=== PATIENT | female | born 1945 | race African-American/Black ===

== ENCOUNTER 2020-06-26 11:13 | Outpatient (REF) | payer MEDICARE, SELFPAY | END 2020-06-26 11:14 | disposition home or self-care (01) | LOC: HO.LAB 11:13 | PROVIDERS: PCP Internal Medicine; Visit Provider Internal Medicine | DX: Z20.828 Contact with and (suspected) exposure to other viral communicable diseases (principal) | CPT/HCPCS: C9803; U0003 ==

== ENCOUNTER 2020-09-26 14:36 | Outpatient (REF) | payer MEDICARE, SELFPAY ==
--- NOTE | ~2020-09-26 | MM_ITS ---
EXAMINATION: MM DIAGNOSTIC DIGITAL BREAST TOMOSYNTHESIS, RIGHT CLINICAL INFORMATION: Short interval follow-up probable benign calcifications upper outer right breast. The lifetime risk of breast cancer based on the Tyrer-Cuzick Model is 4%. COMPARISON: Mammography: 01/27/2020, 01/25/2020 (BI-RADS 0), 12/13/2014 TECHNIQUE: Digital breast tomosynthesis is performed in both the craniocaudal and mediolateral oblique views along with computer-aided detection (CAD). Synthesized 2D images are generated from the tomosynthesis. Additional magnification right CC and magnification right ML views are obtained. FINDINGS: There are scattered areas of fibroglandular density (ACR BI-RADS breast composition Category b). There are no significant masses, abnormal calcifications, or other abnormalities. Parenchymal pattern is similar to prior exams. No developing density. The benign-appearing calcifications upper outer right breast are stable and will be reassessed again at time of annual bilateral mammography, due in 6 months. Results are provided to the patient at time of visit by the technologist. MM/MM tomosynthesis diagnostic RT IMPRESSION: There are no significant changes from prior study. ASSESSMENT: BI-RADS 3: Probably Benign RECOMMENDATION: Diagnostic mammography at time of annual exam, due in 6 months. This patient's information was entered into a reminder system with a target due date for their next mammogram.
== END 2020-09-26 14:37 | disposition home or self-care (01) ==
LOC: HO.MAMMO 14:36
PROVIDERS: PCP Internal Medicine; Visit Provider Internal Medicine
DX: R92.1 Mammographic calcification found on diagnostic imaging of breast (principal)
CPT/HCPCS: 77061; 77065

== ENCOUNTER 2021-03-19 11:56 | Outpatient (REF) | payer MEDICARE, SELFPAY ==
[2021-03-19 12:58] LABS: Basophils Percent Auto 0.3 % (0-2); Eosinophils Absolute Auto 0.1 X10*3/uL (0.0-0.4); Eosinophils Percent Auto 0.8 % (0-4); Hematocrit 43.6 % (37-47); Hemoglobin 13.6 g/dl (12.0-16.0); Imm Gran Abs Auto 0.02 X10*3/uL (0.00-0.03); Imm Gran Pct Auto 0.2 % (0.0-0.4); MANUAL DIFF FLAG SCAN; Mean Corpuscular HGB Conc 31.2 g/dl (31.0-35.0); Mean Platelet Volume 11.2 fL (9.4-12.3); Monocytes Absolute Auto 0.7 X10*3/uL (0.1-1.2); Monocytes Percent Auto 6.7 % (2-11); Neutrophils Absolute Auto 3.3 X10*3/uL (2.0-8.3); Platelet Count 213 X10*3/uL (160-400); Red Blood Count 4.54 X10*6/uL (4.20-5.50); Red Cell Distribution Width 13.2 % (11.0-16.0); SCAN SMEAR FLAG 1; White Blood Count 10.6 X10*3/uL (4.8-10.8)
[2021-03-19 13:07] LABS: Lymphocytes Absolute Auto 6.5 X10*3/uL (1.2-4.9)
[2021-03-19 13:12] LABS: Alanine Aminotransferase 17 U/L (0-31); Albumin Level 3.9 g/dL (3.5-5.0); Alkaline Phosphatase 74 U/L (39-117); Anion Gap 9 (12-20); Aspartate Amino Transferase 20 U/L (5-31); Bilirubin Total 0.5 mg/dL (0.0-1.0); Blood Urea Nitrogen 9 mg/dL (9-16); Calcium 9.2 mg/dL (8.4-10.2); Carbon Dioxide 29 mmol/L (22-29); Chloride 107 mmol/L (96-108); Cholesterol 200 mg/dL; Estimated Glomerular Filt Rate 50; Glucose Random 113 mg/dL (60-115); HDL Cholesterol 40 mg/dL; LDL Cholesterol Calculated 140 mg/dl; Magnesium 2.1 mg/dL (1.6-2.6); Potassium 4.3 mmol/L (3.3-5.1); Sodium 141 mmol/L (135-145); Total Protein 6.7 g/dL (6.5-8.0); Triglycerides 103 mg/dL
[2021-03-19 13:32] LABS: Free T4 (Free Thyroxine) 0.95 ng/dL (0.71-1.85); Thyroid Stimulating Hormone 0.83 uIU/mL (0.32-4.0); Vitamin D 25-OH Total 21.9 ng/mL (>30)
[2021-03-19 13:38] LABS: SLIDE REVIEW VERIFIED
[2021-03-19 14:06] LABS: Folate 17.6 ng/mL (> or = 4.0); Vitamin B12 465 pg/mL (200-900)
== END 2021-03-19 11:57 | disposition home or self-care (01) ==
LOC: HO.LAB 11:56
PROVIDERS: PCP Internal Medicine; Visit Provider Internal Medicine
DX: E78.00 Pure hypercholesterolemia, unspecified (principal); K21.9 Gastro-esophageal reflux disease without esophagitis
CPT/HCPCS: 36415; 80053; 80061; 82306; 82607; 82746; 83735; 84439; 84443; 85025

== ENCOUNTER 2021-03-22 09:24 | Outpatient (REF) | payer MEDICARE, SELFPAY ==
--- NOTE | ~2021-03-22 | FL_ITS ---
EXAMINATION: FL BARIUM SWALLOW CLINICAL INFORMATION: Chest discomfort while swallowing liquids and solids. COMPARISON: None TECHNIQUE: Barium swallow examination is performed using fluoroscopic evaluation in addition to multiple fluoroscopic spot views. The patient is imaged both upright and prone and using both thick and thin sulfate along with effervescent granules. Fluoroscopy time: 2.7 minutes DAP: 53.828 Gycm2 Images: 72 FINDINGS: Following oral administration of thick barium and barium coated turkey there is normal propagation of bolus from the oral cavity through the pharynx, esophagus into stomach without any evidence of obstruction, narrowing or stricture. On placing patient prone and supine lying there is moderate gastroesophageal reflux without hiatal hernia or gastroesophageal junction is widely patent. There are surgical carmen in the right upper quadrant from previous cholecystectomy. FL/FL barium swallow IMPRESSION: Widely patent esophagus. There is moderate gastroesophageal reflux without hiatal hernia.
== END 2021-03-22 09:25 | disposition home or self-care (01) ==
LOC: HO.XRAY 09:24
PROVIDERS: PCP Internal Medicine; Visit Provider Internal Medicine
DX: R13.10 Dysphagia, unspecified (principal); J45.909 Unspecified asthma, uncomplicated
CPT/HCPCS: 74220

== ENCOUNTER 2021-04-01 08:52 | Outpatient (REF) | payer MEDICARE, SELFPAY ==
--- NOTE | ~2021-04-01 | MM_ITS ---
EXAMINATION: MM DIAGNOSTIC DIGITAL BREAST TOMOSYNTHESIS, BILATERAL CLINICAL INFORMATION: Due for yearly. Also follow-up probable benign calcifications tightly grouped right breast upper outer quadrant. Family history breast cancer sister, aunt. The lifetime risk of breast cancer based on the Tyrer-Cuzick Model is 5%. COMPARISON: Mammography: 09/26/2020, 01/27/2020, 01/25/2020 (BI-RADS 0), 12/13/2014. TECHNIQUE: Digital breast tomosynthesis is performed in both the craniocaudal and mediolateral oblique views along with computer-aided detection (CAD). Synthesized 2D images are generated from the tomosynthesis. Additional magnification right CC and magnification right ML views are obtained. FINDINGS: There are scattered areas of fibroglandular density (ACR BI-RADS breast composition Category b). Parenchymal pattern is similar to prior studies. There is no developing density or interval mass or architectural abnormality. The axilla and skin contours are unremarkable. There is no interval suspicious calcifications. The small group of relatively coarse calcifications right breast mid upper outer quadrant are stable from prior diagnostic exams. These will be reassessed again at time of next bilateral annual mammography to conclude long-term surveillance. Results are provided to the patient at time of visit by the technologist. MM/MM tomosynthesis diagnostic BI IMPRESSION: 1. Right: Probable benign grouped calcifications for follow-up stable. No significant changes. 2. Left: No mammographic evidence of malignancy. ASSESSMENT: BI-RADS 3: Probably Benign RECOMMENDATION: Diagnostic mammography at time of next annual exam, due in 12 months. This patient's information was entered into a reminder system with a target due date for their next mammogram.
== END 2021-04-01 08:53 | disposition home or self-care (01) ==
LOC: HO.MAMMO 08:52
PROVIDERS: PCP Internal Medicine; Visit Provider Internal Medicine
DX: R92.2 Inconclusive mammogram (principal)
CPT/HCPCS: 77062; 77066

== ENCOUNTER 2021-04-22 14:04 | Outpatient (REF) | payer MEDICARE, SELFPAY | END 2021-04-22 14:05 | disposition home or self-care (01) | LOC: HO.LAB 14:04 | PROVIDERS: PCP Internal Medicine | DX: N39.41 Urge incontinence (principal) | CPT/HCPCS: 51798; 87086; 99202 ==

== ENCOUNTER → 2021-04-23 09:01 | Outpatient (BNVA) | payer MEDICARE, SELFPAY | PROVIDERS: PCP Internal Medicine; Visit Provider Advanced Practice Midwife ==

== ENCOUNTER → 2021-04-30 14:52 | Outpatient (BNV) | payer MEDICARE, OTHER, SELFPAY | PROVIDERS: PCP Internal Medicine; Visit Provider Internal Medicine Medical Oncology | DX: C88.4 Extranodal marginal zone B-cell lymphoma of mucosa-associated lymphoid tissue [MALT-lymphoma] (principal); K86.9 Disease of pancreas, unspecified | CPT/HCPCS: 99212; 99213; 99214 ==

== ENCOUNTER → 2021-05-08 15:03 | Outpatient (BNVA) | payer MEDICARE, SELFPAY | PROVIDERS: PCP Internal Medicine; Visit Provider Internal Medicine | DX: G47.33 Obstructive sleep apnea (adult) (pediatric) (principal); G47.10 Hypersomnia, unspecified; R06.00 Dyspnea, unspecified; E66.9 Obesity, unspecified; C88.4 Extranodal marginal zone B-cell lymphoma of mucosa-associated lymphoid tissue [MALT-lymphoma] | CPT/HCPCS: 99202 ==

== ENCOUNTER 2021-05-21 09:11 | Outpatient (REF) | payer MEDICARE, SELFPAY ==
--- NOTE | 2021-05-21 17:44 | PFT_ITS ---
INDICATION: Dyspnea. SPIROMETRY: The FEV1 to FVC of 92% with an FEV1 of 1.84 L, which is 98% predicted and an FVC 1.99 L, which is 79% predicted. No significant response to bronchodilators noted. Maximum voluntary ventilation 94% predicted. LUNG VOLUMES: Total lung capacity 66% predicted with an expiratory reserve volume of 35% predicted. DIFFUSION CAPACITY: DLCO of 77% predicted. COMPARISONS: None available. INTERPRETATION: There is a restrictive ventilatory defect, moderate in severity of unclear etiology. Interstitial lung conditions and/or neuromuscular conditions need to be considered. The patient also has a decrease in the expiratory reserve volume secondary to an elevated BMI, that may be also affecting the lung volumes. Her spirometry demonstrates no evidence of any obstruction and no significant response to bronchodilators noted. She has normal maximum voluntary ventilation. In addition to that, there is a mild diffusion impairment. Clinical correlation warranted. Viet Jorgensen MD MR/MODL / [id number]
== END 2021-05-21 09:12 | disposition home or self-care (01) ==
LOC: HO.SL 09:11
PROVIDERS: Visit Provider Internal Medicine
DX: G47.33 Obstructive sleep apnea (adult) (pediatric) (principal); E66.9 Obesity, unspecified; R06.00 Dyspnea, unspecified; G47.10 Hypersomnia, unspecified
CPT/HCPCS: 94060; 94727; 94729; 95806

== ENCOUNTER → 2021-05-24 08:51 | Outpatient (BNVA) | payer MEDICARE, SELFPAY | PROVIDERS: PCP Internal Medicine | DX: N39.41 Urge incontinence (principal) | CPT/HCPCS: Q3014 ==

== ENCOUNTER 2021-06-17 09:48 | Outpatient (REF) | payer MEDICARE, SELFPAY ==
[2021-06-17 11:22] LABS: Blood Urea Nitrogen 10 mg/dL (9-16); Estimated Glomerular Filt Rate > 60
[2021-06-17 11:28] LABS: Cholesterol 189 mg/dL; HDL Cholesterol 39 mg/dL; LDL Cholesterol Calculated 133 mg/dl; Triglycerides 88 mg/dL
== END 2021-06-17 09:49 | disposition home or self-care (01) ==
LOC: HO.LAB 09:48
PROVIDERS: Nurse Practitioner Family; Absent Provider Internal Medicine; PCP Internal Medicine; Visit Provider Internal Medicine
DX: R06.00 Dyspnea, unspecified (principal); R91.1 Solitary pulmonary nodule; J98.4 Other disorders of lung; G47.33 Obstructive sleep apnea (adult) (pediatric); E78.00 Pure hypercholesterolemia, unspecified; E66.9 Obesity, unspecified
CPT/HCPCS: 36415; 80061; 82565; 84520; 99212

== ENCOUNTER 2021-06-17 11:58 | Outpatient (REF) | payer MEDICARE, SELFPAY ==
[2021-06-17 12:33] LABS: COVID-19 Test Negative (Negative)
== END 2021-06-17 11:59 | disposition home or self-care (01) ==
LOC: HO.LAB 11:58
PROVIDERS: Visit Provider Internal Medicine
DX: Z20.822 Contact with and (suspected) exposure to COVID-19 (principal)
CPT/HCPCS: 36415; 87635; C9803

== ENCOUNTER 2021-06-24 11:01 | Outpatient (REF) | payer MEDICARE, SELFPAY ==
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
== END 2021-06-24 11:02 | disposition home or self-care (01) ==
LOC: HO.MRI 11:01
PROVIDERS: Visit Provider Internal Medicine
DX: K86.89 Other specified diseases of pancreas (principal)
CPT/HCPCS: 74183; A9585

== ENCOUNTER 2021-07-03 07:51 | Outpatient (REF) | payer MEDICARE, SELFPAY ==
--- NOTE | ~2021-07-03 | CT_ITS ---
EXAMINATION: CT CHEST WITH CONTRAST CLINICAL INFORMATION: Follow-up pulmonary nodule COMPARISON: Previous chest CT scans most recent March 2020 TECHNIQUE: Multidetector volumetric CT imaging of the chest was obtained after the administration of 50 mL of Omnipaque 350 intravenous contrast without immediate adverse reactions. Axial MIP volume rendering provided. Sagittal and coronal reformatted images were obtained. This CT examination was performed using dose optimization techniques as appropriate, variously including the following: *Automated exposure control *Adjustment of mA and/or kV according to patient size (this includes techniques or standardized protocols for targeted exams where dose is matched to indication/reason for exam; i.e. extremities or head) *Use of iterative reconstruction technique DLP: 172 mGy-cm FINDINGS: LUNGS: There are bilateral groundglass attenuation nodules and areas of increased groundglass attenuation seen. This does not appear appreciably changed. Largest nodule measures 8 mm in the right lower lobe axial image 79 series 7. There are postsurgical changes to the right middle lobe. There is a 1 cm denser or more solid-appearing nodule axial image 67 series 7 seen adjacent to the surgical staple line and surrounding groundglass attenuation that is stable. There is a 4 mm solid left lower lobe nodule axial image 136 series 7 that is stable. No new pulmonary nodule is seen. MEDIASTINUM: The mediastinum is normal. PLEURA: There is no pleural effusion. No pleural mass or thickening. AXILLA: No lymphadenopathy. UPPER ABDOMEN: There is a 2 cm cyst in the head of the pancreas that is stable. The gallbladder has been removed. There is a small cyst in the peripheral liver adjacent to the gallbladder fossa measuring 1.2 x 3 cm that is stable. There is a 5 mm low-attenuation lesion high in the dome of the liver axial image 31 series 3 that is stable. OSSEOUS STRUCTURES: There are degenerative changes of the spine. CT/CT chest w con IMPRESSION: Stable bilateral groundglass attenuation nodules. Stable more solid-appearing 1 cm right middle lobe nodule adjacent to the surgical staple line and 4 mm left lower lobe nodule. Fleischner guidelines were followed.
== END 2021-07-03 07:52 | disposition home or self-care (01) ==
LOC: HO.CT 07:51
PROVIDERS: Visit Provider Nurse Practitioner Family
DX: R91.1 Solitary pulmonary nodule (principal)
CPT/HCPCS: 71260

== ENCOUNTER → 2021-08-22 09:33 | Outpatient (BNVA) | payer OTHER, SELFPAY | PROVIDERS: PCP Internal Medicine; Visit Provider Internal Medicine | DX: J98.4 Other disorders of lung (principal); R91.1 Solitary pulmonary nodule; G47.33 Obstructive sleep apnea (adult) (pediatric); E66.9 Obesity, unspecified; Z68.41 Body mass index [BMI] 40.0-44.9, adult | CPT/HCPCS: 99212 ==

== ENCOUNTER 2021-09-05 12:29 | Outpatient (REF) | payer OTHER, SELFPAY ==
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
== END 2021-09-05 12:30 | disposition home or self-care (01) ==
LOC: HO.XRAY 12:29
PROVIDERS: PCP Internal Medicine; Visit Provider Nurse Practitioner Acute Care
DX: M54.50 Low back pain, unspecified (principal); M25.551 Pain in right hip
CPT/HCPCS: 72110; 73502

== ENCOUNTER → 2021-11-14 09:20 | Outpatient (BNVA) | payer OTHER, SELFPAY | PROVIDERS: PCP Internal Medicine; Visit Provider Internal Medicine | DX: G47.33 Obstructive sleep apnea (adult) (pediatric) (principal); J98.4 Other disorders of lung; R91.1 Solitary pulmonary nodule; J30.9 Allergic rhinitis, unspecified; E66.9 Obesity, unspecified; Z68.41 Body mass index [BMI] 40.0-44.9, adult | CPT/HCPCS: 99212 ==

== ENCOUNTER 2021-11-21 11:00 | Outpatient (RCR) | payer OTHER, SELFPAY ==
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
== END 2021-12-03 11:54 | disposition home or self-care (01) ==
LOC: HO.PT 11:00
PROVIDERS: Visit Provider Internal Medicine
DX: M25.551 Pain in right hip (principal); M54.50 Low back pain, unspecified; V89.2XXD Person injured in unspecified motor-vehicle accident, traffic, subsequent encounter
CPT/HCPCS: 97110; 97162

== ENCOUNTER 2021-11-22 08:41 | Outpatient (REF) | payer OTHER, SELFPAY ==
--- NOTE | ~2021-11-22 | MR_ITS ---
EXAMINATION: MR LUMBAR SPINE WITHOUT CONTRAST CLINICAL INFORMATION: Lower back pain. COMPARISON: Lumbar spine radiographs from 09/05/2021. PET/CT from 01/22/2017. TECHNIQUE: MRI of the lumbar spine was obtained using routine sequences without contrast. FINDINGS: Degenerative grade 1 anterolisthesis of L4 on L5. Otherwise, normal anatomic alignment. Moderate degenerative disc disease from T10-L1 and L3-S1. Mild degenerative disc disease at L1-L2. Associated mixed Modic type discogenic endplate changes including mild Modic type I discogenic edema from T11-L4 and L2-L5. Mild marrow edema within the L4-S1 facets consistent with degenerative stress reaction. No additional suspicious marrow edema. Small Schmorl's node in the inferior endplate of T10. Otherwise, the vertebral body heights are largely maintained. The conus medullaris terminates at the level of L2. The distal spinal cord is normal in appearance. Moderate subcutaneous edema within the soft tissues of the back from T12-L5. No additional significant abnormalities of the paraspinal musculature. Bilateral peripelvic T2 hyperintense renal cysts. Otherwise, limited evaluation of the intra-abdominal structures without significant abnormalities. The abdominal aorta is of normal contour and caliber. AXIAL SPINAL LEVELS: T11-T12: This level was not included on axial imaging. Mild to moderate diffuse disc bulge. There is mild bilateral neural foraminal stenosis. There is no spinal canal stenosis. T12-L1: Mild to moderate diffuse disc bulge. There is mild bilateral facet joint arthropathy. There is mild right and no left neural foraminal stenosis. There is no spinal canal stenosis. L1-L2: Shallow diffuse disc bulge. There is mild bilateral facet joint arthropathy. There is mild bilateral neural foraminal stenosis. There is no spinal canal stenosis. L2-L3: Normal annular contour. There is moderate right and mild left facet joint arthropathy. There is mild bilateral neural foraminal stenosis. There is no spinal canal stenosis. L3-L4: Mild diffuse disc bulge. There is moderate bilateral facet joint arthropathy with ligamentum flavum hypertrophy. There is mild bilateral neural foraminal stenosis. There is stenosis of the subarticular zones with mild to moderate effacement of the thecal sac centrally exacerbated by prominent epidural lipomatous tissue. L4-L5: Moderate diffuse disc bulge exacerbated by uncovering from anterolisthesis. There is severe bilateral facet joint arthropathy. There is mild to moderate bilateral neural foraminal stenosis. There is stenosis of the subarticular zones with moderate effacement of the thecal sac centrally exacerbated by prominent epidural lipomatous tissue. L5-S1: Normal annular contour. There is severe bilateral facet joint arthropathy. There is no neural foraminal stenosis. There is no spinal canal stenosis. MR/MR lumbar spine wo con IMPRESSION: Moderate multilevel degenerative spondyloarthropathy of the lumbar spine as described in detail above. Most notably, multifactorial degenerative spondyloarthropathy exacerbated by prominent epidural lipomatous tissue leads to stenoses of the subarticular zones and mild to moderate effacement of the thecal sac at L3-L4 and L4-L5. Advanced facet joint arthropathy at L4-L5 and L5-S1.
== END 2021-11-22 08:42 | disposition home or self-care (01) ==
LOC: HO.MRI 08:41
PROVIDERS: Visit Provider Internal Medicine
DX: M54.50 Low back pain, unspecified (principal)
CPT/HCPCS: 72148

== ENCOUNTER → 2021-12-31 08:42 | Outpatient (BNVA) | payer OTHER, SELFPAY | PROVIDERS: PCP Internal Medicine | DX: Z13.89 Encounter for screening for other disorder (principal) | CPT/HCPCS: Q3014 ==

== ENCOUNTER → 2022-01-16 09:49 | Outpatient (BNVA) | payer OTHER, SELFPAY | PROVIDERS: PCP Internal Medicine; Visit Provider Internal Medicine | DX: R06.00 Dyspnea, unspecified (principal); G47.33 Obstructive sleep apnea (adult) (pediatric); E66.9 Obesity, unspecified; R91.1 Solitary pulmonary nodule; J98.4 Other disorders of lung; Z68.41 Body mass index [BMI] 40.0-44.9, adult | CPT/HCPCS: 99212 ==

== ENCOUNTER 2022-02-04 09:07 | Outpatient (REF) | payer OTHER, SELFPAY ==
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
== END 2022-02-04 09:08 | disposition home or self-care (01) ==
LOC: HO.XRAY 09:07
PROVIDERS: PCP Internal Medicine; Visit Provider Internal Medicine
DX: J40 Bronchitis, not specified as acute or chronic (principal); Z79.899 Other long term (current) drug therapy
CPT/HCPCS: 71046; 99212

== ENCOUNTER → 2022-03-18 10:57 | Outpatient (BNVA) | payer OTHER, SELFPAY | PROVIDERS: PCP Internal Medicine; Visit Provider Internal Medicine | DX: G47.33 Obstructive sleep apnea (adult) (pediatric) (principal); G47.10 Hypersomnia, unspecified; E66.9 Obesity, unspecified; Z68.41 Body mass index [BMI] 40.0-44.9, adult | CPT/HCPCS: 99212 ==

== ENCOUNTER 2022-03-26 09:00 | Outpatient (RCR) | payer OTHER, SELFPAY ==
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
== END 2022-03-28 10:21 | disposition home or self-care (01) ==
LOC: HO.PT 09:00
PROVIDERS: PCP Internal Medicine; Visit Provider Internal Medicine
DX: M25.551 Pain in right hip (principal); M54.50 Low back pain, unspecified; V89.2XXD Person injured in unspecified motor-vehicle accident, traffic, subsequent encounter
CPT/HCPCS: 97110; 97161; 97530

== ENCOUNTER 2022-04-02 08:50 | Outpatient (REF) | payer OTHER, SELFPAY ==
--- NOTE | ~2022-04-02 | MM_ITS ---
EXAMINATION: MM DIAGNOSTIC DIGITAL BREAST TOMOSYNTHESIS, BILATERAL CLINICAL INFORMATION: Follow-up right breast calcifications. Yearly screening left breast study. The lifetime risk of breast cancer based on the Tyrer-Cuzick Model is 6%. COMPARISON: Mammography: April 01, 2021 and studies dating back to December 07, 2012 TECHNIQUE: Digital breast tomosynthesis is performed in both the craniocaudal and mediolateral oblique views along with computer-aided detection (CAD). Synthesized 2D images are generated from the tomosynthesis. Additional spot magnification views of the right breast in craniocaudal and 90 degree mediolateral views performed. FINDINGS: There are scattered areas of fibroglandular density (ACR BI-RADS breast composition Category b). There are no new significant masses, abnormal calcifications, or other abnormalities. Right breast calcifications have been stable for 2 years. Results are provided to the patient at time of visit by the technologist. MM/MM tomosynthesis diagnostic BI IMPRESSION: There are no significant changes from prior study. ASSESSMENT: BI-RADS 2: Benign RECOMMENDATION: Routine annual mammography screening. This patient's information was entered into a reminder system with a target due date for their next mammogram.
== END 2022-04-02 08:51 | disposition home or self-care (01) ==
LOC: HO.MAMMO 08:50
PROVIDERS: PCP Internal Medicine; Visit Provider Internal Medicine
DX: R92.1 Mammographic calcification found on diagnostic imaging of breast (principal)
CPT/HCPCS: 77062; 77066

== ENCOUNTER → 2022-04-23 09:54 | Outpatient (BNVA) | payer OTHER, SELFPAY | PROVIDERS: PCP Internal Medicine; Visit Provider Internal Medicine | DX: G47.33 Obstructive sleep apnea (adult) (pediatric) (principal); E66.9 Obesity, unspecified; Z68.41 Body mass index [BMI] 40.0-44.9, adult; G47.10 Hypersomnia, unspecified; J98.4 Other disorders of lung; R91.1 Solitary pulmonary nodule; Z99.89 Dependence on other enabling machines and devices | CPT/HCPCS: 99212 ==

== ENCOUNTER 2022-04-28 10:16 | Outpatient (REF) | payer OTHER, SELFPAY ==
[2022-05-02 03:52] LABS: HPV mRNA E6/E7 rflx Not Detected (Not Detected)
== END 2022-04-28 10:17 | disposition home or self-care (01) ==
LOC: HO.LNP 10:16
PROVIDERS: Visit Provider Advanced Practice Midwife
DX: Z01.419 Encounter for gynecological examination (general) (routine) without abnormal findings (principal); Z11.51 Encounter for screening for human papillomavirus (HPV)
CPT/HCPCS: 87624; 88142

== ENCOUNTER 2022-05-23 10:29 | Outpatient (REF) | payer OTHER, SELFPAY ==
--- NOTE | ~2022-05-23 | US_ITS ---
EXAMINATION: US PELVIS CLINICAL INFORMATION: Right lower quadrant pain COMPARISON: Previous CT of the abdomen and pelvis May 2017 TECHNIQUE: Ultrasound of the pelvis is performed using both transabdominal and transvaginal transducers along with Doppler. Transvaginal imaging is performed due to inadequate visualization transabdominally. FINDINGS: The uterus is anteverted and measures 6.9 x 2.9 x 4.4 cm in dimension. No focal uterine lesion. Endometrial thickness is normal measuring 0.3 cm. The ovaries are not seen. There is no fluid in the pelvis. US/US pelvic and transvaginal IMPRESSION: Normal-appearing uterus. Ovaries not seen.
== END 2022-05-23 10:30 | disposition home or self-care (01) ==
LOC: HO.US 10:29
PROVIDERS: Visit Provider Advanced Practice Midwife
DX: R10.31 Right lower quadrant pain (principal)
CPT/HCPCS: 76830; 76856

== ENCOUNTER 2022-06-02 07:48 | Outpatient (REF) | payer OTHER, SELFPAY ==
--- NOTE | ~2022-06-02 | CT_ITS ---
EXAMINATION: CT CHEST WITH CONTRAST CLINICAL INFORMATION: Solitary pulmonary nodule. COMPARISON: Chest radiograph 02/04/2022, CT chest 07/03/2021. TECHNIQUE: Multidetector volumetric CT imaging of the chest was obtained after the administration of 65 mL of Omnipaque 350 intravenous contrast without immediate adverse reactions. Axial MIP volume rendering provided. Sagittal and coronal reformatted images were obtained. This CT examination was performed using dose optimization techniques as appropriate, variously including the following: *Automated exposure control *Adjustment of mA and/or kV according to patient size (this includes techniques or standardized protocols for targeted exams where dose is matched to indication/reason for exam; i.e. extremities or head) *Use of iterative reconstruction technique DLP: 161 mGy-cm FINDINGS: LUNGS: In the right middle lobe, again seen is a suture line extending from the infrahilar region into the right middle lobe. Adjacent to the fissure is an approximately 1 cm of rounded opacity unchanged from prior (7:60), possibly round atelectasis. Small ground-glass opacity at the right apex is unchanged (7:24 compare prior 7:32). An additional ground-glass opacity in the anterior recess medially appears slightly smaller now measuring 9 mm previously 1.5 cm (7:36 compare prior 7:41). Two ground-glass opacities adjacent to one another in the left upper lobe are unchanged (7:47). Some scattered punctate nodular densities are unchanged. Left-sided peridiaphragmatic 3 mm nodule unchanged (7:126). No new worrisome finding is seen. MEDIASTINUM: Small lymph nodes are present but there is no mediastinal or hilar lymphadenopathy. A subcentimeter right thyroid nodule is present. CORONARY ARTERY CALCIFICATION: None visualized on this study. PLEURA: There is no pleural effusion. No pleural mass or thickening. AXILLA: No lymphadenopathy. UPPER ABDOMEN: Tiny subcentimeter hypodensity just below the dome of the right hemidiaphragm unchanged (7:97). Status post cholecystectomy. No adrenal masses are seen. OSSEOUS STRUCTURES: Unremarkable. CT/CT chest w IV con IMPRESSION: 1. Stable postsurgical changes in the right middle lobe with stable rounded opacity adjacent to the fissure, possibly round atelectasis. 2. Ground-glass opacities in the lungs are unchanged. 3. No new worrisome finding is seen. CT at 6-12 months to confirm persistence, then CT every 2 years until 5 years if it persists. Fleischner guidelines were followed.
[2022-06-02] MEDS: iohexoL 350 MG/ML 100 ML INFUS..BTL IV (08:46)
[2022-06-03 09:39] LABS: Creatinine POC 0.6 mg/dL (0.5-1.4); GFR POC > 60
== END 2022-06-02 07:49 | disposition home or self-care (01) ==
LOC: HO.CT 07:48
PROVIDERS: PCP Internal Medicine; Visit Provider Internal Medicine Medical Oncology
DX: R91.1 Solitary pulmonary nodule (principal)
CPT/HCPCS: 71260; 82565; Q9967

== ENCOUNTER 2022-06-03 07:52 | Outpatient (REF) | payer OTHER, SELFPAY ==
--- NOTE | ~2022-06-03 | US_ITS ---
EXAMINATION: US RETROPERITONEAL LIMITED (RENAL ONLY) CLINICAL INFORMATION: Cyst of kidney, acquired. COMPARISON: MR abdomen without and with contrast 06/24/2021. CT chest, abdomen and pelvis with IV contrast 05/28/2017. TECHNIQUE: Real-time imaging of the kidneys. FINDINGS: RIGHT KIDNEY: 9.9 x 5.3 x 5.0 cm (SAG x AP x TRV). The kidney is normal in size, contour, and echogenicity. Renal cortical thickness is normal. There is a 4 mm echogenic density in the lower pole. Appearance is questionable for stone, calcified vessel or angiomyolipoma. No corresponding abnormality is appreciated on prior CT or MRI. No hydronephrosis. LEFT KIDNEY: 9.2 x 5.7 x 4.5 cm (SAG x AP x TRV). The kidney is normal in size, contour, and echogenicity. Renal cortical thickness is normal. There are peripelvic cysts. The largest measures 1.7 x 1.1 x 1 cm in the mid to lower pole. No renal calculi or hydronephrosis. US/US renal BI IMPRESSION: Left renal peripelvic cysts not appreciably changed from previous exam. 4 mm nonspecific echogenic density in the lower pole of the right kidney..
== END 2022-06-03 07:53 | disposition home or self-care (01) ==
LOC: HO.US 07:52
DX: N28.1 Cyst of kidney, acquired (principal)
CPT/HCPCS: 76775

== ENCOUNTER → 2022-06-05 11:57 | Outpatient (BNVA) | payer OTHER, SELFPAY | PROVIDERS: PCP Internal Medicine; Visit Provider Advanced Practice Midwife | DX: Z71.2 Person consulting for explanation of examination or test findings (principal) | CPT/HCPCS: 99212 ==

== ENCOUNTER 2022-06-23 19:01 | Outpatient (REF) | payer OTHER, SELFPAY ==
--- NOTE | ~2022-06-23 | MR_ITS ---
EXAMINATION: MR ABDOMEN WITHOUT AND WITH CONTRAST CLINICAL INFORMATION: Follow-up pancreatic mass COMPARISON: Previous MR of the abdomen, most recent June [address] of the abdomen and pelvis May 2017 TECHNIQUE: MR abdomen was performed without and with use of 10 mL intravenous Gadavist gadolinium contrast. Postcontrast images are performed in multiphase dynamic sequences. Imaging was performed in 3 planes. MRCP sequences were also performed. FINDINGS: LUNG BASES: The visualized lung bases are unremarkable. LIVER, GALLBLADDER, AND BILIARY TREE: The liver is normal in size, smooth in contour, and normal in signal. There are several liver cysts that are stable largest measuring 0.9 x 1.2 cm medial segment of the left lobe. No other focal liver lesion. The gallbladder has been removed. No intra or extrahepatic biliary duct dilatation. PANCREAS: Complex multiloculated cyst in the uncinate process of the head of the pancreas measures 1.6 x 2.4 cm for example T2 axial image 19 series 5. This does not appear appreciably changed in size from recent exams. No solid component or enhancement is appreciated. There may be several tiny cysts in the body and tail the pancreas versus dilated pancreatic duct radicles. These measure maximum 2 to 3 mm. Pancreas is otherwise normal. The main pancreatic duct does not appear dilated.. SPLEEN: Normal. ADRENAL GLANDS: Normal. KIDNEYS AND URETERS: The kidneys are normal in size, shape, and enhance symmetrically. Bilateral renal peripelvic cysts. No hydronephrosis. No perinephric stranding. GASTROINTESTINAL TRACT: No bowel obstruction. No ascites or fluid collection. ABDOMINAL WALL: No significant hernia is appreciated. LYMPH NODES: No lymphadenopathy. VASCULAR: Unremarkable. OSSEOUS STRUCTURES: Marrow signal normal. Degenerative changes of the spine. MR/MR abdomen wo/w con IMPRESSION: Stable multiloculated cystic lesion in the head of the pancreas from recent exams.
== END 2022-06-23 19:02 | disposition home or self-care (01) ==
LOC: HO.MRI 19:01
PROVIDERS: Visit Provider Internal Medicine Medical Oncology
DX: K86.89 Other specified diseases of pancreas (principal)
CPT/HCPCS: 74183; A9585

== ENCOUNTER → 2022-07-03 12:41 | Outpatient (BNVA) | payer OTHER, SELFPAY | PROVIDERS: PCP Internal Medicine; Visit Provider Urology | DX: N39.41 Urge incontinence (principal); N28.1 Cyst of kidney, acquired | CPT/HCPCS: 51798; 99212 ==

== ENCOUNTER 2022-07-07 08:05 | Outpatient (REF) | payer OTHER, SELFPAY ==
--- NOTE | ~2022-07-07 | MR_ITS ---
EXAMINATION: MRI PELVIS WITH AND WITHOUT CONTRAST CLINICAL INFORMATION: Reason for Exam R10.2 - Pelvic and perineal pain COMPARISON: No pertinent priors currently available. TECHNIQUE: Multiple routine MRI sequences through the pelvis were obtained on a high-field 1.5 [place] MRI before and after the uneventful administration of 10 mL of Gadavist gadolinium-based IV contrast. FINDINGS: UTERUS: Anteverted uterus has a normal configuration and measures 7 cm [id number] x 2.3 cm anterior-posterior x 4.2 cm transverse. Normal endometrial thickness, 0.2 cm. Junctional zone is normal in signal and thickness. 1.1 cm T2 dark lesion at the uterine fundus. This is isointense to the surrounding uterine parenchyma on T1-weighted imaging. This is relatively hypoenhancing. This is most suggestive of a fibroid. No additional uterine lesion. CERVIX: Normal. VAGINA: Normal; no mass seen. RIGHT OVARY: The right ovary measures 1.4 x 0.9 x 1.3 cm. No adnexal mass. LEFT OVARY: The left ovary is not well seen. No adnexal mass. KIDNEYS: Two normally positioned kidneys are seen. No hydronephrosis. BLADDER: Urinary bladder normal. PELVIC FREE FLUID: No free fluid or ascites. LYMPH NODES: No pathologically enlarged lymph nodes. OSSEOUS STRUCTURES: No acute or suspicious osseous abnormalities. Mild degenerative change along the pubic symphysis. MR/MR pelvis wo/w con IMPRESSION: 1. No adnexal mass. 2. Small uterine fibroid.
== END 2022-07-07 08:06 | disposition home or self-care (01) ==
LOC: HO.MRI 08:05
PROVIDERS: Visit Provider Advanced Practice Midwife
DX: R10.2 Pelvic and perineal pain (principal)
CPT/HCPCS: 72197; A9585

== ENCOUNTER → 2022-07-29 09:55 | Outpatient (BNVA) | payer OTHER, SELFPAY | PROVIDERS: PCP Internal Medicine; Visit Provider Internal Medicine | DX: G47.33 Obstructive sleep apnea (adult) (pediatric) (principal); E66.9 Obesity, unspecified; Z68.41 Body mass index [BMI] 40.0-44.9, adult; R06.00 Dyspnea, unspecified; J98.4 Other disorders of lung; Z99.89 Dependence on other enabling machines and devices | CPT/HCPCS: 99212 ==

== ENCOUNTER → 2022-10-08 09:46 | Outpatient (BNVA) | payer OTHER, SELFPAY | PROVIDERS: PCP Internal Medicine; Visit Provider Internal Medicine | DX: Z13.89 Encounter for screening for other disorder (principal) ==

== ENCOUNTER → 2022-11-20 14:18 | Outpatient (BNVA) | payer OTHER, SELFPAY | PROVIDERS: PCP Internal Medicine; Visit Provider Urology | DX: N32.81 Overactive bladder (principal); N39.41 Urge incontinence; N28.1 Cyst of kidney, acquired; N95.2 Postmenopausal atrophic vaginitis; Z79.899 Other long term (current) drug therapy | CPT/HCPCS: 52000 ==

== ENCOUNTER 2023-01-06 15:28 | Outpatient (REF) | payer MEDICARE, SELFPAY ==
[2023-01-06 17:04] LABS: Basophils Absolute Auto 0.1 X10*3/uL (0.0-0.2); Basophils Percent Auto 0.3 % (0-2); Eosinophils Absolute Auto 0.1 X10*3/uL (0.0-0.4); Eosinophils Percent Auto 0.7 % (0-4); Hematocrit 42.5 % (37.0-47.0); Hemoglobin 13.3 g/dl (12.0-16.0); Imm Gran Abs Auto 0.04 X10*3/uL (0.00-0.03); Imm Gran Pct Auto 0.2 % (0.0-0.4); Lymphocytes Percent Auto 74.4 % (20-40); MANUAL DIFF FLAG SCAN; Mean Corpuscular HGB Conc 31.3 g/dl (31.0-35.0); Mean Corpuscular Hemoglobin 30.6 pg (27.0-33.0); Mean Corpuscular Volume 97.7 fL (80.0-98.0); Mean Platelet Volume 11.1 fL (9.4-12.3); Monocytes Absolute Auto 0.8 X10*3/uL (0.1-1.2); NRBC Pct Auto 0.1 /100WBC (0.0-0.2); Neutrophils Absolute Auto 3.9 x10*3/uL (2.0-8.3); Neutrophils Percent Auto 20.4 % (45-73); Platelet Count 194 X10*3/uL (160-400); Red Blood Count 4.35 X10*6/uL (4.20-5.50); Red Cell Distribution Width 13.2 % (11.0-16.0); SCAN SMEAR FLAG 1
[2023-01-06 18:09] LABS: Lymphocytes Absolute Auto 14.2 X10*3/uL (1.2-4.9)
[2023-01-06 18:19] LABS: SLIDE REVIEW VERIFIED
== END 2023-01-06 15:29 | disposition home or self-care (01) ==
LOC: HO.LAB 15:28
PROVIDERS: PCP Internal Medicine; Visit Provider Internal Medicine
DX: E66.9 Obesity, unspecified (principal); G47.33 Obstructive sleep apnea (adult) (pediatric); J98.4 Other disorders of lung; J30.9 Allergic rhinitis, unspecified; D72.829 Elevated white blood cell count, unspecified; Z79.899 Other long term (current) drug therapy
CPT/HCPCS: 36415; 85025; 99212

== ENCOUNTER 2023-01-15 06:03 | Outpatient (REF) | payer MEDICARE, SELFPAY ==
[2023-01-15 08:10] LABS: Appearance Urine Clear; Color Urine Yellow; Glucose Urine UA Negative (Negative); Leukocyte Esterase Urine Moderate (2+) (Negative); Nitrite Urine Negative (Negative); PH 5.5 (5.0-9.0); Specific Gravity - Urine 1.025 (1.005-1.025); UMIC TRIGGER UA YES; Urine Blood Small (1+) (Negative); Urine Ketones Negative (Negative); Urine Protein Trace mg/dL (Neg-Trace)
[2023-01-15 08:17] LABS: Bacteria Urine None Seen (None Seen); Hyaline Casts Urine 0-2 /LPF (0-2); Squamous Epithelial Cell Urine 0-2 /HPF (0-2); WBC Urine 21-50 /HPF (0-5)
[2023-01-15 09:01] LABS: Estimated Average Glucose 128 mg/dL; Hemoglobin A1c % 6.1 %
[2023-01-15 11:07] LABS: Alanine Aminotransferase 16 U/L (0-31); Albumin Level 3.9 g/dL (3.5-5.0); Alkaline Phosphatase 80 U/L (39-117); Anion Gap 13 (12-20); Aspartate Amino Transferase 22 U/L (5-31); Bilirubin Total 0.6 mg/dL (0.0-1.0); Blood Urea Nitrogen 14 mg/dL (9-16); Calcium 9.4 mg/dL (8.4-10.2); Carbon Dioxide 25 mmol/L (22-29); Chloride 108 mmol/L (96-108); Cholesterol 177 mg/dL; Estimated Glomerular Filt Rate 52; Glucose Random 123 mg/dL (60-115); HDL Cholesterol 44 mg/dL; LDL Cholesterol Calculated 116 mg/dl; Sodium 142 mmol/L (135-145); Total Protein 6.9 g/dL (6.5-8.0); Triglycerides 88 mg/dL
[2023-01-15 11:24] LABS: Free T4 (Free Thyroxine) 0.93 ng/dL (0.71-1.85); Vitamin D 25-OH Total 21.3 ng/mL (>30)
[2023-01-15 11:37] LABS: Vitamin B12 438 pg/mL (200-900)
== END 2023-01-15 06:04 | disposition home or self-care (01) ==
LOC: HO.LAB 06:03
PROVIDERS: PCP Internal Medicine; Visit Provider Internal Medicine
DX: R73.01 Impaired fasting glucose (principal); E78.00 Pure hypercholesterolemia, unspecified; E55.9 Vitamin D deficiency, unspecified; M85.80 Other specified disorders of bone density and structure, unspecified site
CPT/HCPCS: 36415; 80053; 80061; 81001; 82306; 82607; 82746; 83036; 84439; 84443

== ENCOUNTER 2023-01-21 12:10 | Outpatient (REF) | payer MEDICARE, SELFPAY ==
--- NOTE | ~2023-01-21 | US_ITS ---
EXAMINATION: US THYROID CLINICAL INFORMATION: Dysphagia COMPARISON: None available. TECHNIQUE: Linear transducer grayscale and color Doppler examination with attention to the region of the thyroid. FINDINGS: SIZE: Measurements of the thyroid lobes and nodules are given in sagittal, anteroposterior and transverse dimensions respectively. Right Thyroid Lobe: 4.8 x 1.3 x 1.4 cm, volume 4.8 mL. Parenchyma: The gland echotexture is homogeneous. Thyroid vascularity is normal. Left Thyroid Lobe: 5.6 x 1.7 x 1.4 cm, volume 6.9 mL. Parenchyma: The gland echotexture is homogeneous. Thyroid vascularity is normal. Isthmus: 0.4 cm in maximum AP dimension. Estimated total number of nodules greater than or equal to 1 cm: 0. [employer] nodules are described as follows: 1. Location: Isthmus. Size: 0.5 x 0.3 x 0.6 cm, volume 0.05 mL. Nodule characteristics: Composition: Cystic(0). ACR TI-RADS total points: 0 ACR TI-RADS category: 1 2. Location: Right thyroid midpole. Size: 0.5 x 0.4 x 0.5 cm, volume 0.05 mL. Nodule characteristics: Composition: Solid (2). Echogenicity: Hypoechoic (2). Shape: Not taller than wide (0). Margins: Ill-defined (0). Echogenic Foci: None (0). ACR TI-RADS total points: 4 ACR TI-RADS category: 4 3. Location: Left thyroid upper. Size: 0.4 x 0.3 x 0.4 cm, volume 0.05 mL. Nodule characteristics: Composition: Solid (2). Echogenicity: Hypoechoic (2). Shape: Not taller than wide (0). Margins: Ill-defined (0). Echogenic Foci: None (0). ACR TI-RADS total points: 4 ACR TI-RADS category: 4 There are additional small cysts. NODES: There are prominent bilateral lymph nodes. Largest right cervical lymph node measures 2.2 x 0.8 x 1.6 cm. Largest left cervical lymph node measures 2.1 x 1 x 1.4 cm. These demonstrate normal ultrasound morphology and flow. US/US thyroid IMPRESSION: Normal size thyroid gland. Small bilateral thyroid nodules. According to TI RADS criteria no ultrasound follow-up or fine-needle aspiration recommended. Prominent bilateral cervical lymph nodes. ACR TI-RADS RECOMMENDATION REFERENCE: Ultrasound-guided fine-needle aspiration, followup ultrasound, no further follow up. * TR1 (0 point) and TR2 (2 points): No FNA or follow up. * TR3 (3 points): FNA if more than or equal to 2.5 cm in maximum dimension, followup ultrasound in 1, 3 and 5 years if 1.5 to 2.4 cm in maximum dimension. * TR4 (4-6 points): FNA if more than or equal to 1.5 cm in maximum dimension, followup ultrasound in 1, 2, 3 and 5 years if 1 to 1.4 cm in maximum dimension. * TR5 (more than or equal to 7 points): FNA if more than or equal to 1 cm in maximum dimension, followup ultrasound every year for 5 years if 0.5 to 0.9 cm in maximum dimension. * TR3, TR4 or TR5 nodules that are below the size threshold for followup receive no follow up.
== END 2023-01-21 12:11 | disposition home or self-care (01) ==
LOC: HO.US 12:10
PROVIDERS: PCP Internal Medicine; Visit Provider Internal Medicine
DX: R13.10 Dysphagia, unspecified (principal)
CPT/HCPCS: 76536

== ENCOUNTER 2023-02-10 09:00 | Outpatient (AMB) | payer OTHER, SELFPAY ==
--- NOTE | 2023-02-10 09:13 | MHC.OFFVIS ---
Intake Vital Signs 02/10/23 09:14 Height 5 ft Weight 218 lb BMI 42.6 BP 110/68 Blood Pressure Location Lt brachial Position Sitting Pulse 68 Pulse Source Pulse Oximeter Pulse Oximetry (%) 98 Oxygen Delivery Method Room Air Intake Visit Reasons: dyspnea Intake Note: pt is here for follow up and states she is having episodes of shortness of breath. 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 Allergies penicillin G [Penicillin G] Allergy (Mild, Verified 02/10/23 09:18) RASH Sulfa (Sulfonamide Antibiotics) [Sulfa (Sulfonamides)] Allergy (Mild, Verified 02/10/23 09:18) UNKNOWN meperidine [Demerol] Allergy (Unknown, Verified 02/10/23 09:18) Unknown penicillin V Allergy (Unknown, Verified 02/10/23 09:18) Unknown strawberry [STRAWBERRY] Allergy (Unknown, Verified 02/10/23 09:18) HIVES codeine [Codeine] Adverse Reaction (Intermediate, Verified 02/10/23 09:18) HALLUCINATION oxycodone [From Percocet] Adverse Reaction (Mild, Verified 02/10/23 09:18) VOMITING Codeine Phosphate Allergy (Unknown, Uncoded 02/10/23 09:18) Unknown From Demerol Allergy (Unknown, Uncoded 02/10/23 09:18) BRADYCARDIA narcotics Allergy (Unknown, Uncoded 02/10/23 09:18) Unknown percocet Allergy (Unknown, Uncoded 02/10/23 09:18) nausea and vomiting Medication List - Last Reconciled 02/10/23 by Deepak Morales MD acetaminophen (Acetaminophen Pain Relief) 1,000 mg (2 x 500 mg) PO Q6H PRN 30 days albuterol sulfate 90 mcg/actuation 2 puffs PO Q4-6H PRN amitriptyline 10 mg PO BEDTIME cholecalciferol (vitamin D3) (Vitamin D3) 50 mcg PO DAILY fluticasone propionate 50 mcg/actuation (Children's Flonase Allergy Relief) 2 sprays intranasal DAILY 30 days furosemide 20 mg PO Q OTHER DAY PRN ibuprofen 800 mg PO Q6H PRN 30 days ipratropium bromide 2 sprays intranasal TID 30 days multivitamin (One-A-Day Essential tablet) 1 tab PO DAILY omeprazole 20 mg PO DAILY oxybutynin chloride ER 10 mg PO DAILY 90 days simvastatin 10 mg PO DAILY 90 days trazodone 50 mg PO BEDTIME PRN 30 days MDD SLEEP DISORDER Do you need a note to return to daycare/school/sports/work: No HPI dyspnea HPI Details Annita comes in today for an urgent visit with complaints of episodic shortness of breath, usually in the evenings. Ends up using albuterol a few times during the day. Denies cough or expectoration or wheezing Then she is concerned about heart rate being up O2 120-125 per minute, and blood pressure also goes off and on. She has been retaining fluid and currently he was using Lasix 40 mg a day, which has helped. Sleep remains disrupted, she is using CPAP but only for 4-5 hours at night, and not using on many nights. She has. No fever or chills or chest pain She had complete lap test ordered by Dr. Jacob, her PCP. I shared the results with her and all the chemistries are within normal range, blood sugar 123 which is only slightly elevated. [facility] Medical History Adnexal mass Allergic rhinitis Anxiety Asthma Breast density Cervical cancer GERD (gastroesophageal reflux disease) High cholesterol History of supraventricular tachycardia Hyperlipemia Hypersomnolence Leukocytosis (leucocytosis) MALT lymphoma MALToma Migraine headache Obesity (BMI 30-39.9) Obesity (BMI 30-39.9) ALEISHA (obstructive sleep apnea) Osteopenia Pancreatic mass Renal cyst Restrictive lung disease Tubular adenoma of colon Urge incontinence of urine Vitamin D deficiency Surgical History H/O arthroscopy of right knee History of vocal cord polypectomy Hx of cholecystectomy Hx of dilation and curettage Hx of pneumonectomy Family History Father Colon cancer Sister Colon cancer Sister History of breast cancer Colon cancer Sister Thyroid cancer Social History Household Members: None Housing: Apartment Are you a primary health care sanitary technician to a significant other at home: No Do you presently have visiting nurse or other home services: No Alcohol intake: current Alcohol intake frequency: holidays/special occasions only Patient Tobacco Use Status: Never used Tobacco e-Cigarette/Vaping Use: Never Used Second Hand Smoke Exposure: No service: Yes Current occupational status: retired Current occupational exposures/hazards: No Cognitive needs: No Hearing needs: No Vision needs: No Female Reproductive History Menstrual Age of Menarche: 15 Review of Systems Const All systems reviewed & are unremarkable except as noted in HPI and below Eyes Reports no additional complaints ENT Reports no additional complaints and Reports nasal congestion (Especially at night) Card Denies chest pain, Denies irregular heart rhythm and Denies leg edema Resp Reports as per HPI GI Reports bloating and Reports heartburn Reports no additional complaints Musc Reports back pain and Reports arthralgias (knees ) Skin/Breast Reports system reviewed and no additional complaints, except as documented Neuro Reports no additional complaints Psych Reports no additional complaints Physical Exam Vital Signs: Last Vital Signs Pulse 68 02/10/23 09:14 BP 110/68 02/10/23 09:14 Pulse Ox 98 02/10/23 09:14 Oxygen Delivery Method Room Air 02/10/23 09:14 BMI result Body Mass Index 42.6 Const General: comfortable, no acute distress, alert and awake Orientation/consciousness: patient oriented x3 HEENT Head: Yes normal to inspection General nose exam: No nasal polyps present, No nasal discharge present and Abnormal mucous membranes and turbinates present (She has marked hypertrophy of the nasal turbinates) Face and sinus: Yes sinuses nontender Mouth: oropharynx abnormals (Oropharynx remains crowded, Mallampati class 4) Throat: Yes posterior oropharynx normal Eyes General: appearance normal, both eyes and all related structures Neck Neck: Yes normal visual inspection, Yes no lymphadenopathy, Yes trachea midline, Yes no JVD and Yes other (Neck is obese and short) Thyroid: Thyroid normal Chest Chest palpation & inspection: normal inspection of the chest, normal palpation of entire chest wall and no tenderness Resp Other: Percussion note resonant, breath sounds are decreased over the basilar areas, No wheezes rhonchi or crepitations are heard today. Cardio Palpation: normal PMI Rate: regular rate Rhythm: regular rhythm Heart sounds: no gallops and no murmurs Peripheral pulses: Peripheral pulses 2+ throughout GI Palpation (GI): Soft to palpation, nontender, No hepatosplenomegaly present, no masses and Other GI palpation findings present (Abdomen is grossly obese) Auscultation: normal bowel sounds Back/Spine/Pelvis Thoracic/Lumbar Spine: thoracic and lumbar spine normal to inspection and thoraco-lumbar ROM limited Skin General skin exam: no rashes or lesions noted Neuro General: patient oriented x3, No gait normal (Slightly impaired because of arthritis, she uses a cane) and no focal motor deficits Cranial nerves: Yes CN's II-XII intact bilaterally Extrem General: Yes normal to inspection, Yes no clubbing, cyanosis or edema, Yes no calf tenderness and No normal gait (Slightly impaired because of joint pains/knees, uses cane.) Psych Appearance: grossly normal and well kempt Speech and movement: Normal speech and movement present Assessment & Plan Assessment & Plan (1) Obesity (BMI 30-39.9): Comment: HAS ACTUALLY GAINED SOME WEIGHT AND CURRENT BMI IS 42.6 Discussed about diet plan and exercise. She is starting to walk daily . Discussed with her about diet and need to do some exercise. She is going to try to do her best. Code(s): E66.9 - Obesity, unspecified (2) ALEISHA (obstructive sleep apnea): Comment: Patient has mild ALEISHA and excessive snoring, with excessive daytime sleepiness. She is definitely benefiting from the use of CPAP. COMPLIANCE REMAINS SOMEWHAT SUBOPTIMAL,. BUT WITHIN ACCEPTABLE RANGE ADVISED TO USE CPAP EVERY NIGHT AND CONTINUE INCREASING THE TIME OF USAGE EVERY NIGHT. 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 ADVISED TO USE ALBUTEROL P.R.N. BUT ONLY SPARINGLY, IF SHE HAS WHEEZING IS, NOT FOR JUST SHORTNESS OF BREATH. Code(s): J45.909 - Unspecified asthma, uncomplicated (5) Restrictive lung disease: Comment: Mild to moderate degree of restrictive pulmonary disorder was noted as per PULMONARY FUNCTION TEST BACK IN 2017. Patient is aware of this. This is definitely secondary to her gross obesity. Advised to continue deep breathing exercises and continue to lose weight. Discussed with her and we will do a complete pulmonary function test once again. In the meantime continue to do breathing exercises 2 to 3 times a day. Code(s): J98.4 - Other disorders of lung Coding Level of Care Code Est Pt Level 3 (90380) Diagnoses Obesity (BMI 30-39.9) E66.9 ALEISHA (obstructive sleep apnea) G47.33 MALT lymphoma C88.4 Asthma J45.909 Restrictive lung disease J98.4
[2023-02-10 09:14] VITALS: BP 110/68; PULSE 68; O2SAT 98; BMI 42.6
== END 2023-02-10 09:41 | disposition home or self-care (01) ==
PROVIDERS: PCP Internal Medicine; Visit Provider Internal Medicine
DX: E66.9 Obesity, unspecified (principal); G47.33 Obstructive sleep apnea (adult) (pediatric); C88.4 Extranodal marginal zone B-cell lymphoma of mucosa-associated lymphoid tissue [MALT-lymphoma]; J45.909 Unspecified asthma, uncomplicated; J98.4 Other disorders of lung
CPT/HCPCS: 99213

== ENCOUNTER → 2023-02-10 09:00 | Outpatient (BNVA) | payer OTHER, SELFPAY | PROVIDERS: Visit Provider Internal Medicine ==

== ENCOUNTER 2023-03-03 09:14 | Outpatient (REF) | payer OTHER, SELFPAY ==
--- NOTE | 2023-03-03 10:05 | PFT_ITS ---
INDICATION: COPD. SPIROMETRY: FEV1 to FVC of 91% with an FEV1 of 1.69 L, which is 93% predicted and FVC of 1.87 L, which is 76% predicted. No significant response to bronchodilators noted. Maximum voluntary ventilation 71% predicted. LUNG VOLUMES: Total lung capacity 68% predicted with an expiratory reserve volume of 15% predicted. DIFFUSION CAPACITY: DLCO 78% predicted. COMPARISONS: None. INTERPRETATION: No obstructive ventilatory defects appreciated. No significant response to bronchodilators noted. There is a mild decrease in the maximum voluntary ventilation, which could be secondary to deconditioning and/or neuromuscular disease. The patient also has a moderate restrictive ventilatory defect in part due to an elevated BMI although parenchymal lung conditions cannot be ruled out. Neuromuscular conditions cannot be ruled out. Patient also has a significantly decreased expiratory reserve volume secondary to the elevated BMI. The patient also has a mild diffusion impairment. Clinical correlation warranted. Viet Jorgensen MD MR/MODL / [id number]
== END 2023-03-03 09:15 | disposition home or self-care (01) ==
LOC: HO.RESP 09:14
PROVIDERS: PCP Internal Medicine; Visit Provider Internal Medicine
DX: J45.901 Unspecified asthma with (acute) exacerbation (principal); J98.4 Other disorders of lung; G47.33 Obstructive sleep apnea (adult) (pediatric)
CPT/HCPCS: 94010; 94727; 94729

== ENCOUNTER → 2023-03-03 10:05 | Outpatient (BNV) | payer OTHER, SELFPAY | PROVIDERS: PCP Internal Medicine; Visit Provider Hospitalist | DX: J45.909 Unspecified asthma, uncomplicated (principal); G47.33 Obstructive sleep apnea (adult) (pediatric) | CPT/HCPCS: 94060; 94727; 94729 ==

== ENCOUNTER 2023-03-10 13:45 | Outpatient (AMB) | payer MEDICARE, SELFPAY ==
--- NOTE | 2023-03-10 14:31 | A.SPINEOV_ITS ---
Intake Intake Visit Reasons: Low back pain Intake Note: Ms. Gu is here today c/o low back pain. MRI done @ [facility] [place] Policy Intern Required: No Allergies penicillin G [Penicillin G] Allergy (Mild, Verified 02/10/23 09:18) RASH Sulfa (Sulfonamide Antibiotics) [Sulfa (Sulfonamides)] Allergy (Mild, Verified 02/10/23 09:18) UNKNOWN meperidine [Demerol] Allergy (Unknown, Verified 02/10/23 09:18) Unknown penicillin V Allergy (Unknown, Verified 02/10/23 09:18) Unknown strawberry [STRAWBERRY] Allergy (Unknown, Verified 02/10/23 09:18) HIVES codeine [Codeine] Adverse Reaction (Intermediate, Verified 02/10/23 09:18) HALLUCINATION oxycodone [From Percocet] Adverse Reaction (Mild, Verified 02/10/23 09:18) VOMITING Codeine Phosphate Allergy (Unknown, Uncoded 02/10/23 09:18) Unknown From Demerol Allergy (Unknown, Uncoded 02/10/23 09:18) BRADYCARDIA narcotics Allergy (Unknown, Uncoded 02/10/23 09:18) Unknown percocet Allergy (Unknown, Uncoded 02/10/23 09:18) nausea and vomiting Assessment & Plan Assessment & Plan (1) Balance disorder: Comment: Dear colleague, On 03/10/2023, I saw your patient Annita Gu for balance problems and back pain. History of present illness: This 77-year-old female states that she has balance problems without dizziness. She constantly falls towards the right side. On further questioning, she also has numbness in her fingertips and on the bottom of her feet. Second complaint is low low back pain with possible radiation to her hip. The pain is worse at night in bed. The pain is well controlled during the day with 2 times ibuprofen. There is no relation to walking or standing. Physical exam: Pleasant female. Cranial nerves 2-12 were intact in individual testing. There is a bilateral Charis reflex. No Babinski. Romberg is positive with the patient falling forward. Toe heel cannot be performed. An MRI of the lumbar spine of 2021 shows [id number] spinal stenosis at L4- 5 with a grade 1 spondylolisthesis confirmed with an x-ray. In summary, this patient may complaint is balance problems with positive findings on physical exam. I would like to refer to Dr. Tirso Palma, neurologist for further evaluation. I have no surgical recommendations for the back pain. You could consider sending her to Pain Management for further evaluation. I spent 30 minutes in this consult for preparation, personal review of imaging and discussing plan of care Thank you for the referral. Pan Harrell MD, PhD Spine Fellowship Trained Neurosurgeon Director, [facility] Code(s): R26.89 - Other abnormalities of gait and mobility Orders: Referrals Neurology Referral R26.89 - Other abnormalities of gait and mobility Coding Level of Care Code New Pt Level 3 (20608) Diagnoses Balance disorder R26.89
== END 2023-03-10 15:31 | disposition home or self-care (01) ==
PROVIDERS: PCP Internal Medicine; Referring Provider Nurse Practitioner Family; Visit Provider Neurological Surgery
DX: R26.89 Other abnormalities of gait and mobility (principal)
CPT/HCPCS: 99203

== ENCOUNTER → 2023-03-10 13:45 | Outpatient (BNVA) | payer MEDICARE, SELFPAY | PROVIDERS: PCP Internal Medicine; Visit Provider Neurological Surgery | DX: R26.89 Other abnormalities of gait and mobility (principal) | CPT/HCPCS: 99202 ==

== ENCOUNTER 2023-03-18 08:29 | Outpatient (AMB) | payer OTHER, SELFPAY ==
[2023-03-18 08:37] VITALS: BP 136/78; PULSE 67; O2SAT 98; BMI 40.8
--- NOTE | 2023-03-18 08:37 | MHC.PC.OV ---
Vital Signs 03/18/23 08:37 Height 5 ft Weight 94.801 kg BMI 40.8 BP 136/78 Blood Pressure Location Lt brachial Position Sitting Pulse 67 Pulse Source Pulse Oximeter Pulse Oximetry (%) 98 Oxygen Delivery Method Room Air Intake Visit Reasons: pancreatic cyst, maltoma Allergies penicillin G [Penicillin G] Allergy (Mild, Verified 03/18/23 08:38) RASH Sulfa (Sulfonamide Antibiotics) [Sulfa (Sulfonamides)] Allergy (Mild, Verified 03/18/23 08:38) UNKNOWN meperidine [Demerol] Allergy (Unknown, Verified 03/18/23 08:38) Unknown penicillin V Allergy (Unknown, Verified 03/18/23 08:38) Unknown strawberry [STRAWBERRY] Allergy (Unknown, Verified 03/18/23 08:38) HIVES codeine [Codeine] Adverse Reaction (Intermediate, Verified 03/18/23 08:38) HALLUCINATION oxycodone [From Percocet] Adverse Reaction (Mild, Verified 03/18/23 08:38) VOMITING Codeine Phosphate Allergy (Unknown, Uncoded 03/18/23 08:38) Unknown From Demerol Allergy (Unknown, Uncoded 03/18/23 08:38) BRADYCARDIA narcotics Allergy (Unknown, Uncoded 03/18/23 08:38) Unknown percocet Allergy (Unknown, Uncoded 03/18/23 08:38) nausea and vomiting Tobacco use date assessed: 12/16/22 Fall risk assessment: No Falls in past year Last assessed Fall Risk: 03/18/23 Dental Screening Dental Screen Date: 03/18/23 Did you have a dental visit in the last 12 months?: No Did you have a dental problem in the last 6 months where you did not have access to dental care?: No Was dental information given to patient?: No HPI pancreatic cyst, maltoma HPI Details 77-year-old obese female with multiple medical problems overactive bladder impaired glucose tolerance generalized anxiety disorder obstructive sleep apnea pancreatic mass followed by gastroenterology 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 Mammogram is due this month bone density is due. With the low back pain patient was sent to neurosurgeon patient having balance problems referred to Neurology though for the back no surgical recommendations and recommended pain management. Patient also had pulmonary function test no obstructive defects decrease maximum voluntary ventilation secondary to deconditioning mostly due to wait. neuro referral 04/28. [facility] Medical History (Updated 03/18/23 @ 09:15 by Constantine Lara MD) Adnexal mass Allergic rhinitis Anxiety Asthma Asthma exacerbation Blood pressure elevated without history of HTN Breast density Cervical cancer Encounter to discuss test results GERD (gastroesophageal reflux disease) High cholesterol History of supraventricular tachycardia Hyperlipemia Hypersomnolence Leukocytosis (leucocytosis) MALT lymphoma MALToma Migraine headache Obesity (BMI 30-39.9) Obesity (BMI 30-39.9) ALEISHA (obstructive sleep apnea) Osteopenia Pancreatic mass Renal cyst Restrictive lung disease Tubular adenoma of colon Urge incontinence of urine Vaginal atrophy Vitamin D deficiency Surgical History H/O arthroscopy of right knee History of vocal cord polypectomy Hx of cholecystectomy Hx of dilation and curettage Hx of pneumonectomy Family History Father Colon cancer Sister Colon cancer Sister History of breast cancer Colon cancer Sister Thyroid cancer Social History Household Members: None Housing: Apartment Are you a primary managed care provider to a significant other at home: No Do you presently have visiting nurse or other home services: No Alcohol intake: current Alcohol intake frequency: holidays/special occasions only Patient Tobacco Use Status: Never used Tobacco e-Cigarette/Vaping Use: Never Used Second Hand Smoke Exposure: No service: Yes Current occupational status: retired Current occupational exposures/hazards: No Cognitive needs: No Hearing needs: No Vision needs: No Female Reproductive History Menstrual Age of Menarche: 15 Questionnaire PHQ-9 Over the last 2 weeks, how often have you been bothered by any of the following problems? 1. Little interest or pleasure in doing things: not at all 2. Feeling down, depressed, or hopeless: not at all 3. Trouble falling or staying asleep, or sleeping too much: not at all 4. Feeling tired or having little energy: not at all 5. Poor appetite or overeating: not at all 6. Feeling bad about yourself - or that you are a failure or have let yourself or your family down: not at all 7. Trouble concentrating on things, such as reading the newspaper or watching television: not at all 8. Moving or speaking so slowly that other people could have noticed. Or the opposite - being so fidgety or restless that you have been moving around a lot more than usual: not at all 9. Thoughts that you would be better off or of hurting yourself in some way: not at all Total score: 0 Depression Screening Interpretation: Negative Source: Developed by Drs. Gómez Grant, Huber Manrique and colleagues, with an educational adrienne from [employer]. Thrive Questionnaire Date Thrive assessed: 11/12/22 AUDIT C Alcohol Use Questionnaire (AUDIT-C) 1. How often do you have a drink containing alcohol?: Monthly or less 2. How many drinks containing alcohol do you have on a typical day when you are drinking?: 1 or 2 3. How often do you have six or more drinks on one occasion?: Never Total Score: 1 Score Reviewed/Action Taken: No FERNANDA-7 AMB Questionnaire FERNANDA-7 Date FERNANDA - 7 assessed: 11/12/22 Source: Developed by Drs. Gómez Grant, Amelie Reza, Huber Hall and colleagues, with an educational adrienne from [employer]. Physical exam (Primary Care) Vital Signs: Last Vital Signs Pulse 67 03/18/23 08:37 BP 136/78 03/18/23 08:37 Pulse Ox 98 03/18/23 08:37 Oxygen Delivery Method Room Air 03/18/23 08:37 BMI result Body Mass Index 40.8 Tobacco/Smoking Status: Tobacco use Status Tobacco use date assessed 12/16/22 03/18/23 08:44 Patient Tobacco Use Status Never used Tobacco 03/18/23 08:44 Tobacco use type 03/13/21 11:19 e-Cigarette/Vaping Use Never Used 03/18/23 08:44 PHQ-9: PHQ-9 Score PHQ-9: Total score 0 03/18/23 09:16 Depression Screening Interpretation: Negative Thrive Assessment: Date of Thrive Assessment Date Thrive assessed 11/12/22 03/18/23 08:44 Const General: alert; No acute distress Eyes Conjunctivae: conjunctivae normal Resp Auscultation: clear to auscultation bilaterally Cardio Rate: regular rate Rhythm: regular rhythm GI Inspection: Yes normal to inspection Extrem General: Yes normal to inspection and No edema Immunizations pneumoc 20-tala conj-dip cr(PF) Performing Provider: Constantine Lara MD Administered by: Love Bragg CMA on 03/18/23 09:28 Dose Route Admin Location Lot Number Expiration Date NDC Duplication Specialist 0.5 mL IM Left Deltoid [id number] 04/03/24 [employer] VIS Given Date VIS Provided VIS Publication Date 03/18/23 Single Vaccine 21 Eligibility Eligibility Date Funding Source Not [facility] Eligible 03/18/23 Private Assessment and Plan Assessment & Plan (1) Mild asthma: Code(s): J45.909 - Unspecified asthma, uncomplicated Plan: Patient has followed up with Pulmonary albuterol prescribed (2) Low back pain: Comment: 11/2021Moderate multilevel degenerative spondyloarthropathy of the lumbar spine as described in detail above. Most notably, multifactorial degenerative spondyloarthropathy exacerbated by prominent epidural lipomatous tissue leads to stenoses of the subarticular zones and mild to moderate effacement of the thecal sac at L3-L4 and L4-L5. Advanced facet joint arthropathy at L4-L5 and L5-S1. Code(s): M54.50 - Low back pain, unspecified Plan: Nonsurgical seen by the neurosurgeon question of pain management (3) Impaired fasting blood sugar: Code(s): R73.01 - Impaired fasting glucose Plan: Decrease the amount of carbohydrate intake, pasta, bread, rice and potatoes are all sugar and that is aside from all the sweet stuff, remember that fruits are good but they are Sweet also. (4) Generalized anxiety disorder: Comment: Panic attacks Code(s): F41.1 - Generalized anxiety disorder Plan: Stable (5) ALEISHA (obstructive sleep apnea): Comment: Patient has mild ALEISHA and excessive snoring, with excessive daytime sleepiness. She is definitely benefiting from the use of CPAP. COMPLIANCE REMAINS SOMEWHAT SUBOPTIMAL,. BUT WITHIN ACCEPTABLE RANGE ADVISED TO USE CPAP EVERY NIGHT AND CONTINUE INCREASING THE TIME OF USAGE EVERY NIGHT. 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 After eating do not lie down, allow 3-4 hours before in lie down. And keep the head of bed above 30 degrees to avoid the acid from going up. (8) High cholesterol: Code(s): E78.00 - Pure hypercholesterolemia, unspecified Plan: Avoid fried foods, chicken skin, eggs, butter margarine, pastries and meat. Be it pork or beef they have a lot of cholesterol LDL goal of less than 130 Orders: Orders Comprehensive Met. Panel Today D72.829 - Elevated white blood cell count, unspecified Hemoglobin A1c Today D72.829 - Elevated white blood cell count, unspecified Free T4 (Free Thyroxine) Today D72.829 - Elevated white blood cell count, unspecified Thyroid Stimulating Hormone Today D72.829 - Elevated white blood cell count, unspecified Complete Blood Count Auto Diff Today D72.829 - Elevated white blood cell count, unspecified Pneumococcal 20 Immunization Today Z23 - Encounter for immunization Coding Level of Care Code Est Pt Level 4 (82459) Diagnoses Mild asthma J45.909 Low back pain M54.50 Impaired fasting blood sugar R73.01 Generalized anxiety disorder F41.1 ALEISHA (obstructive sleep apnea) G47.33 MALT lymphoma C88.4 GERD (gastroesophageal reflux disease) K21.9 High cholesterol E78.00 Additional Codes PHQ-9 - 18623 - PHQ-9 Billing: Y ([id number])
== END 2023-03-18 09:33 | disposition home or self-care (01) ==
PROVIDERS: PCP Internal Medicine; Visit Provider Internal Medicine
DX: J45.909 Unspecified asthma, uncomplicated (principal); C88.4 Extranodal marginal zone B-cell lymphoma of mucosa-associated lymphoid tissue [MALT-lymphoma]; K21.9 Gastro-esophageal reflux disease without esophagitis; Z23 Encounter for immunization; M54.50 Low back pain, unspecified; R73.01 Impaired fasting glucose; F41.1 Generalized anxiety disorder; G47.33 Obstructive sleep apnea (adult) (pediatric); E78.00 Pure hypercholesterolemia, unspecified
CPT/HCPCS: 90471; 90677; 99214

== ENCOUNTER 2023-03-26 10:30 | Outpatient (AMB) | payer MEDICARE, SELFPAY ==
[2023-03-26 11:00] VITALS: BP 132/68; PULSE 72; O2SAT 98; BMI 41.0
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
== END 2023-03-26 11:25 | disposition home or self-care (01) ==
PROVIDERS: PCP Internal Medicine; Visit Provider Nurse Practitioner Family
DX: M25.551 Pain in right hip (principal); M54.50 Low back pain, unspecified; V89.2XXA Person injured in unspecified motor-vehicle accident, traffic, initial encounter; Z04.3 Encounter for examination and observation following other accident; R26.89 Other abnormalities of gait and mobility
CPT/HCPCS: 99213

== ENCOUNTER 2023-04-11 08:04 | Outpatient (REF) | payer MEDICARE, SELFPAY ==
--- NOTE | ~2023-04-11 | MM_ITS ---
EXAMINATION: MM SCREENING DIGITAL BREAST TOMOSYNTHESIS, BILATERAL CLINICAL INFORMATION: Screening. Asymptomatic. COMPARISON: Mammography: This study is compared with prior exams dating back to 2015. TECHNIQUE: Digital breast tomosynthesis is performed in both the craniocaudal and mediolateral oblique views along with computer-aided detection (CAD). Synthesized 2D images are generated from the tomosynthesis. FINDINGS: There are scattered areas of fibroglandular density (ACR BI-RADS breast composition Category b). There are no significant masses, abnormal calcifications, or other abnormalities. MM/MM tomosynthesis screening BI IMPRESSION: No mammographic evidence of malignancy. ASSESSMENT: BI-RADS BI-RADS 1 - Negative RECOMMENDATION: Routine annual mammography screening. 1 year F/U This examination should not preclude the clinical evaluation of a suspicious palpable abnormality. This patient's information was entered into a reminder system with a target due date for their next mammogram.
[2023-04-11 09:44] LABS: Basophils Percent Auto 0.2 % (0-2); Eosinophils Absolute Auto 0.1 X10*3/uL (0.0-0.4); Eosinophils Percent Auto 0.4 % (0-4); Hematocrit 42.2 % (37.0-47.0); Hemoglobin 13.5 g/dl (12.0-16.0); Imm Gran Abs Auto 0.02 X10*3/uL (0.00-0.03); Imm Gran Pct Auto 0.1 % (0.0-0.4); MANUAL DIFF FLAG SCAN; Mean Corpuscular Hemoglobin 30.3 pg (27.0-33.0); Mean Corpuscular Volume 94.8 fL (80.0-98.0); Mean Platelet Volume 11.6 fL (9.4-12.3); Monocytes Absolute Auto 0.8 X10*3/uL (0.1-1.2); Monocytes Percent Auto 3.8 % (2-11); Neutrophils Absolute Auto 2.9 x10*3/uL (2.0-8.3); Neutrophils Percent Auto 14.5 % (45-73); Platelet Count 198 X10*3/uL (160-400); Red Blood Count 4.45 X10*6/uL (4.20-5.50); Red Cell Distribution Width 13.2 % (11.0-16.0); SCAN SMEAR FLAG 1; White Blood Count 19.8 X10*3/uL (4.8-10.8)
[2023-04-11 10:13] LABS: Alanine Aminotransferase 15 U/L (0-31); Alkaline Phosphatase 73 U/L (39-117); Anion Gap 12 (12-20); Aspartate Amino Transferase 21 U/L (5-31); Bilirubin Total 0.5 mg/dL (0.0-1.0); Blood Urea Nitrogen 13 mg/dL (9-16); Calcium 9.7 mg/dL (8.4-10.2); Carbon Dioxide 25 mmol/L (22-29); Chloride 108 mmol/L (96-108); Estimated Glomerular Filt Rate 49; Glucose Random 113 mg/dL (60-115); Potassium 3.8 mmol/L (3.3-5.1); Sodium 141 mmol/L (135-145); Total Protein 6.9 g/dL (6.5-8.0)
[2023-04-11 10:24] LABS: SLIDE REVIEW VERIFIED
[2023-04-11 10:54] LABS: Alanine Aminotransferase 15 U/L (0-31); Alkaline Phosphatase 74 U/L (39-117); Anion Gap 10 (12-20); Aspartate Amino Transferase 22 U/L (5-31); Bilirubin Total 0.5 mg/dL (0.0-1.0); Blood Urea Nitrogen 13 mg/dL (9-16); Calcium 9.6 mg/dL (8.4-10.2); Carbon Dioxide 25 mmol/L (22-29); Chloride 109 mmol/L (96-108); Estimated Glomerular Filt Rate 51; Free T4 (Free Thyroxine) 0.97 ng/dL (0.71-1.85); Glucose Random 113 mg/dL (60-115); Potassium 3.8 mmol/L (3.3-5.1); Sodium 140 mmol/L (135-145); Thyroid Stimulating Hormone 0.89 uIU/mL (0.32-4.0); Total Protein 6.9 g/dL (6.5-8.0)
[2023-04-11 11:24] LABS: Appearance Urine Clear; Color Urine Yellow; Glucose Urine UA Negative (Negative); Leukocyte Esterase Urine Moderate (2+) (Negative); Nitrite Urine Negative (Negative); PH 5.5 (5.0-9.0); Specific Gravity - Urine 1.015 (1.005-1.025); UMIC TRIGGER UA YES; Urine Blood Negative (Negative); Urine Ketones Negative (Negative); Urine Protein Negative (Neg-Trace)
[2023-04-11 11:27] LABS: Bacteria Urine None Seen (None Seen); Hyaline Casts Urine 0-2 /LPF (0-2); RBC Urine 0-2 /HPF (0-2); Squamous Epithelial Cell Urine 0-2 /HPF (0-2)
[2023-04-11 12:09] LABS: Estimated Average Glucose 117 mg/dL; Hemoglobin A1c % 5.7 % (<6.0)
[2023-04-11 12:25] LABS: Lactate Dehydrogenase 172 U/L (122-220)
[2023-04-13 17:44] LABS: Carbohydrate Antigen 19-9 33 U/mL (<34)
== END 2023-04-11 08:05 | disposition home or self-care (01) ==
LOC: HO.MAMMO 08:04
PROVIDERS: Absent Provider Internal Medicine Medical Oncology; PCP Internal Medicine; Visit Provider Internal Medicine
DX: Z12.31 Encounter for screening mammogram for malignant neoplasm of breast (principal); D72.829 Elevated white blood cell count, unspecified; C88.4 Extranodal marginal zone B-cell lymphoma of mucosa-associated lymphoid tissue [MALT-lymphoma]; R73.02 Impaired glucose tolerance (oral); E78.00 Pure hypercholesterolemia, unspecified
CPT/HCPCS: 36415; 77063; 77067; 80053; 81001; 83036; 83615; 84439; 84443; 85025; 86301

== ENCOUNTER → 2023-04-11 08:15 | Outpatient (BNV) | payer MEDICARE, SELFPAY | PROVIDERS: Absent Provider Internal Medicine Medical Oncology; PCP Internal Medicine; Visit Provider Radiology Diagnostic Radiology | DX: Z12.31 Encounter for screening mammogram for malignant neoplasm of breast (principal) | CPT/HCPCS: 77063; 77067 ==

== ENCOUNTER 2023-04-21 09:47 | Outpatient (AMB) | payer OTHER, SELFPAY ==
[2023-04-21 09:58] VITALS: BP 140/70; PULSE 69; O2SAT 98; BMI 40.4
--- NOTE | 2023-04-21 09:58 | A.OFFVIS_ITS ---
Intake Vital Signs 04/21/23 09:58 Height 5 ft Weight 207 lb BMI 40.4 BP 140/70 H Blood Pressure Location Lt brachial Position Sitting Pulse 69 Pulse Source Pulse Oximeter Pulse Oximetry (%) 98 Oxygen Delivery Method Room Air Intake Visit Reasons: dyspnea Intake Note: pt is here for follow up of ALEISHA and says sometimes she feels like she has no apneas. She has lost weight and feeling good, she is on antibiotic due to elevated WBC Dimensional Inspector Required: No Allergies penicillin G [Penicillin G] Allergy (Mild, Verified 04/21/23 10:03) RASH Sulfa (Sulfonamide Antibiotics) [Sulfa (Sulfonamides)] Allergy (Mild, Verified 04/21/23 10:03) UNKNOWN meperidine [Demerol] Allergy (Unknown, Verified 04/21/23 10:03) Unknown penicillin V Allergy (Unknown, Verified 04/21/23 10:03) Unknown strawberry [STRAWBERRY] Allergy (Unknown, Verified 04/21/23 10:03) HIVES codeine [Codeine] Adverse Reaction (Intermediate, Verified 04/21/23 10:03) HALLUCINATION oxycodone [From Percocet] Adverse Reaction (Mild, Verified 04/21/23 10:03) VOMITING Codeine Phosphate Allergy (Unknown, Uncoded 04/21/23 10:03) Unknown From Demerol Allergy (Unknown, Uncoded 04/21/23 10:03) BRADYCARDIA narcotics Allergy (Unknown, Uncoded 04/21/23 10:03) Unknown percocet Allergy (Unknown, Uncoded 04/21/23 10:03) nausea and vomiting Medication List - Last Reconciled 04/21/23 by Deepak Morales MD acetaminophen (Acetaminophen Pain Relief) 1,000 mg (2 x 500 mg) PO Q6H PRN 30 days albuterol sulfate 90 mcg/actuation 2 puffs PO Q4-6H PRN amitriptyline 10 mg PO BEDTIME cholecalciferol (vitamin D3) (Vitamin D3) 50 mcg PO DAILY fluticasone propionate 50 mcg/actuation (Children's Flonase Allergy Relief) 2 sprays intranasal DAILY 30 days furosemide 20 mg PO Q OTHER DAY PRN ibuprofen 800 mg PO Q6H PRN 30 days ipratropium bromide 2 sprays intranasal TID 30 days multivitamin (One-A-Day Essential tablet) 1 tab PO DAILY nitrofurantoin monohyd/m-cryst 100 mg (Macrobid) 100 mg PO Q12H 7 days omeprazole 20 mg PO DAILY oxybutynin chloride ER 10 mg PO DAILY simvastatin 10 mg PO DAILY 90 days trazodone 50 mg PO BEDTIME PRN 30 days MDD SLEEP DISORDER Do you need a note to return to daycare/school/sports/work: No HPI dyspnea HPI Details This 77 years old, very pleasant, female morbidly obese, is here for her routine follow-up. She is making progress in losing weight, and is thrilled about that. She is using her CPAP most of the nights is, sleeps well and thinks that her sleep apnea is all under control. She is definitely more energetic during the daytime. Still has some nasal congestion, intermittent cough but no wheezing Nasal congestion only mild and off and on. Currently being treated for UTI PFSH Medical History Leukocytosis (leucocytosis) Vaginal atrophy Encounter to discuss test results Asthma exacerbation Renal cyst Allergic rhinitis Restrictive lung disease Blood pressure elevated without history of HTN Hypersomnolence ALEISHA (obstructive sleep apnea) Obesity (BMI 30-39.9) MALToma Urge incontinence of urine Cervical cancer Pancreatic mass Osteopenia GERD (gastroesophageal reflux disease) Adnexal mass MALT lymphoma Obesity (BMI 30-39.9) Vitamin D deficiency Tubular adenoma of colon History of supraventricular tachycardia Breast density Anxiety High cholesterol Migraine headache Asthma Hyperlipemia Surgical History History of vocal cord polypectomy Hx of dilation and curettage Hx of pneumonectomy H/O arthroscopy of right knee Hx of cholecystectomy Family History Father Colon cancer Sister Colon cancer Sister History of breast cancer Colon cancer Sister Thyroid cancer Social History Household Members: None Housing: Apartment Are you a primary intensive care medicine specialist to a significant other at home: No Do you presently have visiting nurse or other home services: No Alcohol intake: current Alcohol intake frequency: holidays/special occasions only Patient Tobacco Use Status: Never used Tobacco e-Cigarette/Vaping Use: Never Used Second Hand Smoke Exposure: No service: Yes Current occupational status: retired Current occupational exposures/hazards: No Cognitive needs: No Hearing needs: No Vision needs: No Female Reproductive History Menstrual Age of Menarche: 15 Review of Systems Const All systems reviewed & are unremarkable except as noted in HPI and below Eyes Reports no additional complaints ENT Reports no additional complaints and Reports nasal congestion (Especially at night) Card Denies chest pain, Denies irregular heart rhythm and Denies leg edema Resp Reports as per HPI GI Reports bloating and Reports heartburn Reports no additional complaints Musc Reports back pain and Reports arthralgias (knees ) Skin/Breast Reports system reviewed and no additional complaints, except as documented Neuro Reports no additional complaints Psych Reports no additional complaints Physical Exam Vital Signs: Last Vital Signs Pulse 69 04/21/23 09:58 BP 140/70 H 04/21/23 09:58 Pulse Ox 98 04/21/23 09:58 Oxygen Delivery Method Room Air 04/21/23 09:58 BMI result Body Mass Index 40.4 Const General: comfortable, no acute distress, alert and awake Orientation/consciousness: patient oriented x3 HEENT Head: Yes normal to inspection General nose exam: No nasal polyps present, No nasal discharge present and Abnormal mucous membranes and turbinates present (She has marked hypertrophy of the nasal turbinates) Face and sinus: Yes sinuses nontender Mouth: oropharynx abnormals (Oropharynx remains crowded, Mallampati class 4) Throat: Yes posterior oropharynx normal Eyes General: appearance normal, both eyes and all related structures Neck Neck: Yes normal visual inspection, Yes no lymphadenopathy, Yes trachea midline, Yes no JVD and Yes other (Neck is obese and short) Thyroid: Thyroid normal Chest Chest palpation & inspection: normal inspection of the chest, normal palpation of entire chest wall and no tenderness Resp Other: Percussion note resonant, breath sounds are decreased over the basilar areas, No wheezes rhonchi or crepitations are heard today. Cardio Palpation: normal PMI Rate: regular rate Rhythm: regular rhythm Heart sounds: no gallops and no murmurs Peripheral pulses: Peripheral pulses 2+ throughout GI Palpation (GI): Soft to palpation, nontender, No hepatosplenomegaly present, no masses and Other GI palpation findings present (Abdomen is grossly obese) Auscultation: normal bowel sounds Back/Spine/Pelvis Thoracic/Lumbar Spine: thoracic and lumbar spine normal to inspection and thoraco-lumbar ROM limited Skin General skin exam: no rashes or lesions noted Neuro General: patient oriented x3, No gait normal (Slightly impaired because of arthritis, she uses a cane) and no focal motor deficits Cranial nerves: Yes CN's II-XII intact bilaterally Extrem General: Yes normal to inspection, Yes no clubbing, cyanosis or edema, Yes no calf tenderness and No normal gait (Slightly impaired because of joint pains/knees, uses cane.) Psych Appearance: grossly normal and well kempt Speech and movement: Normal speech and movement present Results Reviewed Results Reviewed: Compliance report for the last 30 nights is reviewed. Used CPAP for 23/30 nights, 77%. Average use it per night 5 hours 21 minutes. Pressure mostly 11.8 cm. No significant air leak. Residual AHI 0.5 Assessment & Plan Assessment & Plan (1) Obesity (BMI 30-39.9): Comment: HAS LOST 11 LBs .HAPPY ABOUT THAT . Discussed about diet plan and exercise. She is commended for losing weight and is encouraged to continue watching her diet and do more walking. Code(s): E66.9 - Obesity, unspecified (2) ALEISHA (obstructive sleep apnea): Comment: Patient has mild ALEISHA and excessive snoring, with excessive daytime sleepiness. She is definitely benefiting from the use of CPAP. COMPLIANCE IS DEFINITELY IMPROVED AND SHE IS HAPPY WITH THE USE OF CPAP. COMMENDED FOR IMPROVED COMPLIANCE AND SHE IS ENCOURAGED TO KEEP ON USING EVERY NIGHT. Code(s): G47.33 - Obstructive sleep apnea (adult) (pediatric) (3) Restrictive lung disease: Comment: Mild to moderate degree of restrictive pulmonary disorder was noted as per PULMONARY FUNCTION TEST BACK IN 2017. Patient is aware of this. This is definitely secondary to her gross obesity. Advised to continue deep breathing exercises and continue to lose weight. Discussed with her and we will do a complete pulmonary function test once again. In the meantime continue to do breathing exercises 2 to 3 times a day. Code(s): J98.4 - Other disorders of lung (4) Allergic rhinitis: Comment: She has chronic rhinitis with marked hypertrophy of the nasal turbinates. Advised to use Flonase 2 spray in each nostril about 1 hour before putting on the CPAP mask. And also Atrovent nasal spray 2 sprays in each nostril before putting on the CPAP. Code(s): J30.9 - Allergic rhinitis, unspecified (5) Mild asthma: Comment: VERY MILD AND INTERMITTENT COUGH AND WHEEZING. MAY USE ALBUTEROL 2 PUFFS Q 4-6 HOURS ONLY P.R.N.. Code(s): J45.909 - Unspecified asthma, uncomplicated Coding Level of Care Code Est Pt Level 3 (16387) Diagnoses Obesity (BMI 30-39.9) E66.9 ALEISHA (obstructive sleep apnea) G47.33 Restrictive lung disease J98.4 Allergic rhinitis J30.9 Mild asthma J45.909
== END 2023-04-21 10:13 | disposition home or self-care (01) ==
PROVIDERS: PCP Internal Medicine; Visit Provider Internal Medicine
DX: E66.9 Obesity, unspecified (principal); G47.33 Obstructive sleep apnea (adult) (pediatric); J98.4 Other disorders of lung; J30.9 Allergic rhinitis, unspecified; J45.909 Unspecified asthma, uncomplicated
CPT/HCPCS: 99213

== ENCOUNTER → 2023-04-21 09:47 | Outpatient (BNVA) | payer OTHER, SELFPAY | PROVIDERS: PCP Internal Medicine; Visit Provider Internal Medicine ==

== ENCOUNTER 2023-05-01 11:19 | Outpatient (AMB) | payer OTHER, SELFPAY ==
[2023-05-01 11:24] VITALS: BP 142/80; BMI 40.6
--- NOTE | 2023-05-01 11:24 | MHC.OFFVIS ---
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 Scribed for CHELSEA Mims by Mckayla Beasley medical care administrator, on 05/01/2023 at 11:45 am EST Party Plan Sales Director Required: No Information Interpreted: non-clinical & clinical International Account Representative: International Account Representative Present (Gracie) Allergies penicillin G [Penicillin G] Allergy (Mild, Verified 05/01/23 11:27) RASH Sulfa (Sulfonamide Antibiotics) [Sulfa (Sulfonamides)] Allergy (Mild, Verified 05/01/23 11:27) UNKNOWN meperidine [Demerol] Allergy (Unknown, Verified 05/01/23 11:27) Unknown penicillin V Allergy (Unknown, Verified 05/01/23 11:27) Unknown strawberry [STRAWBERRY] Allergy (Unknown, Verified 05/01/23 11:27) HIVES codeine [Codeine] Adverse Reaction (Intermediate, Verified 05/01/23 11:27) HALLUCINATION oxycodone [From Percocet] Adverse Reaction (Mild, Verified 05/01/23 11:27) VOMITING Codeine Phosphate Allergy (Unknown, Uncoded 05/01/23 11:27) Unknown From Demerol Allergy (Unknown, Uncoded 05/01/23 11:27) BRADYCARDIA narcotics Allergy (Unknown, Uncoded 05/01/23 11:27) Unknown percocet Allergy (Unknown, Uncoded 05/01/23 11:27) nausea and vomiting Is last menstrual period known: No Post menopausal: Yes HPI HPI Comments History of Present Illness Details She is a postmenopausal woman presenting for annual exam. She attempts to eat a healthy diet including Calcium and Vitamin D. She stays active with house work and family. She has lost 11lbs in 4 weeks with dieting. Not currently sexually active in 20 years. She reports a hx of fibroid on pelvic MRI 07/07/22, last US 05/23/22, negative of fibroid. Denies pelvic pain. Reports feeling some irritation recently, burning. Denies vaginal itching. Last pap smear 2021. Last mammogram 04/11/23. UTD on colonoscopy. [facility] Medical History Leukocytosis (leucocytosis) Asthma exacerbation Renal cyst Allergic rhinitis Restrictive lung disease Blood pressure elevated without history of HTN Hypersomnolence ALEISHA (obstructive sleep apnea) Obesity (BMI 30-39.9) MALToma Urge incontinence of urine Cervical cancer Pancreatic mass Osteopenia GERD (gastroesophageal reflux disease) Adnexal mass MALT lymphoma Obesity (BMI 30-39.9) Vitamin D deficiency Tubular adenoma of colon History of supraventricular tachycardia Breast density Anxiety High cholesterol Migraine headache Asthma Hyperlipemia Surgical History Hx of tubal ligation History of vocal cord polypectomy Hx of dilation and curettage Hx of pneumonectomy H/O arthroscopy of right knee Hx of cholecystectomy Family History Father Colon cancer Sister Colon cancer Sister History of breast cancer Colon cancer Sister Thyroid cancer Social History Household Members: None Housing: Apartment Are you a primary transition of care specialist to a significant other at home: No Do you presently have visiting nurse or other home services: No Alcohol intake: current Alcohol intake frequency: holidays/special occasions only Patient Tobacco Use Status: Never used Tobacco e-Cigarette/Vaping Use: Never Used Second Hand Smoke Exposure: No service: Yes Current occupational status: retired Current occupational exposures/hazards: No Cognitive needs: No Hearing needs: No Vision needs: No Female Reproductive History Menstrual Age of Menarche: 17 control method: permanent sterilization Total pregnancies: 3 Full term: 2 Number of Living Children: 2 Date of last pap smear: 04/30/22 (negative) History of abnormal pap smear: Yes Date of Mammogram: 04/11/23 Review of Systems Const All systems reviewed & are unremarkable except as noted in HPI and below Physical Exam Vital Signs: Last Vital Signs BP 142/80 H 05/01/23 11:24 BMI result Body Mass Index 40.6 Const General: cooperative, healthy appearing, no acute distress, well developed and alert Orientation/consciousness: patient oriented x3 HEENT Head: Yes normal to inspection Eyes General: appearance normal, both eyes and all related structures Neck Neck: Yes normal visual inspection Thyroid: Thyroid normal Chest Chest palpation & inspection: normal inspection of the chest Breast/axilla inspection: normal inspection of the breasts (no puckering, dimpling, peau de orange, retraction, discharge, masses) Breast/axilla palpation: normal palpation of the breasts Resp Effort & Inspection: normal respiratory effort GI Inspection: Yes normal to inspection and Yes obesity Palpation (GI): Soft to palpation Rectal Exam - Female: deferred General: Yes bladder normal to palpation External Female Exam: normal external appearance, normal appearance of the urethra and other (urethral caruncle) Speculum Exam - Vagina: normal appearance of the vagina, normal palpation, normal vaginal discharge and vagina atrophic (moderate to severe) Speculum Exam - Cervix: normal appearance of the cervix and normal palpation Bimanual exam- vagina & uterus: normal bimanual exam, normal palpation, uterine size normal, bladder normal to palpation and normal palpation Bimanual Exam- Adnexa, other: normal adnexae and no masses Skin General skin exam: no rashes or lesions noted Neuro General: patient oriented x3 Cognition (Neuro): normal cognition Extrem General: Yes normal to inspection Psych Attitude: cooperative Thought process: Normal thought process present Assessment & Plan Assessment & Plan (1) Encounter for well woman exam: Code(s): Z01.419 - Encounter for gynecological examination (general) (routine) without abnormal findings Plan: Discussed: Current recommendations for pap smears per ASCCP guidelines. Breast awareness and periodic self breast exams. Encouraged yearly mammograms. Maintaining a healthy lifestyle including a well balanced diet including Calcium and Vitamin D and routine exercise. Contact office with any PMB. All of her questions and concerns were addressed to the best of my ability. RTO in one year for AG. (2) Atrophic vaginitis: Code(s): N95.2 - Postmenopausal atrophic vaginitis Plan: Burning most likely due to atrophic changes, await BV results. (3) Uterine fibroid: Code(s): D25.9 - Leiomyoma of uterus, unspecified Qualifiers: Uterine leiomyoma location: unspecified location Qualified Code(s): D25.9 - Leiomyoma of uterus, unspecified Plan: Recommended follow up US for stability. US ordered today. RTO for TV test results. (4) Vaginal burning: Code(s): N94.9 - Unspecified condition associated with female genital organs and menstrual cycle Plan: Most likely due to atrophic vaginitis. Orders: Orders Bacterial Vaginosis Panel Today D21.9 - Benign neoplasm of connective and other soft tissue, unspecified, N89.8 - Other specified noninflammatory disorders of vagina US pelvic and transvaginal Today D21.9 - Benign neoplasm of connective and other soft tissue, unspecified Coding Level of Care Code Est Pt Prev Care >65y(58145) Diagnoses Encounter for well woman exam Z01.419 Atrophic vaginitis N95.2 Uterine leiomyoma, unspecified location D25.9 Uterine leiomyoma location: unspecified location Vaginal burning N94.9
== END 2023-05-01 12:18 | disposition home or self-care (01) ==
PROVIDERS: Visit Provider Advanced Practice Midwife
DX: Z01.419 Encounter for gynecological examination (general) (routine) without abnormal findings (principal); N95.2 Postmenopausal atrophic vaginitis; D25.9 Leiomyoma of uterus, unspecified; N94.9 Unspecified condition associated with female genital organs and menstrual cycle
CPT/HCPCS: 99397

== ENCOUNTER 2023-05-01 11:19 | Outpatient (REF) | payer OTHER, SELFPAY ==
[2023-05-02 11:09] LABS: BV Int Neg Control Negative (Negative); BV Int Pos Control Positive (Positive)
== END 2023-05-01 11:20 | disposition home or self-care (01) ==
LOC: HO.LNP 11:19
PROVIDERS: Visit Provider Advanced Practice Midwife
DX: D21.9 Benign neoplasm of connective and other soft tissue, unspecified (principal); N94.9 Unspecified condition associated with female genital organs and menstrual cycle; N95.2 Postmenopausal atrophic vaginitis
CPT/HCPCS: 87480; 87510; 87660

== ENCOUNTER 2023-05-15 12:31 | Outpatient (REF) | payer OTHER, SELFPAY ==
--- NOTE | ~2023-05-15 | US_ITS ---
EXAMINATION: US PELVIS CLINICAL INFORMATION: Benign neoplasm, post menopausal. COMPARISON: MRI 07/07/2022 and pelvic ultrasound 05/23/2022. TECHNIQUE: Ultrasound of the pelvis is performed using both transabdominal and transvaginal transducers along with Doppler. Transvaginal imaging is performed due to inadequate visualization transabdominally. FINDINGS: The uterus is heterogeneous, anteverted and measures 6.7 x 2.6 x 3.6 cm. No discrete fibroids are identified. Limited visualization of the endometrium. Imaged segment of endometrium with thickness of 0.4 cm. No significant free fluid. Bilateral ovaries were not visualized. Visualization severely limited due to bowel gas. US/US pelvic and transvaginal IMPRESSION: 1. Heterogeneous uterus. No discrete fibroids identified. 2. Limited visualization of the endometrium. Imaged segment of endometrium with thickness of 0.4 cm. 3. Bilateral ovaries were not visualized. Visualization severely limited due to bowel gas.
== END 2023-05-15 12:32 | disposition home or self-care (01) ==
LOC: HO.US 12:31
PROVIDERS: PCP Internal Medicine; Visit Provider Advanced Practice Midwife
DX: D21.9 Benign neoplasm of connective and other soft tissue, unspecified (principal)
CPT/HCPCS: 76830; 76856

== ENCOUNTER 2023-05-22 09:26 | Outpatient (AMB) | payer OTHER, SELFPAY ==
--- NOTE | 2023-05-22 09:31 | A.OFFVIS_ITS ---
Intake Intake Visit Reasons: 6m follow up Intake Note: Patient presents today for a follow-up on Renal cyst. OAB. 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 Accompanied by: Self / Same As Patient Allergies penicillin G [Penicillin G] Allergy (Mild, Verified 05/22/23 09:47) RASH Sulfa (Sulfonamide Antibiotics) [Sulfa (Sulfonamides)] Allergy (Mild, Verified 05/22/23 09:47) UNKNOWN meperidine [Demerol] Allergy (Unknown, Verified 05/22/23 09:47) Unknown penicillin V Allergy (Unknown, Verified 05/22/23 09:47) Unknown strawberry [STRAWBERRY] Allergy (Unknown, Verified 05/22/23 09:47) HIVES codeine [Codeine] Adverse Reaction (Intermediate, Verified 05/22/23 09:47) HALLUCINATION oxycodone [From Percocet] Adverse Reaction (Mild, Verified 05/22/23 09:47) VOMITING Codeine Phosphate Allergy (Unknown, Uncoded 05/22/23 09:47) Unknown From Demerol Allergy (Unknown, Uncoded 05/22/23 09:47) BRADYCARDIA narcotics Allergy (Unknown, Uncoded 05/22/23 09:47) Unknown percocet Allergy (Unknown, Uncoded 05/22/23 09:47) nausea and vomiting HPI HPI Comments History of Present Illness Details Annita is a 77-year-old female who presents today to the office for a follow-up. 05/22/2023? Annita is a 75 year old female who was prescribed oxybutynin for OAB symptoms.? 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 She is followed today for OAB, renal cyst, and vaginal atrophy. She states that since her last visit with me she has been diagnosed with CLL; leukemia. She was diagnosed by Dr. Becker at [facility]. Treatment currently includes monitoring her lab work. Patient states that her oncologist told her that leukocytes present in her urine is a result of her leukemia. She was last seen by me on 11/20/2022 for Cystoscopy procedure. Cystoscopy findings: Mild bladder wall thickening with no suspicious bladder lesion.? She has been on oxybutynin 10 mg daily. Today I have discussed that it is recommended to avoid anti cholinergic medications in the elderly. I will prescribe an anti-muscaranic, Gemtesa 75 mg. Patient is concerned about the cost of new medication. She states she has not noted any mental status changes, states she has no symptom of drowsiness and has good mental clarity. She does have some dry mouth related to the oxybutynin and is using Biotene products to counteract this. UA: Leuks 1+, blood trace. Review of charts: OV?07/03/22-- She had an MRI of lumbar spine done in April of last year and this identified a small renal cyst on the right side. I reviewed renal sono 06/03/22 - discussed with patient - Left renal peripelvic cysts not appreciably changed from previous exam. 4 mm nonspecific echogenic density in the lower pole of the right kidney, questionable stone. OV--11/20/2022-- Cystoscopy findings: Mild bladder wall thickening with no suspicious bladder lesion.? Pelvic exam: No prolapse. Vaginal atrophy.? 05/22/2023: Plan: Ordered Gemtesa 75 mg to replace oxybutynin. Patient's bladder symptoms are stable. Follow-up in one year or earlier if she has changes to her urinary symptoms on new medications. [facility] Medical History Leukocytosis (leucocytosis) Asthma exacerbation Renal cyst Allergic rhinitis Restrictive lung disease Blood pressure elevated without history of HTN Hypersomnolence ALEISHA (obstructive sleep apnea) Obesity (BMI 30-39.9) MALToma Urge incontinence of urine Cervical cancer Pancreatic mass Osteopenia GERD (gastroesophageal reflux disease) Adnexal mass MALT lymphoma Obesity (BMI 30-39.9) Vitamin D deficiency Tubular adenoma of colon History of supraventricular tachycardia Breast density Anxiety High cholesterol Migraine headache Asthma Hyperlipemia Surgical History Hx of tubal ligation History of vocal cord polypectomy Hx of dilation and curettage Hx of pneumonectomy H/O arthroscopy of right knee Hx of cholecystectomy Family History Father Colon cancer Sister Colon cancer Sister History of breast cancer Colon cancer Sister Thyroid cancer Social History Household Members: None Housing: Apartment Are you a primary manager medicare marketing to a significant other at home: No Do you presently have visiting nurse or other home services: No Alcohol intake: current Alcohol intake frequency: holidays/special occasions only Patient Tobacco Use Status: Never used Tobacco e-Cigarette/Vaping Use: Never Used Second Hand Smoke Exposure: No service: Yes Current occupational status: retired Current occupational exposures/hazards: No Cognitive needs: No Hearing needs: No Vision needs: No Female Reproductive History Menstrual Age of Menarche: 17 Review of Systems Const All systems reviewed & are unremarkable except as noted in HPI and below Reports no additional complaints Eyes Reports no additional complaints ENT Reports no additional complaints Card Denies dyspnea Resp Denies cough and Denies dyspnea GI Reports no additional complaints Reports no additional complaints Musc Reports no additional complaints Skin/Breast Denies rash and Denies unusual bruising Neuro Reports no additional complaints Psych Reports no additional complaints Endo Reports no additional complaints Kervin/Lymph Reports no additional complaints Aller/Immun Reports no additional complaints Office Procedures Post Void Residual Post Residual Void Post Void Residual (PVR): 25 66766-Vccl Void Residual by ultrasound Results AMB Urinalysis, Automated UA Leukoctes 70 Speedy/uL Last Edit by KIM Welch on 05/22/23 10:14 UA Nitrite Negative Last Edit by KIM Welch on 05/22/23 10:14 UA Urobilinogen 0.2 mg/dL Last Edit by KIM Welch on 05/22/23 10:1 4 UA Protein 0 mg/dL Last Edit by KIM Welch on 05/22/23 10:14 UA pH 6.0 Last Edit by KIM Welch on 05/22/23 10:14 UA Blood 10 Devante/uL Last Edit by KIM Welch on 05/22/23 10:14 UA Specific Erie 1.015 Last Edit by Lisette Baker RMA on 05/22/23 10: 14 UA Ketone Negative Last Edit by KIM Welch on 05/22/23 10:14 UA Bilirubin 0 mg/dL Last Edit by Lisette Baker, RMA on 05/22/23 10:14 UA Glucose 0 mg/dL Last Edit by OSMAR WelchA on 05/22/23 10:14 Results Reviewed Results Reviewed: Laboratory Last Values Urine pH (Auto) 6.0 05/22/23 09:49 Specific Erie (Auto) 1.015 05/22/23 09:49 Urine Protein (Auto) 0 mg/dL 05/22/23 09:49 Glucose (UA)(Auto) 0 mg/dL 05/22/23 09:49 Urine Ketones (Auto) Negative 05/22/23 09:49 Urine Blood (Auto) 10 Devante/uL 05/22/23 09:49 Urine Nitrite (Auto) Negative 05/22/23 09:49 Urine Bilirubin (Auto) 0 mg/dL 05/22/23 09:49 Urine Urobilinogen (Auto) 0.2 mg/dL 05/22/23 09:49 Leukocyte Esterase (Auto) 70 Speedy/uL 05/22/23 09:49 Assessment & Plan Assessment & Plan (1) Urge incontinence of urine: Code(s): N39.41 - Urge incontinence (2) Renal cysts, acquired, bilateral: Code(s): N28.1 - Cyst of kidney, acquired (3) OAB (overactive bladder): Code(s): N32.81 - Overactive bladder (4) Vaginal atrophy: Code(s): N95.2 - Postmenopausal atrophic vaginitis Plan Ordered Gemtesa 75 mg to replace oxybutynin. Patient's bladder symptoms are stable. Follow-up in one year or earlier if she has changes to her urinary symptoms on new medications. Orders: Orders AMB Urinalysis Automated 05/22/23 Z13.9 - Encounter for screening, unspecified AMB Post Void Residual by ultrasound 05/22/23 N39.8 - Other specified disorders of urinary system Medications: New vibegron (Gemtesa) 75 mg PO DAILY 90 tabs 0RF Refilled oxybutynin chloride ER 10 mg PO DAILY 90 tabs 0RF Patient Instructions: The patient had an opportunity to ask questions regarding treatment plan. All questions were answered. Imaging, Laboratory studies and physical exam results were discussed and reviewed in detail. No major barriers to understanding were identified. The patient expressed understanding and agreement with the above treatment plan. The patient is aware they should contact our office by phone for worsening of their current condition or the appearance of new symptoms. Compliance is encouraged with any medications and followup testing that is ordered. It is a privilege to be allowed the opportunity to participate in the urologic care of your patient. If you have any questions or concerns regarding treatment for the above conditions please do not hesitate to contact me. The office telephone contact is [phone]. This note is constructed in part using voice recognition software. While every effort has been made to ensure accuracy paraeducator errors may have been included. Yours sincerely, Braydon Limon MD Coding Level of Care Code Est Pt Level 4 (85711) Diagnoses Urge incontinence of urine N39.41 Renal cysts, acquired, bilateral N28.1 OAB (overactive bladder) N32.81 Vaginal atrophy N95.2 CPT Codes Post Residual Void - PVR CPT Code: 81592-Qqqw Void Residual by ultrasound ([id number])
== END 2023-05-22 10:48 | disposition home or self-care (01) ==
PROVIDERS: Visit Provider Urology
DX: N39.41 Urge incontinence (principal); N28.1 Cyst of kidney, acquired; N32.81 Overactive bladder; N95.2 Postmenopausal atrophic vaginitis
CPT/HCPCS: 99214

== ENCOUNTER → 2023-05-22 09:26 | Outpatient (BNVA) | payer OTHER, SELFPAY | PROVIDERS: Visit Provider Urology | DX: N39.41 Urge incontinence (principal); N28.1 Cyst of kidney, acquired; N32.81 Overactive bladder; N95.2 Postmenopausal atrophic vaginitis; Z79.899 Other long term (current) drug therapy | CPT/HCPCS: 51798; 81003 ==

== ENCOUNTER 2023-05-26 08:22 | Outpatient (AMB) | payer MEDICARE, SELFPAY ==
[2023-05-26 08:26] VITALS: BP 142/88; PULSE 104; O2SAT 98; BMI 39.4
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
== END 2023-05-26 08:49 | disposition home or self-care (01) ==
PROVIDERS: PCP Internal Medicine; Visit Provider Nurse Practitioner Family
DX: M25.551 Pain in right hip (principal); M54.50 Low back pain, unspecified; V89.2XXA Person injured in unspecified motor-vehicle accident, traffic, initial encounter; R26.89 Other abnormalities of gait and mobility
CPT/HCPCS: 99213

== ENCOUNTER 2023-05-29 15:26 | Outpatient (AMB) | payer OTHER, SELFPAY ==
--- NOTE | 2023-05-29 15:26 | A.OFFVIS_ITS ---
Intake Intake Visit Reasons: TV US follow up ok per Kyara Intake Note: The patient agreed to use of a medical chief technician during this encounter. Scribed for CHELSEA Mims by Belem Farris medical chief technician, on 05/29/2023 at 3:40 pm, EST. Nurse Special Required: No Information Interpreted: non-clinical & clinical Allergies penicillin G [Penicillin G] Allergy (Mild, Verified 06/09/23 10:05) RASH Sulfa (Sulfonamide Antibiotics) [Sulfa (Sulfonamides)] Allergy (Mild, Verified 06/09/23 10:05) UNKNOWN meperidine [Demerol] Allergy (Unknown, Verified 06/09/23 10:05) Unknown penicillin V Allergy (Unknown, Verified 06/09/23 10:05) Unknown strawberry [STRAWBERRY] Allergy (Unknown, Verified 06/09/23 10:05) HIVES codeine [Codeine] Adverse Reaction (Intermediate, Verified 06/09/23 10:05) HALLUCINATION oxycodone [From Percocet] Adverse Reaction (Mild, Verified 06/09/23 10:05) VOMITING Codeine Phosphate Allergy (Unknown, Uncoded 06/09/23 10:05) Unknown From Demerol Allergy (Unknown, Uncoded 06/09/23 10:05) BRADYCARDIA narcotics Allergy (Unknown, Uncoded 06/09/23 10:05) Unknown percocet Allergy (Unknown, Uncoded 06/09/23 10:05) nausea and vomiting Post menopausal: Yes HPI HPI Comments History of Present Illness Details The patient presents for a follow up and results of her ultrasound of her pelvis. She states she is doing good. Confirms burning from the dye after the CT PET scan. She reports she has to stop working due to the pain and treatments. Extreme pain on the right side of abdomen around the ovary. States pain radiates to the left side. Confirms severe constipation with weight lose form 218 to 202. Diagnosed with chronic leukemia. Confirms elevated blood pressure. I spoke with the patient for 13 minutes via telehealth. [facility] Medical History (Updated 06/09/23 @ 12:37 by Maribel Schwartz MD) Calcification of ovary Leukocytosis (leucocytosis) Asthma exacerbation Renal cyst Allergic rhinitis Restrictive lung disease Blood pressure elevated without history of HTN Hypersomnolence ALEISHA (obstructive sleep apnea) Obesity (BMI 30-39.9) MALToma Urge incontinence of urine Cervical cancer Pancreatic mass Osteopenia GERD (gastroesophageal reflux disease) Adnexal mass MALT lymphoma Obesity (BMI 30-39.9) Vitamin D deficiency Tubular adenoma of colon History of supraventricular tachycardia Breast density Anxiety High cholesterol Migraine headache Asthma Hyperlipemia Surgical History Hx of tubal ligation History of vocal cord polypectomy Hx of dilation and curettage Hx of pneumonectomy H/O arthroscopy of right knee Hx of cholecystectomy Family History Father Colon cancer Sister Colon cancer Sister History of breast cancer Colon cancer Sister Thyroid cancer Social History Household Members: None Housing: Apartment Are you a primary hospice care transitions coordinator to a significant other at home: No Do you presently have visiting nurse or other home services: No Alcohol intake: current Alcohol intake frequency: holidays/special occasions only Patient Tobacco Use Status: Never used Tobacco e-Cigarette/Vaping Use: Never Used Second Hand Smoke Exposure: No service: Yes Current occupational status: retired Current occupational exposures/hazards: No Cognitive needs: No Hearing needs: No Vision needs: No Female Reproductive History Menstrual Age of Menarche: 17 Review of Systems Const All systems reviewed & are unremarkable except as noted in HPI and below GI Reports constipation Reports pelvic pain (Radiating right to left) Physical Exam Const Other: Remainder of exam was deferred due to being a telehealth. Results Reviewed Results Reviewed: EXAMINATION: US PELVIS obtained on 05/15/2023 CLINICAL INFORMATION: Benign neoplasm, post menopausal. COMPARISON: MRI 07/07/2022 and pelvic ultrasound 05/23/2022. TECHNIQUE: Ultrasound of the pelvis is performed using both transabdominal and transvaginal transducers along with Doppler. Transvaginal imaging is performed due to inadequate visualization transabdominally. FINDINGS: The uterus is heterogeneous, anteverted and measures 6.7 x 2.6 x 3.6 cm. No discrete fibroids are identified. Limited visualization of the endometrium. Imaged segment of endometrium with thickness of 0.4 cm. No significant free fluid. Bilateral ovaries were not visualized. Visualization severely limited due to bowel gas. US/US pelvic and transvaginal IMPRESSION: 1. Heterogeneous uterus. No discrete fibroids identified. 2. Limited visualization of the endometrium. Imaged segment of endometrium with thickness of 0.4 cm. 3. Bilateral ovaries were not visualized. Visualization severely limited due to bowel gas. Dictated By: Yas Sainz MD Signed By: <Electronically signed by Yas Sainz MD in OV> 05/19/23 1934 Assessment & Plan Assessment & Plan (1) Encounter to discuss test results: Code(s): Z71.2 - Person consulting for explanation of examination or test findings (2) Pelvic pain: Code(s): R10.2 - Pelvic and perineal pain Plan She has follow up with Dr. Aleman. She has appointments scheduled to see oncology at [facility]. Will call the patient on Thursday to follow up. Orders: Orders CA-125 06/02/23 N83.299 - Other ovarian cyst, unspecified side, N83.8 - Other noninflammatory disorders of ovary, fallopian tube and broad ligament Carbohydrate Antigen 19-9 06/02/23 N83.8 - Other noninflammatory disorders of ovary, fallopian tube and broad ligament Carcinoembryonic Antigen 06/02/23 N83.8 - Other noninflammatory disorders of ovary, fallopian tube and broad ligament Telehealth Telehealth Location of provider rendering services: practice address Location of patient: address on file Patient Identification confirmed using: Name, : Yes Telehealth method: voice only Patient verbally consented to treatment: Yes Patient verbally consented to billing insurance company: Yes Patient informed of any privacy concerns related to visit: Yes Minutes spent on Phone/Video with Pt.: 13 Coding Level of Care Code Tele Est Pt Level 3 (24407) Diagnoses Encounter to discuss test results Z71.2 Pelvic pain R10.2
== END 2023-05-29 16:51 | disposition home or self-care (01) ==
LOC: HO.HWS 15:26
PROVIDERS: PCP Internal Medicine; Visit Provider Advanced Practice Midwife
DX: Z71.2 Person consulting for explanation of examination or test findings (principal); R10.2 Pelvic and perineal pain
CPT/HCPCS: 99213

== ENCOUNTER → 2023-05-29 15:26 | Outpatient (BNVA) | payer OTHER, SELFPAY | PROVIDERS: PCP Internal Medicine; Visit Provider Advanced Practice Midwife ==

== ENCOUNTER 2023-06-02 07:48 | Outpatient (REF) | payer OTHER, SELFPAY ==
--- NOTE | ~2023-06-02 | CT_ITS ---
EXAMINATION: CT CHEST WITH CONTRAST CLINICAL INFORMATION: Bronchiectasis associated lymphoid tissue lymphoma COMPARISON: CT scan of chest on 06/02/2022 TECHNIQUE: Multidetector volumetric CT imaging of the chest was obtained after the administration of 80 mL of Omnipaque 350 intravenous contrast without immediate adverse reactions. Axial MIP volume rendering provided. Sagittal and coronal reformatted images were obtained. This CT examination was performed using dose optimization techniques as appropriate, variously including the following: *Automated exposure control *Adjustment of mA and/or kV according to patient size (this includes techniques or standardized protocols for targeted exams where dose is matched to indication/reason for exam; i.e. extremities or head) *Use of iterative reconstruction technique DLP: 376.1 mGy-cm FINDINGS: LUNGS: A persistent oblique sagittal high density surgical suture line surrounded by fibrotic scars and chronic atelectasis with air bronchograms is again visualized in the right middle lobe. A persistent groundglass nodule is seen at anterior right upper lobe apical segment measuring 0.6 cm in diameter (previously 0.5 cm), series 5 image #123. A part solid nodule is seen at anterior medial corner of right upper lobe apical segment, measuring 1.1 cm in diameter (previously 1.1 cm), with interval development of solid component measuring 0.71 cm in length, series 5 image #157. A persistent patchy alveolar density is seen at anterior lateral border of the fibrotic scar, measuring 1.3 cm in size (previously 1.4 cm), series 5 image #234. Interval progression from groundglass lesion to solid nodule is seen at posterior medial pleural border of right lower lobe superior segment measuring 0.6 cm in diameter (previously 0.6 cm) series 5 image #246. A persistent pure groundglass lesion is seen at anterior lateral left upper lobe apicoposterior segment measuring 0.6 cm in size (previously 0.6 cm), series 5 image #172. A persistent pure groundglass lesion is seen at posterior lateral border of left upper lobe apicoposterior segment measuring 1.2 cm in size (previously 1.3 cm), series 5 image #179. A persistent solid nodule is seen at posterior left lung base, left lower lobe posterior basal segment measuring 0.61 cm in size (previously 0.45 cm), series 5 image #406. Persistent groundglass opacity is seen at the posterior medial pleural border of left lower lobe posterior basal segment with interval increase in size and development of multiple solid components, measuring up to 0.8 cm in length, series 5 image #347. PLEURA: No pleural effusion or pneumothorax is seen. PERICARDIUM: No pericardial effusion is seen. MEDIASTINUM AND ISIDRA: No abnormally enlarged mediastinal or hilar lymph nodes are seen. TRACHEOBRONCHIAL TREE: Trachea and bilateral mainstem bronchi are patent. THORACIC AORTA: The thoracic aorta is normal in size and smoothly patent. CORONARY ARTERY CALCIFICATIONS: None PULMONARY ARTERIES: The main pulmonary arteries show normal enhancement. CHEST WALL AND LOWER NECK: The subcutaneous and muscular chest wall are intact with no focal lesion. No abnormal mass lesion could be seen in the visualized lower neck. BONES: No fracture or dislocation. No focal bone lesion diagnostic of metastatic disease could be seen in the thorax. VISUALIZED UPPER ABDOMEN: A persistent low density lesion is seen in left hepatic dome segment 4A measuring 0.5 cm in size, impossible to characterize due to partial volume averaging, series 3 image #35. Surgical clips are seen in the gallbladder fossa. CT/CT chest w IV con IMPRESSION: 1. Unchanged surgical suture line, fibrosis and chronic atelectasis in right middle lobe and alveolar patchy lesion at anterior lateral border of the fibrotic scar. 2. Interval development of solid component larger than 0.6 cm in the previously pure groundglass lesion in right upper lobe apical segment, progression from groundglass lesion to solid nodule in right lower lobe superior segment. 3. Interval increase in size of the groundglass opacity in posterior medial pleural border of left lower lobe posterior basal segment and development of multiple solid components within these areas, interval increase in size of posterior left lung base solid nodule. Findings may represent progression of lymphoma or developing adenocarcinoma. Close follow-up according to oncology protocol is recommended. 4. The remaining solid and groundglass lesions in bilateral lungs remain unchanged. 5. Unchanged, No hilar or mediastinal lymphadenopathy is seen. 6. No thoracic aortic aneurysm or dissection is seen. 7. Unchanged tiny low-density lesion in left hepatic dome segment 4A and status post cholecystectomy.
--- NOTE | ~2023-06-02 | CT_ITS ---
EXAMINATION: CT SOFT TISSUE NECK WITH CONTRAST CLINICAL INFORMATION: Bilateral cervical adenopathy. COMPARISON: Thyroid ultrasound 01/21/2023. TECHNIQUE: Following the intravenous administration of 80 mL of Omnipaque 350 intravenous contrast, helical imaging was performed in the axial plane with generation of coronal and sagittal reformatted images. This CT examination was performed using dose optimization techniques as appropriate, variously including the following: *Automated exposure control *Adjustment of mA and/or kV according to patient size (this includes techniques or standardized protocols for targeted exams where dose is matched to indication/reason for exam; i.e. extremities or head) *Use of iterative reconstruction technique DLP: 296.2 mGy-cm FINDINGS: There are a few symmetrically enlarged albeit nonspecific cervical lymph nodes, none of which demonstrate worrisome enhancement characteristics to suggest capsular invasion or central necrosis. For instance the dominant left level II cervical lymph node measures 1.7 cm in maximal transaxial dimension best visualized on axial image 47 of 115 series 3. The dominant right level II cervical lymph node measures 1.9 cm in maximal transaxial dimension. There is no mediastinal or axillary adenopathy visualized within the [id number] of this examination. Pharyngeal mucosal spaces are symmetric. Parapharyngeal and retromaxillary fat is preserved. Head Screen Worker spaces are symmetric. Parotid glands are normal and submandibular glands are normal. The tongue base and epiglottis are normal. Preepiglottic fat is preserved. Glottic and subglottic airways are patent. The thyroid gland is normal and the remainder of the visualized visceral soft tissues are normal. Lung apices are clear. Aortic arch apex is normal. The cervical carotid and vertebral arteries are patent. Internal jugular veins fill symmetrically. There is no acute osseous finding. Specific no worrisome lytic or blastic osseous lesion. There is advanced multilevel degenerative spondylosis of the cervical spine with disc osteophyte spurring in conjunction with facet degenerative change causing moderate to severe canal stenosis at levels of C3-C4 and C4-C5. The skull base is intact. No mastoid middle ear effusion. Visualized paranasal sinuses are well aerated. Limited visualization of intracranial anatomy reveals no abnormal finding. CT/CT soft tissue neck w IV con IMPRESSION: There are a few symmetrically enlarged albeit otherwise nonspecific cervical lymph nodes, none of which demonstrate worrisome enhancement characteristics to suggest capsular invasion or central necrosis. These findings may simply represent a manifestation of reactive adenopathy. Continued clinical follow-up is therefore recommended to ensure stability. Otherwise no abnormal soft tissue mass or worrisome enhancement is visualized elsewhere within the [id number] of this examination. There is advanced multilevel degenerative spondylosis of the cervical spine with moderate to severe canal stenosis at levels of C3-C4 and C4-C5. If there are clinical symptoms of compressive myelopathy then a dedicated cervical spine MRI can be obtained for better anatomic characterization of the cord and canal.
[2023-06-02] MEDS: iohexoL 350 MG/ML 100 ML INFUS..BTL IV (09:18)
[2023-06-02 16:21] LABS: Basophils Percent Auto 0.2 % (0-2); Eosinophils Absolute Auto 0.1 X10*3/uL (0.0-0.4); Eosinophils Percent Auto 0.6 % (0-4); Hematocrit 39.7 % (37.0-47.0); Hemoglobin 12.6 g/dl (12.0-16.0); Imm Gran Abs Auto 0.04 X10*3/uL (0.00-0.03); Imm Gran Pct Auto 0.2 % (0.0-0.4); Lymphocytes Percent Auto 73.4 % (20-40); MANUAL DIFF FLAG SCAN; Mean Corpuscular HGB Conc 31.7 g/dl (31.0-35.0); Mean Corpuscular Hemoglobin 30.4 pg (27.0-33.0); Mean Corpuscular Volume 95.7 fL (80.0-98.0); Mean Platelet Volume 11.3 fL (9.4-12.3); Monocytes Absolute Auto 0.7 X10*3/uL (0.1-1.2); Monocytes Percent Auto 3.9 % (2-11); Neutrophils Absolute Auto 3.9 x10*3/uL (2.0-8.3); Neutrophils Percent Auto 21.7 % (45-73); Platelet Count 197 X10*3/uL (160-400); Red Blood Count 4.15 X10*6/uL (4.20-5.50); Red Cell Distribution Width 13.4 % (11.0-16.0); SCAN SMEAR FLAG 1; White Blood Count 18.2 X10*3/uL (4.8-10.8)
[2023-06-02 16:29] LABS: Lymphocytes Absolute Auto 13.3 X10*3/uL (1.2-4.9)
[2023-06-02 16:42] LABS: SLIDE REVIEW VERIFIED
[2023-06-02 17:11] LABS: Appearance Urine Clear; Color Urine Yellow; Glucose Urine UA Negative (Negative); Leukocyte Esterase Urine Moderate (2+) (Negative); Nitrite Urine Negative (Negative); PH 6.5 (5.0-9.0); Specific Gravity - Urine >= 1.030 (1.005-1.025); UMIC TRIGGER UA YES; Urine Blood Small (1+) (Negative); Urine Ketones Negative (Negative); Urine Protein Negative (Neg-Trace)
[2023-06-02 17:24] LABS: Bacteria Urine None Seen (None Seen); Hyaline Casts Urine 0-2 /LPF (0-2); Squamous Epithelial Cell Urine 0-2 /HPF (0-2); WBC Urine >50 /HPF (0-5)
[2023-06-04 10:13] LABS: CA-125 4 U/mL (<35)
[2023-06-08 11:48] LABS: Carbohydrate Antigen 19-9 24 U/mL (<34)
== END 2023-06-02 07:49 | disposition home or self-care (01) ==
LOC: HO.CT 07:48
PROVIDERS: Absent Provider Advanced Practice Midwife; PCP Internal Medicine; Visit Provider Internal Medicine Medical Oncology
DX: C88.4 Extranodal marginal zone B-cell lymphoma of mucosa-associated lymphoid tissue [MALT-lymphoma] (principal); R59.0 Localized enlarged lymph nodes; N83.299 Other ovarian cyst, unspecified side; N83.8 Other noninflammatory disorders of ovary, fallopian tube and broad ligament; D72.829 Elevated white blood cell count, unspecified
CPT/HCPCS: 36415; 70491; 71260; 81001; 81003; 82378; 82565; 85025; 86301; 86304; Q9967

== ENCOUNTER 2023-06-04 09:56 | Outpatient (AMB) | payer OTHER, SELFPAY ==
[2023-06-04 10:07] VITALS: BP 142/63; PULSE 81; RESP 18; O2SAT 98; BMI 40.2
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
== END 2023-06-04 10:45 | disposition home or self-care (01) ==
PROVIDERS: PCP Internal Medicine; Visit Provider Registered Nurse Emergency
DX: M53.3 Sacrococcygeal disorders, not elsewhere classified (principal); R26.89 Other abnormalities of gait and mobility; M54.50 Low back pain, unspecified; M47.816 Spondylosis without myelopathy or radiculopathy, lumbar region
CPT/HCPCS: 99203

== ENCOUNTER → 2023-06-04 09:56 | Outpatient (BNVA) | payer OTHER, SELFPAY | PROVIDERS: PCP Internal Medicine; Visit Provider Registered Nurse Emergency ==

== ENCOUNTER 2023-06-23 07:56 | Outpatient (REF) | payer MEDICARE, SELFPAY ==
--- NOTE | ~2023-06-23 | MR_ITS ---
EXAMINATION: MR ABDOMEN WITHOUT AND WITH CONTRAST MR CHOLANGIOPANCREATOGRAPHY CLINICAL INFORMATION: Chronic lymphocytic leukemia, carcinoma of lung, cervical carcinoma, right upper abdominal pain for one month. Follow-up pancreatic uncinate process multiloculated cyst. COMPARISON: MRI of abdomen on 06/23/2022 TECHNIQUE: Examination was performed in a high field strength MRI scanner. Multiplanar multisequence MR imaging of the abdomen was performed without IV contrast enhancement. Multiphasic Axial T1-weighted fat-suppressed images of the upper abdomen were obtained after IV injection of 10 mL Gadavist. Coronal T1-weighted fat-suppressed images of the abdomen were obtained following the dynamic axial series. MR cholangiopancreatography was performed with heavily T2 weighted sequences. 3-dimensional reconstruction of image data was performed. This was performed under concurrent direct supervision and monitoring by radiologist. Maximum intensity projection images were constructed. FINDINGS: MR CHOLANGIOPANCREATOGRAPHY: Gallbladder is surgically absent. Bilateral intra hepatic bile ducts, common hepatic duct and common bile duct are normal in size without filling defects. Pancreatic duct is normal in size. The uncinate process pancreatic cystic lesion overlaps the proximal pancreatic duct with possible communication, series 11 image #22. LIVER: The liver shows a septated cyst in inferior border of left hepatic lobe segment IVb, measuring 1.5 x 1.1 cm in size (previously 1.2 x 0.9 cm). The calculated hepatic fat percentage is 6.3%, compatible with mild hepatic steatosis. PANCREAS: Persistent multiseptated complex nonenhancing cystic lesion is seen in pancreatic uncinate process, measuring 2.0 cm in AP diameter, 1.6 cm in width, 3.0 cm in vertical height (previously 2.4 x 1.6 cm on 06/23/2022; 1.8 x 1.6 cm on 06/08/2017), series 6 image #28, series 5 image #13, 14. Persistent multiple tiny anterior pancreatic body peripheral cystic lesions are seen measuring up to 0.3 cm in diameter, unchanged. SPLEEN: Spleen is normal in size without focal lesion. ADRENAL: Bilateral adrenal glands are normal in shape and size. KIDNEYS: Bilateral kidneys are normal in size with persistent bilateral parapelvic simple renal cysts, for which no follow up imaging is recommended. No focal bone lesion diagnostic of metastatic disease could be seen in the visualized lumbosacral spine. MR/MR abdomen wo/w con IMPRESSION: 1. 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 Unchanged stable multiple additional tiny pancreatic cysts with no communication with pancreatic duct. Follow-up imaging every one year x2, every 2 years x3 are recommended by [employer] if endoscopic ultrasound examination and fine-needle aspiration are not contemplated. 2. Unchanged status post cholecystectomy. No evidence of hepatobiliary duct dilatation or ductal stones. 3. Unchanged septated inferior left hepatic lobe segment IVb cystic lesion. 4. Unchanged bilateral parapelvic renal cysts, for which no follow up imaging is recommended.
[2023-06-23] MEDS: gadobutroL 10 ML VIAL IVPUSH (08:58)
== END 2023-06-23 07:57 | disposition home or self-care (01) ==
LOC: HO.MRI 07:56
PROVIDERS: PCP Internal Medicine; Visit Provider Internal Medicine Medical Oncology
DX: K86.89 Other specified diseases of pancreas (principal)
CPT/HCPCS: 74183; A9585

== ENCOUNTER 2023-06-30 07:49 | Outpatient (AMB) | payer MEDICARE, SELFPAY ==
--- NOTE | 2023-06-30 07:55 | MHC.PC.OV ---
Vital Signs 06/30/23 07:56 06/30/23 09:17 Height 5 ft Weight 205 lb BMI 40.0 BP 146/78 H 140/70 H Blood Pressure Location Lt brachial Lt brachial Position Sitting Sitting Pulse 80 Pulse Source Pulse Oximeter Pulse Oximetry (%) 98 Oxygen Delivery Method Room Air Intake Visit Reasons: IGT, obesity Allergies penicillin G [Penicillin G] Allergy (Mild, Verified 06/30/23 07:56) RASH Sulfa (Sulfonamide Antibiotics) [Sulfa (Sulfonamides)] Allergy (Mild, Verified 06/30/23 07:56) UNKNOWN meperidine [Demerol] Allergy (Unknown, Verified 06/30/23 07:56) Unknown penicillin V Allergy (Unknown, Verified 06/30/23 07:56) Unknown strawberry [STRAWBERRY] Allergy (Unknown, Verified 06/30/23 07:56) HIVES codeine [Codeine] Adverse Reaction (Intermediate, Verified 06/30/23 07:56) HALLUCINATION oxycodone [From Percocet] Adverse Reaction (Mild, Verified 06/30/23 07:56) VOMITING Codeine Phosphate Allergy (Unknown, Uncoded 06/30/23 07:56) Unknown From Demerol Allergy (Unknown, Uncoded 06/30/23 07:56) BRADYCARDIA narcotics Allergy (Unknown, Uncoded 06/30/23 07:56) Unknown percocet Allergy (Unknown, Uncoded 06/30/23 07:56) nausea and vomiting Tobacco use date assessed: 12/16/22 Fall risk assessment: No Falls in past year Last assessed Fall Risk: 06/30/23 Dental Screening Dental Screen Date: 06/30/23 Did you have a dental visit in the last 12 months?: Yes Did you have a dental problem in the last 6 months where you did not have access to dental care?: No Was dental information given to patient?: Patient has dentist HPI IGT, obesity HPI Details 78-year-old morbidly obese female with hypercholesterolemia GERD M ALT lymphoma asthma cervical cancer pancreatic mass obstructive sleep apnea generalized anxiety disorder impaired glucose tolerance overactive bladder coming in for follow-up. Last seen in 05/26/2023 patient also has some lumbar facet arthropathy mammograms up-to-date bone density is due colonoscopy is up-to-date March 2020. Review of the notes patient was just seen by the Hematology Oncology for the pancreas as well asMaltoma.. Patient had a middle lobe lung wedge resection diagnosis of extranodal marginal zone lymphoma 2016 patient also has a cystic lesion in the pancreas no abnormal uptake suggesting nonaggressive etiology patient is being followed up by patient also has some pulmonary nodules and advised CT every 2 years until 5 years. Patient has developed lymphocytosis showing smudge cells consistent with CLL seen by Dr. Becker. As for the pancreatic mass last MRI June 2022 stable since less than 2 cm continue to follow. Patient has a right hip and low back pain referred to pain management showing sacroiliac joint dysfunction and multi level degenerative spondyloarthropathy options of the diagnostic interventional testing epidural injections peripheral nerve stimulation RFA/neuromodulation planned diagnostic bilateral sacroiliac joint injections fluoroscopy guided. Last CT scan of the chest was June 2023 question of increase in ground-glass opacity in the posterior medial border pleural left lobe. Patient also follows up with urology for the renal cyst and overactive bladder on oxybutynin planned change [id number] mg but due to very expensive did not get gemtessa.. Patient also has seen pulmonary for the obstructive sleep apnea compliance improved and has been benefitting [facility] Medical History (Updated 06/30/23 @ 09:18 by Constantine Lara MD) Blood pressure elevated without history of HTN Urge incontinence of urine Calcification of ovary Leukocytosis (leucocytosis) Asthma exacerbation Renal cyst Allergic rhinitis Restrictive lung disease Hypersomnolence ALEISHA (obstructive sleep apnea) Obesity (BMI 30-39.9) MALToma Cervical cancer Pancreatic mass Osteopenia GERD (gastroesophageal reflux disease) Adnexal mass MALT lymphoma Obesity (BMI 30-39.9) Vitamin D deficiency Tubular adenoma of colon History of supraventricular tachycardia Breast density Anxiety High cholesterol Migraine headache Asthma Hyperlipemia Surgical History Hx of tubal ligation History of vocal cord polypectomy Hx of dilation and curettage Hx of pneumonectomy H/O arthroscopy of right knee Hx of cholecystectomy Family History Father Colon cancer Sister Colon cancer Sister History of breast cancer Colon cancer Sister Thyroid cancer Household Members: None Housing: Apartment Are you a primary resident care provider to a significant other at home: No Do you presently have visiting nurse or other home services: No Alcohol intake: current Alcohol intake frequency: holidays/special occasions only Patient Tobacco Use Status: Never used Tobacco e-Cigarette/Vaping Use: Never Used Second Hand Smoke Exposure: No service: Yes Current occupational status: retired Current occupational exposures/hazards: No Cognitive needs: No Hearing needs: No Vision needs: No Female Reproductive History Menstrual Age of Menarche: 17 Questionnaire PHQ-9 Over the last 2 weeks, how often have you been bothered by any of the following problems? 1. Little interest or pleasure in doing things: not at all 2. Feeling down, depressed, or hopeless: not at all 3. Trouble falling or staying asleep, or sleeping too much: not at all 4. Feeling tired or having little energy: not at all 5. Poor appetite or overeating: not at all 6. Feeling bad about yourself - or that you are a failure or have let yourself or your family down: not at all 7. Trouble concentrating on things, such as reading the newspaper or watching television: not at all 8. Moving or speaking so slowly that other people could have noticed. Or the opposite - being so fidgety or restless that you have been moving around a lot more than usual: not at all 9. Thoughts that you would be better off or of hurting yourself in some way: not at all Total score: 0 Depression Screening Interpretation: Negative Depression Screening Done: Yes Source: Developed by Drs. Gómez Grant, Huber Manrique and colleagues, with an educational adrienne from [employer]. Thrive Questionnaire Date Thrive assessed: 11/12/22 AUDIT C Alcohol Use Questionnaire (AUDIT-C) 1. How often do you have a drink containing alcohol?: Monthly or less 2. How many drinks containing alcohol do you have on a typical day when you are drinking?: 1 or 2 3. How often do you have six or more drinks on one occasion?: Never Total Score: 1 Score Reviewed/Action Taken: No FERNANDA-7 AMB Questionnaire FERNANDA-7 Date FERNANDA - 7 assessed: 11/12/22 Source: Developed by Drs. Gómez Grant, Huber Manrique and colleagues, with an educational adrienne from [employer]. Physical exam (Primary Care) Vital Signs: Last Vital Signs Pulse 80 06/30/23 07:56 BP 146/78 H 06/30/23 07:56 Pulse Ox 98 06/30/23 07:56 Oxygen Delivery Method Room Air 06/30/23 07:56 BMI result Body Mass Index 40.0 Tobacco/Smoking Status: Tobacco use Status Tobacco use date assessed 12/16/22 06/30/23 07:57 Patient Tobacco Use Status Never used Tobacco 06/30/23 07:57 Tobacco use type 05/26/23 15:09 e-Cigarette/Vaping Use Never Used 06/30/23 07:57 PHQ-9: PHQ-9 Score PHQ-9: Total score 0 06/30/23 07:57 Depression Screening Interpretation: Negative Thrive Assessment: Date of Thrive Assessment Date Thrive assessed 11/12/22 06/30/23 07:57 Const General: alert; No acute distress Eyes Conjunctivae: conjunctivae normal Resp Auscultation: clear to auscultation bilaterally Cardio Rate: regular rate Rhythm: regular rhythm GI Inspection: Yes normal to inspection Extrem General: Yes normal to inspection and No edema Assessment and Plan Assessment & Plan (1) High cholesterol: Code(s): E78.00 - Pure hypercholesterolemia, unspecified Plan: Avoid fried foods, chicken skin, eggs, butter margarine, pastries and meat. Be it pork or beef they have a lot of cholesterol LDL goal of less than 130 and triglyceride of less than 150 patient on simvastatin 10 mg once a day (2) GERD (gastroesophageal reflux disease): Code(s): K21.9 - Gastro-esophageal reflux disease without esophagitis Plan: Avoid the foods that causes that usually spicy foods, tomato products, juices, coffee, soda and foods that your sensitive to. After eating do not lie down, allow 3-4 hours before in lie down. And keep the head of bed above 30 degrees to avoid the acid from going up. 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 ADVISED TO USE ALBUTEROL P.R.N. BUT ONLY SPARINGLY, IF SHE HAS WHEEZING IS, NOT FOR JUST SHORTNESS OF BREATH. Code(s): J45.909 - Unspecified asthma, uncomplicated Plan: Continue with inhaler as needed (5) Osteopenia: Code(s): M85.80 - Other specified disorders of bone density and structure, unspecified site Plan: Bone density is due (6) Pancreatic mass: Comment: June 2021 sameMRI of the abdomen from 06/24/21: 1. Avascular multicystic lesion pancreatic head under 2 cm similar to prior studies. No lymphadenopathy. 2. Prior cholecystectomy. No ductal dilatation. 3. Small hepatic cysts, stable. June 2022 stable pancreatic cyst Code(s): K86.89 - Other specified diseases of pancreas Plan: MRI being followed every couple of years (7) Obesity: Code(s): E66.9 - Obesity, unspecified Plan: Diet and exercise (8) Low back pain: Comment: 11/2021Moderate multilevel degenerative spondyloarthropathy of the lumbar spine as described in detail above. Most notably, multifactorial degenerative spondyloarthropathy exacerbated by prominent epidural lipomatous tissue leads to stenoses of the subarticular zones and mild to moderate effacement of the thecal sac at L3-L4 and L4-L5. Advanced facet joint arthropathy at L4-L5 and L5-S1. Code(s): M54.50 - Low back pain, unspecified Plan: Patient is seeing pain management and planned fluoroscopic guidance injection (9) OAB (overactive bladder): Code(s): N32.81 - Overactive bladder Plan: Patient has seen urology and planned Gemtessa (10) Bilateral finger numbness: Code(s): R20.0 - Anesthesia of skin (11) CLL (chronic lymphocytic leukemia): Code(s): C91.10 - Chronic lymphocytic leukemia of B-cell type not having achieved remission Plan: Dr. Becker ff up (12) Blood pressure elevated without history of HTN: Code(s): R03.0 - Elevated blood-pressure reading, without diagnosis of hypertension Orders: Orders NE nerve conduction velocity Today R20.0 - Anesthesia of skin NE electromyogram (EMG) Today R20.0 - Anesthesia of skin Medications: Changed From furosemide 20 mg PO Q OTHER DAY PRN 45 tabs 0RF for swelling R60.0 - Localized edema To furosemide 20 mg PO DAILY 90 days PRN 90 tabs 1RF for swelling R60.0 - Localized edema Coding Level of Care Code Est Pt Level 4 (41941) Diagnoses High cholesterol E78.00 GERD (gastroesophageal reflux disease) K21.9 MALT lymphoma C88.4 Asthma J45.909 Osteopenia M85.80 Pancreatic mass K86.89 Obesity E66.9 Low back pain M54.50 OAB (overactive bladder) N32.81 Bilateral finger numbness R20.0 CLL (chronic lymphocytic leukemia) C91.10 Blood pressure elevated without history of HTN R03.0 Additional Codes PHQ-9 - 68127 - PHQ-9 Billing: ([id number])
[2023-06-30 07:56] VITALS: BP 146/78; PULSE 80; O2SAT 98; BMI 40.0
[2023-06-30 09:17] VITALS: BP 140/70
== END 2023-06-30 09:25 | disposition home or self-care (01) ==
PROVIDERS: PCP Internal Medicine; Visit Provider Internal Medicine
DX: E78.00 Pure hypercholesterolemia, unspecified (principal); C88.4 Extranodal marginal zone B-cell lymphoma of mucosa-associated lymphoid tissue [MALT-lymphoma]; C91.10 Chronic lymphocytic leukemia of B-cell type not having achieved remission; K21.9 Gastro-esophageal reflux disease without esophagitis; J45.909 Unspecified asthma, uncomplicated; M85.80 Other specified disorders of bone density and structure, unspecified site; K86.89 Other specified diseases of pancreas; E66.9 Obesity, unspecified; M54.50 Low back pain, unspecified; N32.81 Overactive bladder; R20.0 Anesthesia of skin; R03.0 Elevated blood-pressure reading, without diagnosis of hypertension
CPT/HCPCS: 99214

== ENCOUNTER 2023-07-07 06:06 | Outpatient (REF) | payer MEDICARE, SELFPAY ==
--- NOTE | ~2023-07-07 | FL_ITS ---
EXAMINATION: XR FLUOROSCOPY WITH IMAGES CLINICAL INFORMATION: Sacrococcygeal disorders, not elsewhere classified. COMPARISON: None available. TECHNIQUE: Fluoroscopy Supervised By: Dr. Dg Saleem. Fluoroscopy Time: 0.5 minutes. Cumulative Dose: 10.8 mGy. DAP: 0.0104 Gycm2. Images: 2. FINDINGS: Images demonstrate needle placement and contrast injection over the bilateral sacroiliac joints FL/FL guidance in treatment room IMPRESSION: Fluoroscopy guidance for bilateral sacroiliac joint injection.
== END 2023-07-07 06:07 | disposition home or self-care (01) ==
LOC: CF 06:06
PROVIDERS: Visit Provider Anesthesiology
DX: M53.3 Sacrococcygeal disorders, not elsewhere classified (principal); M54.50 Low back pain, unspecified; M47.816 Spondylosis without myelopathy or radiculopathy, lumbar region; R26.89 Other abnormalities of gait and mobility
CPT/HCPCS: 27096; J2795; Q9967

== ENCOUNTER 2023-07-07 08:20 | Outpatient (AMB) | payer MEDICARE, SELFPAY ==
[2023-07-07 08:26] VITALS: BP 130/78; PULSE 76; RESP 18; O2SAT 96; BMI 40.0
--- NOTE | 2023-07-07 08:26 | MHC.OFFVIS ---
Intake Vital Signs 07/07/23 08:26 07/07/23 09:24 Height 5 ft 5 ft Weight 205 lb 205 lb BMI 40.0 40.0 BP 130/78 130/74 Blood Pressure Location Lt brachial Lt brachial Position Sitting Sitting Respiration 18 16 Pulse 76 70 Pulse Source Pulse Oximeter Pulse Oximeter Pulse Oximetry (%) 96 97 Oxygen Delivery Method Room Air Room Air Comment pre-op post-op Intake Visit Reasons: BILAT DX SIJ INJ/LOCAL Allergies penicillin G [Penicillin G] Allergy (Mild, Verified 07/07/23 08:27) RASH Sulfa (Sulfonamide Antibiotics) [Sulfa (Sulfonamides)] Allergy (Mild, Verified 07/07/23 08:27) UNKNOWN meperidine [Demerol] Allergy (Unknown, Verified 07/07/23 08:27) Unknown penicillin V Allergy (Unknown, Verified 07/07/23 08:27) Unknown strawberry [STRAWBERRY] Allergy (Unknown, Verified 07/07/23 08:27) HIVES codeine [Codeine] Adverse Reaction (Intermediate, Verified 07/07/23 08:27) HALLUCINATION oxycodone [From Percocet] Adverse Reaction (Mild, Verified 07/07/23 08:27) VOMITING Codeine Phosphate Allergy (Unknown, Uncoded 06/30/23 07:56) Unknown From Demerol Allergy (Unknown, Uncoded 06/30/23 07:56) BRADYCARDIA narcotics Allergy (Unknown, Uncoded 06/30/23 07:56) Unknown percocet Allergy (Unknown, Uncoded 06/30/23 07:56) nausea and vomiting [facility] Medical History (Updated 06/30/23 @ 09:18 by Constantine Lara MD) Blood pressure elevated without history of HTN Urge incontinence of urine Calcification of ovary Leukocytosis (leucocytosis) Asthma exacerbation Renal cyst Allergic rhinitis Restrictive lung disease Hypersomnolence ALEISHA (obstructive sleep apnea) Obesity (BMI 30-39.9) MALToma Cervical cancer Pancreatic mass Osteopenia GERD (gastroesophageal reflux disease) Adnexal mass MALT lymphoma Obesity (BMI 30-39.9) Vitamin D deficiency Tubular adenoma of colon History of supraventricular tachycardia Breast density Anxiety High cholesterol Migraine headache Asthma Hyperlipemia Surgical History Hx of tubal ligation History of vocal cord polypectomy Hx of dilation and curettage Hx of pneumonectomy H/O arthroscopy of right knee Hx of cholecystectomy Family History Father Colon cancer Sister Colon cancer Sister History of breast cancer Colon cancer Sister Thyroid cancer Social History Household Members: None Housing: Apartment Are you a primary career development counselor to a significant other at home: No Do you presently have visiting nurse or other home services: No Alcohol intake: current Alcohol intake frequency: holidays/special occasions only Patient Tobacco Use Status: Never used Tobacco e-Cigarette/Vaping Use: Never Used Second Hand Smoke Exposure: No service: Yes Current occupational status: retired Current occupational exposures/hazards: No Cognitive needs: No Hearing needs: No Vision needs: No Female Reproductive History Menstrual Age of Menarche: 17 Physical Exam Vital Signs: Last Vital Signs Pulse 70 07/07/23 09:24 Resp 16 07/07/23 09:24 BP 130/74 07/07/23 09:24 Pulse Ox 97 07/07/23 09:24 Oxygen Delivery Method Room Air 07/07/23 09:24 BMI result Body Mass Index 40.0 Assessment & Plan Assessment & Plan (1) Sacroiliac joint dysfunction of both sides: Code(s): M53.3 - Sacrococcygeal disorders, not elsewhere classified (2) Balance disorder: Code(s): R26.89 - Other abnormalities of gait and mobility Plan: Bilateral diagnostic sacroiliac joint injection Informed consent was explained thoroughly to the patient. All questions about benefits and risks for the procedure were answered. Patient came to the operating room and was positioned prone on the operating table with the pillow under the pelvis Time out was performed delineating name and of the patient, allergies and the nature of the procedure. The lower back and buttocks of the patient were prepped with ChloraPrep prepped and draped with sterile utility towels. C-arm was brought over the operating field and sq picture of patient's pelvis was demonstrated on the screen. For the right joint tilting C-arm contralateral to the site of the joint the most posterior portion of the joints was superimposed with anterior silhouette of the joint. Skin was injected in the projection of the joint slightly medial to the location of the joint with 25 gauge 1/2 inch needle using local lidocaine 2% .After that 22 gauge 3 and 1/2 inch needle was driven to the right joint in tunnel vision fashion. When needle entered the joint capsule injection of the contrast was performed demonstrating intra-articular and minimally periarticular spread of the contrast. After that 4 cc. of ropivacaine 0.5% was injected into the joint. Upon completion of the injections the needle was removed the procedure was repeated on the left side in a mirroring fashion. After full completion of the procedure patient was taken outside of the operating room to the recovery room where recovered uneventfully. (3) Low back pain: Comment: 11/2021Moderate multilevel degenerative spondyloarthropathy of the lumbar spine as described in detail above. Most notably, multifactorial degenerative spondyloarthropathy exacerbated by prominent epidural lipomatous tissue leads to stenoses of the subarticular zones and mild to moderate effacement of the thecal sac at L3-L4 and L4-L5. Advanced facet joint arthropathy at L4-L5 and L5-S1. Code(s): M54.50 - Low back pain, unspecified (4) Lumbar facet arthropathy: Code(s): M47.816 - Spondylosis without myelopathy or radiculopathy, lumbar region Caty Ariza is a very pleasant 77 year old female patient who presents to the office today for evaluation and management of her chronic lower back pain. History, physical exam and provocative testing consistent with lumbar facet arthropathy and bilateral sacroiliac joint dysfunction. Patient also suffering from balance issues, she was referred to neurology but after review is requesting referral to neurology at [facility]. Patient has failed conservative therapy including PT, HEP and NSAIDs. Discussed options for treatment including diagnostic interventional testing, epidural steroid injections, peripheral nerve stimulation with Sprint, RFA and more permanent neuromodulation. Will schedule for diagnostic bilateral SIJ injections, fluoroscopy guided with local anesthetic. All questions and concerns have been answered and patient agrees with the plan. Follow up after injections, sooner if needed. Orders: Orders FL guidance in treatment room 07/07/23 M53.3 - Sacrococcygeal disorders, not elsewhere classified Coding Level of Care Code Procedure Only Diagnoses Sacroiliac joint dysfunction of both sides M53.3 Balance disorder R26.89 Low back pain M54.50 Lumbar facet arthropathy M47.816
[2023-07-07 09:24] VITALS: BP 130/74; PULSE 70; RESP 16; O2SAT 97; BMI 40.0
== END 2023-07-07 09:10 | disposition home or self-care (01) ==
LOC: HO.PMCPRC 08:20
PROVIDERS: PCP Internal Medicine; Visit Provider Anesthesiology
DX: M53.3 Sacrococcygeal disorders, not elsewhere classified (principal); R26.89 Other abnormalities of gait and mobility; M54.50 Low back pain, unspecified; M47.816 Spondylosis without myelopathy or radiculopathy, lumbar region
CPT/HCPCS: 27096

== ENCOUNTER 2023-07-09 08:32 | Outpatient (AMB) | payer MEDICARE, SELFPAY ==
[2023-07-09 08:42] VITALS: BP 127/85; PULSE 71; RESP 18; O2SAT 97; BMI 40.0
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
== END 2023-07-09 09:36 | disposition home or self-care (01) ==
PROVIDERS: PCP Internal Medicine; Visit Provider Registered Nurse Emergency
DX: M53.3 Sacrococcygeal disorders, not elsewhere classified (principal); R26.89 Other abnormalities of gait and mobility; M54.50 Low back pain, unspecified; M47.816 Spondylosis without myelopathy or radiculopathy, lumbar region
CPT/HCPCS: 99213

== ENCOUNTER → 2023-07-09 08:32 | Outpatient (BNVA) | payer MEDICARE, SELFPAY | PROVIDERS: PCP Internal Medicine; Visit Provider Registered Nurse Emergency | DX: M53.3 Sacrococcygeal disorders, not elsewhere classified (principal); M54.50 Low back pain, unspecified; M47.816 Spondylosis without myelopathy or radiculopathy, lumbar region; R26.89 Other abnormalities of gait and mobility | CPT/HCPCS: 99212 ==

== ENCOUNTER 2023-07-21 23:13 | Emergency (ER) | payer MEDICARE, SELFPAY ==
--- NOTE | ~2023-07-21 | CT_ITS ---
EXAMINATION: NONCONTRAST HEAD CT NONCONTRAST CERVICAL SPINE CT INDICATION INFORMATION: Fall. Pain. COMPARISON: CT neck dated 06/02/2023 TECHNIQUE: Separate noncontrast CT examinations of the head and cervical spine were performed. Coronal and sagittal images were created for each examination at the technologist workstation. This CT examination was performed using dose optimization techniques as appropriate, variously including the following: *Automated exposure control *Adjustment of mA and/or kV according to patient size (this includes techniques or standardized protocols for targeted exams where dose is matched to indication/reason for exam; i.e. extremities or head) *Use of iterative reconstruction technique DLP: 925 mGy-cm FINDINGS: Head: There is no evidence of acute intracranial hemorrhage or territorial infarction. No abnormal mass effect or midline shift is seen. Quintana to white matter differentiation is well preserved. No extra-axial fluid collections are identified. No hydrocephalus. No significant volume loss. Patchy periventricular and deep white matter hypoattenuation is consistent with mild small vessel ischemic changes. Small right posterior parietal subgaleal hematoma. Calvarium and skull base intact.. The mastoid air cells and visualized portions of the paranasal sinuses are well aerated. Cervical spine: No acute fracture or traumatic malalignment. There is anatomic alignment of the vertebral bodies and posterior elements. The atlantoaxial and atlantooccipital articulations are intact. Vertebral body heights are maintained. Loss of disc space height and endplate osteophytes present throughout the cervical spine. Stable sclerotic focus in the right pedicle of C7 favoring a bone island. No prevertebral soft tissue swelling. Visualized portions of the lung apices are unremarkable. The thyroid gland is unremarkable. Again seen are shotty bilateral cervical chain lymph nodes, including a mildly enlarged bilateral jugulodigastric lymph node measuring 1.8 cm but retaining a fatty hilum on the left and a 1.9 cm jugulodigastric lymph node on the right.. CT/CT cervical spine wo IV con IMPRESSION: * No acute intracranial findings. * No acute fracture or traumatic malalignment of the cervical spine. * Unchanged nonspecific mild bilateral cervical chain lymphadenopathy described. Continued surveillance recommended.
[2023-07-21 23:21] VITALS: BP 164/75; PULSE 74; O2SAT 99
[2023-07-21 23:34] VITALS: BP 184/79; PULSE 61; RESP 20; TEMP 36.1; O2SAT 100; BMI 39.9
--- NOTE | 2023-07-21 23:46 | ED.FALL ---
HPI - Fall General Chief Complaint: Fall Stated Complaint: falling Time Seen by Provider: 07/21/23 23:25 Source: patient and EMS Mode of arrival: EMS Limitations: no limitations History of Present Illness HPI Narrative: Patient is a 78-year-old female who presents emergency department via EMS for evaluation after mechanical fall. She was standing on top of the chair in her living room attempting to read Spear her blinds which had fallen earlier in the day, while attempting to maneuver the blinds around the curtain jamilah she lost her balance falling backwards and striking her head on to the ground. She denies any loss of consciousness. She has not had any anticoagulants. She reports localized pain to the right occipital/parietal region with a hematoma. No laceration. She appears to be developing periorbital ecchymosis on the right very mild at this time. Endorsed distal humerus pain. Denies numbness or tingling of the extremities. Denies dizziness or lightheadedness. Denies chest pain or shortness of breath. Denies any precipitating symptoms. She does have chronic lumbar spine pain which she reports is unchanged from her baseline. Related Data Home Medications Medication Instructions Recorded Confirmed multivitamin (One-A-Day Essential 1 tab PO DAILY 03/13/21 06/29/23 tablet) cholecalciferol (vitamin D3) 50 50 mcg PO DAILY 11/12/21 06/29/23 mcg (2,000 unit) tablet (Vitamin D3) Previous Rx's Medication Instructions Recorded acetaminophen 500 mg tablet 1,000 mg (2 x 500 mg) PO Q6H PRN 09/12/22 (Acetaminophen Pain Relief) fever or pain 30 days #60 tabs simvastatin 10 mg tablet 10 mg PO DAILY 90 days #90 tabs 09/12/22 albuterol sulfate 90 mcg/actuation 2 puff PO Q4-6H PRN for wheezing 01/09/23 aerosol inhaler #1 ea fluticasone propionate 50 2 spray intranasal DAILY Rhinitis 02/10/23 mcg/actuation nasal 30 days #16 grams spray,suspension (Children's Flonase Allergy Relief) trazodone 50 mg tablet 50 mg PO BEDTIME PRN sleep 02/10/23 DISORDER 30 days #30 tabs omeprazole 20 mg tablet,delayed 20 mg PO DAILY #30 tabs 05/21/23 release oxybutynin chloride 10 mg 10 mg PO DAILY #90 tabs 05/22/23 tablet,extended release 24 hr ibuprofen 800 mg tablet 800 mg PO Q6H PRN pain 30 days #90 05/26/23 tabs amitriptyline 10 mg tablet 10 mg PO BEDTIME #90 tabs 06/18/23 furosemide 20 mg tablet 20 mg PO DAILY PRN for swelling 90 06/30/23 days #90 tabs Allergies Allergy/AdvReac Type Severity Reaction Status Date / Time penicillin G [Penicillin G] Allergy Mild RASH Verified 07/21/23 23:41 Sulfa (Sulfonamide Allergy Mild UNKNOWN Verified 07/21/23 23:41 Antibiotics) [Sulfa (Sulfonamides)] meperidine [Demerol] Allergy Unknown Unknown Verified 07/21/23 23:41 penicillin V Allergy Unknown Unknown Verified 07/21/23 23:41 strawberry [STRAWBERRY] Allergy Unknown HIVES Verified 07/21/23 23:41 codeine [Codeine] AdvReac Intermediate HALLUCINATI Verified 07/21/23 23:41 ON oxycodone [From Percocet] AdvReac Mild VOMITING Verified 07/21/23 23:41 Codeine Phosphate Allergy Unknown Unknown Uncoded 06/30/23 07:56 From Demerol Allergy Unknown BRADYCARDIA Uncoded 06/30/23 07:56 narcotics Allergy Unknown Unknown Uncoded 06/30/23 07:56 percocet Allergy Unknown nausea and Uncoded 06/30/23 07:56 vomiting Review of Systems Review of Systems: Yes all other systems are reviewed and are negative PMFSH Past Medical History Attestation statement: The following information was validated with the patient. Source: old records reviewed Medical History Blood pressure elevated without history of HTN Urge incontinence of urine Calcification of ovary Leukocytosis (leucocytosis) Asthma exacerbation Renal cyst Allergic rhinitis Restrictive lung disease Hypersomnolence ALEISHA (obstructive sleep apnea) Obesity (BMI 30-39.9) MALToma Cervical cancer Pancreatic mass Osteopenia GERD (gastroesophageal reflux disease) Adnexal mass MALT lymphoma Obesity (BMI 30-39.9) Vitamin D deficiency Tubular adenoma of colon History of supraventricular tachycardia Breast density Anxiety High cholesterol Migraine headache Asthma Hyperlipemia Surgical History Hx of tubal ligation History of vocal cord polypectomy Hx of dilation and curettage Hx of pneumonectomy H/O arthroscopy of right knee Hx of cholecystectomy Family History Family History Father Colon cancer Sister Colon cancer Sister History of breast cancer Colon cancer Sister Thyroid cancer Social History Social History Household Members: None Housing: Apartment Are you a primary dog daycare provider to a significant other at home: No Do you presently have visiting nurse or other home services: No Alcohol intake: current Alcohol intake frequency: holidays/special occasions only Patient Tobacco Use Status: Never used Tobacco e-Cigarette/Vaping Use: Never Used Second Hand Smoke Exposure: No Advance Directives: No Advance Directives Information Provided: No service: Yes Current occupational status: retired Current occupational exposures/hazards: No Cognitive needs: No Hearing needs: No Vision needs: No Physical Exam Vital Signs: Vital Signs: Last Vital Signs Temp 96.9 F 07/21/23 23:34 Pulse 61 07/21/23 23:34 Resp 20 07/21/23 23:34 BP 184/79 H 07/21/23 23:34 Pulse Ox 100 07/21/23 23:34 O2 Del Method Room Air 07/21/23 23:34 BMI result Body Mass Index 39.9 Appearance: Alert.?Oriented to person, place and time. No acute distress.?Normal affect. Head: Normocephalic. Right parietal hematoma Eyes: Pupils equal, round and reactive to light. EOMI. Conjunctiva and sclera normal? No Garces sign noted. Mild right periorbital ecchymosis developing. ENT: No septal hematoma, nares patent bilaterally. External auditory canal normal tympanic membrane pearly bennett and intact bilaterally. Dentition normal, no fractured teeth. No lesions or lacerations of oropharynx. Uvula midline. Moist mucous membranes. Neck: Normal inspection.? Neck supple.??No palpable tenderness, step-off, deformities. CVS: Heart sounds normal. Normal heart rate and rhythm.? Pulses normal.?? Respiratory: No respiratory distress.? Lung sounds clear to auscultation bilaterally?? Abdomen: Soft and non-tender. Normoactive bowel sounds. ?? Skin: Skin warm and dry.? Normal skin color.? Extremities: No lower extremity edema.? Neuro: Moves all extremities spontaneously. Sensation intact bilaterally. CN II-XII intact. No focal neuro deficits. Medical Decision Making Medical Decision Making MDM Narrative: Patient is a 78-year-old female past medical history of anxiety, asthma, GERD, hypercholesterolemia, SVT, MALT lymphoma, migraine, obesity, pancreatic mass, cervical cancer, lumbar facet arthropathy and spondylosis presented to the emergency department for evaluation after mechanical fall as per HPI. Overall she appears well, nontoxic. Has no focal neurological deficits upon examination. Plan to obtain CT of the head and cervical spine to exclude ICH, SDH, fracture, subluxation. At this time she declines any pain medication. Fall was mechanical in nature, would defer serum labs at this time. Differential Diagnosis Differential Diagnoses: The differential diagnosis associated with the presentation includes (As noted above) Admission/Observation Consideration of admission/observation: Escalation of care including admission/observation considered (See narrative above) Independent Interpretation I performed an independent interpretation of an: CT Scan Radiology Impression Discussion of test interpretation with radiology: I have reviewed the radiologist's reading. Radiologist Impression: CT/CT head/brain wo IV con IMPRESSION: * No acute intracranial findings. * No acute fracture or traumatic malalignment of the cervical spine. * Unchanged nonspecific mild bilateral cervical chain lymphadenopathy described. Continued surveillance recommended. Independent Historian Clinical information obtained from an independent historian. History obtained from or confirmed by: EMS External Record Review External record reviewed: Outpatient record Discharge Plan Discharge Clinical Impression: Acute head injury without loss of consciousness, Fall Patient Disposition: Home, Self-Care Instructions: Fall Prevention for Older Adults (ED) Prescriptions: No Action albuterol sulfate 90 mcg/actuation HFA aerosol inhaler 2 puff PO Q4-6H PRN (Reason: for wheezing) Qty: 1 0RF fluticasone propionate [Children's Flonase Allergy Rlf] 50 mcg/actuation spray,suspension 2 spray intranasal DAILY 30 Days Qty: 16 4RF Rx Instructions: administer into each nostril amitriptyline 10 mg tablet 10 mg PO BEDTIME Qty: 90 0RF cholecalciferol (vitamin D3) [Vitamin D3] 50 mcg (2,000 unit) Tablet 50 mcg PO DAILY omeprazole 20 mg Tablet,Delayed Release (Dr/Ec) 20 mg PO DAILY Qty: 30 3RF multivitamin [One-A-Day Essential] Tablet 1 tab PO DAILY acetaminophen [Acetaminophen Pain Relief] 500 mg tablet 1,000 mg PO Q6H PRN (Reason: fever or pain) 30 Days Qty: 60 0RF simvastatin 10 mg tablet 10 mg PO DAILY 90 Days Qty: 90 2RF furosemide 20 mg tablet 20 mg PO DAILY PRN (Reason: for swelling) 90 Days Qty: 90 1RF ibuprofen 800 mg tablet 800 mg PO Q6H PRN (Reason: pain) 30 Days Qty: 90 0RF trazodone 50 mg tablet 50 mg PO BEDTIME MDD SLEEP DISORDER PRN (Reason: sleep DISORDER) 30 Days Qty: 30 3RF oxybutynin chloride 10 mg tablet extended release 24hr 10 mg PO DAILY Qty: 90 0RF Referrals: Po,Constantine Beyer MD [Primary Care Provider] -
[2023-07-22 02:10] VITALS: PULSE 84; RESP 16; O2SAT 95
== END 2023-07-22 02:11 | disposition home or self-care (01) ==
PROVIDERS: Emergency Provider Internal Medicine; PCP Internal Medicine
DX: S09.90XA Unspecified injury of head, initial encounter (principal); R51.9 Headache, unspecified; M54.2 Cervicalgia; W07.XXXA Fall from chair, initial encounter; Y93.9 Activity, unspecified; Y92.009 Unspecified place in unspecified non-institutional (private) residence as the place of occurrence of the external cause; Y99.9 Unspecified external cause status
CPT/HCPCS: 70450; 72125; 99283; 99284

== ENCOUNTER 2023-07-31 10:42 | Outpatient (AMB) | payer MEDICARE, SELFPAY ==
[2023-07-31 10:43] VITALS: BP 150/76; PULSE 59; O2SAT 98; BMI 40.6
--- NOTE | 2023-07-31 10:43 | A.OFFPC_ITS ---
Vital Signs 07/31/23 10:43 07/31/23 11:20 Height 5 ft Weight 208 lb BMI 40.6 BP 150/76 H 148/86 H Blood Pressure Location Lt brachial Lt brachial Position Sitting Sitting Pulse 59 Pulse Source Pulse Oximeter Pulse Oximetry (%) 98 Oxygen Delivery Method Room Air Intake Visit Reasons: s/p fall; high BP Chair And Couch Maker Required: No Accompanied by: Self / Same As Patient Allergies penicillin G [Penicillin G] Allergy (Mild, Verified 07/31/23 11:15) RASH Sulfa (Sulfonamide Antibiotics) [Sulfa (Sulfonamides)] Allergy (Mild, Verified 07/31/23 11:15) UNKNOWN meperidine [Demerol] Allergy (Unknown, Verified 07/31/23 11:15) Unknown penicillin V Allergy (Unknown, Verified 07/31/23 11:15) Unknown strawberry [STRAWBERRY] Allergy (Unknown, Verified 07/31/23 11:15) HIVES codeine [Codeine] Adverse Reaction (Intermediate, Verified 07/31/23 11:15) HALLUCINATION oxycodone [From Percocet] Adverse Reaction (Mild, Verified 07/31/23 11:15) VOMITING Codeine Phosphate Allergy (Unknown, Uncoded 07/31/23 11:15) Unknown From Demerol Allergy (Unknown, Uncoded 07/31/23 11:15) BRADYCARDIA narcotics Allergy (Unknown, Uncoded 07/31/23 11:15) Unknown percocet Allergy (Unknown, Uncoded 07/31/23 11:15) nausea and vomiting Medication List - Last Reconciled 07/31/23 by Jose Soto MD acetaminophen (Acetaminophen Pain Relief) 1,000 mg (2 x 500 mg) PO Q6H PRN 30 days albuterol sulfate 90 mcg/actuation 2 puffs PO Q4-6H PRN amitriptyline 10 mg PO BEDTIME cholecalciferol (vitamin D3) (Vitamin D3) 50 mcg PO DAILY fluticasone propionate 50 mcg/actuation (Children's Flonase Allergy Relief) 2 sprays intranasal DAILY 30 days furosemide 20 mg PO DAILY PRN 90 days ibuprofen 800 mg PO Q6H PRN 30 days multivitamin (One-A-Day Essential tablet) 1 tab PO DAILY omeprazole 20 mg PO DAILY oxybutynin chloride ER 10 mg PO DAILY simvastatin 10 mg PO DAILY 90 days trazodone 50 mg PO BEDTIME PRN 30 days MDD SLEEP DISORDER Tobacco use date assessed: 12/16/22 Fall risk assessment: 1 Fall in past year Last assessed Fall Risk: 07/31/23 Dental Screening Dental Screen Date: 07/31/23 Did you have a dental visit in the last 12 months?: Yes Did you have a dental problem in the last 6 months where you did not have access to dental care?: No Was dental information given to patient?: Patient has dentist HPI s/p fall; high BP HPI Details Patient comes in today for follow up/further evaluation of elevated blood pressure readings lately States that her blood pressure used to be well-controlled and she has never had to take any Rx for high blood pressure in the past Relates that she fell from a chair at home about 10 days ago when she was trying to hang up a curtain/blind that fell, climbed onto her chair because there was nothing else on hand to she could use to get up and lost her balance Recalls that she ended up falling onto her Bonnie tree first before falling onto the floor but she did not hit her head and did not pass out following her fall Has been experiencing increased pain over her right shoulder and recurrent pain over her neck lately, especially at night States that she did not get much sleep last night due to her sore neck She had CT of the head and cervical spine done at the ER when she presented there following her fall - imaging studies did not show any acute injuries She currently denies any headaches or dizziness Denies any chest pains, no SOB No nausea/vomiting, no abdominal pain No change in bowel habits noted Would like to know how she get get a personal alert monitoring system/alarm for her own use [facility] Medical History Blood pressure elevated without history of HTN Urge incontinence of urine Calcification of ovary Leukocytosis (leucocytosis) Asthma exacerbation Renal cyst Allergic rhinitis Restrictive lung disease Hypersomnolence ALEISHA (obstructive sleep apnea) Obesity (BMI 30-39.9) MALToma Cervical cancer Pancreatic mass Osteopenia GERD (gastroesophageal reflux disease) Adnexal mass MALT lymphoma Obesity (BMI 30-39.9) Vitamin D deficiency Tubular adenoma of colon History of supraventricular tachycardia Breast density Anxiety High cholesterol Migraine headache Asthma Hyperlipemia Surgical History Hx of tubal ligation History of vocal cord polypectomy Hx of dilation and curettage Hx of pneumonectomy H/O arthroscopy of right knee Hx of cholecystectomy Family History Father Colon cancer Sister Colon cancer Sister History of breast cancer Colon cancer Sister Thyroid cancer Social History Household Members: None Housing: Apartment Are you a primary urgent care physician assistant to a significant other at home: No Do you presently have visiting nurse or other home services: No Alcohol intake: current Alcohol intake frequency: holidays/special occasions only Patient Tobacco Use Status: Never used Tobacco e-Cigarette/Vaping Use: Never Used Second Hand Smoke Exposure: No service: Yes Current occupational status: retired Current occupational exposures/hazards: No Cognitive needs: No Hearing needs: No Vision needs: No Female Reproductive History Menstrual Age of Menarche: 17 Questionnaire Thrive Questionnaire Date Thrive assessed: 11/12/22 FERNANDA-7 AMB Questionnaire FERNANDA-7 Date FERNANDA - 7 assessed: 11/12/22 Source: Developed by Drs. Gómez Grant, Amelie Reza, Huber Hall and colleagues, with an educational adrinene from [employer]. Review of Systems Const Denies chills, Denies fatigue, Denies fever(s) and Denies headache(s) Eyes Denies blurry vision ENT Denies dysphagia, Denies dizziness, Denies otalgia, Denies headache(s), Reports neck pain (recurrent, increased last night), Denies odynophagia and Denies sore throat Card Denies chest pain, Denies palpitations and Denies dyspnea Resp Denies cough and Denies dyspnea GI Denies abdominal pain, Denies constipation, Denies dysphagia, Denies heartburn, Denies diarrhea, Denies nausea, Denies odynophagia and Denies vomiting Denies difficulty voiding, Denies nocturia, Denies dysuria and Denies urinary urgency Musc Reports back pain (over the lower back - chronic), Reports arthralgias (over the right shoulder) and Reports neck pain (recurrent, increased last night) Skin/Breast Denies rash Neuro Denies dizziness and Denies headache(s) Endo Denies fatigue and Denies palpitations Physical exam (Primary Care) Vital Signs: Last Vital Signs Pulse 59 07/31/23 10:43 BP 150/76 H 07/31/23 10:43 Pulse Ox 98 07/31/23 10:43 Oxygen Delivery Method Room Air 07/31/23 10:43 BMI result Body Mass Index 40.6 Tobacco/Smoking Status: Tobacco use Status Tobacco use date assessed 12/16/22 07/31/23 10:48 Patient Tobacco Use Status Never used Tobacco 07/31/23 10:48 Tobacco use type 07/10/23 15:18 e-Cigarette/Vaping Use Never Used 07/31/23 10:48 Thrive Assessment: Date of Thrive Assessment Date Thrive assessed 11/12/22 07/31/23 10:48 Const General: no acute distress and alert Neck Neck: Yes no lymphadenopathy and Yes supple Resp Auscultation: clear to auscultation bilaterally, no rales and no wheezes Cardio Rate: regular rate Rhythm: regular rhythm Heart sounds: no murmurs GI Palpation (GI): Soft to palpation, nontender and No hepatosplenomegaly present Back/Spine/Pelvis Cervical Spine: cervical muscular tenderness Thoracic/Lumbar Spine: lumbar spinal tenderness Extrem General: Yes no clubbing, cyanosis or edema Assessment and Plan Assessment & Plan (1) Elevated blood pressure reading without diagnosis of hypertension: Code(s): R03.0 - Elevated blood-pressure reading, without diagnosis of hypertension Plan: Repeat BP is still elevated at 148/86 Advised that her recent neck pain and chronic low back pain as well as her not sleeping well last night are all likely contributing to her high BP readings presently Reinforced low sodium diet and she is advised to continue monitoring her BP regularly - goal is systolic BP of at least 130 mm or less, considering her age (2) Cervical myofascial strain: Code(s): S16.1XXA - Strain of muscle, fascia and tendon at neck level, initial encounter Qualifiers: Encounter type: sequela Qualified Code(s): S16.1XXS - Strain of muscle, fascia and tendon at neck level, sequela Plan: S/P fall about 10 days ago - see HPI Cervical spine CT and head CT done at the ER were all negative Will start her fow now on some low dose Tizanidine 2 mg - advised that she can take this up to TID PRN but try to start it at bedtime for now as it can cause some sedation Advised that she can also apply some OTC pain patches like Salonpas or Aspercreme or BenGay over the painful areas on her neck PRN (3) Lumbar facet arthropathy: Code(s): M47.816 - Spondylosis without myelopathy or radiculopathy, lumbar region Plan: Follow up with pain management as scheduled - is scheduled for some injection early next month Plan To return as scheduled in October 2023 for her next follow up visit with her PCP Medications: New tizanidine 2 mg PO TID PRN 20 tabs 0RF muscle spasms Coding Level of Care Code Est Pt Level 3 (20426) Diagnoses Elevated blood pressure reading without diagnosis of hypertension R03.0 Cervical myofascial strain, sequela S16.1XXS Encounter type: sequela Lumbar facet arthropathy M47.816
[2023-07-31 11:20] VITALS: BP 148/86
== END 2023-07-31 11:24 | disposition home or self-care (01) ==
PROVIDERS: PCP Internal Medicine; Visit Provider Internal Medicine
DX: R03.0 Elevated blood-pressure reading, without diagnosis of hypertension (principal); S16.1XXS Strain of muscle, fascia and tendon at neck level, sequela; M47.816 Spondylosis without myelopathy or radiculopathy, lumbar region
CPT/HCPCS: 99213

== ENCOUNTER 2023-08-04 06:00 | Outpatient (REF) | payer MEDICARE, SELFPAY ==
--- NOTE | ~2023-08-04 | FL_ITS ---
EXAMINATION: XR FLUOROSCOPY WITH IMAGES CLINICAL INFORMATION: Sacrococcygeal disorders, not elsewhere classified. COMPARISON: None available. TECHNIQUE: Fluoroscopy Supervised By: Dr. Dg Saleem. Fluoroscopy Time: 0.3 minutes. Cumulative Dose: 7.57 mGy. DAP: 0.0776 Gycm2. Images: 2. FINDINGS: Images demonstrate needle placement and contrast injection over the bilateral sacroiliac joints FL/FL guidance in treatment room IMPRESSION: Fluoroscopy guidance for bilateral sacroiliac joint injection.
== END 2023-08-04 06:01 | disposition home or self-care (01) ==
LOC: CF 06:00
PROVIDERS: Visit Provider Anesthesiology
DX: M53.3 Sacrococcygeal disorders, not elsewhere classified (principal); R26.89 Other abnormalities of gait and mobility; M54.50 Low back pain, unspecified; M47.816 Spondylosis without myelopathy or radiculopathy, lumbar region
CPT/HCPCS: 27096; J2795; J3301; Q9967

== ENCOUNTER 2023-08-04 08:12 | Outpatient (AMB) | payer MEDICARE, SELFPAY ==
[2023-08-04 09:06] VITALS: BP 132/80; PULSE 82; RESP 18; O2SAT 96; BMI 40.6
--- NOTE | 2023-08-04 09:06 | MHC.OFFVIS ---
Intake Vital Signs 08/04/23 09:06 08/04/23 09:21 Height 5 ft 5 ft Weight 208 lb 208 lb BMI 40.6 40.6 BP 132/80 128/76 Blood Pressure Location Lt brachial Lt brachial Position Sitting Sitting Respiration 18 18 Pulse 82 86 Pulse Source Pulse Oximeter Pulse Oximeter Pulse Oximetry (%) 96 97 Oxygen Delivery Method Room Air Room Air Comment Pre-Op Post-Op Intake Visit Reasons: BILATERAL THERAPEUTIC SIJ INJECTIONS Allergies penicillin G [Penicillin G] Allergy (Mild, Verified 07/31/23 11:15) RASH Sulfa (Sulfonamide Antibiotics) [Sulfa (Sulfonamides)] Allergy (Mild, Verified 07/31/23 11:15) UNKNOWN meperidine [Demerol] Allergy (Unknown, Verified 07/31/23 11:15) Unknown penicillin V Allergy (Unknown, Verified 07/31/23 11:15) Unknown strawberry [STRAWBERRY] Allergy (Unknown, Verified 07/31/23 11:15) HIVES codeine [Codeine] Adverse Reaction (Intermediate, Verified 07/31/23 11:15) HALLUCINATION oxycodone [From Percocet] Adverse Reaction (Mild, Verified 07/31/23 11:15) VOMITING Codeine Phosphate Allergy (Unknown, Uncoded 07/31/23 11:15) Unknown From Demerol Allergy (Unknown, Uncoded 07/31/23 11:15) BRADYCARDIA narcotics Allergy (Unknown, Uncoded 07/31/23 11:15) Unknown percocet Allergy (Unknown, Uncoded 07/31/23 11:15) nausea and vomiting PFSH Medical History Blood pressure elevated without history of HTN Urge incontinence of urine Calcification of ovary Leukocytosis (leucocytosis) Asthma exacerbation Renal cyst Allergic rhinitis Restrictive lung disease Hypersomnolence ALEISHA (obstructive sleep apnea) Obesity (BMI 30-39.9) MALToma Cervical cancer Pancreatic mass Osteopenia GERD (gastroesophageal reflux disease) Adnexal mass MALT lymphoma Obesity (BMI 30-39.9) Vitamin D deficiency Tubular adenoma of colon History of supraventricular tachycardia Breast density Anxiety High cholesterol Migraine headache Asthma Hyperlipemia Surgical History Hx of tubal ligation History of vocal cord polypectomy Hx of dilation and curettage Hx of pneumonectomy H/O arthroscopy of right knee Hx of cholecystectomy Family History Father Colon cancer Sister Colon cancer Sister History of breast cancer Colon cancer Sister Thyroid cancer Social History Household Members: None Housing: Apartment Are you a primary health care marketing manager to a significant other at home: No Do you presently have visiting nurse or other home services: No Alcohol intake: current Alcohol intake frequency: holidays/special occasions only Patient Tobacco Use Status: Never used Tobacco e-Cigarette/Vaping Use: Never Used Second Hand Smoke Exposure: No service: Yes Current occupational status: retired Current occupational exposures/hazards: No Cognitive needs: No Hearing needs: No Vision needs: No Female Reproductive History Menstrual Age of Menarche: 17 Physical Exam Vital Signs: Last Vital Signs Pulse 86 08/04/23 09:21 Resp 18 08/04/23 09:21 BP 128/76 08/04/23 09:21 Pulse Ox 97 08/04/23 09:21 Oxygen Delivery Method Room Air 08/04/23 09:21 BMI result Body Mass Index 40.6 Assessment & Plan Assessment & Plan (1) Sacroiliac joint dysfunction of both sides: Code(s): M53.3 - Sacrococcygeal disorders, not elsewhere classified Plan: Bilateral Therapeutic sacroiliac joint injection Informed consent was explained thoroughly to the patient. All questions about benefits and risks for the procedure were answered. Patient came to the operating room and was positioned prone on the operating table with the pillow under the pelvis. Time out was performed delineating name and of the patient, allergies and the nature of the procedure. The lower back and buttocks of the patient were prepped with ChloraPrep prepped and draped with sterile utility towels. C-arm was brought over the operating field and sq picture of patient's pelvis was demonstrated on the screen. For the right joint tilting C-arm contralateral to the site of the joint the most posterior portion of the joints was superimposed with anterior silhouette of the joint. Skin was injected in the projection of the joint slightly medial to the location of the joint with 25 gauge 1/2 inch needle using local lidocaine 2% .After that 22 gauge 3 and 1/2 inch needle was driven to the right joint in tunnel vision fashion. When needle entered the joint capsule injection of the contrast was performed demonstrating intra-articular and minimally periarticular spread of the contrast. After that 4 cc. of ropivacaine 0.5% mixed with kenalog 40 mg was injected into the joint. Upon completion of the injections the needle was removed sterile dressing was applied. Upon completion of the injection the needle was redirected toward the left SI joint and the procedure was performed in the mirroring fashion. total dose of kenalog was 40 mg. After that the patient was taken outside of the operating room to the recovery room where recovered uneventfully. (2) Balance disorder: Code(s): R26.89 - Other abnormalities of gait and mobility (3) Low back pain: Comment: 11/2021Moderate multilevel degenerative spondyloarthropathy of the lumbar spine as described in detail above. Most notably, multifactorial degenerative spondyloarthropathy exacerbated by prominent epidural lipomatous tissue leads to stenoses of the subarticular zones and mild to moderate effacement of the thecal sac at L3-L4 and L4-L5. Advanced facet joint arthropathy at L4-L5 and L5-S1. Code(s): M54.50 - Low back pain, unspecified (4) Lumbar facet arthropathy: Code(s): M47.816 - Spondylosis without myelopathy or radiculopathy, lumbar region Caty Ariza is a very pleasant 77 year old female patient who presents to the office today for follow up 2 days s/p diagnostic SIJ injections. Patient reports 80% relief of pain with improvement in function and mobility. Patient has failed conservative therapy including PT, HEP and NSAIDs. Will schedule for therapeutic bilateral SIJ injections, fluoroscopy guided with local anesthetic. All questions and concerns have been answered and patient agrees with the plan. Follow up after injections, sooner if needed. Orders: Orders FL guidance in treatment room Today M53.3 - Sacrococcygeal disorders, not elsewhere classified Coding Level of Care Code Procedure Only Diagnoses Sacroiliac joint dysfunction of both sides M53.3 Balance disorder R26.89 Low back pain M54.50 Lumbar facet arthropathy M47.816
[2023-08-04 09:21] VITALS: BP 128/76; PULSE 86; RESP 18; O2SAT 97; BMI 40.6
== END 2023-08-04 09:12 | disposition home or self-care (01) ==
PROVIDERS: PCP Internal Medicine; Visit Provider Anesthesiology
DX: M53.3 Sacrococcygeal disorders, not elsewhere classified (principal)
CPT/HCPCS: 27096

== ENCOUNTER 2023-08-14 08:54 | Outpatient (REF) | payer MEDICARE, SELFPAY ==
--- NOTE | 2023-08-14 08:57 | EMG_ITS ---
Chief complaint: Bilateral finger numbness, including 5th digits. Neck pain. Reason for referral: Evaluate for Carpal Tunnel Syndrome versus ulnar neuropathy versus radiculopathy Referred by: Dr. Lara Procedure done: Bilateral upper extremities NCS/EMG Precautions and/or limitations: None The limb temperature was monitored continuously and remained between 32-36 degrees C during the performance of the NCS. Ulnar motor NCS was performed with moderate elbow flexion between 70-90 degrees, with across-elbow distance of 10 cm. Nerve Conduction Studies Anti Sensory Summary Table ?Stim Site NR Onset (ms) Norm Onset (ms) Peak (ms) Norm Peak (ms) O-P Amp (?V) Norm O-P Amp Site1 Site2 Delta-0 (ms) Dist (cm) Hao (m/s) Norm Hao (m/s) Left Median Anti Sensory (2nd Digit) Wrist ? 2.5 3.1 <3.6 20.9 >10 Wrist 2nd Digit 2.5 14.0 56 Right Median Anti Sensory (2nd Digit) Wrist ? 2.4 3.0 <3.6 30.2 >10 Wrist 2nd Digit 2.4 14.0 58 Right Radial Anti Sensory (Thumb) Forearm ? 1.3 1.8 <3.1 14.7 Forearm Thumb 1.3 0.0 Left Ulnar Anti Sensory (5th Digit) Wrist ? 2.4 2.9 <3.7 6.6 >15.0 Wrist 5th Digit 2.4 14.0 58 Right Ulnar Anti Sensory (5th Digit) Wrist ? 1.9 2.6 <3.7 5.9 >15.0 Wrist 5th Digit 1.9 14.0 74 Motor Summary Table ?Stim Site NR Onset (ms) Norm Onset (ms) O-P Amp (mV) Norm O-P Amp iAmp (mV) Amp (1st) (%) Site1 Site2 Delta-0 (ms) Dist (cm) Hao (m/s) Norm Hao (m/s) Left Median Motor (Abd Poll Brev) Wrist ? 2.8 <3.9 6.5 >4.5 7.4 100.0 Elbow Wrist 4.5 0.0 >45 Elbow ? 7.3 5.6 6.3 86.2 Right Median Motor (Abd Poll Brev) Wrist ? 2.9 <3.9 8.1 >4.5 9.0 100.0 Elbow Wrist 4.1 20.0 49 >45 Elbow ? 7.0 7.1 8.0 87.7 Left Ulnar Motor (Abd Dig Minimi) Wrist ? 2.7 <3.0 6.7 >5 8.1 100.0 B Elbow Wrist 3.8 19.0 50 >45 B Elbow ? 6.5 7.0 8.3 104.5 A Elbow B Elbow 1.7 10.0 59 >45 A Elbow ? 8.2 6.9 8.3 103.0 Right Ulnar Motor (Abd Dig Minimi) Wrist ? 2.8 <3.0 6.5 >5 7.6 100.0 B Elbow Wrist 3.4 18.0 53 >45 B Elbow ? 6.2 5.7 6.9 87.7 A Elbow B Elbow 2.0 10.0 50 >45 A Elbow ? 8.2 6.1 7.2 93.8 Right Ulnar Motor (FDI) Wrist ? 3.4 <3.0 8.7 >5 10.8 100.0 B Elbow FDI 3.4 18.0 53 B Elbow ? 6.9 7.7 9.5 88.5 A Elbow B Elbow 3.5 10.0 29 >45 A Elbow ? 8.9 7.6 9.6 87.4 EMG ?Side Muscle Nerve Root Ins Act Fibs Psw Amp Dur Poly Recrt Int Pat Comment Right 1stDorInt Ulnar C8-T1 Nml Nml Nml Nml Nml 0 Nml Complete Right FlexCarRad Median C6-7 Nml Nml Nml Nml Nml 0 Nml Complete Right Biceps Musculocut C5-6 Nml Nml Nml Nml Nml 0 Nml Complete Right Triceps Radial C6-7-8 Nml Nml Nml Nml Nml 0 Nml Complete Right Deltoid Axillary C5-6 Nml Nml Nml Incr Incr 0 Nml Complete Left 1stDorInt Ulnar C8-T1 Nml Nml Nml Nml Nml 0 Nml Complete Left FlexCarRad Median C6-7 Nml Nml Nml Nml Nml 0 Nml Complete Left Biceps Musculocut C5-6 Nml Nml Nml Incr Incr 0 Nml Complete Left Triceps Radial C6-7-8 Nml Nml Nml Incr Incr 0 Nml Complete Left Deltoid Axillary C5-6 Nml Nml Nml Nml Nml 0 Nml Complete Left FlexCarpiUln Ulnar C8,T1 Nml Nml Nml Nml Nml 0 Nml Complete Paraspinal EMG ?Side Muscle Nerve Root Ins Act Fibs Psw Comment Right Cervical Upper Rami Nml Nml Nml Right Cervical Mid Rami Nml Nml Nml Right Cervical Lower Rami Nml Nml Nml Left Cervical Upper Rami Nml Nml Nml Left Cervical Mid Rami Nml Nml Nml Left Cervical Lower Rami Nml Nml Nml FINDINGS: Right ulnar motor nerve, recording ADM, within normal. However right ulnar motor nerve, recording FDI muscle showed prolonged distal latency, normal amplitude and slow conduction velocity across the elbow. Bilateral ulnar sensory nerves showed normal peak latency but small amplitudes. All other nerves tested were within normal. Concentric needle EMG was performed in selected muscles of the bilateral upper extremities and cervical paraspinals. Study revealed Signs of electric abnormalities as shown in the table below. Right deltoid showed increased amplitude and duration. Left biceps and triceps showed increased amplitude and duration. No active denervation seen on cervical paraspinals. IMPRESSION: 1. This is an abnormal study. 2. There is electrodiagnostic evidence for right ulnar neuropathy at the elbow. 3. There are electrodiagnostic findings for left ulnar neuropathy as well, suspected also at the elbow. 4. Chronic reinnervation changes seen on muscles innervated by right C5, C6; and left C5, C6, C7 nerve roots. Chronic reinnervation changes could suggest chronic radiculopathy. 5. There is no electrodiagnostic evidence for median neuropathy, or brachial plexopathy. CLINICAL COMMENT: Further clinical correlation recommended. Thank you for your kind referral. Jeri Liu MD, HERRERA Board Certified, [place] [employer] and [employer] (ABPMR) Board Certified, [place] [employer] Electro[employer]ostic [employer] (ABEM) CODIN [id number] x 2 MTDD
== END 2023-08-14 08:55 | disposition home or self-care (01) ==
LOC: HO.NEURO 08:54
PROVIDERS: PCP Internal Medicine; Visit Provider Internal Medicine
DX: R20.0 Anesthesia of skin (principal)
CPT/HCPCS: 95886; 95911

== ENCOUNTER → 2023-08-14 08:57 | Outpatient (BNV) | payer MEDICARE, SELFPAY | PROVIDERS: PCP Internal Medicine; Visit Provider Physical Medicine & Rehabilitation | DX: G56.23 Lesion of ulnar nerve, bilateral upper limbs (principal); M54.12 Radiculopathy, cervical region | CPT/HCPCS: 95886; 95911 ==

== ENCOUNTER 2023-08-25 09:48 | Outpatient (AMB) | payer MEDICARE, SELFPAY ==
--- NOTE | 2023-08-25 09:51 | A.OFFVIS_ITS ---
Intake Vital Signs 08/25/23 09:52 Height 5 ft Weight 202 lb BMI 39.4 BP 130/70 Blood Pressure Location Lt brachial Position Sitting Pulse 87 Pulse Source Pulse Oximeter Pulse Oximetry (%) 97 Oxygen Delivery Method Room Air Intake Visit Reasons: dyspnea Intake Note: pt is here for follow up and states she is okay breathing, somewhat better at night, still trying usage of cpap,had some sinus issues a few weeks ago, prohibits usage when congested. 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 Allergies penicillin G [Penicillin G] Allergy (Mild, Verified 08/25/23 10:02) RASH Sulfa (Sulfonamide Antibiotics) [Sulfa (Sulfonamides)] Allergy (Mild, Verified 08/25/23 10:02) UNKNOWN meperidine [Demerol] Allergy (Unknown, Verified 08/25/23 10:02) Unknown penicillin V Allergy (Unknown, Verified 08/25/23 10:02) Unknown strawberry [STRAWBERRY] Allergy (Unknown, Verified 08/25/23 10:02) HIVES codeine [Codeine] Adverse Reaction (Intermediate, Verified 08/25/23 10:02) HALLUCINATION oxycodone [From Percocet] Adverse Reaction (Mild, Verified 08/25/23 10:02) VOMITING Codeine Phosphate Allergy (Unknown, Uncoded 08/25/23 10:02) Unknown From Demerol Allergy (Unknown, Uncoded 08/25/23 10:02) BRADYCARDIA narcotics Allergy (Unknown, Uncoded 08/25/23 10:02) Unknown percocet Allergy (Unknown, Uncoded 08/25/23 10:02) nausea and vomiting Medication List - Last Reconciled 08/25/23 by Deepak Morales MD acetaminophen (Acetaminophen Pain Relief) 1,000 mg (2 x 500 mg) PO Q6H PRN 30 days albuterol sulfate 90 mcg/actuation 2 puffs PO Q4-6H PRN amitriptyline 10 mg PO BEDTIME cholecalciferol (vitamin D3) (Vitamin D3) 50 mcg PO DAILY fluticasone propionate 50 mcg/actuation (Children's Flonase Allergy Relief) 2 sprays intranasal DAILY 30 days furosemide 20 mg PO DAILY PRN 90 days ibuprofen 800 mg PO Q6H PRN 30 days [LIFE ALERT SYSTEM As directed] multivitamin (One-A-Day Essential tablet) 1 tab PO DAILY omeprazole 20 mg PO DAILY oxybutynin chloride ER 10 mg PO DAILY simvastatin 10 mg PO DAILY 90 days tizanidine 2 mg PO TID PRN trazodone 50 mg PO BEDTIME PRN 30 days MDD SLEEP DISORDER Do you need a note to return to daycare/school/sports/work: No HPI dyspnea HPI Details 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 .SHE COMES FOR FOLLOW-UP AFTER 4 MONTHS SHE IS USING CPAP REGULARLY BUT MISSED FOR ABOUT 4 NIGHTS AROUND THE HOLIDAYS, SOME OF THE NIGHTS THE MASK SLIPS OFF AND SHE USES ONLY FOR A FEW HOURS, BUT MOST OF THE NIGHTS SHE IS USING MORE THAN 4 HOURS. OVERALL HER COMPLIANCE IS DEFINITELY BETTER THAN BEFORE. HER NASAL CONGESTION AND ASTHMA SYMPTOMS ARE MINIMAL. SHE IS ALSO LOSING WEIGHT SLOWLY. [facility] Medical History Blood pressure elevated without history of HTN Urge incontinence of urine Calcification of ovary Leukocytosis (leucocytosis) Asthma exacerbation Renal cyst Allergic rhinitis Restrictive lung disease Hypersomnolence ALEISHA (obstructive sleep apnea) Obesity (BMI 30-39.9) MALToma Cervical cancer Pancreatic mass Osteopenia GERD (gastroesophageal reflux disease) Adnexal mass MALT lymphoma Obesity (BMI 30-39.9) Vitamin D deficiency Tubular adenoma of colon History of supraventricular tachycardia Breast density Anxiety High cholesterol Migraine headache Asthma Hyperlipemia Surgical History Hx of tubal ligation History of vocal cord polypectomy Hx of dilation and curettage Hx of pneumonectomy H/O arthroscopy of right knee Hx of cholecystectomy Family History Father Colon cancer Sister Colon cancer Sister History of breast cancer Colon cancer Sister Thyroid cancer Social History Household Members: None Housing: Apartment Are you a primary laboratory animal care veterinarian to a significant other at home: No Do you presently have visiting nurse or other home services: No Alcohol intake: current Alcohol intake frequency: holidays/special occasions only Patient Tobacco Use Status: Never used Tobacco e-Cigarette/Vaping Use: Never Used Second Hand Smoke Exposure: No service: Yes Current occupational status: retired Current occupational exposures/hazards: No Cognitive needs: No Hearing needs: No Vision needs: No Female Reproductive History Menstrual Age of Menarche: 17 Review of Systems Const All systems reviewed & are unremarkable except as noted in HPI and below Eyes Reports no additional complaints ENT Reports no additional complaints and Reports nasal congestion (Especially at night) Card Denies chest pain, Denies irregular heart rhythm and Denies leg edema Resp Reports as per HPI GI Reports bloating and Reports heartburn Reports no additional complaints Musc Reports back pain and Reports arthralgias (knees ) Skin/Breast Reports system reviewed and no additional complaints, except as documented Neuro Reports no additional complaints Psych Reports no additional complaints Physical Exam Vital Signs: Last Vital Signs Pulse 87 08/25/23 09:52 BP 130/70 08/25/23 09:52 Pulse Ox 97 08/25/23 09:52 Oxygen Delivery Method Room Air 08/25/23 09:52 BMI result Body Mass Index 39.4 Const General: comfortable, no acute distress, alert and awake Orientation/consciousness: patient oriented x3 HEENT Head: Yes normal to inspection General nose exam: No nasal polyps present, No nasal discharge present and Abnormal mucous membranes and turbinates present (She has marked hypertrophy of the nasal turbinates) Face and sinus: Yes sinuses nontender Mouth: oropharynx abnormals (Oropharynx remains crowded, Mallampati class 4) Throat: Yes posterior oropharynx normal Eyes General: appearance normal, both eyes and all related structures Neck Neck: Yes normal visual inspection, Yes no lymphadenopathy, Yes trachea midline, Yes no JVD and Yes other (Neck is obese and short) Thyroid: Thyroid normal Chest Chest palpation & inspection: normal inspection of the chest, normal palpation of entire chest wall and no tenderness Resp Other: Percussion note resonant, breath sounds are decreased over the basilar areas, No wheezes rhonchi or crepitations are heard today. Cardio Palpation: normal PMI Rate: regular rate Rhythm: regular rhythm Heart sounds: no gallops and no murmurs Peripheral pulses: Peripheral pulses 2+ throughout GI Palpation (GI): Soft to palpation, nontender, No hepatosplenomegaly present, no masses and Other GI palpation findings present (Abdomen is grossly obese) Auscultation: normal bowel sounds Back/Spine/Pelvis Thoracic/Lumbar Spine: thoracic and lumbar spine normal to inspection and thoraco-lumbar ROM limited Skin General skin exam: no rashes or lesions noted Neuro General: patient oriented x3, No gait normal (Slightly impaired because of arthritis, she uses a cane) and no focal motor deficits Cranial nerves: Yes CN's II-XII intact bilaterally Extrem General: Yes normal to inspection, Yes no clubbing, cyanosis or edema, Yes no calf tenderness and No normal gait (Slightly impaired because of joint pains/knees, uses cane.) Psych Appearance: grossly normal and well kempt Speech and movement: Normal speech and movement present Results Reviewed Results Reviewed: Compliance report for the last 30 nights is reviewed. She has used 24/30 nights, 80%, Average use it per night 4 hours 55 minute. .No significant air leak Residual AHI 0.4 Assessment & Plan Assessment & Plan (1) Obesity (BMI 30-39.9): Comment: HAS LOST 10 LBs .HAPPY ABOUT THAT . Code(s): E66.9 - Obesity, unspecified Plan: Discussed about diet plan and exercise. She is commended for losing weight and is encouraged to continue watching her diet and do more walking. (2) ALEISHA (obstructive sleep apnea): Comment: Patient has mild ALEISHA and excessive snoring, with excessive daytime sleepiness. She is definitely benefiting from the use of CPAP. COMPLIANCE IS IMPROVED AND SHE IS HAPPY WITH THE USE OF CPAP. Code(s): G47.33 - Obstructive sleep apnea (adult) (pediatric) Plan: COMMENDED FOR IMPROVED COMPLIANCE AND SHE IS ENCOURAGED TO KEEP ON USING EVERY NIGHT. (3) Allergic rhinitis: Comment: She has chronic rhinitis with marked hypertrophy of the nasal turbinates. Code(s): J30.9 - Allergic rhinitis, unspecified Plan: Advised to use Flonase 2 spray in each nostril about 1 hour before putting on the CPAP mask. And also Atrovent nasal spray 2 sprays in each nostril before putting on the CPAP. (4) Mild asthma: Comment: VERY MILD AND INTERMITTENT COUGH AND WHEEZING. Code(s): J45.909 - Unspecified asthma, uncomplicated Plan MAY USE ALBUTEROL 2 PUFFS Q 4-6 HOURS ONLY P.R.N.. Coding Level of Care Code Est Pt Level 3 (74084) Diagnoses Obesity (BMI 30-39.9) E66.9 ALEISHA (obstructive sleep apnea) G47.33 Allergic rhinitis J30.9 Mild asthma J45.903
[2023-08-25 09:52] VITALS: BP 130/70; PULSE 87; O2SAT 97; BMI 39.4
== END 2023-08-25 10:15 | disposition home or self-care (01) ==
PROVIDERS: PCP Internal Medicine; Visit Provider Internal Medicine
DX: E66.9 Obesity, unspecified (principal); G47.33 Obstructive sleep apnea (adult) (pediatric); J30.9 Allergic rhinitis, unspecified; J45.909 Unspecified asthma, uncomplicated
CPT/HCPCS: 99213

== ENCOUNTER → 2023-08-25 09:48 | Outpatient (BNVA) | payer MEDICARE, SELFPAY | PROVIDERS: PCP Internal Medicine; Visit Provider Internal Medicine | DX: J45.909 Unspecified asthma, uncomplicated (principal); E66.9 Obesity, unspecified; Z68.39 Body mass index [BMI] 39.0-39.9, adult; G47.33 Obstructive sleep apnea (adult) (pediatric); Z99.89 Dependence on other enabling machines and devices | CPT/HCPCS: 99212 ==

== ENCOUNTER 2023-08-25 11:25 | Outpatient (AMB) | payer MEDICARE, SELFPAY ==
[2023-08-25 11:28] VITALS: BP 130/68; PULSE 70; O2SAT 99; BMI 39.3
--- NOTE | 2023-08-25 11:28 | A.OFFPC_ITS ---
Vital Signs 08/25/23 11:28 Height 5 ft Weight 201 lb 0.4 oz BMI 39.3 BP 130/68 Blood Pressure Location Lt brachial Position Sitting Pulse 70 Pulse Source Pulse Oximeter Pulse Oximetry (%) 99 Oxygen Delivery Method Room Air Intake Visit Reasons: Nerve Conduction Results Tie Puller Required: No Allergies penicillin G [Penicillin G] Allergy (Mild, Verified 08/25/23 11:32) RASH Sulfa (Sulfonamide Antibiotics) [Sulfa (Sulfonamides)] Allergy (Mild, Verified 08/25/23 11:32) UNKNOWN meperidine [Demerol] Allergy (Unknown, Verified 08/25/23 11:32) Unknown penicillin V Allergy (Unknown, Verified 08/25/23 11:32) Unknown strawberry [STRAWBERRY] Allergy (Unknown, Verified 08/25/23 11:32) HIVES codeine [Codeine] Adverse Reaction (Intermediate, Verified 08/25/23 11:32) HALLUCINATION oxycodone [From Percocet] Adverse Reaction (Mild, Verified 08/25/23 11:32) VOMITING Codeine Phosphate Allergy (Unknown, Uncoded 08/25/23 11:32) Unknown From Demerol Allergy (Unknown, Uncoded 08/25/23 11:32) BRADYCARDIA narcotics Allergy (Unknown, Uncoded 08/25/23 11:32) Unknown percocet Allergy (Unknown, Uncoded 08/25/23 11:32) nausea and vomiting Tobacco use date assessed: 08/25/23 Fall risk assessment: No Falls in past year Last assessed Fall Risk: 08/25/23 HPI Nerve Conduction Results HPI Details 78-year-old obese female with a history of lymphoma hyperc holesterolemia GERD asthma pancreatic mass chronic low back pain chronic lymphocytic leukemia coming in for follow-up. Patient had some hand numbness and nerve conduction test done. Patient is here for follow-up. T she was last seen in June 2023. Mammogram is up-to-date colonoscopy is up-to-date. Review of the notes follows up with Pulmonary followed up by obstructive sleep apnea and asthma patient uses the CPAP regularly but missed about 4 nights due to nasal congestion.. For the asthma use albuterol as needed. Nerve conduction test results seen 08/14/2023 showing right ulnar neuropathy at the elbow left ulnar neuropathy elbow chronic reinnervation changes seen on muscles innervated by the right C5-C6 left C5-C6 C7 nerve roots suggestive of chronic radiculopathy no carpal tunnel problem or brachial plexopathy. Patient also sees pain management for sacroiliac injections. Patient was recently seen by my colleague in July 31 concern about the blood pressure patient fell from the chair while trying to hang a curtain pain on the right shoulder and neck CT scan of the head and spine no acute injuries PFSH Medical History (Updated 08/25/23 @ 11:48 by Constantine Lara MD) Bilateral finger numbness Blood pressure elevated without history of HTN Urge incontinence of urine Calcification of ovary Leukocytosis (leucocytosis) Asthma exacerbation Renal cyst Allergic rhinitis Restrictive lung disease Hypersomnolence ALEISHA (obstructive sleep apnea) Obesity (BMI 30-39.9) MALToma Cervical cancer Pancreatic mass Osteopenia GERD (gastroesophageal reflux disease) Adnexal mass MALT lymphoma Obesity (BMI 30-39.9) Vitamin D deficiency Tubular adenoma of colon History of supraventricular tachycardia Breast density Anxiety High cholesterol Migraine headache Asthma Hyperlipemia Surgical History Hx of tubal ligation History of vocal cord polypectomy Hx of dilation and curettage Hx of pneumonectomy H/O arthroscopy of right knee Hx of cholecystectomy Family History Father Colon cancer Sister Colon cancer Sister History of breast cancer Colon cancer Sister Thyroid cancer Social History Household Members: None Housing: Apartment Are you a primary palliative care nurse practitioner to a significant other at home: No Do you presently have visiting nurse or other home services: No Alcohol intake: current Alcohol intake frequency: holidays/special occasions only Patient Tobacco Use Status: Never used Tobacco e-Cigarette/Vaping Use: Never Used Second Hand Smoke Exposure: No service: Yes Current occupational status: retired Current occupational exposures/hazards: No Cognitive needs: No Hearing needs: No Vision needs: No Female Reproductive History Menstrual Age of Menarche: 17 Questionnaire Thrive Questionnaire Date Thrive assessed: 11/12/22 AUDIT C Alcohol Use Questionnaire (AUDIT-C) 1. How often do you have a drink containing alcohol?: Monthly or less 2. How many drinks containing alcohol do you have on a typical day when you are drinking?: 1 or 2 3. How often do you have six or more drinks on one occasion?: Never Total Score: 1 Score Reviewed/Action Taken: No FERNANDA-7 AMB Questionnaire FERNANDA-7 Date FERNANDA - 7 assessed: 11/12/22 Source: Developed by Drs. Gómez Grant, Amelie Reza, Huber Hall and colleagues, with an educational adrienne from [facility]. Physical exam (Primary Care) Vital Signs: Last Vital Signs Pulse 70 08/25/23 11:28 BP 130/68 08/25/23 11:28 Pulse Ox 99 08/25/23 11:28 Oxygen Delivery Method Room Air 08/25/23 11:28 BMI result Body Mass Index 39.3 Tobacco/Smoking Status: Tobacco use Status Tobacco use date assessed 08/25/23 08/25/23 11:29 Patient Tobacco Use Status Never used Tobacco 08/25/23 11:29 Tobacco use type 07/10/23 15:18 e-Cigarette/Vaping Use Never Used 08/25/23 11:29 Thrive Assessment: Date of Thrive Assessment Date Thrive assessed 11/12/22 08/25/23 11:29 Const General: alert; No acute distress Eyes Conjunctivae: conjunctivae normal Resp Auscultation: clear to auscultation bilaterally Cardio Rate: regular rate Rhythm: regular rhythm GI Inspection: Yes normal to inspection Extrem General: Yes normal to inspection and No edema Assessment and Plan Assessment & Plan (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 She is definitely benefiting from the use of CPAP. COMPLIANCE IS IMPROVED AND SHE IS HAPPY WITH THE USE OF CPAP. Code(s): G47.33 - Obstructive sleep apnea (adult) (pediatric) Plan: Patient follows up with Pulmonary and uses the CPAP more than 4 hours a night and benefits from this (5) Impaired fasting blood sugar: Code(s): R73.01 - Impaired fasting glucose Plan: Decrease the amount of carbohydrate intake, pasta, bread, rice and potatoes are all sugar and that is aside from all the sweet stuff, remember that fruits are good but they are Sweet also. (6) Generalized anxiety disorder: Comment: Panic attacks Code(s): F41.1 - Generalized anxiety disorder Plan: Continue with present counseling and therapy (7) GERD (gastroesophageal reflux disease): Code(s): K21.9 - Gastro-esophageal reflux disease without esophagitis Plan: Avoid the foods that causes that usually spicy foods, tomato products, juices, coffee, soda and foods that your sensitive to. After eating do not lie down, allow 3-4 hours before in lie down. And keep the head of bed above 30 degrees to avoid the acid from going up. Orders: Orders Complete Blood Count Auto Diff 5 Months R73.01 - Impaired fasting glucose Comprehensive Met. Panel 5 Months R73.01 - Impaired fasting glucose Thyroid Stimulating Hormone 5 Months R73.01 - Impaired fasting glucose Vitamin D 25-OH Total 5 Months R73.01 - Impaired fasting glucose Magnesium 5 Months R73.01 - Impaired fasting glucose Free T4 (Free Thyroxine) 5 Months R73.01 - Impaired fasting glucose Lipid Panel 5 Months E78.00 - Pure hypercholesterolemia, unspecified, R73.01 - Impaired fasting glucose Vitamin B12 and Folate 5 Months R73.01 - Impaired fasting glucose Coding Level of Care Code Est Pt Level 4 (96085) Diagnoses Ulnar neuropathy at elbow G56.20 Chronic cervical radiculopathy M54.12 Obesity E66.9 ALEISHA (obstructive sleep apnea) G47.33 Impaired fasting blood sugar R73.01 Generalized anxiety disorder F41.1 GERD (gastroesophageal reflux disease) K21.9
== END 2023-08-25 12:05 | disposition home or self-care (01) ==
PROVIDERS: PCP Internal Medicine; Visit Provider Internal Medicine
DX: G56.20 Lesion of ulnar nerve, unspecified upper limb (principal); G47.33 Obstructive sleep apnea (adult) (pediatric); R73.01 Impaired fasting glucose; F41.1 Generalized anxiety disorder; K21.9 Gastro-esophageal reflux disease without esophagitis
CPT/HCPCS: 99214

== ENCOUNTER 2023-09-04 10:05 | Outpatient (AMB) | payer MEDICARE, SELFPAY ==
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
[2023-09-04 10:15] VITALS: BP 112/60; PULSE 79; RESP 16; O2SAT 100; BMI 39.7
== END 2023-09-04 10:36 | disposition home or self-care (01) ==
PROVIDERS: PCP Internal Medicine; Visit Provider Registered Nurse Emergency
DX: M53.3 Sacrococcygeal disorders, not elsewhere classified (principal); R26.89 Other abnormalities of gait and mobility; M54.50 Low back pain, unspecified; M47.816 Spondylosis without myelopathy or radiculopathy, lumbar region
CPT/HCPCS: 99213

== ENCOUNTER → 2023-09-04 10:05 | Outpatient (BNVA) | payer MEDICARE, SELFPAY | PROVIDERS: PCP Internal Medicine; Visit Provider Registered Nurse Emergency | DX: M53.3 Sacrococcygeal disorders, not elsewhere classified (principal); M54.50 Low back pain, unspecified; M47.816 Spondylosis without myelopathy or radiculopathy, lumbar region; R26.89 Other abnormalities of gait and mobility | CPT/HCPCS: 99212 ==

== ENCOUNTER 2023-09-07 08:35 | Outpatient (AMB) | payer MEDICARE, SELFPAY ==
--- NOTE | 2023-09-07 08:36 | A.OFFVIS_ITS ---
Intake Vital Signs 09/07/23 08:37 Height 5 ft Weight 203 lb BMI 39.6 BP 152/84 H Blood Pressure Location Rt brachial Position Sitting Intake Visit Reasons: INP-Gait / Mobility-Confirmed Intake Note: Patient presents for gait/mobility. I was referred from my pcp for gait and mobility. Allergies penicillin G [Penicillin G] Allergy (Mild, Verified 09/07/23 08:41) RASH Sulfa (Sulfonamide Antibiotics) [Sulfa (Sulfonamides)] Allergy (Mild, Verified 09/07/23 08:41) UNKNOWN meperidine [Demerol] Allergy (Unknown, Verified 09/07/23 08:41) Unknown penicillin V Allergy (Unknown, Verified 09/07/23 08:41) Unknown strawberry [STRAWBERRY] Allergy (Unknown, Verified 09/07/23 08:41) HIVES codeine [Codeine] Adverse Reaction (Intermediate, Verified 09/07/23 08:41) HALLUCINATION oxycodone [From Percocet] Adverse Reaction (Mild, Verified 09/07/23 08:41) VOMITING Codeine Phosphate Allergy (Unknown, Uncoded 09/07/23 08:41) Unknown From Demerol Allergy (Unknown, Uncoded 09/07/23 08:41) BRADYCARDIA narcotics Allergy (Unknown, Uncoded 09/07/23 08:41) Unknown percocet Allergy (Unknown, Uncoded 09/07/23 08:41) nausea and vomiting Medication List - Last Reconciled 09/07/23 by VIRGINIE Hall acetaminophen (Acetaminophen Pain Relief) 1,000 mg (2 x 500 mg) PO Q6H PRN 30 days albuterol sulfate 90 mcg/actuation 2 puffs PO Q4-6H PRN amitriptyline 10 mg PO BEDTIME cholecalciferol (vitamin D3) (Vitamin D3) 50 mcg PO DAILY fluticasone propionate 50 mcg/actuation (Children's Flonase Allergy Relief) 2 sprays intranasal DAILY 30 days furosemide 20 mg PO DAILY PRN 90 days ibuprofen 800 mg PO Q6H PRN 30 days [LIFE ALERT SYSTEM As directed] multivitamin (One-A-Day Essential tablet) 1 tab PO DAILY omeprazole 20 mg PO DAILY oxybutynin chloride ER 10 mg PO DAILY simvastatin 10 mg PO DAILY 90 days tizanidine 2 mg PO TID PRN trazodone 50 mg PO BEDTIME PRN 30 days MDD SLEEP DISORDER HPI HPI Comments History of Present Illness Details 78-yr-old female presents for new pt chun quintero of balance difficulties. Pt reports she has had balance difficulties since at least [id number]. At this time, she started loosing her balance, knocking into the lee, and falling. 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 She describes the balance issues- she becomes off balance when turning. She loses her balance if standing up on something, say a ladder. She has had 3 head injuries- 2013- turned and fell forward- did have post- concussive cognitive difficulties (stuttering, word finding diff, dizziness) x's 1.5 yrs, 2016- slip and fall on ice and fall backwards (had cognitive diff x's 6 months), Jul 2023- was trying to step up on a chair and fell backwards (denies any residual s/s). Endorses- numbness and tingling in right fingers and Left arm, BUE L > R cramping, LUE weakness, may drop things- at times, BLE toe and ball of foot numbness numbess- worse at night, better when walking (no tingling), BLE R > L cramping and toe locking. BLE swelling. PMH significant for: CLL dx'd 05/25, anemia, arthritis, asthma, lung CA, lymphoma, GERD, hyperlipidemia, insomnia. 08/14/23, BUE EMG/NCS: IMPRESSION: 1. This is an abnormal study. 2. There is electrodiagnostic evidence f or right ulnar neuropathy at the elbow. 3. There are electrodiagnostic findings for left ulnar neuropathy as well, suspected also at the elbow. 4. Chronic reinnervation changes seen on muscles innervated by right C5, C6; and left C5, C6, C7 nerve roots. Chronic reinnervation changes could suggest chronic radiculopathy. 5. There is no electrodiagnostic evidenc e for median neuropathy, or brachial plexopathy. 07/22/23, CT/CT head/brain wo IV con IMPRESSION: * No acute intracranial findings. * No acute fracture or traumatic malalignment of the cervical spine. * Unchanged nonspecific mild bilateral cervical chain lymphadenopathy described. Continued surveillance recommended. 07/22/23, CT/CT cervical spine wo IV con IMPRESSION: * No acute intracranial findings. * No acute fracture or traumatic malalignment of the cervical spine. * Unchanged nonspecific mild bilateral cervical chain lymphadenopathy described. Continued surveillance recommended. Pt is right handed. ADL status: Ind- takes longer- more difficulty donning pants. IADL status: Ind Fine-motor skills: Tries not do zippers- tries to buy things that are easy to put on. Pt reports: Micrographia: Writing is not as neat Hypophonia: Voice is not as clear Hyposmia: Denies Dysphagia: Has had swallowing diff- was told GERD Drooling: Denies Orthostatic lightheadedness: Occas. Constipation: Occass. Now using miralax Slowness: Overall slower Freezing episodes: At times Tremor: She states she has felt an internal tremor for years- even before 2019. Now may notice in her fingers or her mouth. Stiffness: In the morning- better once moving. Gait changes: as above Sleep difficulty: Insomnia- on trazodone which helps. Uses amitriptyline for mood. Uses a CPAP. She has fought and sat up in her sleep. Vivid dreams, can wake up feeling the dream is real. Memory impairment: She feels ok overall. Doing bible study- but has to reread a verse. Hallucinations: Denies any in the daytime. Usual exercise: Does am stretches. History of concussion/head injury? as above History of neuroleptic (metoclopramide/antipsychotics) use? Denies History of psychiatric hospitalizations? Denies History of occupational chemical exposures? 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 She did spend time on a farm as a child. Has used Round-up spray in her own yard. Family history of movement disorders? None. Family history of mood disorder or suicide? Her grandchildren are having mental health issues. [facility] Medical History (Updated 09/21/23 @ 17:02 by VIRGINIE Hall) Bilateral finger numbness Blood pressure elevated without history of HTN Urge incontinence of urine Calcification of ovary Leukocytosis (leucocytosis) Asthma exacerbation Renal cyst Allergic rhinitis Restrictive lung disease Hypersomnolence ALEISHA (obstructive sleep apnea) Obesity (BMI 30-39.9) MALToma Cervical cancer Pancreatic mass Osteopenia GERD (gastroesophageal reflux disease) Adnexal mass MALT lymphoma Obesity (BMI 30-39.9) Vitamin D deficiency Tubular adenoma of colon History of supraventricular tachycardia Breast density Anxiety High cholesterol Migraine headache Asthma Hyperlipemia Surgical History Hx of tubal ligation History of vocal cord polypectomy Hx of dilation and curettage Hx of pneumonectomy H/O arthroscopy of right knee Hx of cholecystectomy Family History Father Colon cancer Sister Colon cancer Sister History of breast cancer Colon cancer Sister Thyroid cancer Social History Household Members: None Housing: Apartment Are you a primary home health care case manager to a significant other at home: No Do you presently have visiting nurse or other home services: No Alcohol intake: current Alcohol intake frequency: holidays/special occasions only Patient Tobacco Use Status: Never used Tobacco e-Cigarette/Vaping Use: Never Used Second Hand Smoke Exposure: No service: Yes Current occupational status: retired Current occupational exposures/hazards: No Cognitive needs: No Hearing needs: No Vision needs: No Female Reproductive History Menstrual Age of Menarche: 17 Review of Systems Const Details: Weight loss Glasses Trouble swallowing Cough, shortness of breath, wheezing Difficulty walking numbness and tingling, memory problems, head injury, headaches, dizziness, weakness, sleep problems Anxiety and depression Abdominal pain and constipation Urinary incontinence Joint pain back pain neck pain and leg cramping Enlarged lymph nodes and occasional bruising Physical Exam Vital Signs: Last Vital Signs BP 152/84 H 09/07/23 08:37 BMI result Body Mass Index 39.6 Const General: cooperative and no acute distress Orientation/consciousness: oriented to person, oriented to place and oriented to time Resp Effort & Inspection: normal respiratory effort and able to speak in complete sentences Neuro Other: General: Alert and oriented x3 EOM: Intact however right lateral gaze elicits binocular horizontal diplopia. Expression: Intact Voice: Intact Tremor: Mild right cheek tremor. No postural tremor. HELIO: RUE with decreased fluidity Tone: Left elbow mild tightness. Right ankle tightness. Dyskinesia: None FFM: Slightly decreased on right Foot taps: Decreased Gait: Decreased arm swing slow short steps, turns quickly in 1 motion (states she learned this in the in his walk this way since). DTRs: 2+ throughout Muscle strength: 5/5 throughout Psych: Pleasant affect General: oriented to person, oriented to place and oriented to time Deep tendon reflexes (DTR's): Right triceps reflex intensity grade: 2+, Left triceps reflex intensity grade: 2+, Rt Biceps (C5, C6): 2+, Left biceps reflex intensity grade: 2+, Right brachioradialis reflex intensity grade: 2+, Left brachioradialis reflex intensity grade: 2+, Right patellar reflex intensity grade: 2+, Left patellar reflex intensity grade: 2+, Right ankle reflex intensity grade: 2+ and Left ankle reflex intensity grade: 2+ Coordination: [id number] test normal Psych Mental Status: mental status grossly normal Speech and movement: Normal speech and movement present Affect: normal affect Attitude: cooperative Thought process: Normal thought process present Assessment & Plan Assessment & Plan (1) Tremor: Code(s): R25.1 - Tremor, unspecified (2) Difficulty balancing: Code(s): R29.818 - Other symptoms and signs involving the nervous system (3) Fall: Code(s): W19.XXXA - Unspecified fall, initial encounter Plan Patient is advised to undergo brain MRI with and without contrast to assess for secondary etiologies of tremor, balance difficulties, gait changes in setting of cardiovascular risk factors and history of cancer. Start physical therapy for tremor and gait eval & tx. Podiatry consult, patient may benefit from shoe insert. Patient seen in collaboration with Dr. Lerma Follow-up in 3 months or sooner as needed. Orders: Orders PT Evaluation and Treatment 09/07/23 R25.1 - Tremor, unspecified MR head/brain wo/w con 09/07/23 R25.1 - Tremor, unspecified Referrals Podiatry Referral R25.1 - Tremor, unspecified Coding Level of Care Code New Pt Level 4 (99157) Diagnoses Tremor R25.1 Difficulty balancing R29.818 Fall W19.XXXA
[2023-09-07 08:37] VITALS: BP 152/84; BMI 39.6
== END 2023-09-07 09:56 | disposition home or self-care (01) ==
PROVIDERS: PCP Internal Medicine; Visit Provider Nurse Practitioner Family
DX: R25.1 Tremor, unspecified (principal); R29.6 Repeated falls; R29.818 Other symptoms and signs involving the nervous system; R26.81 Unsteadiness on feet
CPT/HCPCS: 99204

== ENCOUNTER → 2023-09-07 08:35 | Outpatient (BNVA) | payer MEDICARE, SELFPAY | PROVIDERS: PCP Internal Medicine; Visit Provider Nurse Practitioner Family | DX: R25.1 Tremor, unspecified (principal); R29.818 Other symptoms and signs involving the nervous system; Z91.81 History of falling | CPT/HCPCS: 99202 ==

== ENCOUNTER 2023-10-07 12:20 | Outpatient (AMB) | payer MEDICARE, SELFPAY ==
[2023-10-07 12:35] VITALS: BP 130/80; PULSE 65; O2SAT 98; BMI 39.3
--- NOTE | 2023-10-07 12:35 | A.OFFPC_ITS ---
Vital Signs 10/07/23 12:35 Height 5 ft Weight 201 lb BMI 39.3 BP 130/80 Blood Pressure Location Lt brachial Position Sitting Pulse 65 Pulse Source Pulse Oximeter Pulse Oximetry (%) 98 Oxygen Delivery Method Room Air Intake Visit Reasons: gerd, MALTOMA, Allergies penicillin G [Penicillin G] Allergy (Mild, Verified 10/07/23 12:35) RASH Sulfa (Sulfonamide Antibiotics) [Sulfa (Sulfonamides)] Allergy (Mild, Verified 10/07/23 12:35) UNKNOWN meperidine [Demerol] Allergy (Unknown, Verified 10/07/23 12:35) Unknown penicillin V Allergy (Unknown, Verified 10/07/23 12:35) Unknown strawberry [STRAWBERRY] Allergy (Unknown, Verified 10/07/23 12:35) HIVES codeine [Codeine] Adverse Reaction (Intermediate, Verified 10/07/23 12:35) HALLUCINATION oxycodone [From Percocet] Adverse Reaction (Mild, Verified 10/07/23 12:35) VOMITING Codeine Phosphate Allergy (Unknown, Uncoded 10/07/23 12:35) Unknown From Demerol Allergy (Unknown, Uncoded 10/07/23 12:35) BRADYCARDIA narcotics Allergy (Unknown, Uncoded 10/07/23 12:35) Unknown percocet Allergy (Unknown, Uncoded 10/07/23 12:35) nausea and vomiting Medication List - Last Reconciled 10/07/23 by Constantine Lara MD acetaminophen (Acetaminophen Pain Relief) 1,000 mg (2 x 500 mg) PO Q6H PRN 30 days albuterol sulfate 90 mcg/actuation 2 puffs PO Q4-6H PRN amitriptyline 10 mg PO BEDTIME cholecalciferol (vitamin D3) (Vitamin D3) 50 mcg PO DAILY fluticasone propionate 50 mcg/actuation (Children's Flonase Allergy Relief) 2 sprays intranasal DAILY 30 days furosemide 20 mg PO DAILY PRN 90 days ibuprofen 800 mg PO Q6H PRN 30 days [LIFE ALERT SYSTEM As directed] multivitamin (One-A-Day Essential tablet) 1 tab PO DAILY omeprazole 20 mg PO DAILY oxybutynin chloride ER 10 mg PO DAILY simvastatin 10 mg PO DAILY 90 days tizanidine 2 mg PO TID PRN trazodone 50 mg PO BEDTIME PRN 30 days MDD SLEEP DISORDER Tobacco use date assessed: 08/25/23 Fall risk assessment: No Falls in past year Last assessed Fall Risk: 10/07/23 Dental Screening Dental Screen Date: 10/07/23 Did you have a dental visit in the last 12 months?: Yes Did you have a dental problem in the last 6 months where you did not have access to dental care?: No Was dental information given to patient?: Patient has dentist HPI gerd, MALTOMA, HPI Details 78-year-old obese female with multiple m edical problems chronic cervical radiculopathy obstructive sleep apnea impaired glucose tolerance generalized anxiety disorder GERD and ulnar neuropathy last seen in August 2023. Patient's mammogram is up-to-date bone density is due colonoscopy is up-to-date in March 2020. Patient was referred to Neurology due to balance problems and was advised MRI as well as physical therapy and podiatry consult. As for the chronic low back pain pain management seen had SI joint injections August 2023 had an MRI of the lumbar spine showing moderate multilevel degenerative spondyloarthropathy. PAtient complains of pain PFSH Medical History (Updated 10/07/23 @ 13:07 by Constantine Lara MD) Bilateral finger numbness Blood pressure elevated without history of HTN Urge incontinence of urine Calcification of ovary Leukocytosis (leucocytosis) Asthma exacerbation Renal cyst Allergic rhinitis Restrictive lung disease Hypersomnolence ALEISHA (obstructive sleep apnea) Obesity (BMI 30-39.9) MALToma Cervical cancer Pancreatic mass Osteopenia GERD (gastroesophageal reflux disease) Adnexal mass MALT lymphoma Obesity (BMI 30-39.9) Vitamin D deficiency Tubular adenoma of colon History of supraventricular tachycardia Breast density Anxiety High cholesterol Migraine headache Asthma Hyperlipemia Surgical History Hx of tubal ligation History of vocal cord polypectomy Hx of dilation and curettage Hx of pneumonectomy H/O arthroscopy of right knee Hx of cholecystectomy Family History Father Colon cancer Sister Colon cancer Sister History of breast cancer Colon cancer Sister Thyroid cancer Social History Household Members: None Housing: Apartment Are you a primary childcare teacher to a significant other at home: No Do you presently have visiting nurse or other home services: No Alcohol intake: current Alcohol intake frequency: holidays/special occasions only Patient Tobacco Use Status: Never used Tobacco e-Cigarette/Vaping Use: Never Used Second Hand Smoke Exposure: No service: Yes Current occupational status: retired Current occupational exposures/hazards: No Cognitive needs: No Hearing needs: No Vision needs: No Female Reproductive History Menstrual Age of Menarche: 17 Questionnaire PHQ-9 Over the last 2 weeks, how often have you been bothered by any of the following problems? 1. Little interest or pleasure in doing things: not at all 2. Feeling down, depressed, or hopeless: not at all 3. Trouble falling or staying asleep, or sleeping too much: not at all 4. Feeling tired or having little energy: not at all 5. Poor appetite or overeating: not at all 6. Feeling bad about yourself - or that you are a failure or have let yourself or your family down: not at all 7. Trouble concentrating on things, such as reading the newspaper or watching television: not at all 8. Moving or speaking so slowly that other people could have noticed. Or the opposite - being so fidgety or restless that you have been moving around a lot more than usual: not at all 9. Thoughts that you would be better off or of hurting yourself in some way: not at all Total score: 0 Depression Screening Interpretation: Negative Depression Screening Done: Yes Source: Developed by Drs. Gómez Grant, Amelie Reza, Huber Hall and colleagues, with an educational ardienne from [email or web address]. Thrive Questionnaire Date Thrive assessed: 10/07/23 I am a: Patient What is your living situation today?: I have a steady place to live Within the past 12 months, did the food you bought not last and you didn't have the money to get more?: Never true Within the past 12 months, did you worry whether your food would run out before you got money to buy more?: Never true Do you have trouble paying for medicines?: No Do you have trouble getting transportation to medical appointments?: No Do you have trouble paying your heating and electricity bill?: No Do you have trouble taking care of your child, family member or friend?: No Do you have trouble with day-to-day activities such as bathing, preparing meals, shopping, managing finances, etc.?: No Are you currently unemployed and looking for a job?: No Are you interested in more education?: No Currently or been in a relationship where the following occur: no concerns reported THRIVE Score: 0 AUDIT C Alcohol Use Questionnaire (AUDIT-C) 1. How often do you have a drink containing alcohol?: Monthly or less 2. How many drinks containing alcohol do you have on a typical day when you are drinking?: 1 or 2 3. How often do you have six or more drinks on one occasion?: Never Total Score: 1 Score Reviewed/Action Taken: No FERNANDA-7 AMB Questionnaire FERNANDA-7 Date FERNANDA - 7 assessed: 10/07/23 Feeling nervous, anxious, or on edge: 0 = Not at all Not being able to stop or control worryin = Not at all Worrying too much about different things: 0 = Not at all Trouble relaxin = Not at all Being so restless that it is hard to sit still: 0 = Not at all Becoming easily annoyed or irritable: 0 = Not at all Feeling afraid as if something awful might happen: 0 = Not at all Total FERNANDA-7 score (0-4 normal; 5-9 mild; 10-14 moderate; 15-21 severe): 0 Source: Developed by Drs. Gómez Grant, Amelie Reza, Huber Hall and colleagues, with an educational adrienne from [email or web address]. Physical exam (Primary Care) Vital Signs: Last Vital Signs Pulse 65 10/07/23 12:35 BP 130/80 10/07/23 12:35 Pulse Ox 98 10/07/23 12:35 Oxygen Delivery Method Room Air 10/07/23 12:35 BMI result Body Mass Index 39.3 Tobacco/Smoking Status: Tobacco use Status Tobacco use date assessed 08/25/23 10/07/23 12:41 Patient Tobacco Use Status Never used Tobacco 10/07/23 12:41 Tobacco use type 07/10/23 15:18 e-Cigarette/Vaping Use Never Used 10/07/23 12:41 PHQ-9: PHQ-9 Score PHQ-9: Total score 0 10/07/23 12:41 Depression Screening Interpretation: Negative Thrive Assessment: Date of Thrive Assessment Date Thrive assessed 10/07/23 10/07/23 12:41 Currently or been in a relationship where the following occur: no concerns reported Const General: alert; No acute distress Eyes Conjunctivae: conjunctivae normal Resp Auscultation: clear to auscultation bilaterally Cardio Rate: regular rate Rhythm: regular rhythm GI Inspection: Yes normal to inspection Extrem General: Yes normal to inspection and No edema Assessment and Plan Assessment & Plan (1) Tremor: Code(s): R25.1 - Tremor, unspecified Plan: Patient has met with Neurology and workup pending MRI requested physical therapy as well as podiatry referral (2) CLL (chronic lymphocytic leukemia): Code(s): C91.10 - Chronic lymphocytic leukemia of B-cell type not having achieved remission Plan: Patient follows up with Hematology-Oncology (3) Obesity: Code(s): E66.9 - Obesity, unspecified Plan: Diet and exercise (4) Lumbar facet arthropathy: Code(s): M47.816 - Spondylosis without myelopathy or radiculopathy, lumbar region Plan: Patient has had spinal injections under pain management last August 2023 (5) Mild asthma: Comment: VERY MILD AND INTERMITTENT COUGH AND WHEEZING. Code(s): J45.909 - Unspecified asthma, uncomplicated Plan: Continue with the inhaler as needed (6) Impaired fasting blood sugar: Code(s): R73.01 - Impaired fasting glucose Plan: Decrease the amount of carbohydrate intake, pasta, bread, rice and potatoes are all sugar and that is aside from all the sweet stuff, remember that fruits are good but they are Sweet also. (7) ALEISHA (obstructive sleep apnea): Comment: Patient has mild ALEISHA and excessive snoring, with excessive daytime sleepiness. She is definitely benefiting from the use of CPAP. COMPLIANCE IS IMPROVED AND SHE IS HAPPY WITH THE USE OF CPAP. Code(s): G47.33 - Obstructive sleep apnea (adult) (pediatric) Plan: Patient on CPAP and uses more than 4 hours a night and benefits from this (8) GERD (gastroesophageal reflux disease): Code(s): K21.9 - Gastro-esophageal reflux disease without esophagitis Plan: Avoid the foods that causes that usually spicy foods, tomato products, juices, coffee, soda and foods that your sensitive to. After eating do not lie down, allow 3-4 hours before in lie down. And keep the head of bed above 30 degrees to avoid the acid from going up. (9) Trochanteric bursitis of right hip: Code(s): M70.61 - Trochanteric bursitis, right hip Plan: will refer to orthopedics and xray requested (10) Elevated blood sugar: Code(s): R73.9 - Hyperglycemia, unspecified Plan: low carbohydrate diet. (11) Type 2 diabetes mellitus with hyperglycemia: Comment: Dr. Valdivia Code(s): E11.65 - Type 2 diabetes mellitus with hyperglycemia Plan: Decrease the amount of carbohydrate intake, pasta, bread, rice and potatoes are all sugar and that is aside from all the sweet stuff, remember that fruits are good but they are Sweet also. Patient declined medication to start with right now and would like to do diet. Will have patient they get blood work 3 months from now reminder about eye exam. Orders: Orders Complete Blood Count Auto Diff 3 Months E11.65 - Type 2 diabetes mellitus with hyperglycemia Microalbumin, Random (w Creat) 3 Months E11.65 - Type 2 diabetes mellitus with hyperglycemia XR hip RT w PEL1V Today M70.61 - Trochanteric bursitis, right hip AMB Hemoglobin A1c Today R73.9 - Hyperglycemia, unspecified Comprehensive Met. Panel 3 Months E11.65 - Type 2 diabetes mellitus with hyperglycemia Free T4 (Free Thyroxine) 3 Months E11.65 - Type 2 diabetes mellitus with hyperglycemia Liver Panel 3 Months E11.65 - Type 2 diabetes mellitus with hyperglycemia, R79.89 - Other specified abnormal findings of blood chemistry Thyroid Stimulating Hormone 3 Months E11.65 - Type 2 diabetes mellitus with hyperglycemia Creatinine Urine 3 Months E11.65 - Type 2 diabetes mellitus with hyperglycemia Vitamin B12 and Folate 3 Months E11.65 - Type 2 diabetes mellitus with hyperglycemia Vitamin D 25-OH Total 3 Months E11.65 - Type 2 diabetes mellitus with hyperglycemia Hemoglobin A1c 3 Months E11.65 - Type 2 diabetes mellitus with hyperglycemia Referrals Orthopedics Referral M70.61 - Trochanteric bursitis, right hip Coding Level of Care Code Est Pt Level 4 (09591) Diagnoses Tremor R25.1 CLL (chronic lymphocytic leukemia) C91.10 Obesity E66.9 Lumbar facet arthropathy M47.816 Mild asthma J45.909 Impaired fasting blood sugar R73.01 ALEISHA (obstructive sleep apnea) G47.33 GERD (gastroesophageal reflux disease) K21.9 Trochanteric bursitis of right hip M70.61 Elevated blood sugar R73.9 Type 2 diabetes mellitus with hyperglycemia E11.65 Additional Codes PHQ-9 - 25798 - PHQ-9 Billing: ([id number])
== END 2023-10-07 13:17 | disposition home or self-care (01) ==
PROVIDERS: PCP Internal Medicine; Visit Provider Internal Medicine
DX: K21.9 Gastro-esophageal reflux disease without esophagitis (principal); R25.1 Tremor, unspecified; C91.10 Chronic lymphocytic leukemia of B-cell type not having achieved remission; M47.816 Spondylosis without myelopathy or radiculopathy, lumbar region; J45.909 Unspecified asthma, uncomplicated; E11.65 Type 2 diabetes mellitus with hyperglycemia; G47.33 Obstructive sleep apnea (adult) (pediatric); M70.61 Trochanteric bursitis, right hip
CPT/HCPCS: 83036; 99214

== ENCOUNTER 2023-10-08 14:00 | Outpatient (REF) | payer MEDICARE, SELFPAY ==
--- NOTE | ~2023-10-08 | XR_ITS ---
EXAMINATION: XR HIP, RIGHT CLINICAL INFORMATION: Trochanteric bursitis right hip. COMPARISON: X-ray lumbar spine 09/05/2021. CT abdomen and pelvis 05/28/2017. TECHNIQUE: AP view of the pelvis and 2 views of the right hip. FINDINGS: Degenerative changes in the imaged lower lumbar spine. Degenerative changes with hypertrophic change and joint space narrowing in the bilateral sacroiliac joints. Sclerosis along the pubic symphysis suggests possible osteitis pubis. 2 views of the right hip demonstrate mild degenerative changes with joint space narrowing and hypertrophic change. Alignment is preserved. Visualization is limited due to body habitus. AP view of the left hip demonstrates mild degenerative changes. XR/XR hip RT w PEL1V IMPRESSION: 1. Mild degenerative changes of the bilateral hips. 2. Degenerative changes, bilateral sacroiliac joints. 3. Degenerative changes in the imaged lower lumbar spine. Additional imaging with CT scan recommended if there is clinical concern for fracture or other pathology. This study was presented today October 13, 2023 for interpretation. Prompt inpatient results provided at this time as requested by referring provider.
== END 2023-10-08 14:01 | disposition home or self-care (01) ==
LOC: HO.XRAY 14:00
PROVIDERS: PCP Internal Medicine; Visit Provider Internal Medicine
DX: M70.61 Trochanteric bursitis, right hip (principal)
CPT/HCPCS: 73502

== ENCOUNTER 2023-10-12 09:51 | Outpatient (REF) | payer MEDICARE, SELFPAY ==
--- NOTE | ~2023-10-12 | MR_ITS ---
MRI OF THE BRAIN WITH AND WITHOUT IV CONTRAST INDICATION: Tremor. COMPARISON: Brain MRI 02/13/2017. TECHNIQUE: Multiplanar multisequence MR imaging of the brain was obtained without and following the administration of 10 mL of Gadavist without complication. FINDINGS: There is no pathologic intracranial enhancement. There is mild chronic microangiopathy. There is no hydrocephalus, extra-axial surface collection, or herniation. The major flow voids at the skull base are preserved. There is no acute infarct on diffusion-weighted imaging. There is no intracranial hemorrhage on the gradient recalled echo acquisition. The midline structures are normal. The cerebellar tonsils are normally positioned. The cerebellum and brainstem are normal. The craniocervical junction is normal. Osseous marrow signal intensity is homogenous. The visualized soft tissues are unremarkable. Partially imaged disc osteophyte complexes at C3-C4 and C4-C5 result in suspected significant central canal stenosis and significant mass effect on the cervical spinal cord at both of these levels that can be followed with a cervical spine MRI, particularly if there is cervical myelopathy clinically. MR/MR head/brain wo/w con IMPRESSION: - There are no acute intracranial findings. No pathologic enhancement intracranially. - There is mild chronic microangiopathy which is progressed in comparison to the prior study from 02/13/2017. - Partially imaged disc osteophyte complexes at C3-C4 and C4-C5 result in suspected significant central canal stenosis and significant mass effect on the cervical spinal cord at both of these levels that can be followed with a cervical spine MRI, particularly if there is cervical myelopathy clinically.
[2023-10-12] MEDS: gadobutroL 10 ML VIAL IVPUSH (10:32)
== END 2023-10-12 09:52 | disposition home or self-care (01) ==
LOC: HO.MRI 09:51
PROVIDERS: PCP Internal Medicine; Visit Provider Nurse Practitioner Family
DX: R25.1 Tremor, unspecified (principal); R29.818 Other symptoms and signs involving the nervous system; R26.89 Other abnormalities of gait and mobility; C88.4 Extranodal marginal zone B-cell lymphoma of mucosa-associated lymphoid tissue [MALT-lymphoma]; C53.9 Malignant neoplasm of cervix uteri, unspecified; C91.10 Chronic lymphocytic leukemia of B-cell type not having achieved remission
CPT/HCPCS: 70553; A9585

== ENCOUNTER 2023-10-16 08:16 | Outpatient (AMB) | payer MEDICARE, SELFPAY ==
[2023-10-16 08:26] VITALS: BP 125/64; PULSE 70; RESP 18; O2SAT 97; BMI 39.1
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
== END 2023-10-16 08:40 | disposition home or self-care (01) ==
PROVIDERS: PCP Internal Medicine; Visit Provider Registered Nurse Emergency
DX: M53.3 Sacrococcygeal disorders, not elsewhere classified (principal); R26.89 Other abnormalities of gait and mobility; M54.50 Low back pain, unspecified; M47.816 Spondylosis without myelopathy or radiculopathy, lumbar region; M25.551 Pain in right hip
CPT/HCPCS: 99213

== ENCOUNTER → 2023-10-16 08:16 | Outpatient (BNVA) | payer MEDICARE, SELFPAY | PROVIDERS: PCP Internal Medicine; Visit Provider Registered Nurse Emergency | DX: M25.551 Pain in right hip (principal); M53.3 Sacrococcygeal disorders, not elsewhere classified; R26.89 Other abnormalities of gait and mobility; M47.816 Spondylosis without myelopathy or radiculopathy, lumbar region | CPT/HCPCS: 99212 ==

== ENCOUNTER 2023-10-19 09:00 | Outpatient (RCR) | payer MEDICARE, SELFPAY ==
--- NOTE | 2024-03-14 08:29 | MHC.PT.DC ---
[facility] [place] [facility] [place] [facility] [place] [facility] [address] [place] [address] [facility] [phone] F: [phone] F: [phone] F: [phone] F: [phone] Physical Therapy Discharge Report Diagnosis: Gait instability. Date of Surgery: Date of Evaluation: 10/15/23 Date of Discharge: 03/14/24 Treatments to Date: 2 Cancellations to Date: 1 No Shows to Date: 2 Discharge Status: Patient Elected to Stop Visit Non-compliance Discharge Summary: . Electronically signed by: Luis Carlos Mitchell PT. Please sign and return to therapist. Thank you for your referral.
== END 2024-03-14 08:29 | disposition home or self-care (01) ==
LOC: HO.PT 09:00
PROVIDERS: PCP Internal Medicine; Visit Provider Nurse Practitioner Family
DX: R25.1 Tremor, unspecified (principal)
CPT/HCPCS: 97110; 97162; 97535

== ENCOUNTER 2023-10-27 10:52 | Outpatient (AMB) | payer MEDICARE, SELFPAY ==
[2023-10-27 10:53] VITALS: BP 134/82; PULSE 94; TEMP 36.8; O2SAT 97; BMI 40.2
--- NOTE | 2023-10-27 10:53 | AM.OFFWIN_ITS ---
Intake Vital Signs 10/27/23 10:53 Height 5 ft Weight 206 lb BMI 40.2 BP 134/82 Blood Pressure Location Lt brachial Position Sitting Pulse 94 Pulse Source Pulse Oximeter Temp 98.2 F Temp Source Oral Pulse Oximetry (%) 97 Oxygen Delivery Method Room Air Intake Visit Reasons: EP RT side back blister Intake Note: Pt presents to the office today for c/o right sided back blister. Pt states she has a few red spots on her back and states that one of the blisters popped. She states she isnt sure how long she had it for since her daughter found it. She states she has pain if she touches the area. Pt states she did have chicken pox as a child. Patient Tobacco Use Status: Never used Tobacco Allergies penicillin G [Penicillin G] Allergy (Mild, Verified 11/04/23 13:26) RASH Sulfa (Sulfonamide Antibiotics) [Sulfa (Sulfonamides)] Allergy (Mild, Verified 11/04/23 13:26) UNKNOWN meperidine [Demerol] Allergy (Unknown, Verified 11/04/23 13:26) Unknown penicillin V Allergy (Unknown, Verified 11/04/23 13:26) Unknown strawberry [STRAWBERRY] Allergy (Unknown, Verified 11/04/23 13:26) HIVES codeine [Codeine] Adverse Reaction (Intermediate, Verified 11/04/23 13:26) HALLUCINATION oxycodone [From Percocet] Adverse Reaction (Mild, Verified 11/04/23 13:26) VOMITING Codeine Phosphate Allergy (Unknown, Uncoded 11/04/23 13:26) Unknown From Demerol Allergy (Unknown, Uncoded 11/04/23 13:26) BRADYCARDIA narcotics Allergy (Unknown, Uncoded 11/04/23 13:26) Unknown percocet Allergy (Unknown, Uncoded 11/04/23 13:26) nausea and vomiting Medication List - Last Reconciled 11/04/23 by Fernandez Calix MD acetaminophen (Acetaminophen Pain Relief) 1,000 mg (2 x 500 mg) PO Q6H PRN 30 days albuterol sulfate 90 mcg/actuation 2 puffs PO Q4-6H PRN amitriptyline 10 mg PO BEDTIME cholecalciferol (vitamin D3) (Vitamin D3) 50 mcg PO DAILY fluticasone propionate 50 mcg/actuation (Children's Flonase Allergy Relief) 2 sprays intranasal DAILY 30 days furosemide 20 mg PO DAILY PRN 90 days ibuprofen 800 mg PO Q6H PRN 30 days [[employer] SYSTEM As directed] multivitamin (One-A-Day Essential tablet) 1 tab PO DAILY omeprazole 20 mg PO DAILY oxybutynin chloride ER 10 mg PO DAILY simvastatin 10 mg PO DAILY 90 days tizanidine 2 mg PO TID PRN trazodone 50 mg PO BEDTIME PRN 30 days MDD SLEEP DISORDER HPI EP RT side back blister HPI Details Note dictated on November 03 78 yr old female presents to the office for a sick visit. Would like a lesion on her back evaluated. She noticed it a few days ago. No pain or discomfirt. PFSH Medical History Bilateral finger numbness Blood pressure elevated without history of HTN Urge incontinence of urine Calcification of ovary Leukocytosis (leucocytosis) Asthma exacerbation Renal cyst Allergic rhinitis Restrictive lung disease Hypersomnolence ALEISHA (obstructive sleep apnea) Obesity (BMI 30-39.9) MALToma Cervical cancer Pancreatic mass Osteopenia GERD (gastroesophageal reflux disease) Adnexal mass MALT lymphoma Obesity (BMI 30-39.9) Vitamin D deficiency Tubular adenoma of colon History of supraventricular tachycardia Breast density Anxiety High cholesterol Migraine headache Asthma Hyperlipemia Surgical History Hx of tubal ligation History of vocal cord polypectomy Hx of dilation and curettage Hx of pneumonectomy H/O arthroscopy of right knee Hx of cholecystectomy Family History Father Colon cancer Sister Colon cancer Sister History of breast cancer Colon cancer Sister Thyroid cancer Social History Household Members: None Housing: Apartment Are you a primary small animal caretaker to a significant other at home: No Do you presently have visiting nurse or other home services: No Alcohol intake: current Alcohol intake frequency: holidays/special occasions only Patient Tobacco Use Status: Never used Tobacco e-Cigarette/Vaping Use: Never Used Second Hand Smoke Exposure: No service: Yes Current occupational status: retired Current occupational exposures/hazards: No Cognitive needs: No Hearing needs: No Vision needs: No Female Reproductive History Menstrual Age of Menarche: 17 Physical Exam Vital Signs: Last Vital Signs Temp 98.2 F 10/27/23 10:53 Pulse 94 10/27/23 10:53 BP 134/82 10/27/23 10:53 Pulse Ox 97 10/27/23 10:53 Oxygen Delivery Method Room Air 10/27/23 10:53 BMI result Body Mass Index 40.2 Skin Other: Back; Open wound, 2 cm in size. No surrounding erythema. Assessment & Plan Assessment & Plan (1) Rash: Code(s): R21 - Rash and other nonspecific skin eruption Plan: Most likely an abrasion. Over the counter bacitracin and steroid creams suggested Coding Level of Care Code Est Pt Level 3 (39332) Diagnoses Rash R21
== END 2023-10-27 15:01 | disposition home or self-care (01) ==
PROVIDERS: PCP Internal Medicine; Visit Provider Internal Medicine
DX: R21 Rash and other nonspecific skin eruption (principal)
CPT/HCPCS: 99213

== ENCOUNTER 2023-11-02 10:28 | Outpatient (AMB) | payer MEDICARE, SELFPAY ==
--- NOTE | 2023-11-02 10:30 | MHC.OFFVIS ---
Intake Intake Visit Reasons: NewPt- right hip pain Intake Note: 78 year old female presents to the office today for a new patient visit for right hip pain. Pt states the pain has been going on for years without any injury. Pt states she did have a fall in July 2023 which she believes made the pain worse. She states she had a lidocaine/cortisone injection from pain management in August 2023 and states the injection did help. She also started PT in September 2023 but stopped since it made her pain worse. Pt states she has a tight feeling in her hip. Allergies penicillin G [Penicillin G] Allergy (Mild, Verified 11/02/23 10:30) RASH Sulfa (Sulfonamide Antibiotics) [Sulfa (Sulfonamides)] Allergy (Mild, Verified 11/02/23 10:30) UNKNOWN meperidine [Demerol] Allergy (Unknown, Verified 11/02/23 10:30) Unknown penicillin V Allergy (Unknown, Verified 11/02/23 10:30) Unknown strawberry [STRAWBERRY] Allergy (Unknown, Verified 11/02/23 10:30) HIVES codeine [Codeine] Adverse Reaction (Intermediate, Verified 11/02/23 10:30) HALLUCINATION oxycodone [From Percocet] Adverse Reaction (Mild, Verified 11/02/23 10:30) VOMITING Codeine Phosphate Allergy (Unknown, Uncoded 11/02/23 10:30) Unknown From Demerol Allergy (Unknown, Uncoded 11/02/23 10:30) BRADYCARDIA narcotics Allergy (Unknown, Uncoded 11/02/23 10:30) Unknown percocet Allergy (Unknown, Uncoded 11/02/23 10:30) nausea and vomiting HPI NewPt- right hip pain HPI Details 78-year-old female who presents to the office today for evaluation of for right hip pain. She has not had any previous injury however she does report she sustained a fall in July 2023 which worsened her pain. She was seen at pain management in August 2023 where she was given a cortisone injection which provided her relief. She had also started physical therapy in September 2023 however discontinued it since it made her pain worse. She was also seen by her PCP who referred her to our office. She currently states she has a burning cramping pain and tight sensation in her hip which radiates up to her spine. Her pain is aggravated with movement and at night. She finds mild relief with ibuprofen. She has a history of diabetes. Her A1c was 6.3 about 2 months ago. [facility] Medical History Bilateral finger numbness Blood pressure elevated without history of HTN Urge incontinence of urine Calcification of ovary Leukocytosis (leucocytosis) Asthma exacerbation Renal cyst Allergic rhinitis Restrictive lung disease Hypersomnolence ALEISHA (obstructive sleep apnea) Obesity (BMI 30-39.9) MALToma Cervical cancer Pancreatic mass Osteopenia GERD (gastroesophageal reflux disease) Adnexal mass MALT lymphoma Obesity (BMI 30-39.9) Vitamin D deficiency Tubular adenoma of colon History of supraventricular tachycardia Breast density Anxiety High cholesterol Migraine headache Asthma Hyperlipemia Surgical History Hx of tubal ligation History of vocal cord polypectomy Hx of dilation and curettage Hx of pneumonectomy H/O arthroscopy of right knee Hx of cholecystectomy Family History Father Colon cancer Sister Colon cancer Sister History of breast cancer Colon cancer Sister Thyroid cancer Social History Household Members: None Housing: Apartment Are you a primary healthcare management consultant to a significant other at home: No Do you presently have visiting nurse or other home services: No Alcohol intake: current Alcohol intake frequency: holidays/special occasions only Patient Tobacco Use Status: Never used Tobacco e-Cigarette/Vaping Use: Never Used Second Hand Smoke Exposure: No service: Yes Current occupational status: retired Current occupational exposures/hazards: No Cognitive needs: No Hearing needs: No Vision needs: No Female Reproductive History Menstrual Age of Menarche: 17 Review of Systems Const All systems reviewed & are unremarkable except as noted in HPI and below Physical Exam Const General: cooperative and no acute distress Orientation/consciousness: patient oriented x3 Resp Effort & Inspection: normal respiratory effort and able to speak in complete sentences Cardio Peripheral pulses: Peripheral pulses 2+ throughout Neuro General: patient oriented x3 Extrem Other: Right hip: Normal to inspection. She does have a trace olecranon bursitis. No redness, warmth or tenderness to palpation. Positive SI joint tenderness. She has full ROM without pain. NVI. Office Procedures Joint Injection/Drain Joint Injection/Drain Details: right trochanteric bursa Prep: site was prepped using aseptic technique, ethochloride spray was applied and injection warnings given Injected: 40 mg of, DepoMedrol, with 8 mL of and 1% plain lidocaine Procedure: The patient tolerated the procedure well and there was some relief with the local anesthesia Coding 95903 - Glenohumeral/Tronchanteric Bursa/Intraarticular Procedure code (CPT) selection complete Assessment & Plan Assessment & Plan (1) Trochanteric bursitis of right hip: Code(s): M70.61 - Trochanteric bursitis, right hip Plan We discussed options today which include steroid injection. They did consent to move forward with the right hip injection, which was tolerated well. I recommended rest, ice and elevation and OTC anti-inflammatories PRN for discomfort. We also discussed their diabetes and the effect the steroid can have on their blood glucose levels; therefore, they will continue to monitor these very closely over the next 72 hours. If there are any concerns, they should report to the ED immediately. Patient Instructions: Scribed for Amparo Mcgraw PA-C, by Michael Hong biomedical engineering aide, on 11/02/2023 at 10:30 AM EST. I, Amparo Mcgraw PA-C, have personally reviewed and agree with the information entered by the scribe. Coding Level of Care Code New Pt Level 3 (44481) Diagnoses Trochanteric bursitis of right hip M70.61 CPT Codes Coding - Joint 7: 79135 - Glenohumeral/Tronchanteric Bursa/Intraarticular ([id number])
== END 2023-11-02 11:25 | disposition home or self-care (01) ==
PROVIDERS: PCP Internal Medicine; Visit Provider Physician Assistant
DX: M70.61 Trochanteric bursitis, right hip (principal)
CPT/HCPCS: 20610; 99203

== ENCOUNTER → 2023-11-02 10:28 | Outpatient (BNVA) | payer MEDICARE, SELFPAY | PROVIDERS: PCP Internal Medicine; Visit Provider Physician Assistant | DX: M70.61 Trochanteric bursitis, right hip (principal) | CPT/HCPCS: 20610; 99202; J1010; J1020 ==

== ENCOUNTER 2023-11-10 10:51 | Outpatient (AMB) | payer MEDICARE, SELFPAY ==
[2023-11-10 10:54] VITALS: BP 136/80; PULSE 83; O2SAT 98; BMI 39.3
--- NOTE | 2023-11-10 10:54 | MHC.PC.OV ---
Vital Signs 11/10/23 10:54 Height 5 ft Weight 201 lb BMI 39.3 BP 136/80 Blood Pressure Location Lt brachial Position Sitting Pulse 83 Pulse Source Pulse Oximeter Pulse Oximetry (%) 98 Oxygen Delivery Method Room Air Intake Visit Reasons: Blisters on back, approval to start PT Allergies penicillin G [Penicillin G] Allergy (Mild, Verified 11/10/23 10:54) RASH Sulfa (Sulfonamide Antibiotics) [Sulfa (Sulfonamides)] Allergy (Mild, Verified 11/10/23 10:54) UNKNOWN meperidine [Demerol] Allergy (Unknown, Verified 11/10/23 10:54) Unknown penicillin V Allergy (Unknown, Verified 11/10/23 10:54) Unknown strawberry [STRAWBERRY] Allergy (Unknown, Verified 11/10/23 10:54) HIVES codeine [Codeine] Adverse Reaction (Intermediate, Verified 11/10/23 10:54) HALLUCINATION oxycodone [From Percocet] Adverse Reaction (Mild, Verified 11/10/23 10:54) VOMITING Codeine Phosphate Allergy (Unknown, Uncoded 11/10/23 10:54) Unknown From Demerol Allergy (Unknown, Uncoded 11/10/23 10:54) BRADYCARDIA narcotics Allergy (Unknown, Uncoded 11/10/23 10:54) Unknown percocet Allergy (Unknown, Uncoded 11/10/23 10:54) nausea and vomiting Medication List - Last Reconciled 11/10/23 by Constantine Lara MD acetaminophen (Acetaminophen Pain Relief) 1,000 mg (2 x 500 mg) PO Q6H PRN 30 days albuterol sulfate 90 mcg/actuation 2 puffs PO Q4-6H PRN amitriptyline 10 mg PO BEDTIME cholecalciferol (vitamin D3) (Vitamin D3) 50 mcg PO DAILY doxycycline hyclate 100 mg PO BID fluticasone propionate 50 mcg/actuation (Children's Flonase Allergy Relief) 2 sprays intranasal DAILY 30 days furosemide 20 mg PO DAILY PRN 90 days ibuprofen 800 mg PO Q6H PRN 30 days [LIFE ALERT SYSTEM As directed] multivitamin (One-A-Day Essential tablet) 1 tab PO DAILY omeprazole 20 mg PO DAILY oxybutynin chloride ER 10 mg PO DAILY simvastatin 10 mg PO DAILY 90 days tizanidine 2 mg PO TID PRN trazodone 50 mg PO BEDTIME PRN 30 days MDD SLEEP DISORDER Tobacco use date assessed: 11/10/23 Fall risk assessment: No Falls in past year Last assessed Fall Risk: 11/10/23 Dental Screening Dental Screen Date: 11/10/23 Did you have a dental visit in the last 12 months?: Yes Did you have a dental problem in the last 6 months where you did not have access to dental care?: No Was dental information given to patient?: Patient has dentist HPI Blisters on back, approval to start PT HPI Details 78-year-old obese female with CLL, asthma impaired glucose tolerance obstructive sleep apnea GERD diabetes mellitus coming in for follow-up. Last seen in October 2023. Patient's mammogram is up-to-date colonoscopy is up-to-date. Review of the notes was seen by Orthopedics for the right hip pain and had an injection done patient was also seen last month for right sided back blister diagnosis of most likely an abrasion. Patient is being followed up by the pain management for the hip pain x-rays noting degenerative changes hips sacroiliac joint lumbar spine advised intra-articular hip injection. R upper back blister- last months 10/25/2023 [facility] Medical History (Updated 11/10/23 @ 11:57 by Constantine Lara MD) Impaired fasting blood sugar Elevated blood sugar Bilateral finger numbness Blood pressure elevated without history of HTN Urge incontinence of urine Calcification of ovary Leukocytosis (leucocytosis) Asthma exacerbation Renal cyst Allergic rhinitis Restrictive lung disease Hypersomnolence ALEISHA (obstructive sleep apnea) Obesity (BMI 30-39.9) MALToma Cervical cancer Pancreatic mass Osteopenia GERD (gastroesophageal reflux disease) Adnexal mass MALT lymphoma Obesity (BMI 30-39.9) Vitamin D deficiency Tubular adenoma of colon History of supraventricular tachycardia Breast density Anxiety High cholesterol Migraine headache Asthma Hyperlipemia Surgical History Hx of tubal ligation History of vocal cord polypectomy Hx of dilation and curettage Hx of pneumonectomy H/O arthroscopy of right knee Hx of cholecystectomy Family History Father Colon cancer Sister Colon cancer Sister History of breast cancer Colon cancer Sister Thyroid cancer Social History Household Members: None Housing: Apartment Are you a primary veterinarian laboratory animal care to a significant other at home: No Do you presently have visiting nurse or other home services: No Alcohol intake: current Alcohol intake frequency: holidays/special occasions only Patient Tobacco Use Status: Never used Tobacco e-Cigarette/Vaping Use: Never Used Second Hand Smoke Exposure: No service: Yes Current occupational status: retired Current occupational exposures/hazards: No Cognitive needs: No Hearing needs: No Vision needs: No Female Reproductive History Menstrual Age of Menarche: 17 Questionnaire PHQ-9 Over the last 2 weeks, how often have you been bothered by any of the following problems? 1. Little interest or pleasure in doing things: not at all 2. Feeling down, depressed, or hopeless: not at all 3. Trouble falling or staying asleep, or sleeping too much: not at all 4. Feeling tired or having little energy: not at all 5. Poor appetite or overeating: not at all 6. Feeling bad about yourself - or that you are a failure or have let yourself or your family down: not at all 7. Trouble concentrating on things, such as reading the newspaper or watching television: not at all 8. Moving or speaking so slowly that other people could have noticed. Or the opposite - being so fidgety or restless that you have been moving around a lot more than usual: not at all 9. Thoughts that you would be better off or of hurting yourself in some way: not at all Total score: 0 Depression Screening Interpretation: Negative Depression Screening Done: Yes Source: Developed by Drs. Gómez Grant, Amelie Reza, Huber Hall and colleagues, with an educational adrienne from [email or web address]. Thrive Questionnaire Date Thrive assessed: 11/10/23 I am a: Patient What is your living situation today?: I have a steady place to live Within the past 12 months, did the food you bought not last and you didn't have the money to get more?: Never true Within the past 12 months, did you worry whether your food would run out before you got money to buy more?: Never true Do you have trouble paying for medicines?: No Do you have trouble getting transportation to medical appointments?: No Do you have trouble paying your heating and electricity bill?: No Do you have trouble taking care of your child, family member or friend?: No Do you have trouble with day-to-day activities such as bathing, preparing meals, shopping, managing finances, etc.?: No Are you currently unemployed and looking for a job?: No Are you interested in more education?: No Currently or been in a relationship where the following occur: no concerns reported THRIVE Score: 0 AUDIT C Alcohol Use Questionnaire (AUDIT-C) 1. How often do you have a drink containing alcohol?: Monthly or less 2. How many drinks containing alcohol do you have on a typical day when you are drinking?: 1 or 2 3. How often do you have six or more drinks on one occasion?: Never Total Score: 1 Score Reviewed/Action Taken: No FERNANDA-7 AMB Questionnaire FERNANDA-7 Date FERNANDA - 7 assessed: 11/10/23 Feeling nervous, anxious, or on edge: 0 = Not at all Not being able to stop or control worryin = Not at all Worrying too much about different things: 0 = Not at all Trouble relaxin = Not at all Being so restless that it is hard to sit still: 0 = Not at all Becoming easily annoyed or irritable: 0 = Not at all Feeling afraid as if something awful might happen: 0 = Not at all Total FERNANDA-7 score (0-4 normal; 5-9 mild; 10-14 moderate; 15-21 severe): 0 Source: Developed by Drs. Gómez Grant, Amelie Reza, Huber Hall and colleagues, with an educational adrienne from [email or web address]. Physical exam (Primary Care) Vital Signs: Last Vital Signs Pulse 83 11/10/23 10:54 BP 136/80 11/10/23 10:54 Pulse Ox 98 11/10/23 10:54 Oxygen Delivery Method Room Air 11/10/23 10:54 BMI result Body Mass Index 39.3 Tobacco/Smoking Status: Tobacco use Status Tobacco use date assessed 11/10/23 11/10/23 11:00 Patient Tobacco Use Status Never used Tobacco 11/10/23 11:00 Tobacco use type 10/19/23 10:33 e-Cigarette/Vaping Use Never Used 11/10/23 11:00 PHQ-9: PHQ-9 Score PHQ-9: Total score 0 11/10/23 11:00 Depression Screening Interpretation: Negative Thrive Assessment: Date of Thrive Assessment Date Thrive assessed 11/10/23 11/10/23 11:00 Currently or been in a relationship where the following occur: no concerns reported Const General: alert; No acute distress Eyes Conjunctivae: conjunctivae normal Resp Auscultation: clear to auscultation bilaterally Cardio Rate: regular rate Rhythm: regular rhythm GI Inspection: Yes normal to inspection Back/Spine/Pelvis Back/spine/pelvis image: 1. scabbed 2 cm rash R mid back 2. 1 cm mild erythematous rash Extrem General: Yes normal to inspection and No edema Assessment and Plan Assessment & Plan (1) Type 2 diabetes mellitus with hyperglycemia: Comment: Dr. Valdivia Code(s): E11.65 - Type 2 diabetes mellitus with hyperglycemia Plan: Decrease the amount of carbohydrate intake, pasta, bread, rice and potatoes are all sugar and that is aside from all the sweet stuff, remember that fruits are good but they are Sweet also. Hemoglobin A1c goal of less than 7.0 (2) Trochanteric bursitis of right hip: Code(s): M70.61 - Trochanteric bursitis, right hip Plan: Patient has seen Orthopedics and had injections done (3) Obesity: Code(s): E66.9 - Obesity, unspecified Plan: Diet and exercise (4) Asthma: Comment: PATIENT MAY HAVE A MILD DEGREE OF BRONCHIAL ASTHMA. ADVISED TO USE ALBUTEROL P.R.N. BUT ONLY SPARINGLY, IF SHE HAS WHEEZING IS, NOT FOR JUST SHORTNESS OF BREATH. Code(s): J45.909 - Unspecified asthma, uncomplicated Plan: Continue with the inhalers as needed (5) GERD (gastroesophageal reflux disease): Code(s): K21.9 - Gastro-esophageal reflux disease without esophagitis Plan: Avoid the foods that causes that usually spicy foods, tomato products, juices, coffee, soda and foods that your sensitive to. After eating do not lie down, allow 3-4 hours before in lie down. And keep the head of bed above 30 degrees to avoid the acid from going up. (6) Non-healing non-surgical wound: Comment: R thoracic back Code(s): T14.8XXA - Other injury of unspecified body region, initial encounter Orders: Orders PT Evaluation and Treatment Today M70.61 - Trochanteric bursitis, right hip Referrals Wound Care Referral T14.8XXA - Other injury of unspecified body region, initial encounter Medications: New doxycycline hyclate 100 mg PO BID 14 caps 0RF T14.8XXA - Other injury of unspecified body region, initial encounter Coding Level of Care Code Est Pt Level 4 (67216) Diagnoses Type 2 diabetes mellitus with hyperglycemia E11.65 Trochanteric bursitis of right hip M70.61 Obesity E66.9 Asthma J45.909 GERD (gastroesophageal reflux disease) K21.9 Non-healing non-surgical wound T14.8XXA Additional Codes PHQ-9 - 23949 - PHQ-9 Billing: ([id number])
== END 2023-11-10 12:08 | disposition home or self-care (01) ==
PROVIDERS: PCP Internal Medicine; Visit Provider Internal Medicine
DX: E11.65 Type 2 diabetes mellitus with hyperglycemia (principal); M70.61 Trochanteric bursitis, right hip; E66.9 Obesity, unspecified; Z68.39 Body mass index [BMI] 39.0-39.9, adult; J45.909 Unspecified asthma, uncomplicated; K21.9 Gastro-esophageal reflux disease without esophagitis; T14.8XXA Other injury of unspecified body region, initial encounter
CPT/HCPCS: 99214

== ENCOUNTER 2023-11-13 08:49 | Outpatient (REF) | payer MEDICARE, SELFPAY ==
--- NOTE | ~2023-11-13 | MR_ITS ---
EXAMINATION: MR CERVICAL SPINE WITHOUT CONTRAST CLINICAL INFORMATION: 78-year-old with self-reported cervical pain, with bilateral upper extremity radicular symptoms. Spinal stenosis, cervical region. COMPARISON: Soft tissue neck CT of 06/02/2023 TECHNIQUE: MRI of the cervical spine was obtained using routine sequences without contrast. FINDINGS: ALIGNMENT: Partially imaged upper thoracic levocurvature noted. Trace anterolisthesis noted at C7-T1, T1-T2, T2-T3 and T3-T4. Lordotic loss noted at C3-C4. CRANIOCERVICAL JUNCTION/C1-C2 ARTICULATIONS: Intact and aligned. VISUALIZED INTRACRANIAL STRUCTURES: Within normal limits. VERTEBRAL BODIES: Vertebral body heights are well-maintained. DISC SPACES AND ENDPLATES: There is severe disc space height loss at C3-C4 and C5-C6, moderate disc space height loss at C4-C5, [id number] disc space height loss at C6-C7 and moderate to severe disc space height loss at C7-T1 with multilevel disc desiccation and [id number] degrees of multilevel anterolateral spondylosis. Schmorl's nodes are identified at C3-C4, C4-C5 and C5-C6. Multilevel upper thoracic degenerative changes are also noted. BONE MARROW: There are type I degenerative marrow signal changes seen along the endplates at C3-C4, C4-C5 and C5-C6. There is diffusely heterogeneous bone marrow signal intensity seen throughout the osseous structures on T1 and T2-weighted imaging which is nonspecific, but could be physiologic, such as related to smoking or obesity. Suggest correlation with CBC with differential and clinical history. There is a 1.1 cm ovoid focus of signal loss in the right C7 pedicle, which is nonspecific and could reflect a bone island, and is similar to a previous finding of sclerosis on a CT of 06/02/2023. Otherwise, no focally aggressive zones of marrow replacement or bone marrow edema are suspected. C2-C3: Minimal central disc protrusion noted without cord impingement or canal stenosis. Ligamentum flavum thickening is noted with borderline central canal stenosis. No significant DJD or foraminal stenosis. C3-C4: Broad-based disc herniation and posterolateral disc osteophyte complex noted with effacement of the ventral dural sac, with moderate to severe cord compression, with ligamentum flavum thickening and severe central spinal canal stenosis. No obvious cord edema. Uncovertebral spurring noted left more than right and minor facet joint arthrosis with moderate to severe left-sided neural foraminal stenosis. C4-C5: Central to left paramedian disc osteophyte complex is noted with effacement of the ventral dural sac asymmetric to the left, with marked ventral cord deformity and probable chronic spinal cord volume loss with T2 signal alteration in the spinal cord suggesting spondylitic myelomalacia associated with moderate to severe spinal canal stenosis asymmetric to the left. There is uncovertebral spurring and facet arthropathy with moderate to severe left-sided and moderate right-sided neural foraminal stenosis. C5-C6: Broad-based disc osteophyte complex noted with effacement of the ventral dural sac with moderate chronic ventral cord deformity and spinal cord volume loss with intramedullary T2 alteration consistent with spondylitic myelomalacia. Moderate to severe spinal canal stenosis is noted. There is uncovertebral spurring and facet joint arthropathy with moderate to severe bilateral neural foraminal stenosis. C6-C7: Disc osteophyte complex asymmetric to the left with flattening of the ventral dural sac without cord impingement. Ligamentum flavum thickening noted without significant canal stenosis. Uncovertebral spurring noted left more than right with mild left-sided neural foraminal stenosis. C7-T1: Trace unroofing of the posterior disc margin with broad-based disc osteophyte complex and right subarticular disc herniation with flattening of the ventral dural sac asymmetric to the right without cord impingement or significant central canal stenosis. Ligamentum flavum thickening is noted. Right subarticular disc protrusion probably contacts the ventral root of C8. No significant neural foraminal stenosis. SPINAL CORD: Multilevel chronic spondylitic myelomalacia is suspected at C3-C4, C4-C5 and C5-C6 as detailed above without gross cord edema or syrinx. EXTRACRANIAL SOFT TISSUES: There is a plump 0.9 cm level IV lymph node on the left unchanged from previous CT. Multiple other level IV lymph nodes are seen on the left which are stable. There are level III-B lymph nodes noted bilaterally which are stable, left more than right. There is an enlarged level V-A lymph node on the right stable in appearance. Signal voids are noted in the visualized major neck vessels. MR/MR cervical spine wo con IMPRESSION: 1. Multilevel cervical DDD and spondylosis, with multilevel disc osteophyte complexes and disc herniations as described above with multilevel severe and moderate to severe spinal canal stenosis and cord compression, most apparent at C3-C4, C4-C5 and C5-C6 with associated chronic spondylitic myelomalacia. 2. Multilevel DJD with multilevel bilateral bony neural foraminal stenosis as detailed by level above. 3. Cervical lymphadenopathy as described above, similar to prior CT. 4. Heterogeneous bone marrow signal intensity seen throughout the osseous structures which is nonspecific and could be physiologic, such as related to smoking or obesity. Suggest correlation with CBC with differential and clinical history. 5. A 1.1 cm focus of signal loss in the right C7 pedicle which is similar to previous CT and is likely a bone island.
== END 2023-11-13 08:50 | disposition home or self-care (01) ==
LOC: HO.MRI 08:49
PROVIDERS: PCP Internal Medicine; Visit Provider Nurse Practitioner Family
DX: M48.02 Spinal stenosis, cervical region (principal); M54.2 Cervicalgia; R26.89 Other abnormalities of gait and mobility; M54.12 Radiculopathy, cervical region
CPT/HCPCS: 72141

== ENCOUNTER 2023-12-22 09:28 | Outpatient (AMB) | payer MEDICARE, SELFPAY ==
[2023-12-22 09:50] VITALS: BP 102/64; PULSE 72; O2SAT 95; BMI 39.4
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
== END 2023-12-22 10:12 | disposition home or self-care (01) ==
PROVIDERS: PCP Internal Medicine; Visit Provider Internal Medicine
DX: E66.9 Obesity, unspecified (principal); G47.33 Obstructive sleep apnea (adult) (pediatric); J98.4 Other disorders of lung; J45.909 Unspecified asthma, uncomplicated; R91.1 Solitary pulmonary nodule
CPT/HCPCS: 99213

== ENCOUNTER → 2023-12-22 09:28 | Outpatient (BNVA) | payer MEDICARE, SELFPAY | PROVIDERS: PCP Internal Medicine; Visit Provider Internal Medicine | DX: J45.909 Unspecified asthma, uncomplicated (principal); J98.4 Other disorders of lung; R91.1 Solitary pulmonary nodule; G47.33 Obstructive sleep apnea (adult) (pediatric); E66.9 Obesity, unspecified; Z68.39 Body mass index [BMI] 39.0-39.9, adult | CPT/HCPCS: 99212 ==

== ENCOUNTER 2024-01-11 08:44 | Outpatient (AMB) | payer MEDICARE, SELFPAY ==
--- NOTE | 2024-01-11 08:54 | HO.SPINEOV ---
Intake Visit Reasons: spinal stenosis Intake Note: Ms. Gu is here today c/o back pain, MRI done at [facility] [place]. Formula Technician Required: No Allergies penicillin G [Penicillin G] Allergy (Mild, Verified 12/29/23 09:45) RASH Sulfa (Sulfonamide Antibiotics) [Sulfa (Sulfonamides)] Allergy (Mild, Verified 12/29/23 09:45) UNKNOWN meperidine [Demerol] Allergy (Unknown, Verified 12/29/23 09:45) Unknown penicillin V Allergy (Unknown, Verified 12/29/23 09:45) Unknown strawberry [STRAWBERRY] Allergy (Unknown, Verified 12/29/23 09:45) HIVES codeine [Codeine] Adverse Reaction (Intermediate, Verified 12/29/23 09:45) HALLUCINATION oxycodone [From Percocet] Adverse Reaction (Mild, Verified 12/29/23 09:45) VOMITING Codeine Phosphate Allergy (Unknown, Uncoded 12/29/23 09:45) Unknown From Demerol Allergy (Unknown, Uncoded 12/29/23 09:45) BRADYCARDIA narcotics Allergy (Unknown, Uncoded 12/29/23 09:45) Unknown percocet Allergy (Unknown, Uncoded 12/29/23 09:45) nausea and vomiting Assessment & Plan Assessment & Plan (1) Cervical spinal stenosis: Code(s): M48.02 - Spinal stenosis, cervical region Category: Medical Plan Mrs. Gu is a patient known to our practice. She has been seen by Dr. Harrell for her lumbar spine. Last year she came in for evaluation for numbness of her hands and falls and she was sent to Neurology for workup. Ultimately she underwent brain imaging and subsequent cervical MRI imaging showing severe spinal cord compression and was sent back to see us to return for an evaluation. I went over her history again, she does have an extensive issue with falls going back many years. Her balance has been getting worse and she has been using a cane. She also reports numbness of her hands and her feet. She also reports difficulty with fine motor tasks etc.. She has many of the classic myelopathic symptoms. There she also has a degree of urge incontinence as well. Past medical history: She had a history of SVT at 1 point when she has admitted to the hospital, she will feel it from time to time and it generally will pass on its own. History of hypertension. She has a suspicion for having lymphoma, possibly CLL, she is followed by Dr. Jarvis and is due for follow-up to discuss treatment options. She had a right middle lobectomy done by Dr. Chavez a number of years ago for multiple nodule seen in her lungs. This is how she found out she had lymphoma. History of cholecystectomy, she has a mass on her pancreas, fatty liver, GERD, thyroid nodule, sleep apnea, right knee arthroscopy. Medications: Albuterol, amitriptyline, vitamin-D, Flonase, Lasix, ibuprofen, multivitamin, oxybutynin, simvastatin, tizanidine, trazodone Social history: She does not smoke, drink use any recreational drugs Physical exam: She is awake alert oriented no acute distress, she walks with a cane, tandem gait testing reveals she is unsteady, she has diffuse weakness of the upper extremities which I would rate as 4-5, maybe slightly worse on the right hand 4- out of 5. Iliopsoas are 4+ out of 5. She is diffuse hyperreflexia with positive Lr's sign bilaterally in the hands and clonus in the right ankle. Cervical MRI done at [facility] as well as cervical CT done last year shows that she has severe compression of the spinal cord at C3-4, C4-5 and maybe moderate to severe C5-6. She has significant arthritic overgrowth of the discs at multiple levels. Impression: 78-year-old female known to our practice from a lumbar issue, had been seen by Dr. Harrell and sent to Neurology for numbness of her hands and gait instability, ultimately found to have cervical spinal cord compression from C3-C6 as outlined above. She has classic myelopathic features on her exam. Obviously, this is something that will require decompression. I will need to discuss with Dr. Harrell about whether this is something he would choose to do anteriorly, or if we could do a simple posterior cervical laminectomy. Once I have a chance to review everything with him I will call the patient back with the final plan. We did briefly discuss both procedures. We highlighted the fact that the ultimate goal of surgery is to stop the progression of myelopathy and not necessarily to make her symptoms go away. She will need a clearance note from Dr. Lara before surgery. Total amount of time spent in this visit was 30 minutes in discussion of symptoms, cervical MRI imaging results and subsequent plan of care Bird Harrell MD,PhD [facility] Coding Level of Care Code Est Pt Level 5 (72431) Diagnoses Cervical spinal stenosis M48.02
== END 2024-01-11 09:39 | disposition home or self-care (01) ==
PROVIDERS: PCP Internal Medicine; Visit Provider Physician Assistant
DX: M48.02 Spinal stenosis, cervical region (principal)
CPT/HCPCS: 99215

== ENCOUNTER → 2024-01-11 08:44 | Outpatient (BNVA) | payer MEDICARE, SELFPAY | PROVIDERS: PCP Internal Medicine; Visit Provider Physician Assistant | DX: M48.02 Spinal stenosis, cervical region (principal) | CPT/HCPCS: 99212 ==

== ENCOUNTER 2024-01-11 14:46 | Outpatient (AMB) | payer MEDICARE, SELFPAY ==
--- NOTE | 2024-01-11 14:48 | MHC.PC.OV ---
Vital Signs 01/11/24 14:49 Height 5 ft Weight 205 lb 0.4 oz BMI 40.0 BP 118/62 Blood Pressure Location Lt brachial Position Sitting Pulse 69 Pulse Source Pulse Oximeter Pulse Oximetry (%) 98 Oxygen Delivery Method Room Air Intake Visit Reasons: ANNUAL/3 Month F/U Allergies penicillin G [Penicillin G] Allergy (Mild, Verified 01/11/24 14:50) RASH Sulfa (Sulfonamide Antibiotics) [Sulfa (Sulfonamides)] Allergy (Mild, Verified 01/11/24 14:50) UNKNOWN meperidine [Demerol] Allergy (Unknown, Verified 01/11/24 14:50) Unknown penicillin V Allergy (Unknown, Verified 01/11/24 14:50) Unknown strawberry [STRAWBERRY] Allergy (Unknown, Verified 01/11/24 14:50) HIVES codeine [Codeine] Adverse Reaction (Intermediate, Verified 01/11/24 14:50) HALLUCINATION oxycodone [From Percocet] Adverse Reaction (Mild, Verified 01/11/24 14:50) VOMITING Codeine Phosphate Allergy (Unknown, Uncoded 01/11/24 14:50) Unknown From Demerol Allergy (Unknown, Uncoded 01/11/24 14:50) BRADYCARDIA narcotics Allergy (Unknown, Uncoded 01/11/24 14:50) Unknown percocet Allergy (Unknown, Uncoded 01/11/24 14:50) nausea and vomiting Medication List - Last Reconciled 01/11/24 by Constantine Lara MD albuterol sulfate 90 mcg/actuation 2 puffs PO Q4-6H PRN amitriptyline 10 mg PO BEDTIME cholecalciferol (vitamin D3) (Vitamin D3) 50 mcg PO DAILY fluticasone propionate 50 mcg/actuation (Children's Flonase Allergy Relief) 2 sprays intranasal DAILY 30 days furosemide 20 mg PO DAILY ibuprofen 800 mg PO BID PRN [LIFE ALERT SYSTEM As directed] multivitamin (One-A-Day Essential tablet) 1 tab PO DAILY omeprazole 20 mg PO DAILY oxybutynin chloride ER 10 mg PO DAILY simvastatin 10 mg PO DAILY 90 days trazodone 50 mg PO BEDTIME PRN 30 days MDD SLEEP DISORDER Tobacco use date assessed: 01/11/24 Fall risk assessment: No Falls in past year Last assessed Fall Risk: 01/11/24 Dental Screening Dental Screen Date: 01/11/24 Did you have a dental visit in the last 12 months?: Yes Did you have a dental problem in the last 6 months where you did not have access to dental care?: No Was dental information given to patient?: Patient has dentist HPI ANNUAL/3 Month F/U HPI Details 78-year-old morbidly obese female with diabetes mellitus asthma GERD coming for physical exam. Patient's mammogram is up-to-date April last year, bone density requested. Colonoscopy is up-to-date. review of the notes seen the spine center spinal stenosis cervical MRI done showing severe spinal cord compression C3-C6 . Discussed with the neurosurgeon for assessment and plan. 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 [facility] Medical History (Updated 01/11/24 @ 15:59 by Constantine Lara MD) Impaired fasting blood sugar Elevated blood sugar Bilateral finger numbness Blood pressure elevated without history of HTN Urge incontinence of urine Calcification of ovary Leukocytosis (leucocytosis) Asthma exacerbation Renal cyst Allergic rhinitis Restrictive lung disease Hypersomnolence ALEISHA (obstructive sleep apnea) Obesity (BMI 30-39.9) Cervical cancer Pancreatic mass Osteopenia GERD (gastroesophageal reflux disease) Adnexal mass MALT lymphoma Obesity (BMI 30-39.9) Vitamin D deficiency Tubular adenoma of colon History of supraventricular tachycardia Breast density Anxiety High cholesterol Migraine headache Asthma Hyperlipemia Surgical History Hx of tubal ligation History of vocal cord polypectomy Hx of dilation and curettage Hx of pneumonectomy H/O arthroscopy of right knee Hx of cholecystectomy Family History (Updated 01/11/24 @ 15:44 by Constantine Lara MD) Father Colon cancer Sister Colon cancer Myocardial infarct Sister History of breast cancer Colon cancer Sister Thyroid cancer Social History (Updated 01/11/24 @ 15:45 by Constantine Lara MD) Household Members: None Housing: Apartment Are you a primary chiropractic care to a significant other at home: No Do you presently have visiting nurse or other home services: No Alcohol intake: current Alcohol intake frequency: holidays/special occasions only Comment: twice a year Patient Tobacco Use Status: Never used Tobacco e-Cigarette/Vaping Use: Never Used Second Hand Smoke Exposure: No service: Yes Current occupational status: retired Current occupational exposures/hazards: No Cognitive needs: No Hearing needs: No Vision needs: No Female Reproductive History Menstrual Age of Menarche: 17 Questionnaire PHQ-9 Over the last 2 weeks, how often have you been bothered by any of the following problems? 1. Little interest or pleasure in doing things: not at all 2. Feeling down, depressed, or hopeless: not at all 3. Trouble falling or staying asleep, or sleeping too much: not at all 4. Feeling tired or having little energy: not at all 5. Poor appetite or overeating: not at all 6. Feeling bad about yourself - or that you are a failure or have let yourself or your family down: not at all 7. Trouble concentrating on things, such as reading the newspaper or watching television: not at all 8. Moving or speaking so slowly that other people could have noticed. Or the opposite - being so fidgety or restless that you have been moving around a lot more than usual: not at all 9. Thoughts that you would be better off or of hurting yourself in some way: not at all Total score: 0 Depression Screening Interpretation: Negative Depression Screening Done: Yes 21119 - PHQ-9 Billing: Yes Source: Developed by Drs. Gómez Grant, Amelie Reza, Huber Hall and colleagues, with an educational adrienne from [employer]. Thrive Questionnaire Date Thrive assessed: 11/10/23 AUDIT C Alcohol Use Questionnaire (AUDIT-C) 1. How often do you have a drink containing alcohol?: Monthly or less 2. How many drinks containing alcohol do you have on a typical day when you are drinking?: 1 or 2 3. How often do you have six or more drinks on one occasion?: Never Total Score: 1 Score Reviewed/Action Taken: No FERNANDA-7 AMB Questionnaire FERNANDA-7 Date FERNANDA - 7 assessed: 11/10/23 Feeling nervous, anxious, or on edge: 0 = Not at all Not being able to stop or control worryin = Not at all Worrying too much about different things: 0 = Not at all Trouble relaxin = Not at all Being so restless that it is hard to sit still: 0 = Not at all Becoming easily annoyed or irritable: 0 = Not at all Feeling afraid as if something awful might happen: 0 = Not at all Total FERNANDA-7 score (0-4 normal; 5-9 mild; 10-14 moderate; 15-21 severe): 0 Source: Developed by Drs. Gómez Grant, Amelie Reza, Huber Hall and colleagues, with an educational adrienne from [employer]. Review of Systems Const Denies poor appetite and Denies weakness Eyes Denies no additional complaints ENT Reports Normal hearing present, Denies dizziness, Denies nasal congestion, Denies tinnitus and Denies sore throat Card Denies chest pain, Denies syncope, Denies rapid heart rate and Denies dyspnea Resp Denies cough and Denies dyspnea GI Denies change in stool character, Reports constipation, Denies diarrhea, Denies nausea and Denies vomiting Denies urinary frequency, Denies difficulty voiding and Denies dysuria Neuro Reports Normal hearing present, Denies confusion, Denies dizziness, Denies syncope and Denies weakness Psych Denies confusion Physical exam (Primary Care) Vital Signs: Last Vital Signs Pulse 69 01/11/24 14:49 BP 118/62 01/11/24 14:49 Pulse Ox 98 01/11/24 14:49 Oxygen Delivery Method Room Air 01/11/24 14:49 BMI result Body Mass Index 40.0 Tobacco/Smoking Status: Tobacco use Status Tobacco use date assessed 01/11/24 01/11/24 14:52 Patient Tobacco Use Status Never used Tobacco 01/11/24 14:52 Tobacco use type 01/07/24 10:34 e-Cigarette/Vaping Use Never Used 01/11/24 14:52 PHQ-9: PHQ-9 Score PHQ-9: Total score 0 01/11/24 14:58 Depression Screening Interpretation: Negative Thrive Assessment: Date of Thrive Assessment Date Thrive assessed 11/10/23 01/11/24 14:52 Const General: No confusion Orientation/consciousness: No confusion Neuro General: No confusion Cranial nerves: Yes Normal hearing present Assessment and Plan Assessment & Plan (1) Annual physical exam: Code(s): Z00.00 - Encounter for general adult medical examination without abnormal findings Plan: Patient is advised to eat healthy, keep well hydrated, keep active and have adequate sleep. (2) GERD (gastroesophageal reflux disease): Code(s): K21.9 - Gastro-esophageal reflux disease without esophagitis Plan: Avoid the foods that causes that usually spicy foods, tomato products, juices, coffee, soda and foods that your sensitive to. After eating do not lie down, allow 3-4 hours before in lie down. And keep the head of bed above 30 degrees to avoid the acid from going up. (3) High cholesterol: Code(s): E78.00 - Pure hypercholesterolemia, unspecified Plan: Avoid fried foods, chicken skin, eggs, butter margarine, pastries and meat. Be it pork or beef they have a lot of cholesterol LDL goal of less than 100 and triglyceride of less than 150 on simvastatin 10 mg once a day (4) Asthma: Comment: PATIENT MAY HAVE A MILD DEGREE OF BRONCHIAL ASTHMA. ADVISED TO USE ALBUTEROL P.R.N. BUT ONLY SPARINGLY, IF SHE HAS WHEEZING IS, NOT FOR JUST SHORTNESS OF BREATH. Code(s): J45.909 - Unspecified asthma, uncomplicated Plan: Continue with the inhaler has seen Pulmonary most problem is the weight (5) Morbid obesity: Code(s): E66.01 - Morbid (severe) obesity due to excess calories Plan: Diet and exercise (6) Type 2 diabetes mellitus with hyperglycemia: Comment: Dr. Valdivia Code(s): E11.65 - Type 2 diabetes mellitus with hyperglycemia Plan: Decrease the amount of carbohydrate intake, pasta, bread, rice and potatoes are all sugar and that is aside from all the sweet stuff, remember that fruits are good but they are Sweet also. Hemoglobin A1c goal of less than 7.0 (7) CLL (chronic lymphocytic leukemia): Code(s): C91.10 - Chronic lymphocytic leukemia of B-cell type not having achieved remission Plan: Continue to follow-up from Hematology-Oncology (8) Generalized anxiety disorder: Comment: Panic attacks Code(s): F41.1 - Generalized anxiety disorder Plan: Continue with trazodone, amitriptyline (9) Cervical spinal stenosis: Code(s): M48.02 - Spinal stenosis, cervical region Plan: Patient has seen neurosurgeon and planned procedure. (10) Tinea pedis: Code(s): B35.3 - Tinea pedis Orders: Orders XR DEXA axial skeleton Today M48.02 - Spinal stenosis, cervical region, M81.0 - Age-related osteoporosis without current pathological fracture Medications: New clotrimazole 1% 1 appl topical BID 4 weeks 45 grams 1RF B35.3 - Tinea pedis sennosides-docusate sodium 8.6-50 mg (Senna Plus) 2 tab-caps (2 x 8.6-50 mg) PO BEDTIME 60 caps 2RF Refilled simvastatin 10 mg PO DAILY 90 days 90 tabs 2RF B35.3 - Tinea pedis Coding Level of Care Code Est Pt Prev Care >65y(91461) Diagnoses Annual physical exam Z00.00 GERD (gastroesophageal reflux disease) K21.9 High cholesterol E78.00 Asthma J45.909 Morbid obesity E66.01 Type 2 diabetes mellitus with hyperglycemia E11.65 CLL (chronic lymphocytic leukemia) C91.10 Generalized anxiety disorder F41.1 Cervical spinal stenosis M48.02 Tinea pedis B35.3
[2024-01-11 14:49] VITALS: BP 118/62; PULSE 69; O2SAT 98; BMI 40.0
== END 2024-01-11 16:11 | disposition home or self-care (01) ==
PROVIDERS: PCP Internal Medicine; Visit Provider Internal Medicine
DX: Z00.00 Encounter for general adult medical examination without abnormal findings (principal); E66.01 Morbid (severe) obesity due to excess calories; E11.65 Type 2 diabetes mellitus with hyperglycemia; Z68.41 Body mass index [BMI] 40.0-44.9, adult; C91.10 Chronic lymphocytic leukemia of B-cell type not having achieved remission; K21.9 Gastro-esophageal reflux disease without esophagitis; E78.00 Pure hypercholesterolemia, unspecified; J45.909 Unspecified asthma, uncomplicated; F41.1 Generalized anxiety disorder; M48.02 Spinal stenosis, cervical region; B35.3 Tinea pedis
CPT/HCPCS: 99397

== ENCOUNTER 2024-01-28 08:37 | Outpatient (REF) | payer MEDICARE, SELFPAY ==
--- NOTE | ~2024-01-28 | MM_ITS ---
EXAMINATION: BONE DENSITOMETRY CLINICAL INDICATION: Osteoporosis. COMPARISON: Previous BD dated 07/11/2011 and baseline BD dated 05/04/2008. TECHNIQUE: Using a [employer] DXA System (software version: 13.1) manufactured by [employer], dual-energy x-ray absorptiometry was performed of the lumbar spine and left hip. The images are of good technical quality. Summary results are attached. FINDINGS: LEFT FEMUR, NECK: Current: BMD 0.790 g/cm2, Z-score -1.3, T-score -1.8, osteopenia. Prior: BMD 0.770 g/cm2. Baseline: BMD 0.807 g/cm2. LEFT FEMUR, TOTAL: Current: BMD 0.866 g/cm2, Z-score -0.9, T-score -1.1, osteopenia, 7.1% decrease from previous, 3.2% decrease from baseline (<5% change is not significant). Prior: BMD 0.932 g/cm2. Baseline: BMD 0.895 g/cm2. AP SPINE L1-L3 (excluding L4): The data of L1-L4 has been changed to exclude the L4 vertebral body, because degenerative sclerosis at this level may cause overestimation of lumbar spine density. Current: BMD 1.051 g/cm2, Z-score -0.8, T-score -1.0, normal, 25.0% increase from previous, 20.7% increase from baseline (<5% change is not significant). Prior: BMD 0.841 g/cm2. Baseline: BMD 0.871 g/cm2. IDENTIFIED RISK FACTORS: Early menopause, height loss, recurrent falls, rheumatoid arthritis, secondary osteoporosis. HISTORY OF FRACTURE: Wrist. MEDICATIONS: Vitamin D. MM/XR DEXA axial skeleton IMPRESSION: 1. DIAGNOSIS: Osteopenia based on the lowest T-score value of -1.8 in the lumbar spine applying World Health Organization criteria. 2. 10-YEAR FRACTURE RISK PREDICTION, FRAX: Major osteoporotic fracture (clinical spine, forearm, hip or shoulder) 6.8%. Hip fracture 1.6%. 3. Treatment Recommendations: NOF guidelines recommend consideration for treatment in postmenopausal women and men age 50 and older presenting with the following: -A hip or vertebral (clinical or morphometric) fracture. -T-score less than or equal to -2.5 at the femoral neck or spine after appropriate evaluation to exclude secondary causes. -Low bone mass at the hip or spine and a 10-year fracture probability by FRAX of greater than or equal to 3% for hip fracture or greater than or equal to 20% for major osteoporotic fracture based on the [place] adapted WHO algorithm. 4. Other Recommendations: All treatment decisions require clinical judgment and consideration of individual patient factors, including patient preferences, comorbidities, previous drug use, risk factors not captured in the FRAX model (e.g. frailty, falls, vitamin D deficiency, increased bone turnover, interval significant decline in bone density) and possible under or overestimation of fracture risk by FRAX. Additional medical evaluation for secondary cause of low bone mineral density may be appropriate. FUTURE SCAN RECOMMENDATION: People with diagnosed cases of osteoporosis or at high risk for fracture should have regular bone mineral density tests. For patients eligible for Medicare, routine testing is allowed once every 2 years. The testing frequency can be increased to one year for patients who have rapidly progressing disease, those who are receiving or discontinuing medical therapy to restore bone mass, or have additional risk factors.
== END 2024-01-28 08:38 | disposition home or self-care (01) ==
LOC: HO.MAMMO 08:37
PROVIDERS: PCP Internal Medicine; Visit Provider Internal Medicine
DX: M81.0 Age-related osteoporosis without current pathological fracture (principal); M48.02 Spinal stenosis, cervical region
CPT/HCPCS: 77080

== ENCOUNTER → 2024-01-28 14:04 | Outpatient (BNV) | payer MEDICARE, SELFPAY | PROVIDERS: PCP Internal Medicine; Visit Provider Internal Medicine Cardiovascular Disease | DX: M48.02 Spinal stenosis, cervical region (principal); Z01.810 Encounter for preprocedural cardiovascular examination | CPT/HCPCS: 93010 ==

== ENCOUNTER 2024-02-17 09:38 | Day surgery (SDC) | payer MEDICARE, SELFPAY ==
--- NOTE | 2024-01-28 | ECG_ITS ---
Test Reason : pre op Blood Pressure : / mmHG Vent. Rate : 070 BPM Atrial Rate : 070 BPM P-R Int : 148 ms QRS Dur : 066 ms QT Int : 406 ms P-R-T Axes : 032 006 020 degrees QTc Int : 438 ms Normal sinus rhythm Normal ECG When compared with ECG of 18-FEB-2017 14:42, No significant change was found Referred By: Luann Jimenez Electronically Signed By:VENKATESH KEMP MD
[2024-01-28 13:10] VITALS: BP 170/73; PULSE 66; RESP 20; O2SAT 98; BMI 39.6
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
[2024-02-17] VITALS (21 sets, daily range): BP systolic 135–170; BP diastolic 62–95; PULSE 66–73; RESP 15–24; TEMP 36.1–36.3; O2SAT 92–100; BMI 39.6
--- NOTE | ~2024-02-17 | FL_ITS ---
EXAMINATION: XR FLUOROSCOPY WITH IMAGES CLINICAL INFORMATION: C3-C4, C4-C5 ACDF COMPARISON: MR cervical spine 11/13/2023 TECHNIQUE: Fluoroscopy Supervised By: Dr. Romie Harrell Fluoroscopy Time: 11.2 seconds Cumulative Dose: 1.9087 mGy-cm DAP: 0.4452 Gy-cm2 Images: 2 FINDINGS: Intraoperative fluoroscopy and spot films were performed during a procedure in the OR. ACDF hardware is noted from C3 through C5. Please correlate with Dr. Romie Harrell' report for complete details. FL/FL guidance in OR IMPRESSION: Intraoperative fluoroscopy and spot films were obtained. Please see Dr. Romie Harrell' report for complete details.
--- NOTE | 2024-02-17 10:15 | MHC.SHP ---
Pre-Procedural Eval Section A - 24 Hr Update-Section A only Date of Service: 02/17/24 Section B - Complete if H&P > 30 days Chief Complaint: Spinal stenosis, cervical region Allergies: Allergies Allergy/AdvReac Type Severity Reaction Status Date / Time meperidine [Demerol] Allergy Intermediate bradycardia Verified 01/28/24 13:00 strawberry [STRAWBERRY] Allergy Intermediate HIVES Verified 01/27/24 11:07 Penicillins Allergy Mild Rash Verified 01/27/24 11:05 Sulfa (Sulfonamide Allergy Mild Rash Verified 01/27/24 11:06 Antibiotics) [Sulfa (Sulfonamides)] codeine [Codeine] AdvReac Intermediate HALLUCINATI Verified 01/11/24 14:50 ON oxycodone [From Percocet] AdvReac Mild VOMITING Verified 01/11/24 14:50 Review of Systems Sugical H&P ROS: Negative: Constitution, Cardiovascular, Respiratory, Neurological, Psychiatric, Hem-Onc, Allergic/Immunologic, Gastrointestinal, Genitourinary, Musculoskeletal, Integumentary, Endocrine and Eyes/Ears/Nose/Throat Exam Surgical H&P Exam: Not Evaluated: HEENT, Not Evaluated: Heart, Not Evaluated: Lungs, Not Evaluated: Extremities, Not Evaluated: Abdomen, Not Evaluated: Skin and Not Evaluated: Neurological Exam Comment: PATIENT IS STABLE IN NO ACUTE DISTRESS. A&O X 4. ANTERIOR NECK IS SUPPLE, TRACHEA MIDLINE. Plan Diagnosis/Plan: Unchanged I have reviewed the history and physical and performed a pertinent physical examination on my patient. No changes have occurred unless specified. Plan remains the same, C3-4, C5-6 ACDF Time Spent With Patient Time: Total time managing care of this patient today _15___ minutes.
[2024-02-17] MEDS: Scopolamine 1.5 MG PATCH.TD.3 TRANSDERMA (10:34)
[2024-02-17] MEDS: Gabapentin 300 MG CAPSULE PO (10:36)
[2024-02-17] MEDS: methocarbamoL 750 MG TABLET PO (10:36)
[2024-02-17] MEDS: Lactated Ringers 1,000 ML 100 ML IVCONT (10:41)
[2024-02-17] MEDS: vancomycin HCL 1,500 MG in 0.9 % Sodium Chloride 500 ML 333.33 MG IV (10:41)
[2024-02-17 10:49] LABS: Glucose, Whole Blood 104 mg/dL (60-115)
--- NOTE | 2024-02-17 12:59 | PM.DS ---
DS: Providers Provider Date of Service: 02/17/24 Primary care physician: Constantine Lara MD DS: Summary Time Attestation Discharge Coordination Time (in mins): 15 Quality: Safe Use of Opioids Does Pt have an Active Cancer Diagnosis on the Problem List?: No Quality: Stroke Does the patient have a stroke diagnosis?: No Physical Exam Vital Signs: Vital Signs: Last Vital Signs Temp 97.3 F 02/17/24 10:27 Pulse 73 02/17/24 10:27 Resp 16 02/17/24 10:27 BP 135/68 02/17/24 10:27 Pulse Ox 96 02/17/24 10:27 O2 Del Method Room Air 02/17/24 10:27 BMI result Body Mass Index 39.6 DS: Data Data Completed and Pending Labs on day of discharge: Laboratory Results - last 24 hr 02/17/24 10:45 POC Glucose 104 Discharge Plan Discharge Patient Disposition: Home, Self-Care Referrals: Constantine Lara MD [Primary Care Provider] - 1 Week Discharge Medications: New oxycodone 5 mg tablet 5 mg PO Q6H PRN (Reason: severe pain (scale score 7-10)) Qty: 30 0RF Rx Instructions: Partial Fill upon patient request. Continued amitriptyline 10 mg tablet 10 mg PO BEDTIME Qty: 90 1RF ibuprofen 800 mg tablet 800 mg PO BID PRN (Reason: pain) Qty: 90 0RF albuterol sulfate 90 mcg/actuation HFA aerosol inhaler 2 puff PO Q4-6H PRN (Reason: for wheezing) Qty: 1 0RF (DME) LIFE [employer] SYSTEM See Rx Instructions .Route .MEDSUPPLY Qty: 1 0RF Rx Instructions: As directed cholecalciferol (vitamin D3) [Vitamin D3] 50 mcg (2,000 unit) Tablet 50 mcg PO QAM trazodone 50 mg tablet 50 mg PO BEDTIME PRN (Reason: Insomnia) oxybutynin chloride 10 mg tablet extended release 24hr 10 mg PO BEDTIME simvastatin 10 mg tablet 10 mg PO BEDTIME furosemide 20 mg tablet 20 mg PO QAM fluticasone propionate [Children's Flonase Allergy Rlf] 50 mcg/actuation spray,suspension 2 spray intranasal BEDTIME Rx Instructions: administer into each nostril omeprazole 20 mg tablet,delayed release (DR/EC) 20 mg PO BEDTIME multivitamin [One-A-Day Essential] Tablet 1 tab PO QAM Senna Plus 8.6-50 mg capsule 2 tab-cap PO BEDTIME Qty: 60 2RF clotrimazole 1 % cream 1 appl topical BID 28 Days Qty: 45 1RF Discharge Orders: Discharge Order (Routine); Ordered 02/17/24 Ordered By: Mauricio Perez Diet: Advance to usual diet Activity on Discharge: As tolerated Activity Restrictions/Additional Instructions: After your spinal surgery we ask you to observe the following restrictions/guidelines: Activity: It is normal to feel some discomfort as you increase your activity, but that will improve with time. We ask you avoid heavy lifting or acitivities that cause pain. As a general rule, 8lbs is a safe limit for lifting right after surgery. Walk as much as you feel comfortable but not to exhaustion. You will feel extra tired the first few days after surgery. Stay well hydrated. It is OK to walk up and down stairs You may return to driving when you are off narcotics (such as vicodin, oxycodone, dilaudid, etc), and you are back to normal functional capacity. If you have any concerns please check with office before driving. Return to work is specific to each patient and each surgery, so please speak with your doctor/PA at first follow up. Please bring paperwork such as FMLA at that time if you need it filled out. Medications: We will give you a short supply of narcotics after surgery (usually one weeks worth). If you need more please call the office but do not use more than prescribed. You will need to give our office 48 hours notice if you need narcotics refilled and we do not fill narcotics on weekends or evenings. If you are on a narcotic, it is a good idea to take a stool softener such as colace or senna to avoid constipation If you take blood thinner such as aspirin, Plavix, Coumadin, Effient, Eliquis etc for conditions such as Afib, DVT, Pulmonary embolus, coronary disease, stents etc please speak with your surgeon about specific details as to when you can resume these medications. You can resume NSAIDs on post op day 1 (eg: Motrin, Naproxen, etc). Follow up: Please call the office, , after surgery to arrange a 3 week follow up for wound check. Wound Care: You may remove your dressing on the first day after surgery. ?You may ?leave open to air. Please do not remove the steri strips underneath. they will fall off on their own in one week. IT IS NORMAL FOR THE WOUND TO OOZE OR BE BLOODY FOR A FEW DAYS AFTER SURGERY. ?IF THIS HAPPENS JUST PLACE NEW DRESSING OVER IT TO AVOID STAINING CLOTHES. You may shower on post op day # 1 We ask that you do not let the water soak the wound. If it does get wet, just towel dry lightly. Please do not scrub your incision or place any type of chemical/ointment on the wound. No tub baths, pools or jacuzzis for one month. If you have any leaking or redness from your wound, or fevers, please call the office. Print Language: Nicaraguan
--- NOTE | 2024-02-17 13:00 | P.OP_ITS ---
Operative Note Operative Note Date of Service: 02/17/24 Narrative: Preoperative Diagnosis: Cervical myelopathy Procedure: C3-C4, C4-C5 Anterior discectomy, arthrodesis and implantation allograft ; C3-C5 anterior instrumentation ; local autograft; microscope Informed Consent was obtained for this operation. I have explained the nature, purpose and benefits of the operation. I have discussed the risks and benefit of the operation including possible complications or adverse events with patient/family. Alternative(s) were discussed with the patient with their relative benefits and risks as well as the consequences of not accepting the operation were included in obtaining consent. Surgeon: DEYANIRA STEWART MD, PHD Procedure Assisted By: ISAK Woodward Description of Procedure: This patient is suffering from cervical myelopathy due to severe spinal cord compression C3-4, C4-C5. Normally my I would offer the patient an anterior diskectomy fusion with interbody cages with a separate attached plate. The insurance company would not approve the standard of care and forced me to use allograft implants in a patient with diabetes. The patient is suffering from progressive cervical myelopathy and therefore I agreed to this, in my opinion inferior fusion technique. The procedure complications were explained, including nonfusion. The patient was consented. The patient was brought to the operating room and endotracheally intubated. The patient was put in supine position with slight extension of the neck. Prep and drape was done followed by timeout. A mid cervical incision was made followed by opening of the platysma. The prevertebral fascia was reached following the natural planes while the physician showroom sales assistant provided manual retraction. The prevertebral fascia was opened to expose the disc space. A spinal needle was placed in the disk space to confirm the correct level with xray. The longus colli muscles were released bilaterally and a self retaining retractor was inserted. Two [place] pins were placed in the C3 and C4 vertebral bodies and distraction was give over the interspace. The discectomy was completed toward the posterior annulus of the disc. The microscope was brought in. The remainder of the discectomy was completed. The posterior ligament was opened and resected to expose the underlying dura. Large Osteophytes were resected from the body of C3 and C4 and saved for autograft. 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 Bilateral foraminotomies were done. The endplates were prepared after which a 6 mm allograft spacer filled with autograft was inserted into the disc space. Then attention was turned to the C4-5 level. Two pins were placed in the body of C4 and C5 and distraction was giving over the interspace. A significant degenerated disc was removed towards the posterior longitudinal ligament. The hypertrophied PLL was over the resected to decompress the underlying spinal cord. Large osteophytes were resected from the body of C4 and C5 and saved for autograft. The endplates were prepared after which another 6 mm spacer filled with autograft was inserted into the disc space. A 28 mm anterior cervical plate from [employer] was locked down with 6 x 14 mm screws.Final x-rays in AP and lateral projection showed a satisfactory position of the implant. The physician showroom sales assistant took over. The [place] pin was removed. Hemostasis was done. He closed the incision in 2 layers with a 3-0 Vicryl. Steri-Strips used to approximate incision. An OpSite with Tegaderm was used to cover the incision. All sponge and needle counts were correct. Patient was extubated and transported in stable is to recovery room. Anesthesia: General Estimated Blood Loss (ml): 10 mL Duration of Surgery: 1 hour 45 minutes Postoperative Plan: Discharge home Complications: None
[2024-02-17] MEDS: fentaNYL citrate/PF 100 MCG/2 ML VIAL 25 MCG IVPUSH ×2 (13:25→13:30)
[2024-02-17] MEDS: HYDROmorphone HCl 0.5 MG/0.5 ML SYRINGE 0.25 MG IVPUSH ×4 (13:38→13:59)
[2024-02-17] MEDS: traMADoL HCL 50 MG TABLET 25 MG PO (14:29)
--- NOTE | 2024-02-22 15:17 | W.MHC.F2F ---
Service Date Service Date: 02/22/24 Encounter Date of encounter: 02/17/24 Reasons for Services Signs and symptoms assessed: s/p C3-4, C4-5 ACDF for cervical myelopathy Reason for nursing home: neurological assessment, postoperative assessment and/or care and medication management Reason for physical therapy: home safety and mobility and therapeutic exercises Homebound: Leaving the home is medically contraindicated at this time without the asist of a device and/or another person due th the listed conditions above and below. Reason homebound: unsteady gait / fall risk, poor balance / fall risk and unable to drive Certification: Based on the above findings, I certify that this patient is confined to the home and needs intermittent nursing home care and physical therapy. The patient is under my care, and I have initiated the establishment of the plan of care. The patient will be followed by a physician who will periodically review the plan of care. Time Spent With Patient Time: Total time managing care of this patient today 15 minutes.
== END 2024-02-17 15:28 | disposition home or self-care (01) ==
PROVIDERS: PCP Internal Medicine; Visit Provider Neurological Surgery
PROC: (CPT 22551; principal; 2024-02-17 10:00)
DX: M48.02 Spinal stenosis, cervical region (principal); R20.0 Anesthesia of skin; R26.81 Unsteadiness on feet; Z91.81 History of falling; I10 Essential (primary) hypertension; C91.10 Chronic lymphocytic leukemia of B-cell type not having achieved remission; N39.41 Urge incontinence; K76.0 Fatty (change of) liver, not elsewhere classified; K21.9 Gastro-esophageal reflux disease without esophagitis; K86.9 Disease of pancreas, unspecified; G47.33 Obstructive sleep apnea (adult) (pediatric); Z79.1 Long term (current) use of non-steroidal anti-inflammatories (NSAID); Z79.899 Other long term (current) drug therapy; Z99.89 Dependence on other enabling machines and devices; Z88.0 Allergy status to penicillin; Z88.2 Allergy status to sulfonamides; Z88.5 Allergy status to narcotic agent
CPT/HCPCS: 22551; 22552; 22853 ×2; 20936; 22845; 82947; 93005; C1713; J1100; J1170; J2250; J2371; J2405; J2704; J3010; J3371

== ENCOUNTER → 2024-02-17 09:38 | Outpatient (BNV) | payer MEDICARE, SELFPAY | PROVIDERS: PCP Internal Medicine; Visit Provider Physician Assistant | DX: M50.020 Cervical disc disorder with myelopathy, mid-cervical region, unspecified level (principal); M50.021 Cervical disc disorder at C4-C5 level with myelopathy | CPT/HCPCS: 20931; 22551; 22552; 22845; 99499; G0180 ==

== ENCOUNTER 2024-03-14 09:43 | Outpatient (AMB) | payer MEDICARE, SELFPAY ==
--- NOTE | 2024-03-14 09:48 | HO.SPINEOV ---
Intake Visit Reasons: 1st post op Intake Note: Ms. Gu is here today for her 1st post-op visit. Exterior Interior Specialist Required: No Allergies meperidine [Demerol] Allergy (Intermediate, Verified 03/14/24 09:48) bradycardia strawberry [STRAWBERRY] Allergy (Intermediate, Verified 03/14/24 09:48) HIVES Penicillins Allergy (Mild, Verified 03/14/24 09:48) Rash Sulfa (Sulfonamide Antibiotics) [Sulfa (Sulfonamides)] Allergy (Mild, Verified 03/14/24 09:48) Rash codeine [Codeine] Adverse Reaction (Intermediate, Verified 03/14/24 09:48) HALLUCINATION oxycodone [From Percocet] Adverse Reaction (Mild, Verified 03/14/24 09:48) VOMITING Assessment & Plan Assessment & Plan (1) S/P spinal fusion: Code(s): Z98.1 - Arthrodesis status Category: Surgical Plan Procedure: C3-C4, C4-C5 ACDF Annita comes in today for her 1st postoperative visit. She reports she is very satisfied with the surgery and feels much better than she did preoperatively. The patient reports she is up walking around and completing the majority of her ADLs. She reports that she no longer suffers from severe balance issues. She has been walking around slowly without her cane. She also reports decreased numbness in her bilateral hands, and only feels numbness really in her fingertips. She is still suffering from some hoarseness since the surgery but feels it is gradually getting better. She reports little to no pain. No new neurological deficits. Patient is able to ambulate well, rises from a seated position without difficulty. Anterior incision site is closed, well healing, with no signs of drainage. We will follow-up with the patient in 6 weeks for their 2nd postoperative visit. At that time we will get x-rays to review with the patient. Mauricio Harrell MD,PhD [facility] Coding Level of Care Code Global (03952) Diagnoses S/P spinal fusion Z98.1
== END 2024-03-14 09:59 | disposition home or self-care (01) ==
PROVIDERS: PCP Internal Medicine; Visit Provider Physician Assistant
DX: Z98.1 Arthrodesis status (principal)
CPT/HCPCS: 99024

== ENCOUNTER → 2024-03-14 09:43 | Outpatient (BNVA) | payer MEDICARE, SELFPAY | PROVIDERS: PCP Internal Medicine; Visit Provider Physician Assistant | DX: Z48.89 Encounter for other specified surgical aftercare (principal); Z98.1 Arthrodesis status | CPT/HCPCS: 99212 ==

== ENCOUNTER 2024-04-14 09:45 | Outpatient (AMB) | payer MEDICARE, SELFPAY ==
--- NOTE | 2024-04-14 09:55 | A.OFFVIS_ITS ---
Vital Signs 04/14/24 09:56 Height 5 ft Weight 191 lb BMI 37.3 BP 112/68 Blood Pressure Location Lt brachial Position Sitting Pulse 68 Pulse Source Pulse Oximeter Pulse Oximetry (%) 97 Oxygen Delivery Method Room Air Intake Visit Reasons: Dyspnea Intake Note: pt is here for follow up and she feels good, had neck surgery and feels good, still using cpap Sample Steamer Required: No Allergies meperidine [Demerol] Allergy (Intermediate, Verified 04/14/24 10:00) bradycardia strawberry [STRAWBERRY] Allergy (Intermediate, Verified 04/14/24 10:00) HIVES Penicillins Allergy (Mild, Verified 04/14/24 10:00) Rash Sulfa (Sulfonamide Antibiotics) [Sulfa (Sulfonamides)] Allergy (Mild, Verified 04/14/24 10:00) Rash codeine [Codeine] Adverse Reaction (Intermediate, Verified 04/14/24 10:00) HALLUCINATION oxycodone [From Percocet] Adverse Reaction (Mild, Verified 04/14/24 10:00) VOMITING Medication List - Last Reconciled 04/14/24 by Deepak Morales MD albuterol sulfate 90 mcg/actuation 2 puffs PO Q4-6H PRN amitriptyline 10 mg PO BEDTIME cholecalciferol (vitamin D3) (Vitamin D3) 50 mcg PO QAM clotrimazole 1% 1 appl topical BID 4 weeks fluticasone propionate 50 mcg/actuation 2 sprays intranasal DAILY furosemide 20 mg PO QAM hydrocodone-acetaminophen 5-325 mg 1 tab PO Q6H PRN ibuprofen 800 mg PO BID PRN [LIFE ALERT SYSTEM As directed] multivitamin (One-A-Day Essential tablet) 1 tab PO QAM omeprazole 20 mg PO BEDTIME 90 days oxybutynin chloride ER 10 mg PO BEDTIME sennosides-docusate sodium 8.6-50 mg (Senna Plus) 2 tab-caps (2 x 8.6-50 mg) PO BEDTIME simvastatin 10 mg PO BEDTIME trazodone 50 mg PO BEDTIME PRN Do you need a note to return to daycare/school/sports/work: No HPI HPI Dyspnea: Details: Annita is now 78 years old female. She remains grossly obese but has lost some weight in the last 2 months. She had cervical spinal fusion 2 months ago, and as far as neck is concerned is feeling better. She had problem of using CPAP for a while after the spinal surgery, but now she is using at least for 4 hours every night. She is sleeping fairly well and denies any daytime sleepiness. She is starting to walk more every day and remains more active. Breathing has been good. She has needed to use albuterol only once in a while. REPLACED BY [facility] Medical History CLL (chronic lymphocytic leukemia) Diabetes Elevated blood sugar Bilateral finger numbness Calcification of ovary Leukocytosis (leucocytosis) Asthma exacerbation Renal cyst Allergic rhinitis Restrictive lung disease Impaired fasting blood sugar Blood pressure elevated without history of HTN Hypersomnolence ALEISHA (obstructive sleep apnea) Obesity (BMI 30-39.9) Urge incontinence of urine Cervical cancer Pancreatic mass Osteopenia GERD (gastroesophageal reflux disease) Adnexal mass MALT lymphoma Obesity (BMI 30-39.9) Vitamin D deficiency Tubular adenoma of colon History of supraventricular tachycardia Breast density Anxiety High cholesterol Migraine headache Asthma Hyperlipemia Surgical History History of esophagogastroduodenoscopy (EGD) H/O colonoscopy Hx of tubal ligation History of vocal cord polypectomy Hx of dilation and curettage Hx of pneumonectomy H/O arthroscopy of right knee Hx of cholecystectomy Family History Father Colon cancer Sister Colon cancer Myocardial infarct Sister History of breast cancer Colon cancer Sister Thyroid cancer Social History Household Members: None Housing: Apartment Are you a primary day care center director to a significant other at home: No Do you presently have visiting nurse or other home services: No Alcohol intake: current Alcohol intake frequency: does not drink Comment: twice a year Patient Tobacco Use Status: Never used Tobacco e-Cigarette/Vaping Use: Never Used Second Hand Smoke Exposure: No service: Yes Current occupational status: retired Current occupational exposures/hazards: No Cognitive needs: No Hearing needs: No Vision needs: No Female Reproductive History Menstrual Age of Menarche: 17 Review of Systems Const All systems reviewed & are unremarkable except as noted in HPI and below Eyes Reports no additional complaints ENT Reports no additional complaints and Reports nasal congestion (Especially at night) Card Denies chest pain, Denies irregular heart rhythm and Denies leg edema Resp Reports as per HPI GI Reports bloating and Reports heartburn Reports no additional complaints Musc Reports back pain and Reports arthralgias (knees ) Skin/Breast Reports system reviewed and no additional complaints, except as documented Neuro Reports no additional complaints Psych Reports no additional complaints Physical Exam Vital Signs: Last Vital Signs Pulse 68 04/14/24 09:56 BP 112/68 04/14/24 09:56 Pulse Ox 97 04/14/24 09:56 Oxygen Delivery Method Room Air 04/14/24 09:56 BMI result Body Mass Index 37.3 Const General: comfortable, no acute distress, alert and awake Orientation/consciousness: patient oriented x3 HEENT Head: Yes normal to inspection General nose exam: No nasal polyps present, No nasal discharge present and Abnormal mucous membranes and turbinates present (She has marked hypertrophy of the nasal turbinates) Face and sinus: Yes sinuses nontender Mouth: oropharynx abnormals (Oropharynx remains crowded, Mallampati class 4) Throat: Yes posterior oropharynx normal Eyes General: appearance normal, both eyes and all related structures Neck Neck: Yes normal visual inspection, Yes no lymphadenopathy, Yes trachea midline, Yes no JVD and Yes other (Neck is obese and short) Thyroid: Thyroid normal Chest Chest palpation & inspection: normal inspection of the chest, normal palpation of entire chest wall and no tenderness Resp Other: Percussion note resonant, breath sounds are decreased over the basilar areas, No wheezes rhonchi or crepitations are heard today. Cardio Palpation: normal PMI Rate: regular rate Rhythm: regular rhythm Heart sounds: no gallops and no murmurs Peripheral pulses: Peripheral pulses 2+ throughout GI Palpation (GI): Soft to palpation, nontender, No hepatosplenomegaly present, no masses and Other GI palpation findings present (Abdomen is grossly obese) Auscultation: normal bowel sounds Back/Spine/Pelvis Thoracic/Lumbar Spine: thoracic and lumbar spine normal to inspection and thoraco-lumbar ROM limited Skin General skin exam: no rashes or lesions noted Neuro General: patient oriented x3, No gait normal (Slightly impaired because of arthritis, she uses a cane) and no focal motor deficits Cranial nerves: Yes CN's II-XII intact bilaterally Extrem General: Yes normal to inspection, Yes no clubbing, cyanosis or edema, Yes no calf tenderness and No normal gait (Slightly impaired because of joint pains/knees, uses cane.) Psych Appearance: grossly normal and well kempt Speech and movement: Normal speech and movement present Results Reviewed Results Reviewed: Compliance report is reviewed and she has used 24/30 nights, 80%. Average use it per night 4 hours 18 minutes. Pressure used mostly 11 cm. There is no air leak. Residual AHI 0.7 Assessment & Plan Assessment & Plan (1) Mild asthma: Comment: VERY MILD AND INTERMITTENT COUGH AND WHEEZING. Code(s): J45.909 - Unspecified asthma, uncomplicated Category: Medical Plan: Just use albuterol HFA 2 puffs Q 6 hours p.r.n. (2) ALEISHA (obstructive sleep apnea): Comment: Patient has mild ALEISHA and excessive snoring, with excessive daytime sleepiness. She is definitely benefiting from the use of CPAP. COMPLIANCE IS RELATIVELY BETTER BUT STILL SOMEWHAT SUBOPTIMAL. Code(s): G47.33 - Obstructive sleep apnea (adult) (pediatric) Category: Medical Plan: Had a good talk with her and she is motivated to use it every night and will try to use more than 4 hours per night (3) Restrictive lung disease: Comment: Mild to moderate degree of restrictive pulmonary disorder was noted as per PULMONARY FUNCTION TEST BACK IN 2017. Patient is aware of this. This is definitely secondary to her gross obesity. Code(s): J98.4 - Other disorders of lung Category: Medical Plan: Continue doing deep breathing exercises 3 times a day Coding Level of Care Code Est Pt Level 3 (77105) Diagnoses Mild asthma J45.909 ALEISHA (obstructive sleep apnea) G47.33 Restrictive lung disease J98.4
[2024-04-14 09:56] VITALS: BP 112/68; PULSE 68; O2SAT 97; BMI 37.3
== END 2024-04-14 10:11 | disposition home or self-care (01) ==
PROVIDERS: PCP Internal Medicine; Visit Provider Internal Medicine
DX: J45.909 Unspecified asthma, uncomplicated (principal); G47.33 Obstructive sleep apnea (adult) (pediatric); J98.4 Other disorders of lung
CPT/HCPCS: 99213

== ENCOUNTER → 2024-04-14 09:45 | Outpatient (BNVA) | payer MEDICARE, SELFPAY | PROVIDERS: PCP Internal Medicine; Visit Provider Internal Medicine | DX: J98.4 Other disorders of lung (principal); J45.909 Unspecified asthma, uncomplicated; G47.33 Obstructive sleep apnea (adult) (pediatric); Z99.89 Dependence on other enabling machines and devices | CPT/HCPCS: 99212 ==

== ENCOUNTER 2024-04-18 09:25 | Outpatient (REF) | payer MEDICARE, SELFPAY ==
--- NOTE | ~2024-04-18 | MM_ITS ---
EXAMINATION: MM SCREENING DIGITAL BREAST TOMOSYNTHESIS, BILATERAL CLINICAL INFORMATION: Screening. Asymptomatic. COMPARISON: Mammography: Comparison is made with available priors TECHNIQUE: Digital breast mammography with tomosynthesis is performed in both the craniocaudal and mediolateral oblique views along with computer-aided detection (CAD). FINDINGS: There are scattered areas of fibroglandular density (ACR BI-RADS breast composition Category b). There are no significant masses, abnormal calcifications, or other abnormalities. MM/MM tomosynthesis screening BI IMPRESSION: No mammographic evidence of malignancy. ASSESSMENT: BI-RADS BI-RADS 1 - Negative RECOMMENDATION: Routine annual mammography screening. 1 year F/U This examination should not preclude the clinical evaluation of a suspicious palpable abnormality. This patient's information was entered into a reminder system with a target due date for their next mammogram. Electronically signed by: Reena Hussein DO 04/29/2024 10:05 AM [facility]
== END 2024-04-18 09:26 | disposition home or self-care (01) ==
LOC: HO.MAMMO 09:25
PROVIDERS: PCP Internal Medicine; Visit Provider Internal Medicine
DX: Z12.31 Encounter for screening mammogram for malignant neoplasm of breast (principal)
CPT/HCPCS: 77063; 77067

== ENCOUNTER → 2024-04-18 09:30 | Outpatient (BNV) | payer MEDICARE, SELFPAY | PROVIDERS: PCP Internal Medicine; Visit Provider Internal Medicine | DX: Z12.31 Encounter for screening mammogram for malignant neoplasm of breast (principal) | CPT/HCPCS: 77063; 77067 ==

== ENCOUNTER 2024-04-25 08:49 | Outpatient (REF) | payer MEDICARE, SELFPAY | END 2024-04-25 08:50 | disposition home or self-care (01) | LOC: CF 08:49 | PROVIDERS: PCP Internal Medicine; Visit Provider Physician Assistant | DX: Z13.89 Encounter for screening for other disorder (principal) | CPT/HCPCS: 99212 ==

== ENCOUNTER 2024-04-25 08:49 | Outpatient (AMB) | payer MEDICARE, SELFPAY ==
--- NOTE | 2024-04-25 10:19 | HO.SPINEOV ---
Intake Visit Reasons: 2nd post op with Xray Intake Note: Ms. Gu is here today for her 2nd post-op visit. Supervisor Vendor Quality Required: No Allergies meperidine [Demerol] Allergy (Intermediate, Verified 04/14/24 10:00) bradycardia strawberry [STRAWBERRY] Allergy (Intermediate, Verified 04/14/24 10:00) HIVES Penicillins Allergy (Mild, Verified 04/14/24 10:00) Rash Sulfa (Sulfonamide Antibiotics) [Sulfa (Sulfonamides)] Allergy (Mild, Verified 04/14/24 10:00) Rash codeine [Codeine] Adverse Reaction (Intermediate, Verified 04/14/24 10:00) HALLUCINATION oxycodone [From Percocet] Adverse Reaction (Mild, Verified 04/14/24 10:00) VOMITING Assessment & Plan Assessment & Plan (1) S/P spinal fusion: Code(s): Z98.1 - Arthrodesis status Category: Surgical Plan Procedure: C3-C4, C4-C5 ACDF Annita comes in today for a subsequent follow-up visit after having a 2 level ACDF completed by our service for cervical myelopathy. To recap she was having quite a bit of difficulty with balance/ambulation/strength prior to surgery. She was suffering from classic signs of cervical myelopathy. Unfortunately her surgery was delayed due to a lack of insurance approval/cooperation. Thankfully we were able to advocate for the patient and argue with the insurance company to have the procedure performed anyways. Since surgery she reports improvements in her strength, and states that she is able to ambulate around her home without the assistance of her cane. She feels much better overall and feels like she is functioning well. We reviewed her x-ray imaging during this visit which shows stable placement of instrumentation and no notable changes from fluoroscopy. On examination the patient has 5/5 strength in her upper and lower extremities even with proximal muscle testing. She maintains bilateral Lr's. She has no clonus. Incision site is closed and well healed. She is able to ambulate without the assistance of her cane, however does have it with her to help with stability. Annita is doing very well since her surgery and I am pleased with the progress she has made. I encouraged her to continue doing her daily stretching/exercise and to follow up with us on an as-needed basis. Mauricio Harrell MD,PhD [facility] Orders: Orders XR cervical spine 4V Today Z98.1 - Arthrodesis status Coding Level of Care Code Global (16429) Diagnoses S/P spinal fusion Z98.1
== END 2024-04-25 10:36 | disposition home or self-care (01) ==
PROVIDERS: PCP Internal Medicine; Visit Provider Physician Assistant
DX: Z98.1 Arthrodesis status (principal)
CPT/HCPCS: 99024

== ENCOUNTER 2024-04-25 09:12 | Outpatient (REF) | payer MEDICARE, SELFPAY ==
--- NOTE | ~2024-04-25 | XR_ITS ---
EXAMINATION: XR CERVICAL SPINE CLINICAL INFORMATION: Z98.1 - Arthrodesis status COMPARISON: No prior x-rays. CT cervical spine 07/22/2023. MR cervical spine 11/13/2023. TECHNIQUE: 5 views of the cervical spine, inclusive of bilateral oblique views, were obtained. FINDINGS: There is normal bony mineralization. No fracture, dislocation, or suspicious bone lesion. No compression deformity. No scoliosis of significance. Straightening of the normal lordosis. There is a 2 mm retrolisthesis of C3 on C4. Trace anterolisthesis of C5 on C6. There has been anterior fusion and discectomy of C3-C5 with ventral plate and screws, and associated discectomies with placement of cortical disc graft. Subtle periscrew lucencies are seen surrounding the C4, and cephalad C5 screws. Cannot exclude early loosening. No definite bony bridging through the disc spaces at this time. Severe narrowing of the C5-6 disc space with spurring and sclerosis. Mild to moderate degeneration of the C2-3, C6-7, and C7-T1 intervertebral discs. Facets are normally aligned. There are multilevel degenerative hypertrophic facet and uncinate changes, most significant spanning C3 through C6. Oblique views demonstrate severe neural foraminal narrowing bilaterally at C4-5, and moderate narrowing bilaterally at C5-6. There is no prevertebral or paravertebral soft tissue abnormality. Lung apices are clear. XR/XR cervical spine 4V IMPRESSION: 1. Anterior fusion C3 through C5 with plate and screw fixation and intervertebral cortical disc grafts. Subtle lucency surrounding the intrabody screws at C4 and C5 could suggest early loosening. Suggest follow-up and correlation with patient's clinical presentation. 2. Moderate spondylosis as detailed. Electronically signed by: Marco A Reed MD 07/04/2024 09:22 AM [facility] [place]
== END 2024-04-25 09:13 | disposition home or self-care (01) ==
LOC: HO.HOSX 09:12
PROVIDERS: PCP Internal Medicine; Visit Provider Physician Assistant
DX: Z98.1 Arthrodesis status (principal)
CPT/HCPCS: 72050; 99212

== ENCOUNTER → 2024-04-25 09:32 | Outpatient (BNV) | payer MEDICARE, SELFPAY | PROVIDERS: PCP Internal Medicine; Visit Provider Radiology Diagnostic Radiology | DX: Z98.1 Arthrodesis status (principal) | CPT/HCPCS: 72050 ==

== ENCOUNTER 2024-05-05 12:58 | Outpatient (AMB) | payer MEDICARE, SELFPAY ==
--- NOTE | 2024-05-05 13:01 | MHC.OFFVIS ---
Vital Signs 05/05/24 13:03 Height 5 ft Weight 195 lb BMI 38.1 BP 120/84 Intake Visit Reasons: [employer] annual exam Travel Accommodation Inspector: Travel Accommodation Inspector Present ([place]) Allergies meperidine [Demerol] Allergy (Intermediate, Verified 05/05/24 13:03) bradycardia strawberry [STRAWBERRY] Allergy (Intermediate, Verified 05/05/24 13:03) HIVES Penicillins Allergy (Mild, Verified 05/05/24 13:03) Rash Sulfa (Sulfonamide Antibiotics) [Sulfa (Sulfonamides)] Allergy (Mild, Verified 05/05/24 13:03) Rash codeine [Codeine] Adverse Reaction (Intermediate, Verified 05/05/24 13:03) HALLUCINATION oxycodone [From Percocet] Adverse Reaction (Mild, Verified 05/05/24 13:03) VOMITING HPI Comments Details: She is a postmenopausal woman 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 She is doing well with no concerns. Followed by Dr. Lisa at [facility]-had recent PET scan, no reports available today. Attempting to eat a healthy diet with calcium and vitamin D, and stays active with walking, stays active. Currently not sexually active for years. Denies any vaginal dryness or irritation. Last mammogram; 2022. Colonoscopy is booked for August. Denies any family history of breast, ovarian or colon cancer. [facility] Medical History (Updated 05/05/24 @ 13:08 by Kyara Higgins CNM) CLL (chronic lymphocytic leukemia) Diabetes Elevated blood sugar Bilateral finger numbness Calcification of ovary Leukocytosis (leucocytosis) Asthma exacerbation Renal cyst Allergic rhinitis Restrictive lung disease Impaired fasting blood sugar Blood pressure elevated without history of HTN Hypersomnolence ALEISHA (obstructive sleep apnea) Obesity (BMI 30-39.9) Urge incontinence of urine Cervical cancer Pancreatic mass Osteopenia GERD (gastroesophageal reflux disease) Adnexal mass MALT lymphoma Obesity (BMI 30-39.9) Vitamin D deficiency Tubular adenoma of colon History of supraventricular tachycardia Breast density Anxiety High cholesterol Migraine headache Asthma Hyperlipemia Surgical History (Updated 05/05/24 @ 13:10 by KIM Villarreal) Hx of cervical spine surgery History of esophagogastroduodenoscopy (EGD) H/O colonoscopy Hx of tubal ligation History of vocal cord polypectomy Hx of dilation and curettage Hx of pneumonectomy H/O arthroscopy of right knee Hx of cholecystectomy Family History Father Colon cancer Sister Colon cancer Myocardial infarct Sister History of breast cancer Colon cancer Sister Thyroid cancer Social History Household Members: None Housing: Apartment Are you a primary urgent care nurse practitioner to a significant other at home: No Do you presently have visiting nurse or other home services: No Alcohol intake: current Alcohol intake frequency: does not drink Comment: twice a year Patient Tobacco Use Status: Never used Tobacco e-Cigarette/Vaping Use: Never Used Second Hand Smoke Exposure: No service: Yes Current occupational status: retired Current occupational exposures/hazards: No Cognitive needs: No Hearing needs: No Vision needs: No Female Reproductive History Menstrual Age of Menarche: 17 Total pregnancies: 3 Full term: 2 Number of Living Children: 2 Date of last pap smear: 04/28/22 (neg pap and hpv) History of abnormal pap smear: Yes (hx abn pap and cryo ) Date of Mammogram: 04/18/24 (Birad 1) Review of Systems Const All systems reviewed & are unremarkable except as noted in HPI and below Reports as per HPI Eyes Reports no additional complaints ENT Reports no additional complaints Card Reports no additional complaints Resp Reports no additional complaints GI Reports as per HPI and Reports no additional complaints Reports as per HPI Musc Reports no additional complaints Skin/Breast Reports as per HPI Neuro Reports no additional complaints Psych Reports no additional complaints Endo Reports no additional complaints Kervin/Lymph Reports no additional complaints Aller/Immun Reports no additional complaints Physical Exam Vital Signs: BMI result Body Mass Index 38.1 Const General: cooperative, healthy appearing, no acute distress, well developed and alert Orientation/consciousness: patient oriented x3 HEENT Head: Yes normal to inspection Eyes General: appearance normal, both eyes and all related structures Neck Neck: Yes normal visual inspection Thyroid: Thyroid normal Chest Chest palpation & inspection: normal inspection of the chest and other (no puckering, dimpling, peau de orange, retraction, discharge, masses) Breast/axilla inspection: normal inspection of the breasts Breast/axilla palpation: normal palpation of the breasts Resp Effort & Inspection: normal respiratory effort GI Inspection: Yes normal to inspection Palpation (GI): Soft to palpation Rectal Exam - Female: deferred General: Yes bladder normal to palpation External Female Exam: normal external appearance and normal appearance of the urethra Speculum Exam - Vagina: normal appearance of the vagina, normal palpation, normal vaginal discharge and vagina atrophic Speculum Exam - Cervix: normal appearance of the cervix and normal palpation Bimanual exam- vagina & uterus: normal bimanual exam, normal palpation, uterine size normal, bladder normal to palpation, normal palpation and non-tender Bimanual Exam- Adnexa, other: no masses Skin General skin exam: no rashes or lesions noted Rashes: no rashes Neuro General: patient oriented x3 Cognition (Neuro): normal cognition Extrem General: Yes normal to inspection Psych Attitude: cooperative Thought process: Normal thought process present Assessment & Plan Assessment & Plan (1) Encounter for well woman exam with routine gynecological exam: Code(s): Z01.419 - Encounter for gynecological examination (general) (routine) without abnormal findings Category: Medical Plan: Discussed: Current recommendations for pap smears per ASCCP guidelines. Breast awareness, periodic self breast exams and yearly mammogram. Maintain a healthy lifestyle, well balanced diet including Calcium 1,200 mg and Vitamin D 800 IU daily, and routine exercise. Contact the office with any postmenopausal bleeding. Patient verbalizes understanding and agrees to the plan of care. She was given opportunity to ask questions and all questions were answered to the best of my ability. Return to the office 1-2 years, or as needed. This note is constructed using voice recognition software. While every effort has been made to ensure accuracy, service support representative errors may have been included. RTO in 1 year for annual pharmacy technician exam. Plan Discussed: Current recommendations for pap smears per ASCCP guidelines. Breast awareness, periodic self breast exams and yearly mammogram. Maintain a healthy lifestyle, well balanced diet including Calcium 1,200 mg and Vitamin D 800 IU daily, and routine exercise. Use of condoms for STI if indicated. Contact the office with any postmenopausal bleeding. Patient verbalizes understanding and agrees to the plan of care. She was given opportunity to ask questions and all questions were answered to the best of my ability. Return to the office 1-2 years, or as needed. This note is constructed using voice recognition software. While every effort has been made to ensure accuracy, service support representative errors may have been included. RTO in 1 year for annual pharmacy technician exam. Coding Level of Care Code Est Pt Prev Care >65y(82981) Diagnoses Encounter for well woman exam with routine gynecological exam Z01.374
[2024-05-05 13:03] VITALS: BP 120/84; BMI 38.1
== END 2024-05-05 13:51 | disposition home or self-care (01) ==
LOC: HO.HWS 12:58
PROVIDERS: PCP Internal Medicine; Visit Provider Advanced Practice Midwife
DX: Z01.419 Encounter for gynecological examination (general) (routine) without abnormal findings (principal)
CPT/HCPCS: 99397

== ENCOUNTER → 2024-05-05 12:58 | Outpatient (BNVA) | payer MEDICARE, SELFPAY | PROVIDERS: PCP Internal Medicine; Visit Provider Advanced Practice Midwife | DX: Z01.419 Encounter for gynecological examination (general) (routine) without abnormal findings (principal) | CPT/HCPCS: 99397 ==

== ENCOUNTER 2024-05-23 15:03 | Outpatient (REF) | payer MEDICARE, SELFPAY | END 2024-05-23 15:04 | disposition home or self-care (01) | LOC: HO.LAB 15:03 | PROVIDERS: PCP Internal Medicine; Visit Provider Urology | DX: N39.0 Urinary tract infection, site not specified (principal); Z79.899 Other long term (current) drug therapy | CPT/HCPCS: 51798; 81003; 87086; 99212 ==

== ENCOUNTER 2024-05-23 15:03 | Outpatient (AMB) | payer MEDICARE, SELFPAY ==
--- NOTE | 2024-05-23 15:07 | A.OFFVIS_ITS ---
Intake Visit Reasons: 1y follow up/PVR Intake Note: Patient presents today for a 1Y follow-up PVR Meds- Oxybutynin, VITAMIN B6 Allergies to Antibiotic- Penicillin & Sulfa Blood Thinner- Furosemide PVR- 25 mL TODAY'S PVR:0ML'S Rand Butter Required: No Accompanied by: Self / Same As Patient Allergies meperidine [Demerol] Allergy (Intermediate, Verified 06/02/24 09:57) bradycardia strawberry [STRAWBERRY] Allergy (Intermediate, Verified 06/02/24 09:57) HIVES Penicillins Allergy (Mild, Verified 06/02/24 09:57) Rash Sulfa (Sulfonamide Antibiotics) [Sulfa (Sulfonamides)] Allergy (Mild, Verified 06/02/24 09:57) Rash codeine [Codeine] Adverse Reaction (Intermediate, Verified 06/02/24 09:57) HALLUCINATION oxycodone [From Percocet] Adverse Reaction (Mild, Verified 06/02/24 09:57) VOMITING Medication List - Last Reconciled 05/23/24 by Braydon Limon MD albuterol sulfate 90 mcg/actuation 2 puffs PO Q4-6H PRN amitriptyline 10 mg PO BEDTIME cholecalciferol (vitamin D3) (Vitamin D3) 50 mcg PO QAM clotrimazole 1% 1 appl topical BID 4 weeks fluticasone propionate 50 mcg/actuation 2 sprays intranasal DAILY furosemide 20 mg PO QAM ibuprofen 800 mg PO BID PRN [LIFE ALERT SYSTEM As directed] multivitamin (One-A-Day Essential tablet) 1 tab PO QAM omeprazole 20 mg PO BEDTIME 90 days sennosides-docusate sodium 8.6-50 mg (Senna Plus) 2 tab-caps (2 x 8.6-50 mg) PO BEDTIME simvastatin 10 mg PO BEDTIME trazodone 50 mg PO BEDTIME PRN vibegron (Gemtesa) 75 mg PO DAILY vitamin D62-xebkh acid 500-400 mcg 1 tab PO DAILY HPI Comments Details: 05/23/24--Annita is a 78-year-old female who presents today to the office for a follow-up. On Lasix during the day has more episodes of frequency. Takes oxybutynin at bedtime. Plan to discontinue oxybutynin due to her age and risk for confusion. We will again prescribe Gemtesa which is showing to be on her fo rmulary at this time. telehealth 6 weeks to discuss medication. Review of chart: 05/22/2023?Annita is a 75 year old female who was prescribed oxybutynin for OAB symptoms.? 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 She is followed today for OAB, renal cyst, and vaginal atrophy. She states that since her last visit with me she has been diagnosed with CLL; leukemia. She was diagnosed by Dr. Becker at [facility]. Treatment currently includes monitoring her lab work.Patient states that her oncologist told her that leukocytes present in her urine is a result of her leukemia. She was last seen by me on 11/20/2022 for Cystoscopy procedure. Cystoscopy findings: Mild bladder wall thickening with no suspicious bladder lesion.? She has been on oxybutynin 10 mg daily. Today I have discussed that it is recommended to avoid anti cholinergic medications in the elderly. I will prescribe an anti-muscaranic, Gemtesa 75 mg. Patient is concerned about the cost of new medication. She states she has not noted any mental status changes, states she has no symptom of drowsiness and has good mental clarity. She does have some dry mouth related to the oxybutynin and is using [employer]ot[employer] products to counteract this. Review of results: I reviewed renal sono 06/03/22 - discussed with patient - Left renal peripelvic cysts not appreciably changed from previous exam. 4 mm nonspecific echogenic de nsity in the lower pole of the right kidney, questionable stone. OV--11/20/2022--Cystoscopy findings: Mild bladder wall thickening with no suspicious bladder lesion.? Pelvic exam: No prolapse. Vaginal atrophy.? [facility] Medical History CLL (chronic lymphocytic leukemia) Diabetes Elevated blood sugar Bilateral finger numbness Calcification of ovary Leukocytosis (leucocytosis) Asthma exacerbation Renal cyst Allergic rhinitis Restrictive lung disease Impaired fasting blood sugar Blood pressure elevated without history of HTN Hypersomnolence ALEISHA (obstructive sleep apnea) Obesity (BMI 30-39.9) Urge incontinence of urine Cervical cancer Pancreatic mass Osteopenia GERD (gastroesophageal reflux disease) Adnexal mass MALT lymphoma Obesity (BMI 30-39.9) Vitamin D deficiency Tubular adenoma of colon History of supraventricular tachycardia Breast density Anxiety High cholesterol Migraine headache Asthma Hyperlipemia Surgical History Hx of cervical spine surgery History of esophagogastroduodenoscopy (EGD) H/O colonoscopy Hx of tubal ligation History of vocal cord polypectomy Hx of dilation and curettage Hx of pneumonectomy H/O arthroscopy of right knee Hx of cholecystectomy Family History Father Colon cancer Sister Colon cancer Myocardial infarct Sister History of breast cancer Colon cancer Sister Thyroid cancer Social History Household Members: None Housing: Apartment Are you a primary menagerie caretaker to a significant other at home: No Do you presently have visiting nurse or other home services: No Alcohol intake: current Alcohol intake frequency: does not drink Comment: twice a year Patient Tobacco Use Status: Never used Tobacco e-Cigarette/Vaping Use: Never Used Second Hand Smoke Exposure: No service: Yes Current occupational status: retired Current occupational exposures/hazards: No Cognitive needs: No Hearing needs: No Vision needs: No Female Reproductive History Menstrual Age of Menarche: 17 Review of Systems Const All systems reviewed & are unremarkable except as noted in HPI and below Reports no additional complaints Eyes Reports no additional complaints ENT Reports no additional complaints Card Reports no additional complaints Resp Reports no additional complaints GI Reports no additional complaints Reports as per HPI Musc Reports no additional complaints Skin/Breast Reports system reviewed and no additional complaints, except as documented Neuro Reports no additional complaints Psych Reports no additional complaints Endo Reports no additional complaints Kervin/Lymph Reports no additional complaints Aller/Immun Reports no additional complaints Office Procedures Post Void Residual Post Residual Void Post Void Residual (PVR): 0 [id number] Void Residual by ultrasound Results AMB Urinalysis, Automated UA Leukoctes 70 Speedy/uL Last Edit by FABY Rodriguez on 05/23/24 15:21 UA Nitrite Negative Last Edit by Cathleen Sprague [facility] on 05/23/24 15:21 UA Urobilinogen 0.2 mg/dL Last Edit by Cathleen Sprague [facility] on 05/23/24 15:2 1 UA Protein 0 mg/dL Last Edit by Cathleen Sprague [facility] on 05/23/24 15:21 UA pH 5.5 Last Edit by Cathleen Sprague, [facility] on 05/23/24 15:21 UA Blood 10 Devante/uL Last Edit by Cathleen Sprague [facility] on 05/23/24 15:21 UA Specific [place] 1.015 Last Edit by Cathleen Sprague [facility] on 05/23/24 15: 21 UA Ketone Negative Last Edit by Cathleen Sprague [facility] on 05/23/24 15:21 UA Bilirubin 0 mg/dL Last Edit by Cathleen Sprague [facility] on 05/23/24 15:21 UA Glucose 0 mg/dL Last Edit by Cathleen Sprague [facility] on 05/23/24 15:21 Results Reviewed Results Reviewed: Laboratory Last Values Urine pH (Auto) 5.5 05/23/24 15:21 Specific [place] (Auto) 1.015 05/23/24 15:21 Urine Protein (Auto) 0 mg/dL 05/23/24 15:21 Glucose (UA)(Auto) 0 mg/dL 05/23/24 15:21 Urine Ketones (Auto) Negative 05/23/24 15:21 Urine Blood (Auto) 10 Devante/uL 05/23/24 15:21 Urine Nitrite (Auto) Negative 05/23/24 15:21 Urine Bilirubin (Auto) 0 mg/dL 05/23/24 15:21 Urine Urobilinogen (Auto) 0.2 mg/dL 05/23/24 15:21 Leukocyte Esterase (Auto) 70 Speedy/uL 05/23/24 15:21 Assessment & Plan Assessment & Plan (1) Urge incontinence of urine: Code(s): N39.41 - Urge incontinence Category: Medical (2) Renal cysts, acquired, bilateral: Code(s): N28.1 - Cyst of kidney, acquired Category: Medical (3) OAB (overactive bladder): Code(s): N32.81 - Overactive bladder Category: Medical Plan Gemtesa Orders: Orders Urine Culture 05/23/24 N39.0 - Urinary tract infection, site not specified AMB Urinalysis Automated 05/23/24 Z13.9 - Encounter for screening, unspecified Medications: New vibegron (Gemtesa) 75 mg PO DAILY 30 tabs 3RF Discontinued mirabegron ER Discontinued Reason: Insurance Denied 50 mg PO DAILY 30 days 30 tabs 5RF Patient Instructions: The patient had an opportunity to ask questions regarding treatment plan. The patient expressed understanding and agreement with the above treatment plan. The patient is aware they should contact our office by phone for worsening of their current condition or the appearance of new symptoms. Compliance is encouraged with any medications and followup testing that is ordered. It is a privilege to be allowed the opportunity to participate in the urologic care of your patient. If you have any questions or concerns regarding treatment for the above conditions please do not hesitate to contact me. The office telephone contact is [phone]. This note is constructed in part using voice recognition software. While every effort has been made to ensure accuracy sample maker errors may have been included. Yours sincerely, Braydon Limon MD Coding Level of Care Code Est Pt Level 4 (00660) Diagnoses Urge incontinence of urine N39.41 Renal cysts, acquired, bilateral N28.1 OAB (overactive bladder) N32.81 CPT Codes Post Residual Void - PVR CPT Code: 84687-Ellj Void Residual by ultrasound ([id number])
== END 2024-05-23 15:42 | disposition home or self-care (01) ==
LOC: HO.HUSH 15:03
PROVIDERS: PCP Internal Medicine; Visit Provider Urology
DX: N39.41 Urge incontinence (principal); N28.1 Cyst of kidney, acquired; N32.81 Overactive bladder
CPT/HCPCS: 99214

== ENCOUNTER 2024-06-02 09:52 | Outpatient (AMB) | payer MEDICARE, SELFPAY ==
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
[2024-06-02 09:58] VITALS: BP 120/70; PULSE 62; O2SAT 99; BMI 38.9
== END 2024-06-02 10:28 | disposition home or self-care (01) ==
LOC: HO.HMCH 09:52
PROVIDERS: PCP Internal Medicine; Visit Provider Internal Medicine
DX: E11.65 Type 2 diabetes mellitus with hyperglycemia (principal); C91.10 Chronic lymphocytic leukemia of B-cell type not having achieved remission; E66.9 Obesity, unspecified; Z68.38 Body mass index [BMI] 38.0-38.9, adult; Z98.1 Arthrodesis status; J45.20 Mild intermittent asthma, uncomplicated; G47.33 Obstructive sleep apnea (adult) (pediatric); K21.9 Gastro-esophageal reflux disease without esophagitis; E78.00 Pure hypercholesterolemia, unspecified

== ENCOUNTER 2024-06-02 09:52 | Outpatient (REF) | payer MEDICARE, SELFPAY ==
[2024-06-02 11:55] LABS: Basophils Percent Auto 0.2 % (0-2); Eosinophils Absolute Auto 0.1 X10*3/uL (0.0-0.4); Eosinophils Percent Auto 0.2 % (0-4); Hematocrit 42.1 % (37.0-47.0); Hemoglobin 13.4 g/dl (12.0-16.0); Imm Gran Abs Auto 0.05 X10*3/uL (0.00-0.03); Imm Gran Pct Auto 0.2 % (0.0-0.4); MANUAL DIFF FLAG SCAN; Mean Corpuscular HGB Conc 31.8 g/dl (31.0-35.0); Mean Corpuscular Hemoglobin 30.5 pg (27.0-33.0); Mean Corpuscular Volume 95.7 fL (80.0-98.0); Mean Platelet Volume 10.9 fL (9.4-12.3); Monocytes Absolute Auto 1.3 X10*3/uL (0.1-1.2); Monocytes Percent Auto 5.6 % (2-11); Neutrophils Absolute Auto 3.5 x10*3/uL (2.0-8.3); Neutrophils Percent Auto 14.8 % (45-73); Platelet Count 166 X10*3/uL (160-400); Red Cell Distribution Width 13.6 % (11.0-16.0); SCAN SMEAR FLAG 1; White Blood Count 23.5 X10*3/uL (4.8-10.8)
[2024-06-02 11:56] LABS: Lymphocytes Absolute Auto 18.6 X10*3/uL (1.2-4.9)
[2024-06-02 12:02] LABS: Estimated Average Glucose 126 mg/dL; Hemoglobin A1C 147.6952 umol/L; Total Hemoglobin (HGBA1C) 3555.9381 umol/L
[2024-06-02 12:25] LABS: Creatinine Urine 102.28 mg/dL; Microalbumin Urine < 5.0 mg/L
[2024-06-02 12:31] LABS: Alanine Aminotransferase 18 U/L (0-31); Albumin Level 3.9 g/dL (3.5-5.0); Alkaline Phosphatase 84 U/L (39-117); Anion Gap 12 (12-20); Aspartate Amino Transferase 26 U/L (5-31); Bilirubin Direct 0.1 mg/dL (0.0-0.5); Bilirubin Total 0.4 mg/dL (0.0-1.0); Blood Urea Nitrogen 19 mg/dL (9-16); Calcium 10.1 mg/dL (8.4-10.2); Carbon Dioxide 28 mmol/L (22-29); Chloride 106 mmol/L (96-108); Cholesterol 204 mg/dL (<200); Estimated Glomerular Filt Rate 45; Glucose Random 103 mg/dL (60-115); HDL Cholesterol 50 mg/dL (>40); LDL Cholesterol Calculated 137 mg/dL (<100); Magnesium 2.2 mg/dL (1.6-2.6); Potassium 4.5 mmol/L (3.3-5.1); Sodium 141 mmol/L (135-145); Total Protein 6.8 g/dL (6.5-8.0); Triglycerides 87 mg/dL (<150)
[2024-06-02 12:43] LABS: SLIDE REVIEW VERIFIED
[2024-06-02 12:46] LABS: Free T4 (Free Thyroxine) 0.98 ng/dL (0.71-1.85); Thyroid Stimulating Hormone 1.23 uIU/mL (0.32-4.0); Vitamin D 25-OH Total 24.7 ng/mL (>30)
[2024-06-02 12:57] LABS: Folate 7.6 ng/mL (> or = 4.0); Vitamin B12 514 pg/mL (200-900)
== END 2024-06-02 09:53 | disposition home or self-care (01) ==
LOC: HO.LAB 09:52
PROVIDERS: PCP Internal Medicine; Visit Provider Internal Medicine
DX: R73.01 Impaired fasting glucose (principal); E11.65 Type 2 diabetes mellitus with hyperglycemia; E78.00 Pure hypercholesterolemia, unspecified; R79.89 Other specified abnormal findings of blood chemistry; Z98.1 Arthrodesis status; C91.10 Chronic lymphocytic leukemia of B-cell type not having achieved remission; J45.20 Mild intermittent asthma, uncomplicated; G47.33 Obstructive sleep apnea (adult) (pediatric); E66.9 Obesity, unspecified; K21.9 Gastro-esophageal reflux disease without esophagitis
CPT/HCPCS: 36415; 80053; 80061; 82043; 82248; 82306; 82570; 82607; 82746; 83036; 83735; 84439; 84443; 85025; 99212

== ENCOUNTER 2024-07-11 09:54 | Outpatient (AMB) | payer MEDICARE, SELFPAY ==
--- NOTE | 2024-07-10 20:22 | A.OFFVIS_ITS ---
Intake Visit Reasons: 6w/med review Intake Note: Patient is present for med review Urology Med: Patient has not started any medication due to cost of med Antibiotic Allergy: sulfa & penicillins Blood Thinner: none Furnace Room Supervisor Required: No Accompanied by: Self / Same As Patient Allergies meperidine [Demerol] Allergy (Intermediate, Verified 07/11/24 09:59) bradycardia strawberry [STRAWBERRY] Allergy (Intermediate, Verified 07/11/24 09:59) HIVES Penicillins Allergy (Mild, Verified 07/11/24 09:59) Rash Sulfa (Sulfonamide Antibiotics) [Sulfa (Sulfonamides)] Allergy (Mild, Verified 07/11/24 09:59) Rash codeine [Codeine] Adverse Reaction (Intermediate, Verified 07/11/24 09:59) HALLUCINATION oxycodone [From Percocet] Adverse Reaction (Mild, Verified 07/11/24 09:59) VOMITING Medication List - Last Reconciled 07/11/24 by Braydon Limon MD albuterol sulfate 90 mcg/actuation 2 puffs PO Q4-6H PRN amitriptyline 10 mg PO BEDTIME cholecalciferol (vitamin D3) (Vitamin D3) 50 mcg PO QAM clotrimazole 1% 1 appl topical BID 4 weeks fluticasone propionate 50 mcg/actuation 2 sprays intranasal DAILY furosemide 20 mg PO QAM [LIFE ALERT SYSTEM As directed] multivitamin (One-A-Day Essential tablet) 1 tab PO QAM omeprazole 20 mg PO BEDTIME 90 days oxybutynin chloride ER 10 mg PO DAILY sennosides-docusate sodium 8.6-50 mg (Senna Plus) 2 tab-caps (2 x 8.6-50 mg) PO BEDTIME simvastatin 20 mg PO BEDTIME trazodone 50 mg PO BEDTIME PRN vitamin [id number] acid 500-400 mcg 1 tab PO DAILY HPI Comments Details: 07/11/24--6 week fu meds- changed from oxybutynin to gemtesa. Annita is a 78-year-old female who presents for a follow-up. On Lasix during the day has more episodes of frequency. Other Comorbities - DM, Obesity, h/o spinal fusion Pt states that GEMTESA AND TOVIAZ TOO EXPENSIVE- WILL CHECK REGARDING IF PRIOR OFF WOULD DECREASE THE COST FOR THE PATIENT I WILL REFILL THE OXYBUTYNIN FOR NOW. Review of chart: 05/23/24--Annita is a 78-year-old female who presents today to the office for a follow-up. On Lasix during the day has more episodes of frequency. Takes oxybutynin at bedtime. Plan to discontinue oxybutynin due to her age and risk for confusion. We will again prescribe Gemtesa which is showing to be on her formulary at this time. telehealth 6 weeks to discuss medication. 05/22/2023?Annita is a 75 year old female who was prescribed oxybutynin for OAB symptoms.? 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 She is followed today for OAB, renal cyst, and vaginal atrophy. She states that since her last visit with me she has been diagnosed with CLL; leukemia. She was diagnosed by Dr. Becker at [facility]. Treatment currently includes monitoring her lab work.Patient states that her oncologist told her that leukocytes present in her urine is a result of her leukemia. She was last seen by me on 11/20/2022 for Cystoscopy procedure. Cystoscopy fin dings: Mild bladder wall thickening with no suspicious bladder lesion.? She has been on oxybutynin 10 mg daily. Today I have discussed that it is recommended to avoid anti cholinergic medications in the elderly. I will prescribe an anti-muscaranic, Gemtesa 75 mg. Patient is concerned about the cost of new medication. She states she has not noted any mental status changes, states she has no symptom of drowsiness and has good mental clarity. She does have some dry mouth related to the oxybutynin and is using [employer] products to counteract this. Review of results: I reviewed renal sono 06/03/22 - discussed with patient - Left renal peripelvic cysts not appreciably changed from previous exam. 4 mm nonspecific echogenic density in the lower pole of the right kidney, questionable stone. OV--11/20/2022--Cystoscopy findings: Mild bladder wall thickening with no suspicious bladder lesion.? Pelvic exam: No prolapse. Vaginal atrophy.? [facility] Medical History (Updated 07/13/24 @ 08:22 by Braydon Limon MD) CLL (chronic lymphocytic leukemia) Diabetes Elevated blood sugar Bilateral finger numbness Calcification of ovary Leukocytosis (leucocytosis) Asthma exacerbation Renal cyst Allergic rhinitis Restrictive lung disease Impaired fasting blood sugar Blood pressure elevated without history of HTN Hypersomnolence ALEISHA (obstructive sleep apnea) Obesity (BMI 30-39.9) Urge incontinence of urine Cervical cancer Pancreatic mass Osteopenia GERD (gastroesophageal reflux disease) Adnexal mass MALT lymphoma Obesity (BMI 30-39.9) Vitamin D deficiency Tubular adenoma of colon History of supraventricular tachycardia Breast density Anxiety High cholesterol Migraine headache Asthma Hyperlipemia Surgical History Hx of cervical spine surgery History of esophagogastroduodenoscopy (EGD) H/O colonoscopy Hx of tubal ligation History of vocal cord polypectomy Hx of dilation and curettage Hx of pneumonectomy H/O arthroscopy of right knee Hx of cholecystectomy Family History Father Colon cancer Sister Colon cancer Myocardial infarct Sister History of breast cancer Colon cancer Sister Thyroid cancer Social History Household Members: None Housing: Apartment Are you a primary elderly caregiver to a significant other at home: No Do you presently have visiting nurse or other home services: No Alcohol intake: current Alcohol intake frequency: does not drink Comment: twice a year Patient Tobacco Use Status: Never used Tobacco e-Cigarette/Vaping Use: Never Used Second Hand Smoke Exposure: No service: Yes Current occupational status: retired Current occupational exposures/hazards: No Cognitive needs: No Hearing needs: No Vision needs: No Female Reproductive History Menstrual Age of Menarche: 17 Review of Systems Const All systems reviewed & are unremarkable except as noted in HPI and below Reports no additional complaints Eyes Reports no additional complaints ENT Reports no additional complaints Card Reports no additional complaints Resp Reports no additional complaints GI Reports no additional complaints Reports as per HPI Musc Reports no additional complaints Skin/Breast Reports system reviewed and no additional complaints, except as documented Neuro Reports no additional complaints Psych Reports no additional complaints Endo Reports no additional complaints Kervin/Lymph Reports no additional complaints Aller/Immun Reports no additional complaints Telehealth Telehealth Telehealth Platform: [facility] Location of provider rendering services: practice address Location of patient: address on file Patient Identification confirmed using: Name, : Yes Telehealth method: voice only Patient verbally consented to treatment: Yes Patient verbally consented to billing insurance company: Yes Patient informed of any privacy concerns related to visit: Yes Minutes spent on Phone/Video with Pt.: 18 Assessment & Plan Assessment & Plan (1) Urge incontinence of urine: Code(s): N39.41 - Urge incontinence Category: Medical (2) Renal cysts, acquired, bilateral: Code(s): N28.1 - Cyst of kidney, acquired Category: Medical (3) OAB (overactive bladder): Code(s): N32.81 - Overactive bladder Category: Medical (4) Diabetes: Comment: type 2- Code(s): E11.9 - Type 2 diabetes mellitus without complications Category: Medical Plan Resume oxybutynin for now however will try to get prior auth for antimuscarinics that is less likely to cross the blood brain barrior Medications: New oxybutynin chloride ER 10 mg PO DAILY 90 tabs 3RF Patient Instructions: The patient had an opportunity to ask questions regarding treatment plan. The patient expressed understanding and agreement with the above treatment plan. The patient is aware they should contact our office by phone for worsening of their current condition or the appearance of new symptoms. Compliance is encouraged with any medications and followup testing that is ordered. It is a privilege to be allowed the opportunity to participate in the urologic care of your patient. If you have any questions or concerns regarding treatment for the above conditions please do not hesitate to contact me. The office telephone contact is [phone]. This note is constructed in part using voice recognition software. While every effort has been made to ensure accuracy manager valuation errors may have been included. Yours sincerely, Braydon Limon MD Coding Level of Care Code Tele Est Pt Level 4 (65057) Diagnoses Urge incontinence of urine N39.41 Renal cysts, acquired, bilateral N28.1 OAB (overactive bladder) N32.81 Diabetes E11.9
== END 2024-07-11 16:53 | disposition home or self-care (01) ==
LOC: HO.HUSH 09:54
PROVIDERS: PCP Internal Medicine; Visit Provider Urology
DX: N39.41 Urge incontinence (principal); N28.1 Cyst of kidney, acquired; N32.81 Overactive bladder; E11.9 Type 2 diabetes mellitus without complications
CPT/HCPCS: 99442

== ENCOUNTER → 2024-07-11 09:54 | Outpatient (BNVA) | payer MEDICARE, SELFPAY | PROVIDERS: PCP Internal Medicine; Visit Provider Urology ==

== ENCOUNTER 2024-08-16 10:03 | Outpatient (AMB) | payer MEDICARE, SELFPAY ==
--- NOTE | 2024-08-16 10:08 | A.OFFVIS_ITS ---
Vital Signs 08/16/24 10:09 Height 5 ft Weight 198 lb BMI 38.7 BP 118/74 Blood Pressure Location Lt brachial Position Sitting Pulse 69 Pulse Source Pulse Oximeter Pulse Oximetry (%) 99 Oxygen Delivery Method Room Air Intake Visit Reasons: Dyspnea Intake Note: pt is here for follow up and states her cpap mask broke and needs a new one, can she try nasal mask? Hr Receptionist Required: No Allergies meperidine [Demerol] Allergy (Intermediate, Verified 08/16/24 10:36) bradycardia strawberry [STRAWBERRY] Allergy (Intermediate, Verified 08/16/24 10:36) HIVES Penicillins Allergy (Mild, Verified 08/16/24 10:36) Rash Sulfa (Sulfonamide Antibiotics) [Sulfa (Sulfonamides)] Allergy (Mild, Verified 08/16/24 10:36) Rash codeine [Codeine] Adverse Reaction (Intermediate, Verified 08/16/24 10:36) HALLUCINATION oxycodone [From Percocet] Adverse Reaction (Mild, Verified 08/16/24 10:36) VOMITING Medication List - Last Reconciled 08/16/24 by Deepak Morales MD albuterol sulfate 90 mcg/actuation 2 puffs PO Q4-6H PRN amitriptyline 10 mg PO BEDTIME cholecalciferol (vitamin D3) (Vitamin D3) 50 mcg PO QAM clotrimazole 1% 1 appl topical BID 4 weeks fluticasone propionate 50 mcg/actuation 2 sprays intranasal DAILY furosemide 20 mg PO QAM [LIFE ALERT SYSTEM As directed] multivitamin (One-A-Day Essential tablet) 1 tab PO QAM omeprazole 20 mg PO BEDTIME 90 days oxybutynin chloride ER 10 mg PO DAILY sennosides-docusate sodium 8.6-50 mg (Senna Plus) 2 tab-caps (2 x 8.6-50 mg) PO BEDTIME simvastatin 20 mg PO BEDTIME trazodone 50 mg PO BEDTIME PRN vitamin U93-[id number] acid 500-400 mcg 1 tab PO DAILY Do you need a note to return to daycare/school/sports/work: No HPI HPI Dyspnea: Details: Annita is 79 years old female, comes for follow-up for obstructive sleep apnea and mild bronchial asthma. She has had cervical diskectomy with good results and claims that she can sleep better. She has been using CPAP regularly but to since 2 weeks ago she tore apart her face mask. Breathing has been okay using albuterol only once in a while. Walks around with a cane, weight has remained unchanged. [facility] Medical History CLL (chronic lymphocytic leukemia) Diabetes Elevated blood sugar Bilateral finger numbness Calcification of ovary Leukocytosis (leucocytosis) Asthma exacerbation Renal cyst Allergic rhinitis Restrictive lung disease Impaired fasting blood sugar Blood pressure elevated without history of HTN Hypersomnolence ALEISHA (obstructive sleep apnea) Obesity (BMI 30-39.9) Urge incontinence of urine Cervical cancer Pancreatic mass Osteopenia GERD (gastroesophageal reflux disease) Adnexal mass MALT lymphoma Obesity (BMI 30-39.9) Vitamin D deficiency Tubular adenoma of colon History of supraventricular tachycardia Breast density Anxiety High cholesterol Migraine headache Asthma Hyperlipemia Surgical History Hx of cervical spine surgery History of esophagogastroduodenoscopy (EGD) H/O colonoscopy Hx of tubal ligation History of vocal cord polypectomy Hx of dilation and curettage Hx of pneumonectomy H/O arthroscopy of right knee Hx of cholecystectomy Family History Father Colon cancer Sister Colon cancer Myocardial infarct Sister History of breast cancer Colon cancer Sister Thyroid cancer Social History Household Members: None Housing: Apartment Are you a primary child care center assistant director to a significant other at home: No Do you presently have visiting nurse or other home services: No Alcohol intake: current Alcohol intake frequency: does not drink Comment: twice a year Patient Tobacco Use Status: Never used Tobacco e-Cigarette/Vaping Use: Never Used Second Hand Smoke Exposure: No service: Yes Current occupational status: retired Current occupational exposures/hazards: No Cognitive needs: No Hearing needs: No Vision needs: No Female Reproductive History Menstrual Age of Menarche: 17 Review of Systems Const All systems reviewed & are unremarkable except as noted in HPI and below Eyes Reports no additional complaints ENT Reports no additional complaints and Reports nasal congestion (Especially at night) Card Denies chest pain, Denies irregular heart rhythm and Denies leg edema Resp Reports as per HPI GI Reports bloating and Reports heartburn Reports no additional complaints Musc Reports back pain and Reports arthralgias (knees ) Skin/Breast Reports system reviewed and no additional complaints, except as documented Neuro Reports no additional complaints Psych Reports no additional complaints Physical Exam Vital Signs: Last Vital Signs Pulse 69 08/16/24 10:09 BP 118/74 08/16/24 10:09 Pulse Ox 99 08/16/24 10:09 Oxygen Delivery Method Room Air 08/16/24 10:09 BMI result Body Mass Index 38.7 Const General: comfortable, no acute distress, alert and awake Orientation/consciousness: patient oriented x3 HEENT Head: Yes normal to inspection General nose exam: No nasal polyps present, No nasal discharge present and Abnormal mucous membranes and turbinates present (She has marked hypertrophy of the nasal turbinates) Face and sinus: Yes sinuses nontender Mouth: oropharynx abnormals (Oropharynx remains crowded, Mallampati class 4) Throat: Yes posterior oropharynx normal Eyes General: appearance normal, both eyes and all related structures Neck Neck: Yes normal visual inspection, Yes no lymphadenopathy, Yes trachea midline, Yes no JVD and Yes other (Neck is obese and short) Thyroid: Thyroid normal Chest Chest palpation & inspection: normal inspection of the chest, normal palpation of entire chest wall and no tenderness Resp Other: Percussion note resonant, breath sounds are decreased over the basilar areas, No wheezes rhonchi or crepitations are heard today. Cardio Palpation: normal PMI Rate: regular rate Rhythm: regular rhythm Heart sounds: no gallops and no murmurs Peripheral pulses: Peripheral pulses 2+ throughout GI Palpation (GI): Soft to palpation, nontender, No hepatosplenomegaly present, no masses and Other GI palpation findings present (Abdomen is grossly obese) Auscultation: normal bowel sounds Back/Spine/Pelvis Thoracic/Lumbar Spine: thoracic and lumbar spine normal to inspection and thoraco-lumbar ROM limited Skin General skin exam: no rashes or lesions noted Neuro General: patient oriented x3, No gait normal (Slightly impaired because of arthritis, she uses a cane) and no focal motor deficits Cranial nerves: Yes CN's II-XII intact bilaterally Extrem General: Yes normal to inspection, Yes no clubbing, cyanosis or edema, Yes no calf tenderness and No normal gait (Slightly impaired because of joint pains/knees, uses cane.) Psych Appearance: grossly normal and well kempt Speech and movement: Normal speech and movement present Assessment & Plan Assessment & Plan (1) Obesity (BMI 30-39.9): Comment: Remains grossly obese and current weight of 198 lbs BMI 38.7 is same as before. Code(s): E66.9 - Obesity, unspecified Category: Medical Plan: Patient is fully aware of the diet and can not do much exercise . So I do not expect her to lose much weight. (2) ALEISHA (obstructive sleep apnea): Comment: Patient has mild ALEISHA and excessive snoring, with excessive daytime sleepiness. She is definitely benefiting from the use of CPAP. CPAP full face mask Dream wear , is ripped apart . Code(s): G47.33 - Obstructive sleep apnea (adult) (pediatric) Category: Medical Plan: Needs a new mask and the orders are sent. Advised to keep on using the CPAP every night. (3) Restrictive lung disease: Comment: Mild to moderate degree of restrictive pulmonary disorder was noted as per PULMONARY FUNCTION TEST BACK IN 2017. Patient is aware of this. This is definitely secondary to her gross obesity. Code(s): J98.4 - Other disorders of lung Category: Medical Plan: Lose weight slowly, do deep breathing exercises on a regular basis. (4) Asthma: Comment: PATIENT MAY HAVE A MILD DEGREE OF BRONCHIAL ASTHMA. Code(s): J45.909 - Unspecified asthma, uncomplicated Category: Medical Qualifiers: Asthma severity: mild Asthma persistence: intermittent Asthma complication type: uncomplicated Qualified Code(s): J45.20 - Mild intermittent asthma, uncomplicated Plan: ADVISED TO USE ALBUTEROL P.R.N. BUT ONLY SPARINGLY, IF SHE HAS WHEEZING IS, NOT FOR JUST SHORTNESS OF BREATH. Coding Level of Care Code Est Pt Level 3 (21291) Diagnoses Obesity (BMI 30-39.9) E66.9 ALEISHA (obstructive sleep apnea) G47.33 Restrictive lung disease J98.4 Mild intermittent asthma without complication J45.20 Asthma severity: mild Asthma persistence: intermittent Asthma complication type: uncomplicated
[2024-08-16 10:09] VITALS: BP 118/74; PULSE 69; O2SAT 99; BMI 38.7
== END 2024-08-16 10:37 | disposition home or self-care (01) ==
PROVIDERS: PCP Internal Medicine; Visit Provider Internal Medicine
DX: E66.9 Obesity, unspecified (principal); G47.33 Obstructive sleep apnea (adult) (pediatric); J98.4 Other disorders of lung; J45.20 Mild intermittent asthma, uncomplicated
CPT/HCPCS: 99213

== ENCOUNTER → 2024-08-16 10:03 | Outpatient (BNVA) | payer MEDICARE, SELFPAY | PROVIDERS: PCP Internal Medicine; Visit Provider Internal Medicine | DX: J45.20 Mild intermittent asthma, uncomplicated (principal); J98.4 Other disorders of lung; G47.33 Obstructive sleep apnea (adult) (pediatric); E66.9 Obesity, unspecified; Z68.38 Body mass index [BMI] 38.0-38.9, adult | CPT/HCPCS: 99212 ==

== ENCOUNTER 2024-11-01 09:51 | Outpatient (AMB) | payer MEDICARE, SELFPAY ==
--- NOTE | 2024-11-01 09:59 | A.OFFPC_ITS ---
Vital Signs 11/01/24 10:05 Height 5 ft Weight 200 lb 8 oz BMI 39.2 BP 130/72 Blood Pressure Location Lt brachial Position Sitting Pulse 72 Pulse Source Pulse Oximeter Temp 97.3 F Temp Source Temporal Artery Scan Pulse Oximetry (%) 97 Oxygen Delivery Method Room Air Intake Visit Reasons: DM Well Logging Mud Analysis Captain Required: No Inspector Salvage: Not Required per policy Accompanied by: Self / Same As Patient Allergies meperidine [Demerol] Allergy (Intermediate, Verified 11/01/24 10:04) bradycardia strawberry [STRAWBERRY] Allergy (Intermediate, Verified 11/01/24 10:04) HIVES Penicillins Allergy (Mild, Verified 11/01/24 10:04) Rash Sulfa (Sulfonamide Antibiotics) [Sulfa (Sulfonamides)] Allergy (Mild, Verified 11/01/24 10:04) Rash codeine [Codeine] Adverse Reaction (Intermediate, Verified 11/01/24 10:04) HALLUCINATION oxycodone [From Percocet] Adverse Reaction (Mild, Verified 11/01/24 10:04) VOMITING Tobacco use date assessed: 11/01/24 Fall risk assessment: No Falls in past year Last assessed Fall Risk: 11/01/24 Dental Screening Dental Screen Date: 11/01/24 Did you have a dental visit in the last 12 months?: No Did you have a dental problem in the last 6 months where you did not have access to dental care?: No Was dental information given to patient?: No [facility] Medical History CLL (chronic lymphocytic leukemia) Diabetes Elevated blood sugar Bilateral finger numbness Calcification of ovary Leukocytosis (leucocytosis) Asthma exacerbation Renal cyst Allergic rhinitis Restrictive lung disease Impaired fasting blood sugar Blood pressure elevated without history of HTN Hypersomnolence ALEISHA (obstructive sleep apnea) Obesity (BMI 30-39.9) Urge incontinence of urine Cervical cancer Pancreatic mass Osteopenia GERD (gastroesophageal reflux disease) Adnexal mass MALT lymphoma Obesity (BMI 30-39.9) Vitamin D deficiency Tubular adenoma of colon History of supraventricular tachycardia Breast density Anxiety High cholesterol Migraine headache Asthma Hyperlipemia Surgical History Hx of cervical spine surgery History of esophagogastroduodenoscopy (EGD) H/O colonoscopy Hx of tubal ligation History of vocal cord polypectomy Hx of dilation and curettage Hx of pneumonectomy H/O arthroscopy of right knee Hx of cholecystectomy Family History Father Colon cancer Sister Colon cancer Myocardial infarct Sister History of breast cancer Colon cancer Sister Thyroid cancer Social History Household Members: None Housing: Apartment Are you a primary healthcare receptionist to a significant other at home: No Do you presently have visiting nurse or other home services: No Alcohol intake: current Alcohol intake frequency: does not drink Comment: twice a year Patient Tobacco Use Status: Never used Tobacco e-Cigarette/Vaping Use: Never Used Second Hand Smoke Exposure: No service: Yes Current occupational status: retired Current occupational exposures/hazards: No Cognitive needs: No Hearing needs: No Vision needs: No Female Reproductive History Menstrual Age of Menarche: 17 Questionnaire PHQ-9 Over the last 2 weeks, how often have you been bothered by any of the following problems? 1. Little interest or pleasure in doing things: not at all 2. Feeling down, depressed, or hopeless: not at all 3. Trouble falling or staying asleep, or sleeping too much: not at all 4. Feeling tired or having little energy: not at all 5. Poor appetite or overeating: not at all 6. Feeling bad about yourself - or that you are a failure or have let yourself or your family down: not at all 7. Trouble concentrating on things, such as reading the newspaper or watching television: not at all 8. Moving or speaking so slowly that other people could have noticed. Or the opposite - being so fidgety or restless that you have been moving around a lot more than usual: not at all 9. Thoughts that you would be better off or of hurting yourself in some way: not at all Total score: 0 Depression Screening Interpretation: Negative Depression Screening Done: Yes Source: Developed by Drs. Gómez Grant, Amelie Reza, Huber Hall and colleagues, with an educational adrienne from [employer]. Thrive Questionnaire Date Thrive assessed: 11/10/23 I am a: Patient What is your living situation today?: I have a steady place to live Within the past 12 months, did the food you bought not last and you didn't have the money to get more?: Sometimes True Within the past 12 months, did you worry whether your food would run out before you got money to buy more?: Sometimes True Do you have trouble paying for medicines?: No Do you have trouble getting transportation to medical appointments?: No Do you have trouble paying your heating and electricity bill?: No Do you have trouble taking care of your child, family member or friend?: No Do you have trouble with day-to-day activities such as bathing, preparing meals, shopping, managing finances, etc.?: No Are you currently unemployed and looking for a job?: No Currently or been in a relationship where the following occur: No concerns reported THRIVE Score: 2 AUDIT C Alcohol Use Questionnaire (AUDIT-C) 1. How often do you have a drink containing alcohol?: Monthly or less 2. How many drinks containing alcohol do you have on a typical day when you are drinking?: 1 or 2 3. How often do you have six or more drinks on one occasion?: Never Total Score: 1 Score Reviewed/Action Taken: No FERNANDA-7 AMB Questionnaire FERNANDA-7 Date FERNANDA - 7 assessed: 11/01/24 Feeling nervous, anxious, or on edge: 0 = Not at all Not being able to stop or control worryin = Not at all Worrying too much about different things: 0 = Not at all Trouble relaxin = Not at all Being so restless that it is hard to sit still: 0 = Not at all Becoming easily annoyed or irritable: 0 = Not at all Feeling afraid as if something awful might happen: 0 = Not at all Total FERNANDA-7 score (0-4 normal; 5-9 mild; 10-14 moderate; 15-21 severe): 0 Source: Developed by Drs. Gómez Grant, Amelie Reza, Huber Hall and colleagues, with an educational adrienne from [employer]. Physical exam (Primary Care) Vital Signs: Last Vital Signs Temp 97.3 F 11/01/24 10:05 Pulse 72 11/01/24 10:05 BP 130/72 11/01/24 10:05 Pulse Ox 97 11/01/24 10:05 Oxygen Delivery Method Room Air 11/01/24 10:05 BMI result Body Mass Index 39.2 Tobacco/Smoking Status: Tobacco use Status Tobacco use date assessed 11/01/24 11/01/24 10:06 Patient Tobacco Use Status Never used Tobacco 11/01/24 10:06 Tobacco use type 05/05/24 13:50 e-Cigarette/Vaping Use Never Used 11/01/24 10:06 PHQ-9: PHQ-9 Score PHQ-9: Total score 0 11/01/24 10:06 Depression Screening Interpretation: Negative Thrive Assessment: Date of Thrive Assessment Date Thrive assessed 11/10/23 11/01/24 10:06 Currently or been in a relationship where the following occur: No concerns reported Const General: alert; No acute distress Eyes Conjunctivae: conjunctivae normal Resp Auscultation: clear to auscultation bilaterally Cardio Rate: regular rate Rhythm: regular rhythm GI Inspection: Yes normal to inspection Extrem General: Yes normal to inspection and No edema Results AMB Hemoglobin A1c AMB Hemoglobin A1c 6.1 % Last Edit by KIM Charlton on 11/01/24 10:17 Results Reviewed Results Reviewed: Laboratory Last Values Hgb A1c (Clinic) 6.1 % (4.0-6.0) H 11/01/24 10:06 Coding Level of Care Code Est Pt Level 4 (27906) Diagnoses Type 2 diabetes mellitus with hyperglycemia, without long-term current use of insulin E11.65 Diabetes mellitus penitentiary insulin use: without md pediatric allergist use CLL (chronic lymphocytic leukemia) C91.10 ALEISHA (obstructive sleep apnea) G47.33 Obesity (BMI 30-39.9) E66.9 Mild intermittent asthma without complication J45.20 Asthma complication type: uncomplicated Asthma persistence: intermittent Asthma severity: mild Gastroesophageal reflux disease without esophagitis K21.9 Esophagitis presence: without esophagitis High cholesterol E78.00 OAB (overactive bladder) N32.81 Assessment & Plan Assessment & Plan (1) Type 2 diabetes mellitus with hyperglycemia: Comment: Dr. Valdivia Code(s): E11.65 - Type 2 diabetes mellitus with hyperglycemia Category: Medical Qualifiers: Diabetes mellitus md pediatric allergist insulin use: without md pediatric allergist use Qualified Code(s): E11.65 - Type 2 diabetes mellitus with hyperglycemia Plan: Decrease the amount of carbohydrate intake, pasta, bread, rice and potatoes are all sugar and that is aside from all the sweet stuff, remember that fruits are good but they are Sweet also. Hemoglobin A1c goal of less than 7.0 patient is diet controlled. april 2026 (2) CLL (chronic lymphocytic leukemia): Code(s): C91.10 - Chronic lymphocytic leukemia of B-cell type not having achieved remission Category: Medical Plan: Continue to follow-up with Hematology-Oncology patient needs no blood work (3) ALEISHA (obstructive sleep apnea): Comment: Patient has mild ALEISHA and excessive snoring, with excessive daytime sleepiness. She is definitely benefiting from the use of CPAP. CPAP full face mask Dream wear , is ripped apart . Code(s): G47.33 - Obstructive sleep apnea (adult) (pediatric) Category: Medical Plan: PAtient's machine is not working and need to pay (4) Obesity (BMI 30-39.9): Comment: Remains grossly obese and current weight of 198 lbs BMI 38.7 is same as before. Code(s): E66.9 - Obesity, unspecified Category: Medical Plan: Diet and exercise (5) Asthma: Comment: PATIENT MAY HAVE A MILD DEGREE OF BRONCHIAL ASTHMA. Code(s): J45.909 - Unspecified asthma, uncomplicated Category: Medical Qualifiers: Asthma complication type: uncomplicated Asthma persistence: intermittent Asthma severity: mild Qualified Code(s): J45.20 - Mild intermittent asthma, uncomplicated Plan: Patient has the albuterol mild degree of asthma continue to use as needed (6) GERD (gastroesophageal reflux disease): Code(s): K21.9 - Gastro-esophageal reflux disease without esophagitis Category: Medical Qualifiers: Esophagitis presence: without esophagitis Qualified Code(s): K21.9 - Gastro-esophageal reflux disease without esophagitis Plan: Avoid the foods that causes that usually spicy foods, tomato products, juices, coffee, soda and foods that your sensitive to. After eating do not lie down, allow 3-4 hours before in lie down. And keep the head of bed above 30 degrees to avoid the acid from going up. On omeprazole (7) High cholesterol: Code(s): E78.00 - Pure hypercholesterolemia, unspecified Category: Medical Plan: Avoid fried foods, chicken skin, eggs, butter margarine, pastries and meat. Be it pork or beef they have a lot of cholesterol on simvastatin 20 goal is to be less than 100. (8) OAB (overactive bladder): Code(s): N32.81 - Overactive bladder Category: Medical Plan: Patient follows up with urology on oxybutynin 10 mg ER due to (gemtessa no coverage) Plan History of Present Illness The patient is a 79-year-old female presenting for a follow-up on her diabetes, hypercholesterolemia, obstructive sleep apnea, and overall chronic condition management. Her history is notable for mantle cell lymphoma and a 1984 diagnosis of cervical cancer. She has been monitoring a stable pancreatic mass since June 2022 and recently managed overactive bladder symptoms. Her diabetes is currently well controlled with a hemoglobin A1c of 6.0. Despite being on simvastatin, her LDL cholesterol is elevated, thus requiring further management strategies. There is an ongoing concern about her vitamin D deficiency, nece ssitating retesting. Her asthma symptoms are mild, controlled with as-needed albuterol, and she benefits from CPAP therapy for sleep apnea. Recently, her urology follow-up resulted in continuation of oxybutynin chloride ER for her overactive bladder symptoms. Health Maintenance - Mammogram: April 2024 - Colonoscopy: Last performed March 2020; due for this year - Bone Density: Last performed January 2024 - White Blood Cell Count: 23.5, elevated, requires follow-up - LDL Cholesterol: 137 mg/dL, elevated, needs repeat testing - Vitamin D Deficiency: Needs retesting and management - Pulmonary follow-up: Continued use of CPAP >4 hours/night - Dietary management and exercise plan discussed Social History - Weight management was discussed with the patient expressing concern over her obesity. Review of Systems - Respiratory: Reports mild asthma symptoms controlled with albuterol use as needed. - Neurology: Reports the use of CPAP benefitting sleep apnea more than 4 hours nightly. Physical Exam Results - Labs: White Count 23.5, Creatinine 1.16, GFR 45, LDL 137, Hemoglobin A1c 6.0 - LDL Cholesterol: Elevated at 137 mg/dl - Vitamin D: Low levels, unspecified Plan Manage diabetes through continued diet control and monitoring A1c levels, maintaining CPAP therapy for sleep apnea, and using albuterol as needed for asthma symptoms. Monitor hypercholesterolemia under current simvastatin therapy with possible dose adjustment. Address vitamin D deficiency by supplementation and follow-up testing. Maintain current oxybutynin chloride ER regimen for overactive bladder. Pursue regular pulmonary and urology reviews, alongside comprehensive blood testing to assess metabolic health. Engage in lifestyle counseling to support weight management and exercise adherence. Patient was informed and verbally consented to the use of an ambient scribe for clinic note documentation during this visit. Discussion Notes During today's consultation, I discussed with the patient the importance of maintaining controlled diabetes with the current dietary measures and the implications of current blood work reflecting an elevated LDL level despite simvastatin use, stressing the goal to lower LDL under 100 mg/dL. We reviewed her obstructive sleep apnea management with CPAP and confirmed its benefit, noting the excellent compliance. Additionally, I addressed vitamin D deficiency and set plans for supplementation and further testing. We discussed the management plan for her overactive bladder symptoms using oxybutynin chloride ER, carefully monitoring for confusion due to age. I highlighted the need for regular follow-ups with her specialists in hematology, oncology, pulmonary, and urology, alongside adherence to her lifestyle changes to manage obesity. We emphasized the continuation of periodic screenings and reassessments for her chronic conditions and weight management strategies. Patient Instructions - Continue with your current diabetes diet control plan. - Use your CPAP machine for more than four hours per night to manage sleep apnea. - Take albuterol as needed when asthma symptoms arise. - Maintain your simvastatin regimen; follow up for LDL goal attainment. - Start vitamin D supplements and continue with follow-up blood tests. - Continue oxybutynin chloride ER as prescribed for overactive bladder. - Schedule regular follow-ups with your specialists and adhere to lifestyle changes discussed during the visit. 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
[2024-11-01 10:05] VITALS: BP 130/72; PULSE 72; TEMP 36.3; O2SAT 97; BMI 39.2
== END 2024-11-01 10:35 | disposition home or self-care (01) ==
LOC: HO.HMCH 09:52
PROVIDERS: PCP Internal Medicine; Visit Provider Internal Medicine
DX: E11.65 Type 2 diabetes mellitus with hyperglycemia (principal); C91.10 Chronic lymphocytic leukemia of B-cell type not having achieved remission; E66.9 Obesity, unspecified; Z68.39 Body mass index [BMI] 39.0-39.9, adult; E11.9 Type 2 diabetes mellitus without complications; G47.33 Obstructive sleep apnea (adult) (pediatric); J45.20 Mild intermittent asthma, uncomplicated; K21.9 Gastro-esophageal reflux disease without esophagitis; E78.00 Pure hypercholesterolemia, unspecified; N32.81 Overactive bladder

== ENCOUNTER 2024-11-01 09:51 | Outpatient (REF) | payer MEDICARE, SELFPAY ==
[2024-11-01 13:57] LABS: Hematocrit 43.6 % (37.0-47.0); Hemoglobin 13.6 g/dl (12.0-16.0); Mean Corpuscular HGB Conc 31.2 g/dl (31.0-35.0); Mean Corpuscular Hemoglobin 30.2 pg (27.0-33.0); Mean Corpuscular Volume 96.9 fL (80.0-98.0); Mean Platelet Volume 11.4 fL (9.4-12.3); Platelet Count 180 X10*3/uL (160-400); Red Cell Distribution Width 13.6 % (11.0-16.0)
[2024-11-01 13:58] LABS: WBC ABN SCTR FOR CBC 1
[2024-11-01 13:59] LABS: White Blood Count 24.4 X10*3/uL (4.8-10.8)
[2024-11-01 14:29] LABS: Atypical Lymph Absolute Manual 1.2 x10*3/uL; Atypical Lymphs Percent Manual 5 % (0-6); Lymphocytes Percent Manual 78 % (20-40); Neutrophils Percent Manual 17 % (45-73)
[2024-11-01 14:33] LABS: RBC Morphology NOTED
[2024-11-01 14:34] LABS: Large Platelet PRESENT; Ovalocytes 1+ (5-14) /OIF; Platelet Estimate NORMAL (NORMAL); Platelet Morphology Comment NOTED; Smudge Cells PRESENT
[2024-11-01 14:37] LABS: Creatinine Urine 125.18 mg/dL; Microalbum/Creatinine Ratio Ur 10.3 ug/mg cr (<30)
[2024-11-01 14:51] LABS: Alanine Aminotransferase 19 U/L (0-31); Albumin Level 3.9 g/dL (3.5-5.0); Alkaline Phosphatase 78 U/L (39-117); Anion Gap 8 (12-20); Aspartate Amino Transferase 29 U/L (5-31); Bilirubin Total 0.6 mg/dL (0.0-1.0); Blood Urea Nitrogen 18 mg/dL (9-16); Calcium 9.6 mg/dL (8.4-10.2); Carbon Dioxide 27 mmol/L (22-29); Chloride 111 mmol/L (96-108); Cholesterol 186 mg/dL (<200); Estimated Glomerular Filt Rate 57; Free T4 (Free Thyroxine) 1.13 ng/dL (0.71-1.85); Glucose Random 100 mg/dL (60-115); HDL Cholesterol 51 mg/dL (>40); LDL Cholesterol Calculated 122 mg/dL (<100); Potassium 4.6 mmol/L (3.3-5.1); Sodium 141 mmol/L (135-145); Thyroid Stimulating Hormone 0.64 uIU/mL (0.32-4.0); Total Protein 6.9 g/dL (6.5-8.0); Triglycerides 69 mg/dL (<150); Vitamin D 25-OH Total 33.5 ng/mL (>30)
[2024-11-01 14:58] LABS: Folate 11.3 ng/mL (> or = 4.0); Vitamin B12 594 pg/mL (200-900)
[2024-11-01 16:20] LABS: Band Neutrophils Percent 0 % (3-5); Neutrophils Absolute Manual 4.1 X10*3/uL (2.0-8.3)
== END 2024-11-01 09:52 | disposition home or self-care (01) ==
LOC: HO.LAB 09:51
PROVIDERS: PCP Internal Medicine; Visit Provider Internal Medicine
DX: E11.65 Type 2 diabetes mellitus with hyperglycemia (principal); C91.10 Chronic lymphocytic leukemia of B-cell type not having achieved remission; G47.33 Obstructive sleep apnea (adult) (pediatric); E66.9 Obesity, unspecified; J45.20 Mild intermittent asthma, uncomplicated; K21.9 Gastro-esophageal reflux disease without esophagitis; E78.00 Pure hypercholesterolemia, unspecified; N32.81 Overactive bladder
CPT/HCPCS: 36415; 80053; 80061; 82043; 82306; 82570; 82607; 82746; 83036; 84439; 84443; 85007; 85025; 85027; 96127; 99212

== ENCOUNTER 2024-11-07 17:53 | Emergency (ER) | payer OTHER, MEDICARE, SELFPAY ==
--- NOTE | ~2024-11-07 | CT_ITS ---
CLINICAL HISTORY: Fall CT head without contrast Comparison: 07/22/2023 12:12 AM EST: CTSR: CT HEAD/BRAIN WO Findings: No intra-axial mass, midline shift, hydrocephalus, or acute hemorrhage. Mild atrophy-like change or white matter disease. There is no sinus or mastoid fluid. The orbits are unremarkable. No skull fracture. IMPRESSION: 1. No acute intracranial findings specifically, no acute intracranial hemorrhage. This document has been electronically signed by: Delicia Contreras MD on 11/07/2024 20:20:16
--- NOTE | ~2024-11-07 | XR_ITS ---
CLINICAL HISTORY: FALL 4 view right wrist Comparison: None Findings: No fractures or dislocations. Moderate soft tissue swelling of the wrist. No significant arthritic change or erosions. No radiopaque foreign body. IMPRESSION: 1. No evidence of acute fracture or dislocation. Moderate soft tissue swelling of the wrist. If clinical symptoms persists, follow-up radiograph in 7 days is recommended. This document has been electronically signed by: Delicia Contreras MD on 11/07/2024 19:25:50
--- NOTE | ~2024-11-07 | XR_ITS ---
CLINICAL HISTORY: fall 4 view right knee Comparison: None Findings: No fractures or dislocations. Moderate degenerative disease with joint space narrowing and tricompartmental spurring. No joint effusion. No radiopaque foreign body. IMPRESSION: 1. No acute findings. 2. Moderate DJD. This document has been electronically signed by: Delicia Contreras MD on 11/07/2024 19:30:44
--- NOTE | ~2024-11-07 | XR_ITS ---
CLINICAL HISTORY: pain. fall 4 view right shoulder Comparison: None Findings: No fractures or dislocations. Moderate to severe degenerative disease of the AC joint with joint space narrowing and osteophytosis. No erosions. No radiopaque foreign body. IMPRESSION: 1. No acute findings. 2. Moderate to severe DJD of the AC joint. This document has been electronically signed by: Delicia Contreras MD on 11/07/2024 19:25:39
--- NOTE | ~2024-11-07 | XR_ITS ---
CLINICAL HISTORY: fall 4 view left knee Comparison: None Findings: Bones intact. No dislocations. Moderate degenerative disease with joint space narrowing and tricompartmental spurring. No joint effusion. No radiopaque foreign body. IMPRESSION: 1. No acute findings. 2. Moderate DJD. This document has been electronically signed by: Delicia Contreras MD on 11/07/2024 19:30:14
--- NOTE | ~2024-11-07 | XR_ITS ---
CLINICAL HISTORY: fall. 3 view right hand Comparison: CR - XR WRIST RT MIN 3V - 11/07/24 18:52 EDT Findings: Bones intact. No dislocations. No significant arthritic change. No erosions. No radiopaque foreign body. IMPRESSION: 1. No acute findings This document has been electronically signed by: Delicia Contreras MD on 11/07/2024 19:29:31
--- NOTE | ~2024-11-07 | CT_ITS ---
CLINICAL HISTORY: Fall CT cervical spine without contrast Comparison: DX/TX/SR - XR CERVICAL SPINE 4V - 04/25/24 09:49 EDT MR/TX/SR - MR CERVICAL SPINE WO CON - 11/13/23 09:11 EDT Findings: Prior anterior cervical discectomy and fusion from C3 to C5 with intact hardware and alignment. Straightening of the normal cervical lordosis. Moderate to severe spondylosis of the inferior segment at C5-C6 with disc space narrowing, endplate sclerosis, osteophytosis and facet arthropathy causing moderate spinal canal and neural foraminal narrowings. No acute fractures or dislocations. Visualized intracranial contents are unremarkable. Soft tissues of the neck are normal. No consolidation or effusion at the lung apices. IMPRESSION: No evidence of acute fracture or traumatic listhesis of the cervical spine. Prior C3-C5 anterior cervical discectomy and fusion with intact hardware and alignment. Inferior segment moderate to severe spondylosis at C5-C6 causing moderate spinal canal and neural foraminal narrowing. This document has been electronically signed by: Deilcia Contreras MD on 11/07/2024 20:22:33
--- NOTE | ~2024-11-07 | CT_ITS ---
CLINICAL HISTORY: Fall CT maxillofacial without contrast Comparison: CT/SR - CT HEAD/BRAIN WO IV CON - 11/07/24 19:08 EDT Findings: No acute fractures. Temporomandibular joints are intact. Paranasal sinuses and mastoid air cells clear. Orbital contents within normal limits. Visualized intracranial contents are within normal limits. No foreign bodies. IMPRESSION: Unremarkable maxillofacial CT. This document has been electronically signed by: Delicia Contreras MD on 11/07/2024 20:04:40
[2024-11-07 17:55] VITALS: BP 176/83; PULSE 87; RESP 16; TEMP 36.1; O2SAT 100; BMI 38.9
--- NOTE | 2024-11-07 18:30 | ED_ITS ---
HPI - General Adult General Chief complaint: Fall Stated complaint: fell,right shoulder and hand pain Time Seen by Provider: 11/07/24 21:30 Source: patient Limitations: no limitations History of Present Illness ED Provider: Linh Brown PA-C HPI narrative: 79-year-old female with a history of known cervical spinal stenosis now status post spinal fusion, diabetes, hyperlipidemia, arthritis, CLL, morbid obesity, asthma, and GERD who presents after fall. 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 Patient primarily complains of right wrist pain. Associated swelling and limited flexion and extension. No loss of consciousness, the patient was not on a blood thinner. Related Data Home Medications ?Medication ?Instructions ?Recorded ?Confirmed multivitamin (One-A-Day Essential 1 tab PO QAM 03/13/21 07/11/24 tablet) cholecalciferol (vitamin D3) 50 50 mcg PO QAM 11/12/21 07/11/24 mcg (2,000 unit) tablet (Vitamin D3) vitamin B12 500 mcg-folic acid 400 1 tab PO DAILY 05/05/24 07/11/24 mcg tablet Previous Rx's ?Medication ?Instructions ?Recorded LIFE ALERT SYSTEM #1 ea 02/01/24 fluticasone propionate 50 2 spray intranasal DAILY #48 mL 04/07/24 mcg/actuation nasal spray,suspension sennosides 8.6 mg-docusate sodium 2 tab-cap (2 x 8.6-50 mg) PO 04/07/24 50 mg capsule (Senna Plus) BEDTIME #60 caps omeprazole 20 mg tablet,delayed 20 mg PO BEDTIME 90 days #90 tabs 04/15/24 release amitriptyline 10 mg tablet 10 mg PO BEDTIME #90 tabs 04/24/24 simvastatin 20 mg tablet 20 mg PO BEDTIME #90 tabs 06/03/24 oxybutynin chloride 10 mg 10 mg PO DAILY #90 tabs 07/11/24 tablet,extended release 24 hr albuterol sulfate 90 mcg/actuation 2 puff PO Q4-6H PRN for wheezing 07/16/24 aerosol inhaler #18 ea clotrimazole 1 % topical cream 1 appl topical BID 4 weeks #45 07/16/24 grams furosemide 20 mg tablet 20 mg PO QAM for swelling #90 tabs 07/16/24 trazodone 50 mg tablet 50 mg PO BEDTIME PRN Insomnia #90 10/12/24 tabs AUTO PAP 6-20 cm H2O humidified AIR #1 ea 11/01/24 Allergies Allergy/AdvReac Type Severity Reaction Status Date / Time meperidine [Demerol] Allergy Intermediate bradycardia Verified 11/07/24 17:57 strawberry [STRAWBERRY] Allergy Intermediate HIVES Verified 11/07/24 17:57 Penicillins Allergy Mild Rash Verified 11/07/24 17:57 Sulfa (Sulfonamide Allergy Mild Rash Verified 11/07/24 17:57 Antibiotics) [Sulfa (Sulfonamides)] codeine [Codeine] AdvReac Intermediate HALLUCINATI Verified 11/07/24 17:57 ON oxycodone [From Percocet] AdvReac Mild VOMITING Verified 11/07/24 17:57 Review of Systems Review of Systems: Yes all other systems are reviewed and are negative Constitutional: Constitutional: Denies fatigue, Denies fever(s) and Denies h eadache(s) ENT: Denies dizziness, Denies headache(s) and Denies neck pain Musculoskeletal: Musculoskeletal: Denies back pain, Reports arthralgias, Reports joint swelling and Denies neck pain Neurologic: Denies dizziness and Denies headache(s) Endocrine: Endocrine: Denies fatigue PMFSH Past Medical History Attestation statement: The following information was validated with the patient. Medical History CLL (chronic lymphocytic leukemia) Diabetes Elevated blood sugar Bilateral finger numbness Calcification of ovary Leukocytosis (leucocytosis) Asthma exacerbation Renal cyst Allergic rhinitis Restrictive lung disease Impaired fasting blood sugar Blood pressure elevated without history of HTN Hypersomnolence ALEISHA (obstructive sleep apnea) Obesity (BMI 30-39.9) Urge incontinence of urine Cervical cancer Pancreatic mass Osteopenia GERD (gastroesophageal reflux disease) Adnexal mass MALT lymphoma Obesity (BMI 30-39.9) Vitamin D deficiency Tubular adenoma of colon History of supraventricular tachycardia Breast density Anxiety High cholesterol Migraine headache Asthma Hyperlipemia Surgical History Hx of cervical spine surgery History of esophagogastroduodenoscopy (EGD) H/O colonoscopy Hx of tubal ligation History of vocal cord polypectomy Hx of dilation and curettage Hx of pneumonectomy H/O arthroscopy of right knee Hx of cholecystectomy Family History Family History Father Colon cancer Sister Colon cancer Myocardial infarct Sister History of breast cancer Colon cancer Sister Thyroid cancer Social History Social History Household Members: None Housing: Apartment Are you a primary customer care specialist to a significant other at home: No Do you presently have visiting nurse or other home services: No Alcohol intake: current Alcohol intake frequency: does not drink Comment: twice a year Patient Tobacco Use Status: Never used Tobacco Smoked in Last 30 Days: No e-Cigarette/Vaping Use: Never Used Second Hand Smoke Exposure: No Use of substances other than those prescribed or required for medical reasons: No Advance Directives: No Advance Directives Information Provided: No service: Yes Current occupational status: retired Current occupational exposures/hazards: No Cognitive needs: No Hearing needs: No Vision needs: No Physical Exam ED Vital Signs: Vital Signs - 24 hr 11/07/24 17:55 11/07/24 21:01 11/07/24 23:04 Temperature 97 F 98.1 F 98.1 F Pulse Rate 87 79 77 Respiratory Rate 16 16 16 Blood Pressure 176/83 H 150/76 H 150/87 H Pulse Oximetry 100 98 100 Oxygen Delivery Method Room Air Room Air Room Air 11/07/24 23:19 Temperature 98.1 F Pulse Rate 77 Respiratory Rate 16 Blood Pressure 150/87 H Pulse Oximetry 100 Oxygen Delivery Method Room Air BMI result Body Mass Index 38.9 Const Other: Alert well-appearing no evidence of head trauma on exam Orientation/consciousness: patient oriented x3 Neck Other: Full range of motion Resp Effort & Inspection: normal respiratory effort Cardio Other: Normal peripheral perfusion Skin Other: Warm dry no rash Neuro General: patient oriented x3, gait normal, no focal motor deficits and CN's II- XI intact bilaterally Extrem Other: Generalized swelling noted over the right wrist, limited flexion and extension, positive snuffbox tenderness Psych Other: Cooperative Course Course Course Narrative: RME: 79-year-old female presents to ED for evaluation after fall. Patient states she tripped while getting out of a van. Patient fell onto a right-sided rib face right arm right hand and right knee. Patient denies any loss of consciousness. Patient denies being on any blood thinners. Positive for right facial tenderness on palpation. Positive for right shoulder tenderness on palpation. Images ordered Medical Decision Making Medical Decision Making MDM Narrative: 79-year-old female with a history of known cervical spinal stenosis now status post spinal fusion, diabetes, hyperlipidemia, arthritis, CLL, morbid obesity, asthma, and GERD who presents after fall. 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 Patient primarily complains of right wrist pain. Associated swelling and limited flexion and extension. No loss of consciousness, the patient was not on a blood thinner. Problem: Diabetes, age History: Per patient I have considered the following differential diagnoses: Fracture, dislocation, cervical spine injury, intracranial hemorrhage Plan: Numerous imaging studies were ordered from triage, no acute injury was sustained. Given the patient has positive snuffbox tenderness, she will have a repeat x-ray in a week, placing her in a brace. I have independently reviewed the following tests: CT brain: IMPRESSION: 1. No acute intracranial findings specifically, no acute intracranial hemorrhage. CT cervical spine: IMPRESSION: No evidence of acute fracture or traumatic listhesis of the cervical spine. Prior C3-C5 anterior cervical discectomy and fusion with intact hardware and alignment. Inferior segment moderate to severe spondylosis at C5-C6 causing moderate spinal canal and neural foraminal narrowing. CT max face: MPRESSION: Unremarkable maxillofacial CT. X-ray right hand: Findings: Bones intact. No dislocations. No significant arthritic change. No erosions. No radiopaque foreign body. IMPRESSION: 1. No acute findings X-ray right wrist: IMPRESSION: 1. No evidence of acute fracture or dislocation. Moderate soft tissue swelling of the wrist. If clinical symptoms persists, follow-up radiograph in 7 days is recommended. X-ray right shoulder: IMPRESSION: 1. No acute findings. 2. Moderate to severe DJD of the AC joint. X-ray right knee: MPRESSION: 1. No acute findings. 2. Moderate DJD. X-ray left knee:MPRESSION: 1. No acute findings. 2. Moderate DJD. Discharge Plan Discharge Clinical Impression: Sprain and strain of right wrist Patient Disposition: Home, Self-Care Instructions: R.I.C.E. Treatment (ED), Wrist Sprain (ED) Additional Instructions: The CT scans of your face brain and cervical spine were normal. X-rays of bilateral knee, right hand, right wrist and right shoulder were also negative for acute injury. You do have significant widespread arthritis. In regard to the wrist swelling, keep the brace in place, this will help support your joint, and help your pain. You can apply ice to the area several times a day. Use [id number] Tylenol 1000 mg taken every 8 hours with food for pain. The recommendation is for a repeat x-ray of the right wrist in 7 days. Your primary care provider can order this study for you. One of the bones in the wrist, called the scaphoid bone, is prone to nonhealing. The initial x-ray may not of captured a potential subtle fracture. This is a reason why you need a repeat film. Call tomorrow to make an appointment. Prescriptions: No Action (DME) LIFE ALERT SYSTEM See Rx Instructions .Route .MEDSUPPLY Qty: 1 0RF Rx Instructions: As directed Senna Plus 8.6-50 mg capsule 2 tab-cap PO BEDTIME Qty: 60 2RF fluticasone propionate 50 mcg/actuation spray,suspension 2 spray intranasal DAILY Qty: 48 1RF omeprazole 20 mg tablet,delayed release (DR/EC) 20 mg PO BEDTIME 90 Days Qty: 90 2RF amitriptyline 10 mg tablet 10 mg PO BEDTIME Qty: 90 1RF simvastatin 20 mg tablet 20 mg PO BEDTIME Qty: 90 1RF albuterol sulfate 90 mcg/actuation HFA aerosol inhaler 2 puff PO Q4-6H PRN (Reason: for wheezing) Qty: 18 0RF furosemide 20 mg tablet 20 mg PO QAM Qty: 90 1RF clotrimazole 1 % cream 1 appl topical BID 28 Days Qty: 45 1RF trazodone 50 mg tablet 50 mg PO BEDTIME PRN (Reason: Insomnia) Qty: 90 1RF cholecalciferol (vitamin D3) [Vitamin D3] 50 mcg (2,000 unit) Tablet 50 mcg PO QAM multivitamin [One-A-Day Essential] Tablet 1 tab PO QAM oxybutynin chloride 10 mg tablet extended release 24hr 10 mg PO DAILY Qty: 90 3RF (DME) AUTO PAP 6-20 cm H2O humidified AIR See Rx Instructions .Route .MEDSUPPLY Qty: 1 0RF Rx Instructions: As directed vitamin [id number] acid 500-400 mcg tablet 1 tab PO DAILY Rx Instructions: administer with a meal Stand Alone Forms: Work/School Release Interventions: ED Discharge Assessment Last Done: 11/07/24 23:19 Discharge Date/Time: 11/07/24 23:19 Print Language: Emirati
[2024-11-07 21:01] VITALS: BP 150/76; PULSE 79; RESP 16; TEMP 36.7; O2SAT 98
[2024-11-07 23:04] VITALS: BP 150/87; PULSE 77; RESP 16; TEMP 36.7; O2SAT 100
--- NOTE | 2024-11-07 23:18 | PC.NURSE ---
pt a&o, no sob or chest pain, splint applied, reviewed discharge instructions with pt. pt verbalized understanding, no sign of distress upon discharge, pt had a stead gait.
[2024-11-07 23:19] VITALS: BP 150/87; PULSE 77; RESP 16; TEMP 36.7; O2SAT 100
== END 2024-11-07 23:19 | disposition home or self-care (01) ==
PROVIDERS: Emergency Provider Internal Medicine; PCP Internal Medicine
DX: S63.501A Unspecified sprain of right wrist, initial encounter (principal); S89.92XA Unspecified injury of left lower leg, initial encounter; S89.91XA Unspecified injury of right lower leg, initial encounter; R51.9 Headache, unspecified; M25.562 Pain in left knee; M25.561 Pain in right knee; M54.2 Cervicalgia; M25.531 Pain in right wrist; W19.XXXA Unspecified fall, initial encounter; Y93.01 Activity, walking, marching and hiking; Y92.9 Unspecified place or not applicable; Y99.0 Civilian activity done for income or pay; Z79.899 Other long term (current) drug therapy
CPT/HCPCS: 29125; 70450; 70486; 72125; 73030; 73110; 73130; 73564; 99284

== ENCOUNTER → 2024-11-07 18:29 | Outpatient (BNV) | payer MEDICARE, SELFPAY | PROVIDERS: PCP Internal Medicine; Visit Provider Student in an Organized Health Care Education/Training Program | DX: M47.812 Spondylosis without myelopathy or radiculopathy, cervical region (principal); M99.61 Osseous and subluxation stenosis of intervertebral foramina of cervical region; S63.501A Unspecified sprain of right wrist, initial encounter; W19.XXXA Unspecified fall, initial encounter; M17.0 Bilateral primary osteoarthritis of knee; M19.011 Primary osteoarthritis, right shoulder | CPT/HCPCS: 70450; 70486; 72125; 73030; 73110; 73130; 73564 ==

== ENCOUNTER 2024-11-09 09:34 | Outpatient (AMB) | payer MEDICARE, OTHER, SELFPAY ==
[2024-11-09 09:37] VITALS: BP 142/78; PULSE 72; O2SAT 97; BMI 38.7
--- NOTE | 2024-11-09 09:37 | MHC.PC.OV ---
Vital Signs 11/09/24 09:37 Height 5 ft Weight 198 lb BMI 38.7 BP 142/78 H Blood Pressure Location Lt brachial Position Sitting Pulse 72 Pulse Source Pulse Oximeter Pulse Oximetry (%) 97 Oxygen Delivery Method Room Air Intake Visit Reasons[place] [facility] [place],right shoulder and hand pain Allergies meperidine [Demerol] Allergy (Intermediate, Verified 11/09/24 09:39) bradycardia strawberry [STRAWBERRY] Allergy (Intermediate, Verified 11/09/24 09:39) HIVES Penicillins Allergy (Mild, Verified 11/09/24 09:39) Rash Sulfa (Sulfonamide Antibiotics) [Sulfa (Sulfonamides)] Allergy (Mild, Verified 11/09/24 09:39) Rash codeine [Codeine] Adverse Reaction (Intermediate, Verified 11/09/24 09:39) HALLUCINATION oxycodone [From Percocet] Adverse Reaction (Mild, Verified 11/09/24 09:39) VOMITING Tobacco use date assessed: 11/01/24 Fall risk assessment: No Falls in past year Last assessed Fall Risk: 11/09/24 Dental Screening Dental Screen Date: 11/01/24 HPI [facility] [place],right shoulder and hand pain HPI Details November 07Thursday, walking stepped on a pothole and fell sideways to the right and caught with R arm ER visit elle lora [facility] Medical History CLL (chronic lymphocytic leukemia) Diabetes Elevated blood sugar Bilateral finger numbness Calcification of ovary Leukocytosis (leucocytosis) Asthma exacerbation Renal cyst Allergic rhinitis Restrictive lung disease Impaired fasting blood sugar Blood pressure elevated without history of HTN Hypersomnolence ALEISHA (obstructive sleep apnea) Obesity (BMI 30-39.9) Urge incontinence of urine Cervical cancer Pancreatic mass Osteopenia GERD (gastroesophageal reflux disease) Adnexal mass MALT lymphoma Obesity (BMI 30-39.9) Vitamin D deficiency Tubular adenoma of colon History of supraventricular tachycardia Breast density Anxiety High cholesterol Migraine headache Asthma Hyperlipemia Surgical History Hx of cervical spine surgery History of esophagogastroduodenoscopy (EGD) H/O colonoscopy Hx of tubal ligation History of vocal cord polypectomy Hx of dilation and curettage Hx of pneumonectomy H/O arthroscopy of right knee Hx of cholecystectomy Family History Father Colon cancer Sister Colon cancer Myocardial infarct Sister History of breast cancer Colon cancer Sister Thyroid cancer Social History Household Members: None Housing: Apartment Are you a primary aged or disabled carer to a significant other at home: No Do you presently have visiting nurse or other home services: No Alcohol intake: current Alcohol intake frequency: does not drink Comment: twice a year Patient Tobacco Use Status: Never used Tobacco Tobacco use type: Cigarette e-Cigarette/Vaping Use: Never Used Second Hand Smoke Exposure: No service: Yes Current occupational status: retired Current occupational exposures/hazards: No Cognitive needs: No Hearing needs: No Vision needs: No Female Reproductive History Menstrual Age of Menarche: 17 Questionnaire Thrive Questionnaire Date Thrive assessed: 11/10/23 FERNANDA-7 AMB Questionnaire FERNANDA-7 Date FERNANDA - 7 assessed: 11/01/24 Source: Developed by Drs. Gómez Grant, Amelie Reza, Huber Hall and colleagues, with an educational adrienne from [employer]. Physical exam (Primary Care) Vital Signs: Last Vital Signs Pulse 72 11/09/24 09:37 BP 142/78 H 11/09/24 09:37 Pulse Ox 97 11/09/24 09:37 Oxygen Delivery Method Room Air 11/09/24 09:37 BMI result Body Mass Index 38.7 Tobacco/Smoking Status: Tobacco use Status Tobacco use date assessed 11/01/24 11/09/24 09:42 Patient Tobacco Use Status Never used Tobacco 11/09/24 09:42 Tobacco use type Cigarette 11/09/24 09:42 e-Cigarette/Vaping Use Never Used 11/09/24 09:42 Thrive Assessment: Date of Thrive Assessment Date Thrive assessed 11/10/23 11/09/24 09:42 Const General: alert; No acute distress Eyes Conjunctivae: conjunctivae normal Resp Auscultation: clear to auscultation bilaterally Cardio Rate: regular rate Rhythm: regular rhythm GI Inspection: Yes normal to inspection Extrem General: Yes normal to inspection and No edema Coding Level of Care Code Est Pt Level 3 (63383) Diagnoses Fall W19.XXXA Wrist pain, right M25.531 Upper back pain M54.9 Assessment & Plan Assessment & Plan (1) Fall: Comment: 11/07/2024 Code(s): W19.XXXA - Unspecified fall, initial encounter Category: Medical (2) Wrist pain, right: Comment: 11/07/2024 Code(s): M25.531 - Pain in right wrist Category: Medical (3) Upper back pain: Comment: 11/07/2024 Code(s): M54.9 - Dorsalgia, unspecified Category: Medical Plan History of Present Illness The patient is a 79-year-old female presenting with a right wrist injury following a fall. The fall occurred while the patient was walking outside, stepping on a pothole, which caused her to fall on her right side. She sustained a wrist injury described as a contusion with a pain intensity of 5/10 and swelling, which have been managed with Tylenol and elevation. She is reluctant to use muscle relaxants due to concerns about drowsiness. An X-ray evaluation of the right wrist, cervical spine, and other affected areas revealed no fractures. The patient, who is obese, has expressed concern about her previous cervical spine surgery potentially being impacted by the fall. 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 - Recently switched health insurance provider from [employer] to [employer]. Review of Systems - Musculoskeletal: Reports right wrist pain and swelling; reports transient left ankle discomfort. - Neurological: Denies any new neurological symptoms. Physical Exam - Musculoskeletal- Right wrist with swelling noted, reduced ability to move side to side, and some limitations in upwards movement. Results - Imaging: X-rays of the cervical spine, bilateral knees, right hand, right wrist, and right shoulder were negative for fractures. Plan The plan includes managing the right wrist contusion with Voltaren gel, leveraging its anti-inflammatory properties, and encouraging elevation to alleviate swelling. If necessary, physical therapy may be initiated to enhance recovery. Monitoring the condition with a follow-up X-ray may be conducted if symptoms do not show improvement. Driving is restricted temporarily to ensure safety due to limited wrist mobility. Patient was informed and verbally consented to the use of an ambient scribe for clinic note documentation during this visit. Discussion Notes I discussed the management plan for the right wrist injury, which includes the application of Voltaren gel to reduce inflammation and recommending measures to manage and reduce swelling. I advised against muscle relaxants due to the potential side effects and the patient's preferences. We agreed on restricting driving activities for one week for safety reasons and considering a follow-up X-ray if symptoms persist. I provided reassurance about the effectiveness of topical treatments and elevation in managing her symptoms. We discussed the importance of wrist rest and pain management and provided instructions on monitoring her symptoms and potential signs that would warrant further examination. Patient Instructions - Apply Voltaren gel to the affected wrist four times daily. - Keep the wrist elevated as much as possible to reduce swelling. - Avoid driving for one week to ensure safety and promote healing. - Monitor for any worsening of symptoms or changes that persist beyond a week. - Follow up with an X-ray in seven days if symptoms do not improve. - Contact the clinic if there are any new concerns or worsening symptoms. Orders: Orders PT Evaluation and Treatment Today M25.531 - Pain in right wrist XR wrist RT 2V 1 Week M25.531 - Pain in right wrist Medications: New diclofenac sodium 1% (Arthritis Pain (diclofenac)) apply to single knee, ankle, foot; for foot includes sole/toes/top of foot 4 grams topical QID 100 grams 3RF M25.531 - Pain in right wrist
== END 2024-11-09 10:49 | disposition home or self-care (01) ==
PROVIDERS: PCP Internal Medicine; Visit Provider Internal Medicine
DX: M25.531 Pain in right wrist (principal); M54.9 Dorsalgia, unspecified; W19.XXXA Unspecified fall, initial encounter

== ENCOUNTER → 2024-11-09 09:34 | Outpatient (BNVA) | payer OTHER, MEDICARE, SELFPAY | PROVIDERS: PCP Internal Medicine; Visit Provider Internal Medicine | DX: M25.531 Pain in right wrist (principal); M54.9 Dorsalgia, unspecified; Z91.81 History of falling | CPT/HCPCS: 99212 ==

== ENCOUNTER 2024-11-14 09:47 | Outpatient (REF) | payer MEDICARE, SELFPAY ==
--- NOTE | ~2024-11-14 | XR_ITS ---
CLINICAL HISTORY: M25.531 - Pain in right wrist 4. views right wrist, plus scaphoid view Comparison: 11/07/2024 Findings: No fractures or dislocations There is degenerative narrowing of the triscaphe joint. No radiopaque foreign body Impression: Soft tissue swelling. No acute skeletal abnormality. Specifically the scaphoid bone is unremarkable. This document has been electronically signed by: Jaylen Harris MD on 11/14/2024 21:33:55
== END 2024-11-14 09:48 | disposition home or self-care (01) ==
LOC: HO.XRAY 09:47
PROVIDERS: PCP Internal Medicine; Visit Provider Internal Medicine
DX: M25.531 Pain in right wrist (principal)
CPT/HCPCS: 73100

== ENCOUNTER → 2024-11-14 09:55 | Outpatient (BNV) | payer MEDICARE, SELFPAY | PROVIDERS: PCP Internal Medicine; Visit Provider Radiology Diagnostic Radiology | DX: M25.531 Pain in right wrist (principal) | CPT/HCPCS: 73100 ==

== ENCOUNTER 2024-11-28 12:24 | Outpatient (REF) | payer MEDICARE, SELFPAY ==
--- NOTE | ~2024-11-28 | CT_ITS ---
CLINICAL HISTORY: Follow-up on pancreatic mass CT abdomen and pelvis with contrast Comparison: None Findings: No consolidation or effusion. The patient is status post cholecystectomy. A few small hepatic cysts are seen. There is a 1.8 x 1.7 x 2.2 cm circumscribed hypodense lesion in the pancreatic head. The solid organs are otherwise unremarkable. The rest of the pancreas is unremarkable. An enlarged peripancreatic lymph node is present measuring up to 3.9 cm in greatest dimension. No bowel obstruction, pneumoperitoneum, or pneumatosis. Pelvic contents unremarkable. Normal appendix. The bones are intact. The GI tract demonstrates no significant abnormalities. IMPRESSION: 1. Hypodense lesion in the pancreatic head compatible with neoplasm. In a patient of this age a series cyst adenocarcinoma should be excluded. There is an adjacent enlarged lymph node. This lesion should be compared with any other studies none of which are not available for comparison at this time. Also if it has not been performed already please obtain an MRI using pancreatic protocol. 2. Likely benign hepatic lesions. This document has been electronically signed by: Omar Abbott MD on 11/30/2024 13:03:17
--- NOTE | ~2024-11-28 | CT_ITS ---
CLINICAL HISTORY: Follow-up on maltoma. CT chest with contrast Comparison: None Findings: The heart is normal size. The visualized thyroid and mediastinum are unremarkable. There are postoperative changes and likely focus of scarring in the right middle lobe this focus measures up to 1.2 cm in greatest diameter. A 6.6 mm spiculated lesion is seen at the right lung apex. This is best visualized on image number 23 of series number 7. The lesion is a ground-glass density there are several additional similar lesions some of which are in a likely tree-in-bud configuration suggesting bronchiolitis. The upper abdomen is unremarkable. The bones are intact. A 6.7 mm solid irregular nodule is seen at the left base. IMPRESSION: 1. Prior exams are not available for comparison. Postoperative changes right middle lobe with nodular opacity suspect represents a focus of scarring. Recurrent disease is not entirely excluded and comparison should be made with any prior exams. 2. Scattered ground-glass nodules some of which are likely in a tree-in-bud configuration suggesting bronchiolitis. Again comparison should be made with any prior exam. 3. Solid irregular nodule left lung base. Again compare with any prior studies. If none are available please obtain a follow-up examination in 3-6 months. This document has been electronically signed by: Omar Abbott MD on 11/30/2024 13:09:07
[2024-11-28] MEDS: Barium Sulfate Oral (Vanilla) 450 ML ORAL.SUSP 900 ML PO (15:18)
[2024-11-28] MEDS: iohexoL 350 MG/ML 100 ML INFUS..BTL IV (15:18)
== END 2024-11-28 12:25 | disposition home or self-care (01) ==
LOC: HO.CT 12:24
PROVIDERS: PCP Internal Medicine; Visit Provider Internal Medicine Medical Oncology
DX: K86.89 Other specified diseases of pancreas (principal); C84.40 Peripheral T-cell lymphoma, not elsewhere classified, unspecified site
CPT/HCPCS: 71260; 74177; Q9967

== ENCOUNTER → 2024-11-28 12:26 | Outpatient (BNV) | payer MEDICARE, SELFPAY | PROVIDERS: PCP Internal Medicine; Visit Provider Radiology Diagnostic Radiology | DX: K86.89 Other specified diseases of pancreas (principal); R59.0 Localized enlarged lymph nodes; R91.1 Solitary pulmonary nodule | CPT/HCPCS: 71260; 74177 ==

== ENCOUNTER 2024-12-13 09:35 | Outpatient (AMB) | payer MEDICARE, SELFPAY ==
[2024-12-13 09:42] VITALS: BP 130/70; PULSE 85; O2SAT 96; BMI 39.1
--- NOTE | 2024-12-13 09:42 | A.OFFVIS_ITS ---
Vital Signs 12/13/24 09:42 Height 5 ft Weight 200 lb BMI 39.1 BP 130/70 Blood Pressure Location Lt brachial Position Sitting Pulse 85 Pulse Source Pulse Oximeter Pulse Oximetry (%) 96 Oxygen Delivery Method Room Air Intake Visit Reasons: Dyspnea Intake Note: pt is here for follow up and states she is coughing all night, she thinks she had post nasal drip issue, on flonase daily Computer Tester Required: No Allergies meperidine [Demerol] Allergy (Intermediate, Verified 12/13/24 10:05) bradycardia strawberry [STRAWBERRY] Allergy (Intermediate, Verified 12/13/24 10:05) HIVES Penicillins Allergy (Mild, Verified 12/13/24 10:05) Rash Sulfa (Sulfonamide Antibiotics) [Sulfa (Sulfonamides)] Allergy (Mild, Verified 12/13/24 10:05) Rash codeine [Codeine] Adverse Reaction (Intermediate, Verified 12/13/24 10:05) HALLUCINATION oxycodone [From Percocet] Adverse Reaction (Mild, Verified 12/13/24 10:05) VOMITING Medication List - Last Reconciled 12/13/24 by Deepak Morales MD albuterol sulfate 90 mcg/actuation 2 puffs PO Q4-6H PRN amitriptyline 10 mg PO BEDTIME [AUTO PAP 6-20 cm H2O humidified AIR As directed] cholecalciferol (vitamin D3) (Vitamin D3) 50 mcg PO QAM clotrimazole 1% 1 appl topical BID 4 weeks diclofenac sodium 1% (Arthritis Pain (diclofenac)) 4 grams topical QID fluticasone propionate 50 mcg/actuation 2 sprays intranasal DAILY furosemide 20 mg PO QAM [LIFE ALERT SYSTEM As directed] multivitamin (One-A-Day Essential tablet) 1 tab PO QAM omeprazole 20 mg PO BEDTIME 90 days oxybutynin chloride ER 10 mg PO DAILY sennosides-docusate sodium 8.6-50 mg (Senna Plus) 2 tab-caps (2 x 8.6-50 mg) PO BEDTIME simvastatin 10 mg PO BEDTIME trazodone 50 mg PO BEDTIME PRN vitamin I33-jppas acid 500-400 mcg 1 tab PO DAILY Do you need a note to return to daycare/school/sports/work: No HPI HPI Dyspnea: Details: Annita, 79 years old female, comes for PULMONARY FOLLOW-UP after 4 months. Breathing mitchell doing okay except for frequent bouts of cough at night, she thinks cough is more due to postnasal drip. She needs to use albuterol only once in a while during the daytime. She is also being treated for obstructive sleep apnea, currently does not have the proper mask and is waiting to get one. She does wake up few times during the night. She had recent CT scan of the chest and now has had PET scan , the official reading is still pending. [facility] Medical History CLL (chronic lymphocytic leukemia) Diabetes Elevated blood sugar Bilateral finger numbness Calcification of ovary Leukocytosis (leucocytosis) Asthma exacerbation Renal cyst Allergic rhinitis Restrictive lung disease Impaired fasting blood sugar Blood pressure elevated without history of HTN Hypersomnolence ALEISHA (obstructive sleep apnea) Obesity (BMI 30-39.9) Urge incontinence of urine Cervical cancer Pancreatic mass Osteopenia GERD (gastroesophageal reflux disease) Adnexal mass MALT lymphoma Obesity (BMI 30-39.9) Vitamin D deficiency Tubular adenoma of colon History of supraventricular tachycardia Breast density Anxiety High cholesterol Migraine headache Asthma Hyperlipemia Surgical History Hx of cervical spine surgery History of esophagogastroduodenoscopy (EGD) H/O colonoscopy Hx of tubal ligation History of vocal cord polypectomy Hx of dilation and curettage Hx of pneumonectomy H/O arthroscopy of right knee Hx of cholecystectomy Family History Father Colon cancer Sister Colon cancer Myocardial infarct Sister History of breast cancer Colon cancer Sister Thyroid cancer Social History Household Members: None Housing: Apartment Are you a primary assurance services manager health care to a significant other at home: No Do you presently have visiting nurse or other home services: No Alcohol intake: current Alcohol intake frequency: does not drink Comment: twice a year Patient Tobacco Use Status: Never used Tobacco Tobacco use type: Cigarette e-Cigarette/Vaping Use: Never Used Second Hand Smoke Exposure: No service: Yes Current occupational status: retired Current occupational exposures/hazards: No Cognitive needs: No Hearing needs: No Vision needs: No Female Reproductive History Menstrual Age of Menarche: 17 Review of Systems Const All systems reviewed & are unremarkable except as noted in HPI and below Eyes Reports no additional complaints ENT Reports no additional complaints and Reports nasal congestion (Especially at night) Card Denies chest pain, Denies irregular heart rhythm and Denies leg edema Resp Reports as per HPI GI Reports bloating and Reports heartburn Reports no additional complaints Musc Reports back pain and Reports arthralgias (knees ) Skin/Breast Reports system reviewed and no additional complaints, except as documented Neuro Reports no additional complaints Psych Reports no additional complaints Physical Exam Vital Signs: Last Vital Signs Pulse 85 12/13/24 09:42 BP 130/70 12/13/24 09:42 Pulse Ox 96 12/13/24 09:42 Oxygen Delivery Method Room Air 12/13/24 09:42 BMI result Body Mass Index 39.1 Const General: comfortable, no acute distress, alert and awake Orientation/consciousness: patient oriented x3 HEENT Head: Yes normal to inspection General nose exam: No nasal polyps present, No nasal discharge present and Abnor mal mucous membranes and turbinates present (She has marked hypertrophy of the nasal turbinates) Face and sinus: Yes sinuses nontender Mouth: oropharynx abnormals (Oropharynx remains crowded, Mallampati class 4) Throat: Yes posterior oropharynx normal Eyes General: appearance normal, both eyes and all related structures Neck Neck: Yes normal visual inspection, Yes no lymphadenopathy, Yes trachea midline, Yes no JVD and Yes other (Neck is obese and short) Thyroid: Thyroid normal Chest Chest palpation & inspection: normal inspection of the chest, normal palpation of entire chest wall and no tenderness Resp Other: Percussion note resonant, breath sounds are decreased over the basilar areas, No wheezes rhonchi or crepitations are heard today. Cardio Palpation: normal PMI Rate: regular rate Rhythm: regular rhythm Heart sounds: no gallops and no murmurs Peripheral pulses: Peripheral pulses 2+ throughout GI Palpation (GI): Soft to palpation, nontender, No hepatosplenomegaly present, no masses and Other GI palpation findings present (Abdomen is grossly obese) Auscultation: normal bowel sounds Back/Spine/Pelvis Thoracic/Lumbar Spine: thoracic and lumbar spine normal to inspection and thoraco-lumbar ROM limited Skin General skin exam: no rashes or lesions noted Neuro General: patient oriented x3, No gait normal (Slightly impaired because of arthritis, she uses a cane) and no focal motor deficits Cranial nerves: Yes CN's II-XII intact bilaterally Extrem General: Yes normal to inspection, Yes no clubbing, cyanosis or edema, Yes no calf tenderness and No normal gait (Slightly impaired because of joint pains/knees, uses cane.) Psych Appearance: grossly normal and well kempt Speech and movement: Normal speech and movement present Results Reviewed Results Reviewed: CT SCAN OF CHEST ON 11/30/2024 1. Prior exams are not available for comparison. Postoperative changes right middle lobe with nodular opacity suspect represents a focus of scarring. Recurrent disease is not entirely excluded and comparison should be made with any prior exams. 2. Scattered ground-glass nodules some of which are likely in a tree-in-bud configuration suggesting bronchiolitis. Again comparison should be made with any prior exam. 3. Solid irregular nodule left lung base. Again compare with any prior studies. If none are available please obtain a follow-up examination in 3-6 months. PET-CT DONE ON 12/01 BUT HAS NOT BEEN OFFICIALLY READ Assessment & Plan Assessment & Plan (1) Asthma: Comment: PATIENT MAY HAVE A MILD DEGREE OF BRONCHIAL ASTHMA. SEEMS TO BE WELL CONTROLLED. Code(s): J45.909 - Unspecified asthma, uncomplicated Category: Medical Qualifiers: Asthma complication type: uncomplicated Asthma persistence: intermittent Asthma severity: mild Qualified Code(s): J45.20 - Mild intermittent asthma, uncomplicated Plan: USE ALBUTEROL HFA 2 PUFFS Q 4-6 HOURS P.R.N. FOR WHEEZING OR SUSTAINED BOUTS OF COUGH (2) Allergic rhinitis: Comment: She has chronic rhinitis with marked hypertrophy of the nasal turbinates. Code(s): J30.9 - Allergic rhinitis, unspecified Category: Medical Plan: FLONASE-52 SPRAY EACH NOSTRIL DAILY. MAY USE HALF OR 1 TABLET OF CLARITIN/CETIRIZINE 10 MG AT NIGHTTIME. (3) ALEISHA (obstructive sleep apnea): Comment: Patient has mild ALEISHA and excessive snoring, with excessive daytime sleepiness. She is definitely benefiting from the use of CPAP. CPAP full face mask Dream wear , WAS DAMAGED AND SHE IS STILL WAITING TO GET A REPLACEMENT. Code(s): G47.33 - Obstructive sleep apnea (adult) (pediatric) Category: Medical Plan: ADVISED TO START USING THE CPAP REGULARLY WENT SOON SHE HAS THE PROPER MASK. (4) Pulmonary nodule: Comment: July 2021 CT scan of the chest, findings reviewed with the patient. A few ground-glass densities are stable. 10 MM ground-glass nodule at the surgical scar area from previous surgery ( Resection of Maltoma ) is present. And needs to be monitored. LAST CT SCAN IN 2022, she did have a few new densities. CT SCAN OF THE CHEST 11/28/2024, REPORT NOTED ABOVE. PET SCAN PERFORMED BUT OFFICIAL READING IS PENDING. Code(s): R91.1 - Solitary pulmonary nodule Category: Medical Plan: WAIT FOR OFFICIAL PET SCAN READING. MAY NEED A REPEAT CT SCAN IN ABOUT 3-4 MONTHS FROM NOW. Medications: Changed From simvastatin 20 mg PO BEDTIME 90 tabs 1RF To simvastatin 10 mg PO BEDTIME Coding Level of Care Code Est Pt Level 3 (11006) Diagnoses Mild intermittent asthma without complication J45.20 Asthma complication type: uncomplicated Asthma persistence: intermittent Asthma severity: mild Allergic rhinitis J30.9 ALEISHA (obstructive sleep apnea) G47.33 Pulmonary nodule R91.1
== END 2024-12-13 10:06 | disposition home or self-care (01) ==
LOC: HO.HPS 09:35
PROVIDERS: PCP Internal Medicine; Visit Provider Internal Medicine
DX: J45.20 Mild intermittent asthma, uncomplicated (principal); J30.9 Allergic rhinitis, unspecified; G47.33 Obstructive sleep apnea (adult) (pediatric); R91.1 Solitary pulmonary nodule
CPT/HCPCS: 99213

== ENCOUNTER → 2024-12-13 09:35 | Outpatient (BNVA) | payer MEDICARE, SELFPAY | PROVIDERS: PCP Internal Medicine; Visit Provider Internal Medicine | DX: J45.20 Mild intermittent asthma, uncomplicated (principal); J30.9 Allergic rhinitis, unspecified; R91.1 Solitary pulmonary nodule; G47.33 Obstructive sleep apnea (adult) (pediatric) | CPT/HCPCS: 99212 ==

== ENCOUNTER 2024-12-29 10:01 | Outpatient (AMB) | payer MEDICARE, SELFPAY ==
--- NOTE | 2024-12-29 10:02 | A.OFFVIS_ITS ---
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 Accompanied by: Self / Same As Patient Allergies meperidine (Demerol) Allergy (Intermediate, Verified 01/20/25 09:11) bradycardia strawberry (STRAWBERRY) Allergy (Intermediate, Verified 01/20/25 09:11) HIVES Penicillins Allergy (Mild, Verified 01/20/25 09:11) Rash Sulfa (Sulfonamide Antibiotics) (Sulfa (Sulfonamides)) Allergy (Mild, Verified 01/20/25 09:11) Rash codeine (Codeine) Adverse Reaction (Intermediate, Verified 01/20/25 09:11) HALLUCINATION oxycodone (From Percocet) Adverse Reaction (Mild, Verified 01/20/25 09:11) VOMITING Medication List - Last Reconciled 12/29/24 by Braydon Limon MD albuterol sulfate 90 mcg/actuation 2 puffs PO Q4-6H PRN [AUTO PAP 6-20 cm H2O humidified AIR As directed] cholecalciferol (vitamin D3) (Vitamin D3) 50 mcg PO QAM clotrimazole 1% 1 appl topical BID 4 weeks diclofenac sodium 1% (Arthritis Pain (diclofenac)) 4 grams topical QID fluticasone propionate 50 mcg/actuation 2 sprays intranasal DAILY furosemide 20 mg PO QAM [LIFE ALERT SYSTEM As directed] multivitamin (One-A-Day Essential tablet) 1 tab PO QAM omeprazole 20 mg PO BEDTIME 90 days oxybutynin chloride ER 10 mg PO DAILY sennosides-docusate sodium 8.6-50 mg (Senna Plus) 2 tab-caps (2 x 8.6-50 mg) PO BEDTIME simvastatin 10 mg PO BEDTIME trazodone 50 mg PO BEDTIME PRN vitamin D90-kkllu acid 500-400 mcg 1 tab PO DAILY HPI Comments Details: 12/29/24-- History of Present Illness The patient is a 79-year-old female presenting for a follow-up visit to manage her overactive bladder symptoms. She continues to use oxybutynin, as it is effective and financially feasible. 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 She is knowledgeable about the medications' risks and benefits, given her background as a nurse. The patient will continue oxybutynin for overactive bladder management, as it is effective and financially feasible. Alternatives like gemtesa and Trospium but too expense for patient. A follow- up is planned for one year. 07/11/24--6 week fu meds- changed from oxybutynin to gemtesa. Annita is a 78-year-old female who presents for a follow-up. On Lasix during the day has more episodes of frequency. Other Comorbities - DM, Obesity, h/o spinal fusion Pt states that GEMTESA AND Trospium TOO EXPENSIVE- 05/23/24--Annita is a 78-year-old female who presents today to the office for a follow-up. On Lasix during the day has more episodes of frequency. Takes oxybutynin at bedtime. Plan to discontinue oxybutynin due to her age and risk for confusion. We will again prescribe Gemtesa which is showing to be on her formulary at this time. FU telehealth 6 weeks to discuss medication. 05/22/2023?Annita is a 75 year old female who was prescribed oxybutynin for OAB symptoms.? 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.? She is followed today for OAB, renal cyst, and vaginal atrophy. She states that since her last visit with me she has been diagnosed with CLL; leukemia. She was diagnosed by Dr. Becker at [facility]. Treatment currently includes monitoring her lab work.Patient states that her oncologist told her that leukocytes present in her urine is a result of her leukemia. She was last seen by me on 11/20/2022 for Cystoscopy procedure. Cystoscopy findings: Mild bladder wall thickening with no suspicious bladder lesion.? She has been on oxybutynin 10 mg daily. Today I have discussed that it is recommended to avoid anti cholinergic medications in the elderly. I will prescribe an anti-muscaranic, Gemtesa 75 mg. Patient is concerned about the cost of new medication. She states she has not noted any mental status changes, states she has no symptom of drowsiness and has good mental clarity. She does have some dry mouth related to the oxybutynin and is using [employer]ot[employer] products to counteract this. Review of results: I reviewed renal sono 06/03/22 - discussed with patient - Left renal peripelvic cysts not appreciably changed from previous exam. 4 mm nonspecific echogenic density in the lower pole of the right kidney, questionable stone. OV--11/20/2022--Cystoscopy findings: Mild bladder wall thickening with no suspicious bladder lesion.? Pelvic exam: No prolapse. Vaginal atrophy.? [facility] Medical History CLL (chronic lymphocytic leukemia) Diabetes Elevated blood sugar Bilateral finger numbness Calcification of ovary Leukocytosis (leucocytosis) Asthma exacerbation Renal cyst Allergic rhinitis Restrictive lung disease Impaired fasting blood sugar Blood pressure elevated without history of HTN Hypersomnolence ALEISHA (obstructive sleep apnea) Obesity (BMI 30-39.9) Urge incontinence of urine Cervical cancer Pancreatic mass Osteopenia GERD (gastroesophageal reflux disease) Adnexal mass MALT lymphoma Obesity (BMI 30-39.9) Vitamin D deficiency Tubular adenoma of colon History of supraventricular tachycardia Breast density Anxiety High cholesterol Migraine headache Asthma Hyperlipemia Surgical History Hx of cervical spine surgery History of esophagogastroduodenoscopy (EGD) H/O colonoscopy Hx of tubal ligation History of vocal cord polypectomy Hx of dilation and curettage Hx of pneumonectomy H/O arthroscopy of right knee Hx of cholecystectomy Family History Father Colon cancer Sister Colon cancer Myocardial infarct Sister History of breast cancer Colon cancer Sister Thyroid cancer Social History (Updated 01/20/25 @ 09:44 by Constantine Lara MD) Household Members: None Housing: Apartment Are you a primary critical care specialist to a significant other at home: No Do you presently have visiting nurse or other home services: No Alcohol intake: never Comment: twice a year Patient Tobacco Use Status: Never used Tobacco Tobacco use type: Cigarette e-Cigarette/Vaping Use: Never Used Second Hand Smoke Exposure: No service: Yes Current occupational status: retired Current occupational exposures/hazards: No Cognitive needs: No Hearing needs: No Vision needs: No Female Reproductive History Menstrual Age of Menarche: 17 Review of Systems Const All systems reviewed & are unremarkable except as noted in HPI and below Reports no additional complaints Eyes Reports no additional complaints ENT Reports no additional complaints Card Reports no additional complaints Resp Reports no additional complaints GI Reports no additional complaints Reports as per HPI Musc Reports no additional complaints Skin/Breast Reports system reviewed and no additional complaints, except as documented Neuro Reports no additional complaints Psych Reports no additional complaints Endo Reports no additional complaints Kervin/Lymph Reports no additional complaints Aller/Immun Reports no additional complaints Telehealth Telehealth Telehealth Platform: Telephone Location of provider rendering services: practice address Location of patient: address on file Patient Identification confirmed using: Name, : Yes Telehealth method: voice only Patient verbally consented to treatment: Yes Patient verbally consented to billing insurance company: Yes Patient informed of any privacy concerns related to visit: Yes Minutes spent on Phone/Video with Pt.: 14 Results Reviewed Results Reviewed: Date of Service: 11/28/24 CLINICAL HISTORY: Follow-up on pancreatic mass CT abdomen and pelvis with contrast Comparison: None Findings: No consolidation or effusion. The patient is status post cholecystectomy. A few small hepatic cysts are seen. There is a 1.8 x 1.7 x 2.2 cm circumscribed hypodense lesion in the pancreatic head. The solid organs are otherwise unremarkable. The rest of the pancreas is unremarkable. An enlarged peripancreatic lymph node is present measuring up to 3.9 cm in greatest dimension. No bowel obstruction, pneumoperitoneum, or pneumatosis. Pelvic contents unremarkable. Normal appendix. The bones are intact. The GI tract demonstrates no significant abnormalities. IMPRESSION: 1. Hypodense lesion in the pancreatic head compatible with neoplasm. In a patient of this age a series cyst adenocarcinoma should be excluded. There is an adjacent enlarged lymph node. This lesion should be compared with any other studies none of which are not available for comparison at this time. Also if it has not been performed already please obtain an MRI using pancreatic protocol. 2. Likely benign hepatic lesions. Date of Service: 06/03/22 US RETROPERITONEAL LIMITED (RENAL ONLY) CLINICAL INFORMATION: Cyst of kidney, acquired. COMPARISON: MR abdomen without and with contrast 06/24/2021. CT chest, abdomen and pelvis with IV contrast 05/28/2017. TECHNIQUE: Real-time imaging of the kidneys.? FINDINGS: RIGHT KIDNEY: 9.9 x 5.3 x 5.0 cm (SAG x AP x TRV). The kidney is normal in size, contour, and echogenicity. Renal cortical thickness is normal. There is a 4 mm echogenic density in the lower pole. Appearance is questionable for stone, calcified vessel or angiomyolipoma. No corresponding abnormality is appreciated on prior CT or MRI. No hydronephrosis. LEFT KIDNEY: 9.2 x 5.7 x 4.5 cm (SAG x AP x TRV). The kidney is normal in size, contour, and echogenicity. Renal cortical thickness is normal. There are peripelvic cysts. The largest measures 1.7 x 1.1 x 1 cm in the mid to lower pole. No renal calculi or hydronephrosis. IMPRESSION: Left renal peripelvic cysts not appreciably changed from previous exam. 4 mm nonspecific echogenic density in the lower pole of the right kidney.. Date of Service: 06/23/22 EXAMINATION: MR ABDOMEN WITHOUT AND WITH CONTRAST CLINICAL INFORMATION: Follow-up pancreatic mass? COMPARISON: Previous MR of the abdomen, most recent June [address] of the abdomen and pelvis May 2017 TECHNIQUE: MR abdomen was performed without and with use of 10 mL intravenous Gadavist gadolinium contrast. Postcontrast images are performed in multiphase dynamic sequences.? Imaging was performed in 3 planes. MRCP sequences were also performed. FINDINGS: LUNG BASES: The visualized lung bases are unremarkable.? LIVER, GALLBLADDER, AND BILIARY TREE: The liver is normal in size, smooth in contour, and normal in signal. There are several liver cysts that are stable largest measuring 0.9 x 1.2 cm medial segment of the left lobe. No other focal liver lesion. The gallbladder has been removed. No intra or extrahepatic biliary duct dilatation. PANCREAS: Complex multiloculated cyst in the uncinate process of the head of the pancreas measures 1.6 x 2.4 cm for example T2 axial image 19 series 5. This does not appear appreciably changed in size from recent exams. No solid component or enhancement is appreciated. There may be several tiny cysts in the body and tail the pancreas versus dilated pancreatic duct radicles. These measure maximum 2 to 3 mm. Pancreas is otherwise normal. The main pancreatic duct does not appear dilated.. SPLEEN: Normal.? ADRENAL GLANDS: Normal.? KIDNEYS AND URETERS: The kidneys are normal in size, shape, and enhance symmetrically. Bilateral renal peripelvic cysts. No hydronephrosis.? No perinephric stranding. ? GASTROINTESTINAL TRACT: No bowel obstruction.? No ascites or fluid collection. ? ABDOMINAL WALL: No significant hernia is appreciated.? LYMPH NODES: No lymphadenopathy. VASCULAR: Unremarkable. OSSEOUS STRUCTURES: Marrow signal normal. Degenerative changes of the spine. IMPRESSION: Stable multiloculated cystic lesion in the head of the pancreas from recent exams.? Assessment & Plan Assessment & Plan (1) Urge incontinence of urine: Code(s): N39.41 - Urge incontinence Category: Medical (2) Renal cysts, acquired, bilateral: Code(s): N28.1 - Cyst of kidney, acquired Category: Medical (3) OAB (overactive bladder): Code(s): N32.81 - Overactive bladder Category: Medical (4) Diabetes: Comment: type 2- Code(s): E11.9 - Type 2 diabetes mellitus without complications Category: Medical Plan Cont oxybutynin 10 mg daily. Resume oxybutynin for now however will try to get prior auth for antimuscarinics that is less likely to cross the blood brain barrior Medications: Refilled oxybutynin chloride ER 10 mg PO DAILY 90 tabs 3RF Patient Instructions: The patient had an opportunity to ask questions regarding treatment plan. The patient expressed understanding and agreement with the above treatment plan. The patient is aware they should contact our office by phone for worsening of their current condition or the appearance of new symptoms. Compliance is encouraged with any medications and followup testing that is ordered. It is a privilege to be allowed the opportunity to participate in the urologic care of your patient. If you have any questions or concerns regarding treatment for the above conditions please do not hesitate to contact me. The office telephone contact is [phone]. This note is constructed in part using voice recognition software. While every effort has been made to ensure accuracy personal injury attorney errors may have been included. Yours sincerely, Braydon Limon MD Coding Level of Care Code Tele Est Pt Level 3 (43569) Complex EM visit Add On G2211 Diagnoses Urge incontinence of urine N39.41 Renal cysts, acquired, bilateral N28.1 OAB (overactive bladder) N32.81 Diabetes E11.9
== END 2024-12-29 15:51 | disposition home or self-care (01) ==
LOC: HO.HUSH 10:01
PROVIDERS: PCP Internal Medicine; Visit Provider Urology
DX: N39.41 Urge incontinence (principal); N28.1 Cyst of kidney, acquired; N32.81 Overactive bladder; E11.9 Type 2 diabetes mellitus without complications
CPT/HCPCS: 99213; G2211

== ENCOUNTER → 2024-12-29 10:01 | Outpatient (BNVA) | payer OTHER, MEDICARE, SELFPAY | PROVIDERS: PCP Internal Medicine; Visit Provider Urology ==

== ENCOUNTER 2025-01-20 09:08 | Outpatient (AMB) | payer MEDICARE, SELFPAY ==
[2025-01-20 09:10] VITALS: BP 102/70; PULSE 71; O2SAT 96; BMI 39.1
--- NOTE | 2025-01-20 09:10 | A.OFFPC_ITS ---
Vital Signs 01/20/25 09:10 Height 5 ft Weight 200 lb 2 oz BMI 39.1 BP 102/70 Blood Pressure Location Lt brachial Position Sitting Pulse 71 Pulse Source Pulse Oximeter Pulse Oximetry (%) 96 Oxygen Delivery Method Room Air Intake Visit Reasons: Annual Exam Financial Accountant Required: No Accompanied by: Self / Same As Patient Allergies meperidine (Demerol) Allergy (Intermediate, Verified 01/20/25 09:11) bradycardia strawberry (STRAWBERRY) Allergy (Intermediate, Verified 01/20/25 09:11) HIVES Penicillins Allergy (Mild, Verified 01/20/25 09:11) Rash Sulfa (Sulfonamide Antibiotics) (Sulfa (Sulfonamides)) Allergy (Mild, Verified 01/20/25 09:11) Rash codeine (Codeine) Adverse Reaction (Intermediate, Verified 01/20/25 09:11) HALLUCINATION oxycodone (From Percocet) Adverse Reaction (Mild, Verified 01/20/25 09:11) VOMITING Medication List - Last Reconciled 01/20/25 by Constantine Lara MD albuterol sulfate 90 mcg/actuation 2 puffs PO Q4-6H PRN amitriptyline 10 mg PO BEDTIME [AUTO PAP 6-20 cm H2O humidified AIR As directed] cholecalciferol (vitamin D3) (Vitamin D3) 50 mcg PO QAM clotrimazole 1% 1 appl topical BID 4 weeks diclofenac sodium 1% (Arthritis Pain (diclofenac)) 4 grams topical QID fluticasone propionate 50 mcg/actuation 2 sprays intranasal DAILY furosemide 20 mg PO QAM [LIFE ALERT SYSTEM As directed] magnesium gluconate (Mag-G) 27 mg PO DAILY multivitamin (One-A-Day Essential tablet) 1 tab PO QAM omeprazole 20 mg PO BEDTIME 90 days oxybutynin chloride ER 10 mg PO DAILY sennosides-docusate sodium 8.6-50 mg (Senna Plus) 2 tab-caps (2 x 8.6-50 mg) PO BEDTIME simvastatin 10 mg PO BEDTIME trazodone 50 mg PO BEDTIME PRN vitamin C50-eccol acid 500-400 mcg 1 tab PO DAILY Tobacco use date assessed: 01/20/25 Fall risk assessment: 1 Fall in past year Last assessed Fall Risk: 01/20/25 Dental Screening Dental Screen Date: 06/20/25 Did you have a dental visit in the last 12 months?: No Did you have a dental problem in the last 6 months where you did not have access to dental care?: No Was dental information given to patient?: No HPI Annual Exam HPI Details gerd [facility] Medical History CLL (chronic lymphocytic leukemia) Diabetes Elevated blood sugar Bilateral finger numbness Calcification of ovary Leukocytosis (leucocytosis) Asthma exacerbation Renal cyst Allergic rhinitis Restrictive lung disease Impaired fasting blood sugar Blood pressure elevated without history of HTN Hypersomnolence ALEISHA (obstructive sleep apnea) Obesity (BMI 30-39.9) Urge incontinence of urine Cervical cancer Pancreatic mass Osteopenia GERD (gastroesophageal reflux disease) Adnexal mass MALT lymphoma Obesity (BMI 30-39.9) Vitamin D deficiency Tubular adenoma of colon History of supraventricular tachycardia Breast density Anxiety High cholesterol Migraine headache Asthma Hyperlipemia Surgical History Hx of cervical spine surgery History of esophagogastroduodenoscopy (EGD) H/O colonoscopy Hx of tubal ligation History of vocal cord polypectomy Hx of dilation and curettage Hx of pneumonectomy H/O arthroscopy of right knee Hx of cholecystectomy Family History Father Colon cancer Sister Colon cancer Myocardial infarct Sister History of breast cancer Colon cancer Sister Thyroid cancer Social History (Updated 01/20/25 @ 09:44 by Constantine Lara MD) Household Members: None Housing: Apartment Are you a primary healthcare architect to a significant other at home: No Do you presently have visiting nurse or other home services: No Alcohol intake: never Comment: twice a year Patient Tobacco Use Status: Never used Tobacco Tobacco use type: Cigarette e-Cigarette/Vaping Use: Never Used Second Hand Smoke Exposure: No service: Yes Current occupational status: retired Current occupational exposures/hazards: No Cognitive needs: No Hearing needs: No Vision needs: No Female Reproductive History Menstrual Age of Menarche: 17 Questionnaire PHQ-9 Over the last 2 weeks, how often have you been bothered by any of the following problems? 1. Little interest or pleasure in doing things: not at all 2. Feeling down, depressed, or hopeless: not at all 3. Trouble falling or staying asleep, or sleeping too much: not at all 4. Feeling tired or having little energy: not at all 5. Poor appetite or overeating: not at all 6. Feeling bad about yourself - or that you are a failure or have let yourself or your family down: not at all 7. Trouble concentrating on things, such as reading the newspaper or watching television: not at all 8. Moving or speaking so slowly that other people could have noticed. Or the opposite - being so fidgety or restless that you have been moving around a lot more than usual: not at all 9. Thoughts that you would be better off or of hurting yourself in some way: not at all Total score: 0 Source: Developed by Drs. Gómez Grant, Amelie Reza, Huber Hall and colleagues, with an educational adrienne from [employer]. Thrive Questionnaire Date Thrive assessed: 01/20/25 I am a: Patient What is your living situation today?: I have a steady place to live Within the past 12 months, did the food you bought not last and you didn't have the money to get more?: Sometimes True Within the past 12 months, did you worry whether your food would run out before you got money to buy more?: Sometimes True Do you have trouble paying for medicines?: Yes Do you have trouble getting transportation to medical appointments?: No Do you have trouble paying your heating and electricity bill?: Yes Do you have trouble taking care of your child, family member or friend?: No Do you have trouble with day-to-day activities such as bathing, preparing meals, shopping, managing finances, etc.?: No Are you currently unemployed and looking for a job?: Yes Are you interested in more education?: No Please select the resources that you would like help with: None Currently or been in a relationship where the following occur: No concerns reported THRIVE Score: 3 AUDIT C Alcohol Use Questionnaire (AUDIT-C) 1. How often do you have a drink containing alcohol?: Never 3. How often do you have six or more drinks on one occasion?: Never Total Score: 0 FERNANDA-7 AMB Questionnaire FERNANDA-7 Date FERNANDA - 7 assessed: 01/20/25 Feeling nervous, anxious, or on edge: 0 = Not at all Not being able to stop or control worryin = Not at all Worrying too much about different things: 0 = Not at all Trouble relaxin = Not at all Being so restless that it is hard to sit still: 0 = Not at all Becoming easily annoyed or irritable: 0 = Not at all Feeling afraid as if something awful might happen: 0 = Not at all Total FERNANDA-7 score (0-4 normal; 5-9 mild; 10-14 moderate; 15-21 severe): 0 Source: Developed by Drs. Gómez Grant, Amelie Reza, Huber Hall and colleagues, with an educational adrienne from [employer]. Review of Systems Const Denies poor appetite and Denies weakness Eyes Denies no additional complaints ENT Reports Normal hearing present, Denies dizziness, Denies nasal congestion, Denies tinnitus and Denies sore throat Card Denies chest pain, Denies syncope, Denies rapid heart rate and Denies dyspnea Resp Denies cough and Denies dyspnea GI Denies change in stool character, Reports constipation, Denies diarrhea, Denies nausea and Denies vomiting Denies urinary frequency, Denies difficulty voiding and Denies dysuria Neuro Reports Normal hearing present, Denies confusion, Denies dizziness, Denies syncope and Denies weakness Psych Denies confusion Physical exam (Primary Care) Vital Signs: Last Vital Signs Pulse 71 01/20/25 09:10 BP 102/70 01/20/25 09:10 Pulse Ox 96 01/20/25 09:10 Oxygen Delivery Method Room Air 01/20/25 09:10 BMI result Body Mass Index 39.1 Tobacco/Smoking Status: Tobacco use Status Tobacco use date assessed 01/20/25 01/20/25 09:16 Patient Tobacco Use Status Never used Tobacco 01/20/25 09:16 Tobacco use type Cigarette 01/20/25 09:16 e-Cigarette/Vaping Use Never Used 01/20/25 09:16 PHQ-9: PHQ-9 Score PHQ-9: Total score 0 01/20/25 09:16 Thrive Assessment: Date of Thrive Assessment Date Thrive assessed 01/20/25 01/20/25 09:16 Currently or been in a relationship where the following occur: No concerns reported Const General: No confusion Orientation/consciousness: No confusion HENMT Head: Yes normocephalic Ears: external ears normal and TM's normal bilaterally Face and sinus: Yes normal facial exam Mouth: moist mucous membranes Throat: Yes tonsils normal Eyes Conjunctivae: conjunctivae normal Pupils: Equal, round and reactive pupils present and Pupil accommodation reflex normal Direct Ophthalmoscopy: normal light reflex Neck Neck: No lymphadenopathy Thyroid: Thyroid normal Chest Chest palpation & inspection: normal inspection of the chest Resp Effort & Inspection: normal respiratory effort and no audible wheezes Auscultation: clear to auscultation bilaterally, no crackles, no wheezes and lung sounds not diminished Cardio Rate: regular rate Rhythm: regular rhythm Peripheral pulses: radial pulses present and dorsalis pedis present GI Palpation (GI): no masses Auscultation: normal bowel sounds and normoactive bowel sounds Rectal Exam - Female: deferred Skin General skin exam: no rashes or lesions noted Rashes: no rashes Neuro General: No confusion Cranial nerves: Yes Equal, round and reactive pupils present and Yes Normal hearing present Cognition (Neuro): normal cognition Gait exam (Neuro): Normal gait present Motor exam (neuro): 5/5 motor strength present throughout Deep tendon reflexes (DTR's): Right brachioradialis reflex intensity grade: 2+, Left brachioradialis reflex intensity grade: 2+, Right patellar reflex intensity grade: 2+ and Left patellar reflex intensity grade: 2+ Extrem General: No edema Coding Level of Care Code Est Pt Prev Care >65y(29579) Diagnoses Annual physical exam Z00.00 Type 2 diabetes mellitus with hyperglycemia, without long-term current use of insulin E11.65 Diabetes mellitus care home insulin use: without care home use High cholesterol E78.00 Obesity (BMI 30-39.9) E66.9 Gastroesophageal reflux disease without esophagitis K21.9 Esophagitis presence: without esophagitis Pancreatic mass K86.89 OAB (overactive bladder) N32.81 CLL (chronic lymphocytic leukemia) C91.10 Mild intermittent asthma without complication J45.20 Asthma severity: mild Asthma persistence: intermittent Asthma complication type: uncomplicated Pulmonary nodule R91.1 ALEISHA (obstructive sleep apnea) G47.33 Colon cancer screening Z12.11 Assessment & Plan Assessment & Plan (1) Annual physical exam: Code(s): Z00.00 - Encounter for general adult medical examination without abnormal findings Category: Medical Plan: Patient is advised to eat healthy, keep well hydrated, keep active and have adequate sleep. (2) Type 2 diabetes mellitus with hyperglycemia: Comment: Dr. Valdivia Code(s): E11.65 - Type 2 diabetes mellitus with hyperglycemia Category: Medical Qualifiers: Diabetes mellitus joint terminal attack controller insulin use: without joint terminal attack controller use Qualified Code(s): E11.65 - Type 2 diabetes mellitus with hyperglycemia Plan: Decrease the amount of carbohydrate intake, pasta, bread, rice and potatoes are all sugar and that is aside from all the sweet stuff, remember that fruits are good but they are Sweet also. Hemoglobin A1c goal of less than 7.0 patient is diet controlled (3) High cholesterol: Code(s): E78.00 - Pure hypercholesterolemia, unspecified Category: Medical Plan: Avoid fried foods, chicken skin, eggs, butter margarine, pastries and meat. Be it pork or beef they have a lot of cholesterol LDL goal of less than 100 and triglyceride of less than 150 on simvastatin 10 mg at bedtime (4) Obesity (BMI 30-39.9): Comment: Remains grossly obese and current weight of 198 lbs BMI 38.7 is same as before. Code(s): E66.9 - Obesity, unspecified Category: Medical Plan: Diet and exercise (5) GERD (gastroesophageal reflux disease): Code(s): K21.9 - Gastro-esophageal reflux disease without esophagitis Category: Medical Qualifiers: Esophagitis presence: without esophagitis Qualified Code(s): K21.9 - Gastro-esophageal reflux disease without esophagitis Plan: Avoid the foods that causes that usually spicy foods, tomato products, juices, coffee, soda and foods that your sensitive to. After eating do not lie down, allow 3-4 hours before in lie down. And keep the head of bed above 30 degrees to avoid the acid from going up. (6) Pancreatic mass: Comment: June 2021 sameMRI of the abdomen from 06/24/21: 1. Avascular multicystic lesion pancreatic head under 2 cm similar to prior studies. No lymphadenopathy. 2. Prior cholecystectomy. No ductal dilatation. 3. Small hepatic cysts, stable. June 2022 stable pancreatic cyst Code(s): K86.89 - Other specified diseases of pancreas Category: Medical Plan: Patient is being followed up by hematology oncology and has advised PET scan which is pending (7) OAB (overactive bladder): Code(s): N32.81 - Overactive bladder Category: Medical Plan: Patient follows up with urology and has been placed on oxybutynin 10 mg once a day (8) CLL (chronic lymphocytic leukemia): Code(s): C91.10 - Chronic lymphocytic leukemia of B-cell type not having achieved remission Category: Medical Plan: Continue to follow-up with Hematology-Oncology (9) Asthma: Comment: PATIENT MAY HAVE A MILD DEGREE OF BRONCHIAL ASTHMA. SEEMS TO BE WELL CONTROLLED. Code(s): J45.909 - Unspecified asthma, uncomplicated Category: Medical Qualifiers: Asthma severity: mild Asthma persistence: intermittent Asthma complication type: uncomplicated Qualified Code(s): J45.20 - Mild intermittent asthma, uncomplicated Plan: Patient follows up with Pulmonary continuing with albuterol as needed (10) Pulmonary nodule: Comment: July 2021 CT scan of the chest, findings reviewed with the patient. A few ground-glass densities are stable. 10 MM ground-glass nodule at the surgical scar area from previous surgery ( Resection of Maltoma ) is present. And needs to be monitored. LAST CT SCAN IN 2022, she did have a few new densities. CT SCAN OF THE CHEST 11/28/2024, REPORT NOTED ABOVE. PET SCAN PERFORMED BUT OFFICIAL READING IS PENDING. Code(s): R91.1 - Solitary pulmonary nodule Category: Medical Plan: CT scan done November 2024 advised repeat in 3-6 months follows up with Pulmonary (11) ALEISHA (obstructive sleep apnea): Comment: Patient has mild ALEISHA and excessive snoring, with excessive daytime sleepiness. She is definitely benefiting from the use of CPAP. CPAP full face mask Dream wear , WAS DAMAGED AND SHE IS STILL WAITING TO GET A REPLACEMENT. Code(s): G47.33 - Obstructive sleep apnea (adult) (pediatric) Category: Medical Plan: Continue to use the CPAP more than 4 hours a night and benefits from this (12) Colon cancer screening: Code(s): Z12.11 - Encounter for screening for malignant neoplasm of colon Category: Medical Plan History of Present Illness The patient is a 79-year-old female presenting for a physical examination and management of multiple chronic conditions. The patient has a history of obesity, gastroesophageal reflux disease (GERD), and hypercholesterolemia. She has been diagnosed with asthma and obstructive sleep apnea, for which she uses a CPAP machine. Her history also includes cervical cancer treated in 1983, and she is status post spinal fusion for cervical spinal stenosis. The patient has chronic lymphocytic leukemia (CLL) and a pancreatic mass with an adjacent enlarged lymph node, as well as benign hepatic lesions. She has been advised to follow up with hematology and oncology for further evaluation and management. She reports a history of osteopenia, with the last bone density scan conducted in January 2024. Additionally, she has thyroid nodules that have not required follow-up due to their benign nature. The patient has experienced upper back pain and wrist pain following a fall, with imaging showing soft tissue swelling but no skeletal abnormalities. She also reports symptoms suggestive of a urinary tract infection, including increased frequency of urination at night. Her recent blood work indicates mild thrombocytopenia and leukocytosis, with an elevated blood glucose level of 169 mg/dL and an LDL cholesterol level of 122 mg/dL. She is currently on simvastatin for cholesterol management and has been advised to increase the dose to achieve better control. Health Maintenance - Mammogram is up to date - Colonoscopy is due - Bone density scan conducted in January 2024 - Vaccinations: Up to date except for shingles vaccine - Exercise: Plans to start walking with a neighbor and engage in pool exercises Social History - Exercise: Plans to start walking with a neighbor and engage in pool exercises - Substance Use: Denies alcohol and tobacco use Review of Systems - General: Reports fatigue, denies fever - Respiratory: Reports occasional dyspnea, denies chest pain - Gastrointestinal: Reports nausea after fall, denies vomiting - Genitourinary: Reports nocturia, suspects urinary tract infection - Musculoskeletal: Reports upper back pain and wrist pain from a fall - Neurological: Denies headaches, dizziness, or balance issues Physical Exam General: Cooperative, healthy appearing, comfortable, no acute distress and well developed Orientation: Patient oriented x3 Limitations: No limitations Head: Normal to inspection Ears: Hearing grossly normal bilaterally Nose: Normal external nose present Face and sinus: Normal facial exam Eyes: Appearance normal, both eyes and all related structures Neck: Normal visual inspection and Yes full ROM Respiratory: Normal respiratory effort and able to speak in complete sentences. Clear to auscultation bilaterally Cardiovascular: Regular rate and rhythm. Normal S1 and S2 GI: Normal to inspection. Soft to palpation and nontender Skin: No rashes or lesions noted Neuro: Patient oriented x3 Extremities: Normal to inspection Results - Labs: Mild thrombocytopenia, leukocytosis, elevated blood glucose (169 mg/dL), elevated LDL cholesterol (122 mg/dL) - Imaging: Soft tissue swelling in wrist, no skeletal abnormalities; pancreatic head hypodense lesion with adjacent enlarged lymph node; benign hepatic lesions Plan The patient will continue to follow up with hematology and oncology for the management of chronic lymphocytic leukemia and the pancreatic mass. She is advised to undergo a PET scan for further evaluation of the pancreatic lesion. For hypercholesterolemia, the patient is on simvastatin, and the dose will be increased to achieve an LDL cholesterol goal of less than 100 mg/dL. A repeat cholesterol test is planned in three months, which will be a fasting test. The patient is advised to continue using the CPAP machine for obstructive sleep apnea and to follow up with pulmonary care. She is also encouraged to engage in regular physical activity, including walking and pool exercises, to manage obesity and improve overall health. For the suspected urinary tract infection, a urine test is recommended to confirm the diagnosis. The patient is advised to monitor symptoms and seek medical attention if they worsen. Patient was informed and verbally consented to the use of an ambient scribe for clinic note documentation during this visit. Discussion Notes During the visit, I discussed the importance of managing chronic lymphocytic leukemia and the pancreatic mass with the patient, emphasizing the need for a PET scan to further evaluate the pancreatic lesion. We also talked about the plan to increase the simvastatin dose to better control her LDL cholesterol levels, with a follow-up cholesterol test scheduled in three months. I advised the patient to continue using her CPAP machine for obstructive sleep apnea and to maintain regular physical activity to manage obesity. Additionally, I recommended a urine test to confirm the suspected urinary tract infection and instructed her to seek medical attention if symptoms worsen. Patient Instructions - Continue follow-up with hematology and oncology for CLL and pancreatic mass management. - Undergo PET scan for pancreatic lesion evaluation. - Increase simvastatin dose as prescribed and repeat cholesterol test in three months. - Use CPAP machine regularly for sleep apnea. - Engage in regular physical activity, including walking and pool exercises. - Monitor urinary symptoms and seek medical attention if they worsen. Orders: Orders Lipid Panel 3 Months E78.00 - Pure hypercholesterolemia, unspecified Comprehensive Met. Panel 3 Months E78.00 - Pure hypercholesterolemia, unspecified Hemoglobin A1c 3 Months E78.00 - Pure hypercholesterolemia, unspecified Referrals Gastroenterology Referral Z12.11 - Encounter for screening for malignant neoplasm of colon Medications: New amitriptyline 10 mg PO BEDTIME 90 tabs 1RF simvastatin 20 mg PO BEDTIME 90 tabs 1RF E78.00 - Pure hypercholesterolemia, unspecified Refilled diclofenac sodium 1% (Arthritis Pain (diclofenac)) apply to single knee, ankle, foot; for foot includes sole/toes/top of foot 4 grams topical QID 100 grams 3RF M25.531 - Pain in right wrist clotrimazole 1% 1 appl topical BID 45 grams 1RF 4 weeks B35.3 - Tinea pedis sennosides-docusate sodium 8.6-50 mg (Senna Plus) 2 tab-caps (2 x 8.6-50 mg) PO BEDTIME 60 caps 2RF
== END 2025-01-20 10:03 | disposition home or self-care (01) ==
LOC: HO.HMCH 09:09
PROVIDERS: PCP Internal Medicine; Visit Provider Internal Medicine
DX: Z00.00 Encounter for general adult medical examination without abnormal findings (principal); E11.65 Type 2 diabetes mellitus with hyperglycemia; C91.10 Chronic lymphocytic leukemia of B-cell type not having achieved remission; E66.9 Obesity, unspecified; Z68.39 Body mass index [BMI] 39.0-39.9, adult; E78.00 Pure hypercholesterolemia, unspecified; K21.9 Gastro-esophageal reflux disease without esophagitis; K86.89 Other specified diseases of pancreas; N32.81 Overactive bladder; J45.20 Mild intermittent asthma, uncomplicated; R91.1 Solitary pulmonary nodule; G47.33 Obstructive sleep apnea (adult) (pediatric); Z12.11 Encounter for screening for malignant neoplasm of colon

== ENCOUNTER → 2025-01-20 09:08 | Outpatient (BNVA) | payer MEDICARE, SELFPAY | PROVIDERS: PCP Internal Medicine; Visit Provider Internal Medicine | DX: Z00.00 Encounter for general adult medical examination without abnormal findings (principal); E11.65 Type 2 diabetes mellitus with hyperglycemia; E78.00 Pure hypercholesterolemia, unspecified; K21.9 Gastro-esophageal reflux disease without esophagitis; K86.89 Other specified diseases of pancreas; N32.81 Overactive bladder; J45.20 Mild intermittent asthma, uncomplicated; R91.1 Solitary pulmonary nodule; G47.33 Obstructive sleep apnea (adult) (pediatric); E66.9 Obesity, unspecified; Z68.39 Body mass index [BMI] 39.0-39.9, adult; Z71.3 Dietary counseling and surveillance; Z85.9 Personal history of malignant neoplasm, unspecified | CPT/HCPCS: 99397 ==

== ENCOUNTER 2025-01-25 11:04 | Outpatient (RCR) | payer OTHER, MEDICARE, SELFPAY ==
--- NOTE | 2024-12-21 12:02 | MHC.OT.EP ---
[address] [phone] Occupational Therapy Plan of Care Patient Name: Annita Gu Date of Evaluation: 12/21/24 Diagnosis: Right Wrist Contusion Pain Location: Right radial wrist, tender and zinging to palpate 5/10 nighttime ache 8/10 cramping pain w/ use at times Pain Score: 5 Pain Scale Used: Numeric (0 - 10) Aggravating Factors: Gripping, forceful use, stretching Alleviating Factors: Volteran, Tylenol, heating pad Assessment: 79 yo female tripped and fell on pothole 11/07/24. She was seen in ED and x-ray (-) for acute fractures. She was seen by PCP and referred to hand therapy for management of right wrist pain s/p contusion. 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 She has decreased hand strength but also shows symptoms of ulnar and median neuropathy. She has hx of cervical spine surgery and EMG last year shows ulnar neuropathy, but not median. We will continue hand therapy services and progress as able for full functional return. Frequency and Duration: The patient will be seen 2x/wk for 6 weeks Short Term Goals: Ind w/ nighttime orthosis wear Ind w/ HEP Initiate desensitization program Federal Law Clerk Goals: Gross grasp >40lb Full pain free AROM right wrist Wean from orthosis wear QuickDASH score <30 pts Treatment Plan: Therapeutic Exercise Therapeutic Activity Home Exercise Program Splinting Neuro Re-ed Patient Education Desensitization/Sensory Re-ed Edema Control ADL Training Ultrasound NMES Iontophoresis Paraffin Fluidotherapy MHP Cold Packs Joint Mobilization Soft Tissue Mobilization Kinesiotaping Nighttime thumb spica Electronically Signed By: Lulu Zuleta OTR/L CHT Please Sign and return to therapist. Thank you once again for your referral.
--- NOTE | 2025-01-16 11:58 | MHC.OT.OP ---
[address] [phone] F: [phone] Occupational Therapy Progress Note Patient Name: Annita Gu Diagnosis: Right Wrist Contusion Date of Evaluation: 12/21/24 Treatments to Date: 8 Subjective: It's getting better (re: right wrist pain) I had a fall over the weekend, my legs just felt weak and I just feel tired Pain Score: 3 Pain Location: right radial wrist - DRSN Objective Measures: Wrist AROM WFL Gross grasp R 45lb L 60lb Status: Progressing Assessment: Annita was referred to OT for right radial wrist injury w/ tendon strain and radial nerve irritation. She is doing well w/ overall low pain. Good ROM and improving strength, and we are continuing w/ strengthening. She has noted several falls and reports some weakness in knees and ankles. We have two more visits left for hand therapy and I anticipate we will discharge to self management and home program next week. Short Term Goals: Ind w/ nighttime orthosis wear (met) Ind w/ HEP (met) Initiate desensitization program (met) Product Safety Technical Assistant Goals: Gross grasp >40lb (met) Full pain free AROM right wrist (met) Wean from orthosis wear QuickDASH score <30 pts Frequency and Duration: The patient will be seen 2x/wk for 1 week Treatment Plan: Therapeutic Exercise Therapeutic Activity Home Exercise Program Splinting Neuro Re-ed Patient Education Desensitization/Sensory Re-ed Edema Control ADL Training Ultrasound Paraffin Fluidotherapy MHP Cold Packs Joint Mobilization Soft Tissue Mobilization Kinesiotaping Nighttime thumb spica Electronically Signed By: Lulu Zuleta, OTR/L CHT Reviewed/agree with student documentation: Therapist:
--- NOTE | 2025-02-23 13:56 | MHC.OT.DC ---
[address] [phone] F: [phone] Occupational Therapy Discharge Note Patient Name: Annita Gu Provider: Dr Constantine Lara Diagnosis: Right Wrist Contusion Date of Evaluation: 12/21/24 Treatments to Date: 10 Discharge Status: Achieved Goals Improved Function Independent with HEP Discharge Summary: Annita was referred to OT s/p right wrist injury and has complete course of therapy. She is doing well overall, continues to show improvements with strength. Still reporting mild/moderate pain and tingling at any given time and still wearing orthosis and modifying activity. Ind w/ home program at this time, no further outpatient services needed. Electronically Signed By: Lulu Zuleta OTR/L CHT Reviewed/agree with student documentation: Therapist: Please Sign and return to therapist, thank you for your referral.
== END 2025-02-23 13:56 | disposition home or self-care (01) ==
LOC: HO.OT 11:04
PROVIDERS: PCP Internal Medicine; Visit Provider Internal Medicine
DX: M25.531 Pain in right wrist (principal)
CPT/HCPCS: 29125; 97110; 97140; 97165; 97760

== ENCOUNTER 2025-04-14 09:01 | Outpatient (REF) | payer MEDICARE, SELFPAY ==
--- OUTSIDE RECORDS SUMMARY | 2025-04-14 09:54 | XMS_ITS | Patient Health Record ---
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 Name Role Phone Constantine Lara MD Primary Care Provider Gómez Matthews [phone] Allergies Allergen (clinical drug ingredient) Drug/Non Drug Allergy documented on EMR Reaction Allergy Type Onset Date Status Penicillin Unknown Drug Allergy Active acetaminophen / oxycodone Percocet Unknown Drug Allergy Active meperidine Demerol Unknown Drug Allergy Active Codeine Phosphate Unknown Drug Allergy Active strawberry allergenic extract strawberries (uncoded) Unknown Allergy Activ e Sulfa Unknown Drug Allergy Active Reason For Referral No Information Medications Medication SIG (Take, Route, Frequency, Duration) Notes Start Date End Date Status Amitriptyline HCl 10 MG 1 tablet at bedt miguelina Orally Once a day Active Ibuprofen 800 MG 1 tablet Orally Thre e times a day Not-Taking Vitamin D3 90160 UNIT 1 capsule Orally e very week Active Stool Softener 100 MG 1 capsule as neede d Orally Once a day for 30 day(s) Active Qvar 40 MCG/ACT 1 puff Inhalation Twice a day Not-Taking Simvastatin 10 MG 1 tablet in the evening Orally Once a day Active traMADol HCl 10 MG/ML Orally as needed Active ProAir HFA 108 (90 Base) MCG/ACT 2 puffs as needed Inhalation every 4 hrs Active Immunizations Vaccine Route Administration Date Status Comme nts Flu vaccine no Preserv 3 and > Unknown 08/08/2014 Admin istered Influenza Unknown 05/03/2019 Administered Problems Problem Type SNOMED Code ICD Code Onset Dates Problem Status W/U Status Risk Notes Problem 245456447 Encounter for screening for malignant neoplasm of colon (Z12.11) Active confirmed Problem 336708989213790 Preprocedural examination (Z01.818) Active confirmed Problem 530841756 Abdominal pain, RLQ (R10.31) Active confirmed Problem 28873660 Constipation, unspecified constipation type (K59.00) Active confirmed Problem 996454563 Hx of adenomatou s colonic polyps (Z86.010) Active confirmed Plan Of Treatment Future Test Test Name Order Date UPPER GI ENDOSCOPY 12/14/2014 COLONOSCOPY 12/14/2014 COLONOSCOPY 03/06/2020 Next Appt Details Provider Name:Gómez Mejia , 05/30/2025 11:10:00 AM, [address], [address], [place], [address], Insurance Providers Payer Name Payer Address Payer Phone Subscriber Number Group Number Insured Name Patient Relationship to Insured Coverage Start Date Coverage End Date [facility] [id number] [place] [address] [id number] TORIBIO SANCHEZ Self - patient is the insured Medical (General) History Medical History History ICD Code 1 small tubular adenoma ramírez dagmar in 1999--then had negative colonoscopies in 2002 and 10/2008; neg colonoscopy in 03/2015 Denies MO,DM,CVA,renal disease SVT Asthma Cervical cancer--cryosurgery Hyperlipidemia Uses amitryptilene for panic attacks and sleep Occasional GERD-EGD in 2014-small HH, no esophagitis nor 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 Schwartz Urinary incontinence Incidental 1.5cm pancreas ma ss seen on imaging studies since at least [address], MRI, and PET-CT's-sees Dr. Coto--did not do an EUS as the mass as been unchanged since at least 2016 Sleep apnea--not using a CPAP Surgical History Surgery Date(Month/Year) Tubal ligation Cholecystectomy 2005 Vocal cord polyp removal Cryosurgery for cervical cancer Right knee arthroscopy Right middle lobe lung [id number] mphoma
[2025-04-14 10:22] LABS: Hemoglobin A1C 154.7370 umol/L; Total Hemoglobin (HGBA1C) 3509.5319 umol/L
[2025-04-14 10:23] LABS: Alanine Aminotransferase 26 U/L (0-31); Albumin Level 4.1 g/dL (3.5-5.0); Alkaline Phosphatase 88 U/L (39-117); Anion Gap 11 (12-20); Aspartate Amino Transferase 35 U/L (5-31); Blood Urea Nitrogen 11 mg/dL (9-16); Calcium 9.4 mg/dL (8.4-10.2); Carbon Dioxide 29 mmol/L (22-29); Chloride 106 mmol/L (96-108); Cholesterol 206 mg/dL (<200); Estimated Glomerular Filt Rate 46; HDL Cholesterol 42 mg/dL (>40); Potassium 4.2 mmol/L (3.3-5.1); Sodium 142 mmol/L (135-145); Total Protein 7.1 g/dL (6.5-8.0); Triglycerides 96 mg/dL (<150)
== END 2025-04-14 09:02 | disposition home or self-care (01) ==
LOC: HO.LAB 09:01
PROVIDERS: PCP Internal Medicine; Visit Provider Internal Medicine Medical Oncology
DX: E78.00 Pure hypercholesterolemia, unspecified (principal); Z13.1 Encounter for screening for diabetes mellitus
CPT/HCPCS: 36415; 80053; 80061; 83036

== ENCOUNTER 2025-04-24 09:07 | Outpatient (REF) | payer MEDICARE, SELFPAY ==
--- NOTE | ~2025-04-24 | MM_ITS ---
EXAMINATION: MM SCREENING DIGITAL BREAST TOMOSYNTHESIS, BILATERAL CLINICAL INFORMATION: Screening. Asymptomatic. COMPARISON: Comparison made to multiple prior, most recent April 18, 2024, and most remote September 26, 2020. TECHNIQUE: Digital breast tomosynthesis is performed in mediolateral oblique and craniocaudal views along with computer-aided detection (CAD). Synthesized 2D images are generated from the tomosynthesis. FINDINGS: BREAST COMPOSITION: There are scattered areas of fibroglandular density (ACR BI-RADS breast composition Category b). BILATERAL BREASTS: No significant masses, suspicious calcifications or other abnormalities are seen in either breast. MM/MM tomosynthesis screening BI IMPRESSION: BILATERAL BREASTS: Negative, no mammographic evidence of malignancy. Normal interval follow-up is recommended in 12 months. ASSESSMENT: BI-RADS 1 - Negative RECOMMENDATION: Routine annual mammography screening. FOLLOW-UP: 1 year F/U This examination should not preclude the clinical evaluation of a suspicious palpable abnormality. This patient's information was entered into a reminder system with a target due date for their next mammogram. Electronically signed by: Johanna Doe MD 04/25/2025 03:41 PM EDT
== END 2025-04-24 09:08 | disposition home or self-care (01) ==
LOC: HO.MAMMO 09:07
PROVIDERS: PCP Internal Medicine; Visit Provider Advanced Practice Midwife
DX: Z12.31 Encounter for screening mammogram for malignant neoplasm of breast (principal)
CPT/HCPCS: 77063; 77067

== ENCOUNTER → 2025-04-24 09:15 | Outpatient (BNV) | payer MEDICARE, SELFPAY | PROVIDERS: PCP Internal Medicine; Visit Provider Radiology Body Imaging | DX: Z12.31 Encounter for screening mammogram for malignant neoplasm of breast (principal) | CPT/HCPCS: 77063; 77067 ==

== ENCOUNTER 2025-05-26 10:50 | Outpatient (AMB) | payer MEDICARE, SELFPAY ==
--- NOTE | 2025-05-26 10:54 | MHC.PC.OV ---
Vital Signs 05/26/25 10:55 Height 5 ft Weight 202 lb 6 oz BMI 39.5 BP 148/78 H Blood Pressure Location Lt brachial Position Sitting Pulse 93 Pulse Source Pulse Oximeter Temp 97.0 F Temp Source Temporal Artery Scan Pulse Oximetry (%) 96 Oxygen Delivery Method Room Air Intake Visit Reasons: DM - see comments Allergies meperidine (Demerol) Allergy (Intermediate, Verified 05/26/25 10:57) bradycardia strawberry (STRAWBERRY) Allergy (Intermediate, Verified 05/26/25 10:57) HIVES Penicillins Allergy (Mild, Verified 05/26/25 10:57) Rash Sulfa (Sulfonamide Antibiotics) (Sulfa (Sulfonamides)) Allergy (Mild, Verified 05/26/25 10:57) Rash codeine (Codeine) Adverse Reaction (Intermediate, Verified 05/26/25 10:57) HALLUCINATION oxycodone (From Percocet) Adverse Reaction (Mild, Verified 05/26/25 10:57) VOMITING Medication List - Last Reconciled 05/26/25 by Constantine Lara MD albuterol sulfate 90 mcg/actuation 2 puffs PO Q4-6H PRN amitriptyline 10 mg PO BEDTIME [AUTO PAP 6-20 cm H2O humidified AIR As directed] cholecalciferol (vitamin D3) (Vitamin D3) 50 mcg PO QAM clotrimazole 1% 1 appl topical BID 4 weeks diclofenac sodium 1% (Arthritis Pain (diclofenac)) 4 grams topical QID fluticasone propionate 50 mcg/actuation 2 sprays intranasal DAILY furosemide 20 mg PO QAM [LIFE ALERT SYSTEM As directed] magnesium gluconate (Mag-G) 27 mg PO DAILY multivitamin (One-A-Day Essential tablet) 1 tab PO QAM omeprazole 20 mg PO BEDTIME 90 days oxybutynin chloride ER 10 mg PO DAILY sennosides-docusate sodium 8.6-50 mg (Senna Plus) 2 tab-caps (2 x 8.6-50 mg) PO BEDTIME simvastatin 20 mg PO BEDTIME trazodone 50 mg PO BEDTIME PRN vitamin Y77-xksit acid 500-400 mcg 1 tab PO DAILY Tobacco use date assessed: 05/26/25 Fall risk assessment: No Falls in past year Last assessed Fall Risk: 05/26/25 Dental Screening Dental Screen Date: 05/26/25 Did you have a dental visit in the last 12 months?: No Did you have a dental problem in the last 6 months where you did not have access to dental care?: No Was dental information given to patient?: No PFSH Medical History CLL (chronic lymphocytic leukemia) Diabetes Elevated blood sugar Bilateral finger numbness Calcification of ovary Leukocytosis (leucocytosis) Asthma exacerbation Renal cyst Allergic rhinitis Restrictive lung disease Impaired fasting blood sugar Blood pressure elevated without history of HTN Hypersomnolence ALEISHA (obstructive sleep apnea) Obesity (BMI 30-39.9) Urge incontinence of urine Cervical cancer Pancreatic mass Osteopenia GERD (gastroesophageal reflux disease) Adnexal mass MALT lymphoma Obesity (BMI 30-39.9) Vitamin D deficiency Tubular adenoma of colon History of supraventricular tachycardia Breast density Anxiety High cholesterol Migraine headache Asthma Hyperlipemia Surgical History Hx of cervical spine surgery History of esophagogastroduodenoscopy (EGD) H/O colonoscopy Hx of tubal ligation History of vocal cord polypectomy Hx of dilation and curettage Hx of pneumonectomy H/O arthroscopy of right knee Hx of cholecystectomy Family History Father Colon cancer Sister Colon cancer Myocardial infarct Sister History of breast cancer Colon cancer Sister Thyroid cancer Social History Household Members: None Housing: Apartment Are you a primary foster care worker to a significant other at home: No Do you presently have visiting nurse or other home services: No Alcohol intake: never Comment: twice a year Patient Tobacco Use Status: Never used Tobacco Tobacco use type: Cigarette e-Cigarette/Vaping Use: Never Used Second Hand Smoke Exposure: No service: Yes Current occupational status: retired Current occupational exposures/hazards: No Cognitive needs: No Hearing needs: No Vision needs: No Female Reproductive History Menstrual Age of Menarche: 17 Questionnaire PHQ-9 Over the last 2 weeks, how often have you been bothered by any of the following problems? 1. Little interest or pleasure in doing things: not at all 2. Feeling down, depressed, or hopeless: not at all 3. Trouble falling or staying asleep, or sleeping too much: not at all 4. Feeling tired or having little energy: not at all 5. Poor appetite or overeating: not at all 6. Feeling bad about yourself - or that you are a failure or have let yourself or your family down: not at all 7. Trouble concentrating on things, such as reading the newspaper or watching television: not at all 8. Moving or speaking so slowly that other people could have noticed. Or the opposite - being so fidgety or restless that you have been moving around a lot more than usual: not at all 9. Thoughts that you would be better off or of hurting yourself in some way: not at all Total score: 0 Source: Developed by Drs. Gómez Grant, Amelie Reza, Huber Hall and colleagues, with an educational adrienne from [employer]. Thrive Questionnaire Date Thrive assessed: 01/20/25 I am a: Patient What is your living situation today?: I have a steady place to live Within the past 12 months, did the food you bought not last and you didn't have the money to get more?: Sometimes True Within the past 12 months, did you worry whether your food would run out before you got money to buy more?: Sometimes True Do you have trouble paying for medicines?: Yes Do you have trouble getting transportation to medical appointments?: No Do you have trouble paying your heating and electricity bill?: Yes Do you have trouble taking care of your child, family member or friend?: No Do you have trouble with day-to-day activities such as bathing, preparing meals, shopping, managing finances, etc.?: No Are you currently unemployed and looking for a job?: Yes Are you interested in more education?: No Please select the resources that you would like help with: None Currently or been in a relationship where the following occur: No concerns reported THRIVE Score: 3 AUDIT C Alcohol Use Questionnaire (AUDIT-C) 1. How often do you have a drink containing alcohol?: Never 3. How often do you have six or more drinks on one occasion?: Never Total Score: 0 FERNANDA-7 AMB Questionnaire FERNANDA-7 Date FERNANDA - 7 assessed: 01/20/25 Feeling nervous, anxious, or on edge: 0 = Not at all Not being able to stop or control worryin = Not at all Worrying too much about different things: 0 = Not at all Trouble relaxin = Not at all Being so restless that it is hard to sit still: 0 = Not at all Becoming easily annoyed or irritable: 0 = Not at all Feeling afraid as if something awful might happen: 0 = Not at all Total FERNANDA-7 score (0-4 normal; 5-9 mild; 10-14 moderate; 15-21 severe): 0 Source: Developed by Drs. Gómez Grant, Amelie Reza, Huber Hall and colleagues, with an educational adrienne from [employer]. Physical exam (Primary Care) Vital Signs: Last Vital Signs Temp 97.0 F 05/26/25 10:55 Pulse 93 05/26/25 10:55 BP 148/78 H 05/26/25 10:55 Pulse Ox 96 05/26/25 10:55 Oxygen Delivery Method Room Air 05/26/25 10:55 BMI result Body Mass Index 39.5 Tobacco/Smoking Status: Tobacco use Status Tobacco use date assessed 05/26/25 05/26/25 10:58 Patient Tobacco Use Status Never used Tobacco 05/26/25 10:58 Tobacco use type Cigarette 05/26/25 10:58 e-Cigarette/Vaping Use Never Used 05/26/25 10:58 PHQ-9: PHQ-9 Score PHQ-9: Total score 0 05/26/25 11:30 Thrive Assessment: Date of Thrive Assessment Date Thrive assessed 01/20/25 05/26/25 10:58 Currently or been in a relationship where the following occur: No concerns reported Const General: alert; No acute distress Eyes Conjunctivae: conjunctivae normal Resp Auscultation: clear to auscultation bilaterally Cardio Rate: regular rate Rhythm: regular rhythm GI Inspection: Yes normal to inspection Extrem General: Yes normal to inspection and No edema Coding Level of Care Code Est Pt Level 4 (28450) Complex EM visit Add On G2211 Diagnoses Elevated blood pressure reading without diagnosis of hypertension R03.0 High cholesterol E78.00 Type 2 diabetes mellitus with hyperglycemia, without long-term current use of insulin E11.65 Diabetes mellitus [facility] insulin use: without [facility] use Morbid obesity E66.01 Generalized anxiety disorder F41.1 Gastroesophageal reflux disease without esophagitis K21.9 Esophagitis presence: without esophagitis Pancreatic mass K86.89 Colon cancer screening Z12.11 CLL (chronic lymphocytic leukemia) C91.10 Mild intermittent asthma without complication J45.20 Asthma complication type: uncomplicated Asthma persistence: intermittent Asthma severity: mild ALEISHA (obstructive sleep apnea) G47.33 Assessment & Plan Assessment & Plan (1) Elevated blood pressure reading without diagnosis of hypertension: Code(s): R03.0 - Elevated blood-pressure reading, without diagnosis of hypertension Category: Medical Plan: Advised to monitor blood pressure concern about sleep apnea (2) High cholesterol: Code(s): E78.00 - Pure hypercholesterolemia, unspecified Category: Medical Plan: Avoid fried foods, chicken skin, eggs, butter margarine, pastries and meat. Be it pork or beef they have a lot of cholesterol LDL goal of less than 100 and triglyceride of less than 150 on simvastatin 20 mg (3) Type 2 diabetes mellitus with hyperglycemia: Comment: Dr. Valdivia Code(s): E11.65 - Type 2 diabetes mellitus with hyperglycemia Category: Medical Qualifiers: Diabetes mellitus [facility] insulin use: without [facility] use Qualified Code(s): E11.65 - Type 2 diabetes mellitus with hyperglycemia Plan: Decrease the amount of carbohydrate intake, pasta, bread, rice and potatoes are all sugar and that is aside from all the sweet stuff, remember that fruits are good but they are Sweet also. Hemoglobin A1c goal of less than 7.0. Did discuss about increasing A1c (4) Morbid obesity: Code(s): E66.01 - Morbid (severe) obesity due to excess calories Category: Medical Plan: Diet and exercise (5) Generalized anxiety disorder: Comment: Panic attacks Code(s): F41.1 - Generalized anxiety disorder Category: Medical Plan: Continue with present medication (6) GERD (gastroesophageal reflux disease): Code(s): K21.9 - Gastro-esophageal reflux disease without esophagitis Category: Medical Qualifiers: Esophagitis presence: without esophagitis Qualified Code(s): K21.9 - Gastro-esophageal reflux disease without esophagitis Plan: Avoid the foods that causes that usually spicy foods, tomato products, juices, coffee, soda and foods that your sensitive to. After eating do not lie down, allow 3-4 hours before in lie down. And keep the head of bed above 30 degrees to avoid the acid from going up. (7) Pancreatic mass: Comment: June 2021 sameMRI of the abdomen from 06/24/21: 1. Avascular multicystic lesion pancreatic head under 2 cm similar to prior studies. No lymphadenopathy. 2. Prior cholecystectomy. No ductal dilatation. 3. Small hepatic cysts, stable. June 2022 stable pancreatic cyst Code(s): K86.89 - Other specified diseases of pancreas Category: Medical Plan: Patient will have surveillance (8) Colon cancer screening: Code(s): Z12.11 - Encounter for screening for malignant neoplasm of colon Category: Medical Plan: Reminded about colonoscopy (9) CLL (chronic lymphocytic leukemia): Code(s): C91.10 - Chronic lymphocytic leukemia of B-cell type not having achieved remission Category: Medical Plan: No indication for treatment as per Hematology-Oncology (10) Asthma: Comment: PATIENT MAY HAVE A MILD DEGREE OF BRONCHIAL ASTHMA. SEEMS TO BE WELL CONTROLLED. Code(s): J45.909 - Unspecified asthma, uncomplicated Category: Medical Qualifiers: Asthma complication type: uncomplicated Asthma persistence: intermittent Asthma severity: mild Qualified Code(s): J45.20 - Mild intermittent asthma, uncomplicated Plan: Continue with albuterol inhaler as needed (11) ALEISHA (obstructive sleep apnea): Comment: Patient has mild ALEISHA and excessive snoring, with excessive daytime sleepiness. She is definitely benefiting from the use of CPAP. CPAP full face mask Dream wear , WAS DAMAGED AND SHE IS STILL WAITING TO GET A REPLACEMENT. Code(s): G47.33 - Obstructive sleep apnea (adult) (pediatric) Category: Medical Plan: Discussed about continuing to use the CPAP more than 4 hours a night and benefits from this. Plan History of Present Illness The patient is a 79-year-old female presenting for a routine follow-up and management of multiple chronic conditions. The patient has a history of obesity with a BMI of 39.5, which has been a persistent issue. She also has hypercholesterolemia, managed with simvastatin 20 mg, with a recent cholesterol level of 145 mg/dL. The patient suffers from gastroesophageal reflux disease (GERD) and asthma, both of which are managed with medication. She also has obstructive sleep apnea, for which she uses a CPAP machine regularly, more than 4 hours a night. Osteopenia was noted with the last bone density scan in January 2024, and the patient is advised to continue monitoring. A pancreatic mass was identified in 2020, and it has been monitored with no current indication for intervention. The patient has generalized anxiety disorder and overactive bladder, both of which are being managed with ongoing treatment. Chronic lymphocytic leukemia is present, with regular follow-ups in hematology oncology, and no current indication for therapy. Diabetes mellitus is managed with a goal of maintaining hemoglobin A1c below 7.0, with the last recorded A1c at 6.2 in April 2025. Preventative care measures include a mammogram and colonoscopy, both of which are due, while the bone density is up to date. Health Maintenance - Mammogram due - Colonoscopy due - Bone density up to date Social History Review of Systems Physical Exam Results - Labs: Elevated leukocytosis, normal blood sugar, hemoglobin A1c at 6.2, normal electrolytes, normal renal function, good liver numbers, no proteinuria - Imaging: CAT scan of chest for pancreatic mass monitoring Plan Patient was informed and verbally consented to the use of an ambient scribe for clinic note documentation during this visit. 1. Obesity The patient is advised to monitor weight and engage in regular physical activity to manage obesity. 2. Hypercholesterolemia The patient is on simvastatin 20 mg with a goal to maintain LDL cholesterol below 100 mg/dL and triglycerides below 150 mg/dL. 3. Gastroesophageal Reflux Disease (Gerd) The patient is advised to continue current medication and dietary modifications to manage GERD symptoms. 4. Asthma The patient is advised to continue using the albuterol inhaler as needed. 5. Obstructive Sleep Apnea The patient is encouraged to continue using the CPAP machine for more than 4 hours a night to manage obstructive sleep apnea. 6. Osteopenia The patient is advised to continue monitoring bone density and follow up as needed. 7. Pancreatic Mass The pancreatic mass is being monitored with no current indication for intervention. 8. Generalized Anxiety Disorder The patient is advised to continue current management for generalized anxiety disorder. 9. Overactive Bladder The patient is advised to continue current management for overactive bladder. 10. Chronic Lymphocytic Leukemia The patient is under regular follow-up with hematology oncology, with no current indication for therapy. 11. Diabetes Mellitus The patient is advised to maintain hemoglobin A1c below 7.0 through diet, exercise, and current medication. Discussion Notes During the visit, we discussed the management of the patient's chronic conditions, including obesity, hypercholesterolemia, GERD, asthma, obstructive sleep apnea, osteopenia, pancreatic mass, generalized anxiety disorder, overactive bladder, chronic lymphocytic leukemia, and diabetes mellitus. We emphasized the importance of regular follow-ups, medication adherence, and lifestyle modifications to manage these conditions effectively. Patient Instructions - Monitor weight and engage in regular physical activity. - Continue simvastatin 20 mg to manage cholesterol levels. - Follow dietary modifications and take medications for GERD. - Use albuterol inhaler as needed for asthma. - Use CPAP machine for more than 4 hours a night for sleep apnea. - Continue monitoring bone density. - Follow up with hematology oncology for chronic lymphocytic leukemia. - Maintain hemoglobin A1c below 7.0 through diet, exercise, and medication. Orders: Orders Complete Blood Count Auto Diff 2 Months E11.65 - Type 2 diabetes mellitus with hyperglycemia Lipid Panel 2 Months E11.65 - Type 2 diabetes mellitus with hyperglycemia, E78.00 - Pure hypercholesterolemia, unspecified Comprehensive Met. Panel 2 Months E11.65 - Type 2 diabetes mellitus with hyperglycemia Hemoglobin A1c 2 Months E11.65 - Type 2 diabetes mellitus with hyperglycemia
[2025-05-26 10:55] VITALS: BP 148/78; PULSE 93; TEMP 36.1; O2SAT 96; BMI 39.5
== END 2025-05-26 11:48 | disposition home or self-care (01) ==
LOC: HO.HMCH 10:51
PROVIDERS: PCP Internal Medicine; Visit Provider Internal Medicine
DX: E11.65 Type 2 diabetes mellitus with hyperglycemia (principal); E66.01 Morbid (severe) obesity due to excess calories; C91.10 Chronic lymphocytic leukemia of B-cell type not having achieved remission; Z68.39 Body mass index [BMI] 39.0-39.9, adult; R03.0 Elevated blood-pressure reading, without diagnosis of hypertension; E78.00 Pure hypercholesterolemia, unspecified; F41.1 Generalized anxiety disorder; K21.9 Gastro-esophageal reflux disease without esophagitis; K86.89 Other specified diseases of pancreas; Z12.11 Encounter for screening for malignant neoplasm of colon; J45.20 Mild intermittent asthma, uncomplicated; G47.33 Obstructive sleep apnea (adult) (pediatric)

== ENCOUNTER → 2025-05-26 10:50 | Outpatient (BNVA) | payer MEDICARE, SELFPAY | PROVIDERS: PCP Internal Medicine; Visit Provider Internal Medicine | DX: R03.0 Elevated blood-pressure reading, without diagnosis of hypertension (principal); E78.00 Pure hypercholesterolemia, unspecified; E11.65 Type 2 diabetes mellitus with hyperglycemia; E66.01 Morbid (severe) obesity due to excess calories; Z68.39 Body mass index [BMI] 39.0-39.9, adult; F41.1 Generalized anxiety disorder; K21.9 Gastro-esophageal reflux disease without esophagitis; K86.89 Other specified diseases of pancreas; C91.10 Chronic lymphocytic leukemia of B-cell type not having achieved remission; J45.20 Mild intermittent asthma, uncomplicated; G47.33 Obstructive sleep apnea (adult) (pediatric); Z71.3 Dietary counseling and surveillance | CPT/HCPCS: 99212 ==

== ENCOUNTER 2025-06-13 11:30 | Outpatient (AMB) | payer MEDICARE, SELFPAY ==
[2025-06-13 11:37] VITALS: BP 130/70; PULSE 71; O2SAT 99; BMI 39.1
--- NOTE | 2025-06-13 11:37 | MHC.OFFVIS ---
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: Steel Finisher offered & declined Allergies meperidine (Demerol) Allergy (Intermediate, Verified 06/13/25 11:44) bradycardia strawberry (STRAWBERRY) Allergy (Intermediate, Verified 06/13/25 11:44) HIVES Penicillins Allergy (Mild, Verified 06/13/25 11:44) Rash Sulfa (Sulfonamide Antibiotics) (Sulfa (Sulfonamides)) Allergy (Mild, Verified 06/13/25 11:44) Rash codeine (Codeine) Adverse Reaction (Intermediate, Verified 06/13/25 11:44) HALLUCINATION oxycodone (From Percocet) Adverse Reaction (Mild, Verified 06/13/25 11:44) VOMITING Medication List - Last Reconciled 06/13/25 by Deepak Morales MD albuterol sulfate 90 mcg/actuation 2 puffs PO Q4-6H PRN amitriptyline 10 mg PO BEDTIME [AUTO PAP 6-20 cm H2O humidified AIR As directed] cholecalciferol (vitamin D3) (Vitamin D3) 50 mcg PO QAM clotrimazole 1% 1 appl topical BID 4 weeks diclofenac sodium 1% (Arthritis Pain (diclofenac)) 4 grams topical QID fluticasone propionate 50 mcg/actuation 2 sprays intranasal DAILY furosemide 20 mg PO QAM [LIFE ALERT SYSTEM As directed] magnesium gluconate (Mag-G) 27 mg PO DAILY multivitamin (One-A-Day Essential tablet) 1 tab PO QAM omeprazole 20 mg PO BEDTIME 90 days oxybutynin chloride ER 10 mg PO DAILY sennosides-docusate sodium 8.6-50 mg (Senna Plus) 2 tab-caps (2 x 8.6-50 mg) PO BEDTIME simvastatin 20 mg PO BEDTIME trazodone 50 mg PO BEDTIME PRN Do you need a note to return to daycare/school/sports/work: No HPI HPI Dyspnea: Details: 79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 JAMIA SHELBY HAS BEEN FEELING WELL EXCEPT INTERMITTENT BOUTS OF COUGH AND SOME DISCOMFORT IN THE CHEST. SHE IS OVERCOMING ABOUT 3 WEEKS OF CHEST CONGESTION. NOW THE EXPECTORATION IS YELLOWISH IN COLOR. SHE IS NOT USING THE CPAP BECAUSE OF THE MASK BEING WORN OUT AND SHE HAS NOT BEEN ABLE TO GET A NEW MASK. BUT SHE CLAIMS THAT SHE SLEEPS OKAY . TORIBIO IS ALSO BEING FOLLOWED UP FOR A PULMONARY NODULE, . SHE HAD A CT SCAN IN NOVEMBER OF THIS YEAR AND A REPEAT CT SCAN IN 6 MONTHS WAS RECOMMENDED . [facility] Medical History CLL (chronic lymphocytic leukemia) Diabetes Elevated blood sugar Bilateral finger numbness Calcification of ovary Leukocytosis (leucocytosis) Asthma exacerbation Renal cyst Allergic rhinitis Restrictive lung disease Impaired fasting blood sugar Blood pressure elevated without history of HTN Hypersomnolence ALEISHA (obstructive sleep apnea) Obesity (BMI 30-39.9) Urge incontinence of urine Cervical cancer Pancreatic mass Osteopenia GERD (gastroesophageal reflux disease) Adnexal mass MALT lymphoma Obesity (BMI 30-39.9) Vitamin D deficiency Tubular adenoma of colon History of supraventricular tachycardia Breast density Anxiety High cholesterol Migraine headache Asthma Hyperlipemia Surgical History Hx of cervical spine surgery History of esophagogastroduodenoscopy (EGD) H/O colonoscopy Hx of tubal ligation History of vocal cord polypectomy Hx of dilation and curettage Hx of pneumonectomy H/O arthroscopy of right knee Hx of cholecystectomy Family History Father Colon cancer Sister Colon cancer Myocardial infarct Sister History of breast cancer Colon cancer Sister Thyroid cancer Social History Household Members: None Housing: Apartment Are you a primary lead caregiver to a significant other at home: No Do you presently have visiting nurse or other home services: No Alcohol intake: never Comment: twice a year Patient Tobacco Use Status: Never used Tobacco Tobacco use type: Cigarette e-Cigarette/Vaping Use: Never Used Second Hand Smoke Exposure: No service: Yes Current occupational status: retired Current occupational exposures/hazards: No Cognitive needs: No Hearing needs: No Vision needs: No Female Reproductive History Menstrual Age of Menarche: 17 Review of Systems Const All systems reviewed & are unremarkable except as noted in HPI and below Eyes Reports no additional complaints ENT Reports no additional complaints and Reports nasal congestion (Especially at night) Card Denies chest pain, Denies irregular heart rhythm and Denies leg edema Resp Reports as per HPI GI Reports bloating and Reports heartburn Reports no additional complaints Musc Reports back pain and Reports arthralgias (knees ) Skin/Breast Reports system reviewed and no additional complaints, except as documented Neuro Reports no additional complaints Psych Reports no additional complaints Physical Exam Vital Signs: Last Vital Signs Pulse 71 06/13/25 11:37 BP 130/70 06/13/25 11:37 Pulse Ox 99 06/13/25 11:37 Oxygen Delivery Method Room Air 06/13/25 11:37 BMI result Body Mass Index 39.1 Const General: comfortable, no acute distress, alert and awake Orientation/consciousness: patient oriented x3 HEENT Head: Yes normal to inspection General nose exam: No nasal polyps present, No nasal discharge present and Abnormal mucous membranes and turbinates present (She has marked hypertrophy of the nasal turbinates) Face and sinus: Yes sinuses nontender Mouth: oropharynx abnormals (Oropharynx remains crowded, Mallampati class 4) Throat: Yes posterior oropharynx normal Eyes General: appearance normal, both eyes and all related structures Neck Neck: Yes normal visual inspection, Yes no lymphadenopathy, Yes trachea midline, Yes no JVD and Yes other (Neck is obese and short) Thyroid: Thyroid normal Chest Chest palpation & inspection: normal inspection of the chest, normal palpation of entire chest wall and no tenderness Resp Other: Percussion note resonant, breath sounds are decreased over the basilar areas, No wheezes rhonchi or crepitations are heard today. Cardio Palpation: normal PMI Rate: regular rate Rhythm: regular rhythm Heart sounds: no gallops and no murmurs Peripheral pulses: Peripheral pulses 2+ throughout GI Palpation (GI): Soft to palpation, nontender, No hepatosplenomegaly present, no masses and Other GI palpation findings present (Abdomen is grossly obese) Auscultation: normal bowel sounds Back/Spine/Pelvis Thoracic/Lumbar Spine: thoracic and lumbar spine normal to inspection and thoraco-lumbar ROM limited Skin General skin exam: no rashes or lesions noted Neuro General: patient oriented x3, No gait normal (Slightly impaired because of arthritis, she uses a cane) and no focal motor deficits Cranial nerves: Yes CN's II-XII intact bilaterally Extrem General: Yes normal to inspection, Yes no clubbing, cyanosis or edema, Yes no calf tenderness and No normal gait (Slightly impaired because of joint pains/knees, uses cane.) Psych Appearance: grossly normal and well kempt Speech and movement: Normal speech and movement present Results Reviewed Results Reviewed: 11/30/24 CT SCAN OF CHEST IMPRESSION: 1. Prior exams are not available for comparison. Postoperative changes right middle lobe with nodular opacity suspect represents a focus of scarring. Recurrent disease is not entirely excluded and comparison should be made with any prior exams. 2. Scattered ground-glass nodules some of which are likely in a tree-in-bud configuration suggesting bronchiolitis. Again comparison should be made with any prior exam. 3. Solid irregular nodule left lung base. Again compare with any prior studies. If none are available please obtain a follow-up examination in 3-6 months. This document has been electronically signed by: Omar Abbott MD on 11/30/2024 13:09:07 Assessment & Plan Assessment & Plan (1) Asthma: Comment: PATIENT MAY HAVE A MILD DEGREE OF BRONCHIAL ASTHMA. SEEMS TO BE WELL CONTROLLED. HE HAS HAD INCREASED COUGH AND CHEST CONGESTION FOR THE LAST 3 WEEKS. Code(s): J45.909 - Unspecified asthma, uncomplicated Category: Medical Qualifiers: Asthma complication type: uncomplicated Asthma persistence: intermittent Asthma severity: mild Qualified Code(s): J45.20 - Mild intermittent asthma, uncomplicated Plan: SEEMS THAT SHE IS RECOVERING FROM ACUTE RESPIRATORY INFECTION AND HAS SOME RESIDUAL BRONCHITIS. I WOULD TREAT HER WITH A COURSE OF Z-LESLIE. CONTINUE TO USE ALBUTEROL HFA 2 PUFFS Q.6 HOURS PRN (2) Pulmonary nodule: Comment: July 2021 CT scan of the chest, findings reviewed with the patient. A few ground-glass densities are stable. 10 MM ground-glass nodule at the surgical scar area from previous surgery ( Resection of Maltoma ) is present. And needs to be monitored. LAST CT SCAN IN 2022, she did have a few new densities. CT SCAN OF THE CHEST 11/28/2024, REPORT NOTED ABOVE. Code(s): R91.1 - Solitary pulmonary nodule Category: Medical Plan: SHE NEEDS A REPEAT CT SCAN AT 6 MONTHS INTERVAL, RECOMMENDED BY RADIOLOGY. SO I HAVE PUT IN A REQUEST FOR CT SCAN. (3) Bronchitis: Comment: IT SEEMS THAT SHE IS RECOVERING FROM A RECENT RESPIRATORY INFECTION/NONSPECIFIC BRONCHITIS . SHE STILL HAS FEELING OF CHEST CONGESTION WITH INCREASED COUGH Code(s): J40 - Bronchitis, not specified as acute or chronic Category: Medical Plan: I HAVE ORDERED A COURSE OF Z-LESLIE. (4) ALEISHA (obstructive sleep apnea): Comment: Patient has mild ALEISHA and excessive snoring, with excessive daytime sleepiness. She was definitely benefiting from the use of CPAP. CPAP full face mask Dream wear ,was DAMAGED AND SHE IS STILL WAITING TO GET A REPLACEMENT. Code(s): G47.33 - Obstructive sleep apnea (adult) (pediatric) Category: Medical Plan: Advised that she needs to use CPAP regularly. She can get a new mask, but if not covered by insurance then she will have to pay [id number]. 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
--- OUTSIDE RECORDS SUMMARY | 2025-06-13 13:37 | XMS_ITS | Patient Health Record ---
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 Name Role Phone Po Constantine GODINEZ Primary Care Provider Gómez Matthews [phone] Allergies Allergen (clinical drug ingredient) Drug/Non Drug [...] Start Date End Date Status Vitamin D3 57078 UNIT 1 capsule Orally e very week [...] Problem Screening for malignant neoplasm of colon (893351670) Encounter for screening for malignant neoplasm of colon (Z12.11) Active confirmed Problem Preprocedural examination (688434110330056) Preprocedural examination (Z01.818) Active confirmed Problem Family History of Cancer of Colon (Situation) (724254265) Family history of colon cancer (Z80.0) Active confirmed Problem Right lower quadrant pain (306097428) Abdominal pain, RLQ (R10.31) Active confirmed Problem Pancreatic cyst (57316930) Pancreatic cyst (K86.2) Active confirmed Problem Constipation (79550874) Constipation, unspecified constipation type (K59.00) Active confirmed Problem History of adenomatous polyp of colon (887068919) Hx of adenomatous colonic polyps (Z86.010) Active confirmed Vital Signs Temperature 97.6 degrees Fahrenheit 05/30/2025 Blood pressure diastolic 01 mm Hg 05/30/2025 Height 61 in 05/30/2025 Blood pressure systolic 001 mm Hg 05/30/2025 Weight 204.4 lbs 05/30/2025 BMI 38.62 kg/m2 05/30/2025 Procedures Procedure Date Ordered Date Performed Result Body Sit e COLONOSCOPY 05/30/2025 N/A Encounters Encounter Location Date Provider Diagnosis [facility] [address] [place] [address] 05/30/2025 Gómez Mejia Hx of adenomatous colonic polyps Z86.010 ; Pancreatic cyst K86.2 ; Encounter for screening for malignant neoplasm of colon Z12.11 and Family history of colon cancer Z80.0 [facility] [address] [place] [address] 05/30/2025 Gómez Mejia Assessments Encounter Date Diagnosis (ICD Code) Assessment Notes Treatment Notes Treatment Clinical Notes Section Notes 05/30/2025 Pancreatic cyst (ICD-10 - K86.2) Overall, [...] Name:Gómez Marie Jackie , 06/21/2025 11:40:00 AM, [address] [place] [address] , [place], [place], [phone], Insurance Providers Payer Name Payer Address Payer Phone Subscriber Number Group Number Insured Name Patient Relationship to Insured Coverage Start Date Coverage End Date [facility] [address] [address] [place] [id number] DANIELANNITA Vega Self - patient is the insured Medical (General) History Medical History History ICD Code Denies ME,DM,CVA,renal disease 1 small tubular adenoma ramírez dagmar [...] Dr. José pinto Right middle lobe lung [id number] mphoma Right knee arthroscopy Cryosurgery for cervical cancer Vocal cord polyp removal Cholecystectomy 2005 Tubal ligation
== END 2025-06-13 12:08 | disposition home or self-care (01) ==
LOC: HO.HPS 11:30
PROVIDERS: PCP Internal Medicine; Visit Provider Internal Medicine
DX: J45.20 Mild intermittent asthma, uncomplicated (principal); R91.1 Solitary pulmonary nodule; J40 Bronchitis, not specified as acute or chronic; G47.33 Obstructive sleep apnea (adult) (pediatric)
CPT/HCPCS: 99213

== ENCOUNTER → 2025-06-13 11:30 | Outpatient (BNVA) | payer MEDICARE, SELFPAY | PROVIDERS: PCP Internal Medicine; Visit Provider Internal Medicine | DX: J45.20 Mild intermittent asthma, uncomplicated (principal); J20.9 Acute bronchitis, unspecified; R91.1 Solitary pulmonary nodule; G47.33 Obstructive sleep apnea (adult) (pediatric); E66.9 Obesity, unspecified; Z68.39 Body mass index [BMI] 39.0-39.9, adult | CPT/HCPCS: 99212 ==

== ENCOUNTER 2025-06-21 10:23 | Day surgery (SDC) | payer MEDICARE, SELFPAY ==
--- OUTSIDE RECORDS SUMMARY | 2025-05-30 06:55 | XMS_ITS ---
Author Organization [facility] Address [address] [place] [address] Care Team Providers Care Director Of Rehabilitation Name Role Phone Constantine Lara MD Primary Care Provider Gómez Matthews [phone] Allergies Allergen (clinical drug ingredient) Drug/Non Drug Allergy documented on EMR Reaction Allergy Type Onset Date Status acetaminophen / oxycodone Percocet Unknown Drug Allergy Active meperidine Demerol Unknown Drug Allergy Active Codeine Phosphate Unknown Drug Allergy Active strawberry allergenic extract strawberries (uncoded) Unknown Allergy Activ e Sulfa Unknown Drug Allergy Active Penicillin Unknown Drug Allergy Active REASON FOR VISIT Patient presents today for screening colonoscopy Medications Medication SIG (Take, Route, Frequency, Duration) Notes Start Date End Date Status Amitriptyline HCl 10 MG 1 tablet at bedt miguelina Orally Once a day Active Magnesium 400 MG as directed Orally Active Omeprazole 20 MG 1 capsule 1/2 to 1 hour before morning meal Orally Once a day Active Furosemide 20 MG 1 tablet Orally Once a day Active Simvastatin 20 MG 1 tablet in the evening Orally Once a day Active Stool Softener 100 MG 1 capsule as neede d Orally Once a day; Duration: 30 day(s) Active traMADol HCl 10 MG/ML Orally as needed Active Qvar 40 MCG/ACT 1 puff Inhalation Twice a day Not-Taking oxyBUTYnin Active Ibuprofen 800 MG 1 tablet Orally Thre e times a day Not-Taking Vitamin D3 86700 UNIT 1 capsule Orally e very week Active ProAir HFA 108 (90 Base) MCG/ACT 2 puffs as needed Inhalation every 4 hrs Active Problems Problem Type SNOMED Code ICD Code Onset Dates Problem Status W/U Status Risk Notes Problem Family History of Cancer of Colon (Situation) (040883838) Family history of colon cancer (Z80.0) Active confirmed Problem Pancreatic cyst (29675739) Pancreatic cyst (K86.2) Active confirmed Vital Signs Temperature 97.6 degrees Fahrenheit 05/30/20 25 Blood pressure systolic 001 mm Hg 05/30/20 25 Blood pressure diastolic 01 mm Hg 025 Height 61 in 05/30/2025 Weight 204.4 lbs 05/30/2025 BMI 38.62 kg/m2 05/30/2025 Procedures Procedure Date Ordered Date Performed Result Body Sit e COLONOSCOPY 05/30/2025 N/A Encounters Encounter Location Date Provider Diagnosis [facility] [address] [place] [address] 05/30/2025 Gómez Mejia Hx of adenomatous colonic polyps Z86.010 ; Encounter for screening for malignant neoplasm of colon Z12.11 ; Family history of colon cancer Z80.0 and Pancreatic cyst K86.2 Assessments Encounter Date Diagnosis (ICD Code) Assessment Notes Treatment Notes Treatment Clinical Notes Section Notes 05/30/2025 Hx of adenomatous colonic polyps (ICD-10 - Z86.010) Overall, Annita appears well and is not having any particularly new or worrisome GI complaints. I did recommend a follow-up colonoscopy for further screening given her significant family history of 3 first-degree relatives with colorectal cancer, her personal history of tubular adenomas of the colon, her last colonoscopy being over 5 years ago, her age, and generally good clinical appearance. We did review the rationale for this in regard to colorectal cancer prevention. Full consent has been obtained for this, including risks of bleeding and perforation. The procedure will be done with monitored anesthesia care. She was given the below instructions regarding adjustment of her medication for the procedure. We did also review her history of the pancreatic cyst with the most recent CT scan in November. We did review the radiologist report raising suspicion of something more than just a benign IPMN lesion. As such I will plan to get a MRI of the pancreas as well as checking a CA 19-9 level. She was scheduled for a CT scan of the pancreas but I will cancel that as she is now agreeable to a MRI. Depending upon the results of the MRI we may need to refer her for an endoscopic ultrasound of the lesion and possible biopsy. Annita was comfortable with this plan. Thank you again for allowing me to participate in Annita's care. I shall continue to keep you advised of her progress. 05/30/2025 Encounter for screening for malignant neoplasm of colon (ICD-10 - Z12.11) Overall, Annita appears well and is not having any particularly new or worrisome GI complaints. I did recommend a follow-up colonoscopy for further screening given her significant family history of 3 first-degree relatives with colorectal cancer, her personal history of tubular adenomas of the colon, her last colonoscopy being over 5 years ago, her age, and generally good clinical appearance. We did review the rationale for this in regard to colorectal cancer prevention. Full consent has been obtained for this, including risks of bleeding and perforation. The procedure will be done with monitored anesthesia care. She was given the below instructions regarding adjustment of her medication for the procedure. We did also review her history of the pancreatic cyst with the most recent CT scan in November. We did review the radiologist report raising suspicion of something more than just a benign IPMN lesion. As such I will plan to get a MRI of the pancreas as well as checking a CA 19-9 level. She was scheduled for a CT scan of the pancreas but I will cancel that as she is now agreeable to a MRI. Depending upon the results of the MRI we may need to refer her for an endoscopic ultrasound of the lesion and possible biopsy. Annita was comfortable with this plan. Thank you again for allowing me to participate in Annita's care. I shall continue to keep you advised of her progress. 05/30/2025 Family history of colon cancer (ICD-10 - Z80.0) Overall, Annita appears well and is not having any particularly new or worrisome GI complaints. I did recommend a follow-up colonoscopy for further screening given her significant family history of 3 first-degree relatives with colorectal cancer, her personal history of tubular adenomas of the colon, her last colonoscopy being over 5 years ago, her age, and generally good clinical appearance. We did review the rationale for this in regard to colorectal cancer prevention. Full consent has been obtained for this, including risks of bleeding and perforation. The procedure will be done with monitored anesthesia care. She was given the below instructions regarding adjustment of her medication for the procedure. We did also review her history of the pancreatic cyst with the most recent CT scan in November. We did review the radiologist report raising suspicion of something more than just a benign IPMN lesion. As such I will plan to get a MRI of the pancreas as well as checking a CA 19-9 level. She was scheduled for a CT scan of the pancreas but I will cancel that as she is now agreeable to a MRI. Depending upon the results of the MRI we may need to refer her for an endoscopic ultrasound of the lesion and possible biopsy. Annita was comfortable with this plan. Thank you again for allowing me to participate in Annita's care. I shall continue to keep you advised of her progress. 05/30/2025 Pancreatic cyst (ICD-10 - K86.2) Overall, Annita appears well and is not having any particularly new or worrisome GI complaints. I did recommend a follow-up colonoscopy for further screening given her significant family history of 3 first-degree relatives with colorectal cancer, her personal history of tubular adenomas of the colon, her last colonoscopy being over 5 years ago, her age, and generally good clinical appearance. We did review the rationale for this in regard to colorectal cancer prevention. Full consent has been obtained for this, including risks of bleeding and perforation. The procedure will be done with monitored anesthesia care. She was given the below instructions regarding adjustment of her medication for the procedure. We did also review her history of the pancreatic cyst with the most recent CT scan in November. We did review the radiologist report raising suspicion of something more than just a benign IPMN lesion. As such I will plan to get a MRI of the pancreas as well as checking a CA 19-9 level. She was scheduled for a CT scan of the pancreas but I will cancel that as she is now agreeable to a MRI. Depending upon the results of the MRI we may need to refer her for an endoscopic ultrasound of the lesion and possible biopsy. Annita was comfortable with this plan. Thank you again for allowing me to participate in Annita's care. I shall continue to keep you advised of her progress. Plan Of Treatment Pending Test Test Name Order Date COLONOSCOPY 05/30/2025 BUN 05/30/2025 CA 19-9 05/30/2025 MRI ABD W&WO CONTRAST 05/30/2025 Creatinine 05/30/2025 Next Appt Details Provider Name:Gómez Mejia , 06/21/2025 11:40:00 AM, [address] [place] [address] , [place], [place], [id number], Progress Notes * ANNITA SANCHEZ RDOB:[birth year] (79 yo F)Acc No.[id number]:05/30/2025 Progress Notes Patient: ANNITA LESLIE Provider: Shea Mejia MD :1945 A ge:79 Y S ex:Female Date:05/30/2025 Address:[address] [place], [place] [id number] Pcp:Constantine Lara MD Subjective: * Chief Complaints: * 1 . Patient presents today for screening colonoscopy. * HPI: i ncontinence: I saw Annita in consultation today [facility] for the evaluation of her history of a pancreatic cyst, her personal history of tubular adenomas of the colon, her significant family history of colorectal cancer, and her need for colorectal cancer screening. I last saw Annita in 2019, at which time she underwent a follow-up surveillance colonoscopy with removal of several small tubular adenomas. Her family history is notable for her father and 2 sisters having had colon cancer. One of her sisters was only in her 40s at the time. Annita presently feels well. Her bowel movements are fairly regular although she does describe occasional constipation. However in general she does have a daily bowel movement and there has been no sign of bleeding. She enjoys a good appetite. She does remain on her omeprazole which she takes at night as she thinks that works better for her heartburn. She denies any dysphagia, anorexia, early satiety, nausea, nor vomiting. She denies any abdominal pain, signs of jaundice, nor any unintentional weight loss. She has had a longstanding history of a known pancreatic cyst that had been evaluated in approximately [address] Shane Coto at [facility]. According to my note he did not think this required anything such as an endoscopic ultrasound given its size and appearance on the other imaging studies. Annita has had no abdominal pain in this regard. She denies any history of pancreatic disease in herself or family members. Her most recent imaging was a CT scan of the abdomen in November that described a hypodense lesion in the pancreatic head compatible with a neoplasm and raising a suspicion of a cystadenocarcinoma according to the radiologist. However, according to the report the radiologist did not have any previous imaging studies to compare this to. She did have a MRI of the abdomen in 2022 describing a similar size lesion in the pancreas felt to represent a IPMN. Laboratories in April revealed normal chemistries and renal function, normal LFTs, and a hemoglobin of 13.9. I did discuss the situation of the pancreatic cyst with Dr. 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 Schwartz, Urinary incontinence, Incidental 1.5cm pancreas mass seen on imaging studies since at least [address], MRI, and PET-CT's-sees Dr. Coto- did not do an EUS as the mass as been unchanged since at least 2016, Sleep apnea- not using a CPAP, CLL. * Surgical History: T ubal ligation , Cholecystectomy 2004, Vocal cord polyp removal , Cryosurgery for cervical cancer , Right knee arthroscopy , Right middle lobe lung [id number] , C-spine disc surgery in [address] Harrell . * Family History: F ather: , diagnosed with Colon cancer. M other: . S iblings: , diagnosed with Colon cancer. The patient's sister of colon cancer at the age of 49. She had been diagnosed at the age of 40. She also had a father that developed colon cancer in his mid 60's. no family hx of liver. * Social History: T obacco Use: T obacco Use/Smoking A re you a: nonsmoker. D rugs/Alcohol: A lcohol Screen P oints: 1, Interpretation: Negative. M iscellaneous: M arital status: . 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. N onsmoker; no sig alcohol. * Medications: T aking oxyBUTYnin , Taking Magnesium 400 MG Tablet as directed Orally , Taking Furosemide 20 MG Tablet 1 tablet Orally Once a day , Taking Omeprazole 20 MG Capsule Delayed Release 1 capsule 1/2 to 1 hour before morning meal Orally Once a day , Taking Simvastatin 20 MG Tablet 1 tablet in the evening Orally Once a day , Taking Amitriptyline HCl 10 MG Tablet 1 tablet at bedtime Orally Once a day , Taking Vitamin D3 23268 UNIT Capsule 1 capsule Orally every week , Taking ProAir HFA 108 (90 Base) MCG/ACT Aerosol Solution 2 puffs as needed Inhalation every 4 hrs , Taking traMADol HCl 10 MG/ML Suspension Reconstituted Orally as needed , Taking Stool Softener 100 MG Capsule 1 capsule as needed Orally Once a day , Not-Taking/PRN Ibuprofen 800 MG Tablet 1 tablet Orally Three times a day , Not-Taking/PRN Qvar 40 MCG/ACT Aerosol Solution 1 puff Inhalation Twice a day , Discontinued Simvastatin 10 MG Tablet 1 tablet in the evening Orally Once a day , Medication List reviewed and reconciled with the patient * Allergies: D emerol, Percocet, Sulfa, Codeine Phosphate, Penicillin, strawberries. Objective: * Vitals: W t: 204.4 lbs, Ht: 61 in, BMI: 38.62 Index, BP: 001/01 mm Hg, Temp: 97.6, [id number]. Assessment: * Assessment: 1. H x of adenomatous colonic polyps - Z86.010 (Primary) 2 . E ncounter for screening for malignant neoplasm of colon - Z12.11 3 . F amily history of colon cancer - Z80.0 4 . P ancreatic cyst - K86.2 Overall, Annita appears wel l and is not having any particularly new or worrisome GI complaints. I did recommend a follow-up colonoscopy for further screening given her significant family history of 3 first-degree relatives with colorectal cancer, her personal history of tubular adenomas of the colon, her last colonoscopy being over 5 years ago, her age, and generally good clinical appearance. We did review the rationale for this in regard to colorectal cancer prevention. Full consent has been obtained for this, including risks of bleeding and perforation. The procedure will be done with monitored anesthesia care. She was given the below instructions regarding adjustment of her medication for the procedure. We did also review her history of the pancreatic cyst with the most recent CT scan in November. We did review the radiologist report raising suspicion of something more than just a benign IPMN lesion. As such I will plan to get a MRI of the pancreas as well as checking a CA 19-9 level. She was scheduled for a CT scan of the pancreas but I will cancel that as she is now agreeable to a MRI. Depending upon the results of the MRI we may need to refer her for an endoscopic ultrasound of the lesion and possible biopsy. Annita was comfortable with this plan. Thank you again for allowing me to participate in Annita's care. I shall continue to keep you advised of her progress. Plan: * Treatment: 2.?Encounter for screening for malignant neoplasm of colon?Procedure: COLONOSCOPY* With MACDo not take the Furo semide the day before or on the day of the surgerysched for 06/21/25 at 11:40 ammiralax 3.?Family history of colon cancer?Procedure: COLONOSCOPY* With MACDo not take the Furo semide the day before or on the day of the surgerysched for 06/21/25 at 11:40 ammiralax 4.?Pancreatic cyst?LAB: BUN ?LAB: CA 19-9 ?LAB: Creatinine ?Imaging: MRI ABD W&WO CONTRAST* Compare to previous studiesC Negrita friend 05/31/2025 08:49:39 AM EDT > no pa req cpt 76261 ref# [id number] pt has lab slip * * Procedure Codes: 4 5378 DIAGNOSTIC COLONOSCOPY * Preventive Medicine: Counseling: C are goal follow-up plan: A radha Normal BMI Follow-up D ietary management education, guidance, and counseling, B AK management provided Martha gomes. Urinary Incontinence: U rinary Incontinence A ssessment: P resent, P abdirashid of care documented: Y es, T ype of plan of care: B ladder training. Screenings: F all Risk Screening F all Risk Assessment: N o falls in the past year, S creening: N o falls in the past year, P abdirashid of Care: N ot documented, no reason specified. * * The named appointment provid er may or may not be the originator of this progress note, and it is not deemed complete until electronically signed by the appointment provider. Sign off status: Pending * Provider: Shea Mejia MD Date: Generated for Norberto vidal/Sheeba/Ken on: 03:44 PM EDT History and Physical Notes * HPI (History of Present Illness) Category Sub-Category Detail Notes Category Not es incontinence I saw Annita in consultation today [facility] for the evaluation of her history of a pancreatic cyst, her personal history of tubular adenomas of the colon, her significant family history of colorectal cancer, and her need for colorectal cancer screening. I last saw Annita in 2019, at which time she underwent a follow-up surveillance colonoscopy with removal of several small tubular adenomas. Her family history is notable for her father and 2 sisters having had colon cancer. One of her sisters was only in her 40s at the time. Annita presently feels well. Her bowel movements are fairly regular although she does describe occasional constipation. However in general she does have a daily bowel movement and there has been no sign of bleeding. She enjoys a good appetite. She does remain on her omeprazole which she takes at night as she thinks that works better for her heartburn. She denies any dysphagia, anorexia, early satiety, nausea, nor vomiting. She denies any abdominal pain, signs of jaundice, nor any unintentional weight loss. She has had a longstanding history of a known pancreatic cyst that had been evaluated in approximately [address] Shane Coto at [facility]. According to my note he did not think this required anything such as an endoscopic ultrasound given its size and appearance on the other imaging studies. Annita has had no abdominal pain in this regard. She denies any history of pancreatic disease in herself or family members. Her most recent imaging was a CT scan of the abdomen in November that described a hypodense lesion in the pancreatic head compatible with a neoplasm and raising a suspicion of a cystadenocarcinoma according to the radiologist. However, according to the report the radiologist did not have any previous imaging studies to compare this to. She did have a MRI of the abdomen in 2022 describing a similar size lesion in the pancreas felt to represent a IPMN. Laboratories in April revealed normal chemistries and renal function, normal LFTs, and a hemoglobin of 13.9. I did discuss the situation of the pancreatic cyst with Dr. 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
--- OUTSIDE RECORDS SUMMARY | 2025-06-01 15:44 | XMS_ITS | Patient Health Record ---
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 Name Role Phone Po Constantine GODINEZ Primary Care Provider Gómez Matthews [phone] Allergies Allergen (clinical drug ingredient) Drug/Non Drug Allergy documented on EMR Reaction Allergy Type Onset Date Status acetaminophen / oxycodone Percocet Unknown Drug Allergy Active meperidine Demerol Unknown Drug Allergy Active Codeine Phosphate Unknown Drug Allergy Active strawberry allergenic extract strawberries (uncoded) Unknown Allergy Activ e Sulfa Unknown Drug Allergy Active Penicillin Unknown Drug Allergy Active Reason For Referral No Information Medications Medication SIG (Take, Route, Frequency, Duration) Notes Start Date End Date Status Vitamin D3 20799 UNIT 1 capsule Orally e very week Active Amitriptyline HCl 10 MG 1 tablet at bedt miguelina Orally Once a day Active ProAir HFA 108 (90 Base) MCG/ACT 2 puffs as needed Inhalation every 4 hrs Active Stool Softener 100 MG 1 capsule as neede d Orally Once a day; Duration: 30 day(s) Active traMADol HCl 10 MG/ML Orally as needed Active Magnesium 400 MG as directed Orally Active Qvar 40 MCG/ACT 1 puff Inhalation Twice a day Not-Taking oxyBUTYnin Active Ibuprofen 800 MG 1 tablet Orally Thre e times a day Not-Taking Omeprazole 20 MG 1 capsule 1/2 to 1 hour before morning meal Orally Once a day Active Furosemide 20 MG 1 tablet Orally Once a day Active Simvastatin 20 MG 1 tablet in the evening Orally Once a day Active Immunizations Vaccine Route Administration Date Status Comme nts Flu vaccine no Preserv 3 and > Unknown 08/08/2014 Admin istered Influenza Unknown 05/03/2019 Administered Influenza Unknown 05/26/2024 Administered Problems Problem Type SNOMED Code ICD Code Onset Dates Problem Status W/U Status Risk Notes Problem Screening for malignant neoplasm of colon (868799028) Encounter for screening for malignant neoplasm of colon (Z12.11) Active confirmed Problem Preprocedural examination (123450055545357) Preprocedural examination (Z01.818) Active confirmed Problem Family History of Cancer of Colon (Situation) (979751136) Family history of colon cancer (Z80.0) Active confirmed Problem Right lower quadrant pain (412336204) Abdominal pain, RLQ (R10.31) Active confirmed Problem Pancreatic cyst (72611812) Pancreatic cyst (K86.2) Active confirmed Problem Constipation (12892159) Constipation, unspecified constipation type (K59.00) Active confirmed Problem History of adenomatous polyp of colon (231028077) Hx of adenomatous colonic polyps (Z86.010) Active confirmed Vital Signs Temperature 97.6 degrees Fahrenheit 05/30/2025 Blood pressure diastolic 01 mm Hg 05/30/2025 Height 61 in 05/30/2025 Blood pressure systolic 001 mm Hg 05/30/2025 Weight 204.4 lbs 05/30/2025 BMI 38.62 kg/m2 05/30/2025 Procedures Procedure Date Ordered Date Performed Result Body Sit e COLONOSCOPY 05/30/2025 N/A Encounters Encounter Location Date Provider Diagnosis [facility] [address] [place] [address] 05/30/2025 Gómez Mejia Hx of adenomatous colonic polyps Z86.010 ; Encounter for screening for malignant neoplasm of colon Z12.11 ; Family history of colon cancer Z80.0 and Pancreatic cyst K86.2 [facility] [address] [place] [address] 05/30/2025 Gómez Mejia Assessments Encounter Date Diagnosis (ICD Code) Assessment Notes Treatment Notes Treatment Clinical Notes Section Notes 05/30/2025 Encounter for screening for malignant neoplasm [...] keep you advised of her progress. 05/30/2025 Hx of adenomatous colonic polyps (ICD-10 [...] MRI ABD W&WO CONTRAST 05/30/2025 Creatinine 05/30/2025 Future Test Test Name Order Date UPPER GI ENDOSCOPY 12/14/2014 COLONOSCOPY 12/14/2014 COLONOSCOPY 03/06/2020 Next Appt Details Provider Name:Gómez Marie Jackie , 06/21/2025 11:40:00 AM, [address] [place] [address] , [place], [place], [phone], Insurance Providers Payer Name Payer Address Payer Phone Subscriber Number Group Number Insured Name Patient Relationship to Insured Coverage Start Date Coverage End Date [facility] [address] [address] [place] [address] [phone] [id number] DANIELANNITA Vega Self - patient is the insured Medical (General) History Medical History History ICD Code Denies AR,DM,CVA,renal disease 1 small tubular adenoma ramírez dagmar in 1999- then had negative colonoscopies in 2002 and 10/2008; neg colonoscopy in 03/2015 SVT Asthma Cervical cancer- cryosurgery Hyperlipidemia Uses amitryptilene for panic attacks and sleep Occasional GERD-EGD in 2014-small HH, no esophagitis nor 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 Schwartz Urinary incontinence Incidental 1.5cm pancreas ma ss seen on imaging studies since at least [address], MRI, and PET-CT's-sees Dr. Coto- did not do an EUS as the mass as been unchanged since at least 2016 Sleep apnea- not using a CPAP CLL Surgical History Surgery Date(Month/Year) C-spine disc surgery [place] [address] José pinto Right middle lobe lung [id number] mphoma Right knee arthroscopy Cryosurgery for cervical cancer Vocal cord polyp removal Cholecystectomy 2005 Tubal ligation
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
[2025-06-19 14:33] VITALS: BMI 38.5
[2025-06-21 10:36] VITALS: BP 143/81; PULSE 82; RESP 17; TEMP 36.9; O2SAT 95; BMI 37.4
[2025-06-21] MEDS: Lactated Ringers 1,000 ML 100 ML IVCONT (10:56)
[2025-06-21 12:55] VITALS: BP 88/42; PULSE 72; RESP 16; TEMP 36.2; O2SAT 99
[2025-06-21 13:00] VITALS: BP 82/42; PULSE 74; RESP 16; O2SAT 99
--- NOTE | 2025-06-21 13:00 | PM.OP ---
Brief Operative Note Date of Service: 06/21/25 Pre-op diagnosis: Screening Post-op diagnosis: other (Polyps) Procedure: Colonoscopy to the cecum and TI with hot snare polypectomies x 2 Surgeon: Gómez Mejia MD Anesthesia: MAC Was an Audiovisual Production Specialist used for this Procedure?: No Estimated blood loss (mL): 0 Pathology: other (A. Cecal polyp B. Transverse colon polyp) Condition: stable Disposition: PACU
[2025-06-21 13:15] VITALS: BP 99/56; PULSE 67; RESP 16; O2SAT 99
--- NOTE | 2025-06-22 05:02 | OP_ITS ---
DATE OF SERVICE: 06/21/2025 SURGEON: Gómez Mejia MD INDICATIONS: The patient presents for followup of personal history of colon polyps, family history of colon cancer, and colorectal cancer screening. Full consent has been obtained from her for this, including risks of bleeding and perforation. PREOPERATIVE DIAGNOSIS: POSTOPERATIVE DIAGNOSIS: PROCEDURE PERFORMED: Colonoscopy to the cecum and terminal ileum with hot snare polypectomy x2. ESTIMATED BLOOD LOSS: COMPLICATIONS: ANESTHESIA: Medication used, monitored anesthesia care. ASSISTANTS: SPECIMENS: PREOPERATIVE DIAGNOSES: Colorectal cancer screening, personal history of colon polyps, family history of colon cancer. POSTOPERATIVE DIAGNOSES: Colorectal cancer screening, personal history of colon polyps, family history of colon cancer, colon polyps, diverticulosis, and internal hemorrhoids. DESCRIPTION OF PROCEDURE: The patient was placed in the left lateral decubitus position. The digital rectal exam revealed no abnormalities. The Smit O[employer] video pediatric colonoscope was entered into the rectum advanced to the cecum with the assistance of abdominal wall pressure. Once in the cecum I did identify cecal pouch with appendiceal orifice and a normal-appearing ileocecal valve. The terminal ileum was cannulated and appeared normal. The scope was withdrawn back in the colon. The entire cecum was well visualized. In the cecum was an approximately 10 mm polyp, which was removed by hot snare polypectomy and recovered by suction. The polypectomy site appeared clean, without any sign of residual polyp nor bleeding. The scope was then slowly withdrawn assessing all mucosal surfaces carefully. Preparation was excellent. In the transverse colon was an approximately 8 to 10 mm flat, but raised polyp, which was removed by hot snare polypectomy and recovered by suction. The polypectomy site appeared clean, without any sign of residual polyp nor bleeding. I did not visualize any other polyps, colitis, nor angiodysplasia. There was a mild amount of sigmoid diverticulosis. In the rectum, scope was retroflexed visualizing internal hemorrhoids, but no other pathology. The rectal mucosa appeared normal. The scope was straightened and withdrawn from the patient. She tolerated the procedure well and was returned to recovery area in stable condition. IMPRESSION: 1. Colon polyps. 2. Diverticulosis. 3. Internal hemorrhoids. PLAN: The results of the pathology will be checked. Given her age and these findings, I suspect she would not need any further screening colonoscopies going forward. She will be having MRI of the pancreas later this month for followup of the known pancreatic cyst. Assuming that it is stable, she will follow up in 1 year in the office for followup of that. This has been discussed with her daughter. MD DEANNA Candelario/GWEN / [phone]
== END 2025-06-21 13:47 | disposition home or self-care (01) ==
PROVIDERS: PCP Internal Medicine; Visit Provider Internal Medicine
PROC: 0DJD8ZZ Inspection of Lower Intestinal Tract, Via Natural or Artificial Opening Endoscopic (ICD-10-PCS; CPT 45378; principal; 2025-06-21 11:40)
DX: Z12.11 Encounter for screening for malignant neoplasm of colon (principal); Z80.0 Family history of malignant neoplasm of digestive organs; Z86.0101 Personal history of adenomatous and serrated colon polyps; D12.0 Benign neoplasm of cecum; D12.3 Benign neoplasm of transverse colon; K57.30 Diverticulosis of large intestine without perforation or abscess without bleeding; K64.8 Other hemorrhoids; K86.2 Cyst of pancreas; K21.9 Gastro-esophageal reflux disease without esophagitis; J45.909 Unspecified asthma, uncomplicated; I47.10 Supraventricular tachycardia, unspecified; C91.10 Chronic lymphocytic leukemia of B-cell type not having achieved remission; E78.5 Hyperlipidemia, unspecified; G47.33 Obstructive sleep apnea (adult) (pediatric); Z85.41 Personal history of malignant neoplasm of cervix uteri; Z79.899 Other long term (current) drug therapy; Z88.0 Allergy status to penicillin; Z88.2 Allergy status to sulfonamides; Z88.5 Allergy status to narcotic agent; Z90.49 Acquired absence of other specified parts of digestive tract; Z98.890 Other specified postprocedural states
CPT/HCPCS: 45385; 88305; J2003; J2704; J3010

== ENCOUNTER → 2025-06-25 12:48 | Outpatient (BNV) | payer MEDICARE, SELFPAY | PROVIDERS: Absent Provider Internal Medicine Medical Oncology; PCP Internal Medicine; Visit Provider Radiology Diagnostic Radiology | DX: K86.2 Cyst of pancreas (principal); R59.0 Localized enlarged lymph nodes | CPT/HCPCS: 74183 ==

== ENCOUNTER 2025-06-25 12:50 | Outpatient (REF) | payer MEDICARE, SELFPAY ==
--- OUTSIDE RECORDS SUMMARY | 2025-06-21 06:40 | XMS_ITS ---
Author Organization [facility] Address [address] [place] [id number] Care Team Providers Care Pharmacy Coordinator Name Role Phone Constantine Lara MD Primary Care Provider Gómez Matthews [phone] REASON FOR VISIT screening,fam hx colon ca, hx polyps Encounters Encounter Location Date Provider Diagnosis [facility] [place] [address], [place] [phone] 06/21/2025 Gómez Mejia Plan Of Treatment No Information Progress Notes * TORIBIO SANCHEZ RDOB:[birth year] (79 yo F)Acc No.[id number]:06/21/2025 COLON WITH MAC Patient: TORIBIO LESLIE Provider: Shea Mejia MD :1945 A ge:79 Y S ex:Female Date:06/21/2025 Address:[address] [place], [place] [phone] Pcp:Constantine Lara MD Subjective: * Chief Complaints: * S creening,fam hx colon ca, hx polyps * The named appointment provid er may or may not be the originator of this progress note, and it is not deemed complete until electronically signed by the appointment provider. Sign off status: Pending * Provider: Shea Mejia MD Date: 08/21/2024 Generated for Printi ng/Faxing/eTransmitting on: 08/25/2024 12:59 PM EST
--- NOTE | ~2025-06-25 | MR_ITS ---
EXAMINATION: MR ABDOMEN WITHOUT THEN WITH IV CONTRAST HISTORY: Follow-up on the hypodense pancreatic mass COMPARISON: Comparison is made with prior examinations dated 06/23/2023 and 06/23/2022. Correlation is also made with a CT of the abdomen with contrast dated 11/28/2024. TECHNIQUE: Axial in and out of phase T1-weighted gradient echo, axial diffusion weighted, and axial and coronal HASTE T2 with fat saturation images were obtained through the abdomen. Subsequently, fat suppressed axial and coronal T1-weighted images were obtained after the intravenous administration of 9 mL Gadavist. FINDINGS: Liver: There is no loss of signal intensity in the liver on opposed phase imaging to suggest steatosis. There are cysts in the left lobe measuring up to 1.4 cm. There is no enhancing liver mass. The hepatic and portal veins are patent. There is no intrahepatic biliary dilatation. Gallbladder/biliary tree: The patient is status post cholecystectomy. The common bile duct is normal in caliber. No intraluminal filling defects are identified to suggest choledocholithiasis. Spleen: The spleen is unremarkable. Pancreas: Again seen is a multiseptated cystic mass in the head/uncinate process of the pancreas. This measures approximately 2.6 x 1.4 x 2.0 cm (previously 2.6 x 1.8 x 1.7 cm). There is enhancement of the septations without solid component. Additional tiny 1-2 mm cysts are noted in the pancreatic body and tail. There is no enhancing pancreatic mass. The pancreatic duct is normal in caliber. Adrenals: The adrenal glands are unremarkable. Kidneys: There are right renal parapelvic cysts. The left kidney is unremarkable. There is no hydronephrosis. Lymph nodes: An enlarged periportal lymph node is again seen measuring 3.9 x 3.8 x 1.7 cm. Fluid: There is no ascites in the upper abdomen. Visualized bowel: The visualized small and large bowel loops are unremarkable in appearance. Visualized bones: The visualized bones demonstrate normal marrow signal intensity. MR/MR abdomen wo/w con IMPRESSION: 1. Stable 2.6 x 1.4 x 2.0 cm multiseptated cystic mass in the head/uncinate process of pancreas. This may represent an IPMN or serous cystadenoma. 2. Stable enlarged periportal lymph node. Electronically signed by: Gómez Vickers MD 06/26/2025 07:55 AM [facility]
--- OUTSIDE RECORDS SUMMARY | 2025-06-25 12:59 | XMS_ITS | Patient Health Record ---
Author Organization [facility] Address [address] [place] [address] Care Team Providers Care Communications Field Technician Name Role Phone Constantine Lara MD Primary Care Provider Gómez Matthews [phone] Allergies Allergen (clinical drug ingredient) Drug/Non Drug Allergy documented on EMR Reaction Allergy Type Onset Date Status strawberry allergenic extract strawberries (uncoded) Unknown Allergy Activ e Codeine Phosphate Unknown Drug Allergy Active meperidine Demerol Unknown Drug Allergy Active acetaminophen / oxycodone Percocet Unknown Drug Allergy Active Penicillin Unknown Drug Allergy Active Sulfa Unknown Drug Allergy Active Results Component Value Reference Range Notes Pathology (Not yet reviewed by provider) Interpretation: Performing Lab:[facility], [address] [place] [id number] Notes/Report: Reason For Referral No Information Medications Medication SIG (Take, Route, Frequency, Duration) Notes Start Date End Date Status Vitamin D3 34923 UNIT Capsule 1 capsule Orally every week Active Amitriptyline HCl 10 MG Tablet 1 tablet at bedtime Orally Once a day Active ProAir HFA 108 (90 Base) MCG/ACT Aerosol Solution 2 puffs as needed Inhalation every 4 hrs Active Stool Softener 100 MG Capsule 1 capsule as needed Orally Once a day; Duration: 30 day(s) Active traMADol HCl 10 MG/ML Suspension Reconstituted Orally as needed Active Magnesium 400 MG Tablet as directed Orally Active Qvar 40 MCG/ACT Aerosol Solution 1 puff Inhalation Twice a day Not-Taking/PRN oxyBUTYnin Active Ibuprofen 800 MG Tablet 1 tablet Orally Three times a day Not-Taking/PRN Omeprazole 20 MG Capsule Delayed Release 1 capsule 1/2 to 1 hour before morning meal Orally Once a day Active Furosemide 20 MG Tablet 1 tablet Orally Once a day Active Simvastatin 20 MG Tablet 1 tablet in the evening Orally Once a day Active Immunizations Vaccine Route Administration Date Status Comme nts Flu vaccine no Preserv 3 and > Unknown 08/08/2014 Admin istered Influenza Unknown 05/03/2019 Administered Influenza Unknown 05/26/2024 Administered Social History Social History Additional Details Category Social Info Options Details Miscellaneous: Marital status: 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 [employer] Notes: Nonsmoker; no sig alcohol Nonsmoker; no sig alcohol Nonsmoker; no sig alcohol Problems Problem Type SNOMED Code ICD Code Onset Dates Problem Status W/U Status Risk Notes Problem Screening for malignant neoplasm of colon (214518935) Encounter for screening for malignant neoplasm of colon (Z12.11) Active confirmed Problem Preprocedural examination (463202891766660) Preprocedural examination (Z01.818) Active confirmed Problem Family History of Cancer of Colon (Situation) (074888920) Family history of colon cancer (Z80.0) Active confirmed Problem Right lower quadrant pain (423302623) Abdominal pain, RLQ (R10.31) Active confirmed Problem Pancreatic cyst (28649867) Pancreatic cyst (K86.2) Active confirmed Problem Constipation (82785640) Constipation, unspecified constipation type (K59.00) Active confirmed Problem History of adenomatous polyp of colon (665821282) Hx of adenomatous colonic polyps (Z86.010) Active confirmed Vital Signs Temperature 97.6 degrees Fahrenheit 05/30/2025 Blood pressure diastolic 01 mm Hg 05/30/2025 Height 61 in 05/30/2025 Blood pressure systolic 001 mm Hg 05/30/2025 Weight 204.4 lbs 05/30/2025 BMI 38.62 kg/m2 05/30/2025 Procedures Procedure Date Ordered Date Performed Result Body Sit e COLONOSCOPY 05/30/2025 N/A Encounters Encounter Location Date Provider Diagnosis [facility] Out[place] [address] [place], [place] [phone] 06/21/2025 Gómez Mejia [facility] [address] [place] [address] 05/30/2025 Gómez Mejia Hx of adenomatous colonic polyps Z86.010 ; Pancreatic cyst K86.2 ; Encounter for screening for malignant neoplasm of colon Z12.11 and Family history of colon cancer Z80.0 [facility] [address] [facility] [address] [place] [address] 05/30/2025 Gómez Mejia Assessments Encounter Date Diagnosis [...] MRI ABD W&WO CONTRAST 05/30/2025 Creatinine 05/30/2025 Pathology 06/21/2025 Future Test Test Name Order Date UPPER GI ENDOSCOPY 12/14/2014 COLONOSCOPY 12/14/2014 COLONOSCOPY 03/06/2020 Insurance Providers Payer Name Payer Address Payer Phone Subscriber Number Group Number Insured Name Patient Relationship to Insured Coverage Start Date Coverage End Date [facility] [address] [address] [place] [address] [id number] ANNITA SANCHEZ Self - patient is the insured Medical (General) History Medical History History ICD Code Denies MS,DM,CVA,renal disease 1 small tubular adenoma ramírez dagmar in 1999- then had negative colonoscopies in 2002 and 10/2008; neg colonoscopy in 03/2015 SVT Asthma Cervical cancer- cryosurgery Hyperlipidemia Uses amitryptilene for panic attacks and sleep Occasional GERD-EGD in 2014-small HH, no esophagitis nor 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 Schwartz Urinary incontinence Incidental 1.5cm pancreas ma ss seen on imaging studies since at least [address], MRI, and PET-CT's-sees Dr. Coto- did not do an EUS as the mass as been unchanged since at least 2017 Sleep apnea- not using a CPAP CLL Surgical History Surgery Date(Month/Year) Tubal ligation Cholecystectomy 2004 Vocal cord polyp removal Cryosurgery for cervical cancer Right knee arthroscopy Right middle lobe lung [id number] mphoma C-spine disc surgery [place] [address] José pinto
== END 2025-06-25 12:51 | disposition home or self-care (01) ==
LOC: HO.MRI 12:50
PROVIDERS: Absent Provider Internal Medicine Medical Oncology; PCP Internal Medicine; Visit Provider Internal Medicine
DX: K86.2 Cyst of pancreas (principal)
CPT/HCPCS: 74183; A9585